=== PATIENT | female | born 1965 | race Caucasian/White ===

== ENCOUNTER → 2020-07-11 12:40 | Outpatient (REF) | payer MEDICAID, SELFPAY ==
--- NOTE | 2020-07-11 12:47 | CA_ITS ---
Transthoracic Echocardiogram Patient (Last, First, Middle): Adelaida Recinos, Gender: Female Date of : 1965 Age: 54 Procedure Date: 07/11/2020 Procedure Type: Transthoracic Echocardiogram Location: OP Height: 152.4 cm Weight: 80.74 kg BSA: 1.78 m2 Heart Rate: bpm BP: 126 / 64 mmHg Certified Diabetes Educator: Referring MD: Jurgen Kerr MD Symptoms: asd repair 2001 Study Quality: Good ECG Rhythm: Sinus Conclusions: - The left ventricular systolic function is normal. The visually estimated ejection fraction is between 60-65%. - There is low normal right ventricular systolic function. Top normal right ventricular size. - There is mild mitral valve regurgitation. - There is mild tricuspid valve regurgitation. - Stated history of ASD repair. No residual defect noted. Findings Procedure Information Contrast agent, definity, is being given per protocol without apparent complications. Left Ventricle Normal left ventricular cavity size. There is normal left ventricular wall thickness. The left ventricular systolic function is normal. The visually estimated ejection fraction is between 60-65%. There is no evidence of regional wall motion abnormalities. Diastolic function is normal for age. E/E prime ratio is <8, consistent with normal filling pressures. Right Ventricle There is low normal right ventricular systolic function. Top normal right ventricular size. Atria The left atrium is normal in size. The right atrium is normal in size. Aortic Valve There is a normal trileaflet aortic valve. There is no aortic valve stenosis. There is no aortic valve regurgitation. Mitral Valve The mitral valve appears normal. There is mild mitral valve regurgitation. There is no mitral valve stenosis. Pulmonic Valve The pulmonic valve was not well visualized. Tricuspid Valve Normal tricuspid valve structure. There is mild tricuspid valve regurgitation. The pulmonary artery systolic pressure is normal. Great Vessels The aortic annulus, sinuses of valsalva, and asc aorta are normal in size. Venous The inferior vena cava is normal in size and collapses greater than 50% with inspiration. Pericardium/Pleural There is no evidence of pericardial effusion. Prior Study Comparison No significant change compared to prior study dated: 04/06/2019. Measurements 2D Linear Measurements RVADd: 0.47 RVIDd: 3.10 IVSd: 0.88 0.6-0.9/0.6-1.0 cm LVIDd: 5.06 3.9-5.3/4.2-5.9 cm LVIDs: 3.70 2.0-3.6 cm LVPWd: 0.95 0.7-1.1 cm Ao Root: 2.95 2.1-3.5 cm LA Diam: 3.70 2.7-3.8/3.0-4.0 cm LV Mass: 205.82 67-162/88-224 g LVOT Diam: 2.27 3.0+(-)1.3 cm Mitral Valve MV Pk E: 0.67 MV PK A: 0.69 MV Decel Time: 339.62 E/A: 0.98 E'Lateral: 0.13 E'Medial: 0.07 Decel Madison: 1.98 Aortic Valve AoV Pk Chito: 1.41 AoV Mn Chito: 0.98 AoV VTI: 0.29 AoV Pk Grad: 7.92 Aov Mn Grad: 4.43 LVOT LVOT Pk Chito: 0.87 LVOT Mn Chito: 0.65 LVOT VTI: 0.19 LVOT Pk Grad: 3.05 LVOT Mn Grad: 1.84 LVOT Diam: 2.27 LVOT Area: 4.03 Diastolic Function MV Pk E: 0.67 MV Pk A: 0.69 E/A: 0.98 E'Medial: 0.07 E' Laterial: 0.13 Tricuspid Valve TR Pk Chito: 2.41 TR Pk Grad: 23.21 RA Press: 3.00 Great Vessels Aorta Ao Root-2D: 2.95 2.0-3.7 cm Ao Asc: 3.16 2.1-3.4 cm Ao Arch: 2.86 Updated in Other Vendor System with Status of Final Jeff Hernandez MD electronically signed on 07/13/2020 4:54:26 PM with status of Final
== END ==
LOC: HO.CARD 12:40
PROVIDERS: PCP Internal Medicine; Visit Provider Internal Medicine
DX: R07.9 Chest pain, unspecified (principal); Q21.1 Atrial septal defect
CPT/HCPCS: 93306; Q9957

== ENCOUNTER 2020-09-12 08:44 | Outpatient (REF) | payer MEDICAID, SELFPAY ==
--- NOTE | 2020-09-12 08:47 | MM_ITS ---
EXAMINATION: MM SCREENING DIGITAL BREAST TOMOSYNTHESIS, BILATERAL CLINICAL INFORMATION: Screening. Asymptomatic. The lifetime risk of breast cancer based on the Tyrer-Cuzick Model is 6.6%. COMPARISON: Mammography: July 25, 2019 and studies dating back to December 19, 2013 TECHNIQUE: Digital breast tomosynthesis is performed in both the craniocaudal and mediolateral oblique views along with computer-aided detection (CAD). Synthesized 2D images are generated from the tomosynthesis. FINDINGS: The breasts are heterogeneously dense, which may obscure small masses (ACR BI-RADS breast composition Category c). There are no significant masses, abnormal calcifications, or other abnormalities. MM/MM tomosynthesis screening BI IMPRESSION: There are no significant changes from prior study. ASSESSMENT: BI-RADS 1: Negative RECOMMENDATION: Routine annual mammography screening. This patient's information was entered into a reminder system with a target due date for their next mammogram.
== END 2020-09-12 08:45 | disposition home or self-care (01) ==
LOC: HO.MAMMO 08:44
PROVIDERS: Visit Provider Internal Medicine
DX: Z12.31 Encounter for screening mammogram for malignant neoplasm of breast (principal)
CPT/HCPCS: 77063; 77067

== ENCOUNTER 2020-10-12 09:11 | Outpatient (REF) | payer MEDICAID, SELFPAY | END 2020-10-12 09:12 | disposition home or self-care (01) | LOC: HO.LAB 09:11 | PROVIDERS: Visit Provider Internal Medicine | DX: Z20.822 Contact with and (suspected) exposure to COVID-19 (principal) | CPT/HCPCS: 36415; C9803; U0003 ==

== ENCOUNTER 2020-11-19 12:38 | Emergency (ER) | payer MEDICAID, SELFPAY ==
[2020-11-19 12:57] VITALS: BP 137/85; PULSE 91; RESP 16; TEMP 36.6; O2SAT 96; BMI 35.2
--- NOTE | 2020-11-19 14:34 | ED_ITS ---
HPI - Skin/Abscess/Foreign Bdy General Chief complaint: Skin/Abscess/Foreign Body Stated complaint: SWELLING UNDER L ARM Time Seen by Provider: 11/19/20 14:15 Source: patient Mode of arrival: ambulatory Limitations: no limitations History of Present Illness HPI narrative: 54-year-old female presenting to the ED with complaints of some type of insect bite to her left axillary yesterday although she woke up with wor sening redness going down the arm. Denies any other symptoms complaints or concerns at this time. complaint: insect bite/sting and other (Redness) Onset (ago): day(s) (Since last night) Location: RUE Severity: moderate Quality: burning and aching Pain Consistency: constant Relieving factors: none Exacerbating factors: none Context: none Associated symptoms: denies other symptoms Treatments prior to arrival: none Related Data Previous Rx's Medication Instructions Recorded cephalexin 500 mg PO BID 10 Days #20 cap 11/19/20 doxycycline monohydrate 100 mg PO BID 10 Days #20 cap 11/19/20 naproxen 500 mg PO BID PRN #10 tab 11/19/20 oxycodone-acetaminophen [Percocet] 1 tab PO Q6H PRN #10 tab 11/19/20 Allergies Allergy/AdvReac Type Severity Reaction Status Date / Time No Known Allergies Allergy Verified 11/19/20 14:41 Review of Systems Review of Systems: Constitutional : No Fever, No Chills , no body aches, no recent illness Head/Face: No facial swelling, No facial redness ENT/Mouth : No oral/throat swelling, No Hoarseness, No Swallowing Difficulty Eyes: No Eye Pain, No Swelling, No Redness Cardiovascular : No Chest Pain, No SOB, No palpitations Respiratory : No Cough, No Sputum, No Wheezing, No Smoke Exposure, No Dyspnea Gastrointestinal : No Nausea, No Vomiting, No Diarrhea, No abdominal Pain Genitourinary : No Dysuria, No Urinary Frequency, No Hematuria Musculoskeletal : No joint pain, No Myalgias, No Joint Swelling Skin : No Skin Lesions, positive rash Neuro : No Weakness, No Numbness, No Headache, No dizziness, No tingling Psych : No Anxiety/Panic, No Depression Heme/Lymph: No Bruising, No Lymphadenopathy Endocrine : No Polyuria, No Polydipsia Denies changes in lotions or detergents. Denies new medications or any changes in medications. Denies drainage from rash. Denies any recent sick contacts or recent travel. Yes all other systems are reviewed and are negative [facility] Past Medical History Attestation statement: The following information was validated with the patient. Medical History delivery delivered HTN (hypertension) Physical Exam Vital Signs: Vital Signs: Last Vital Signs Temp 98 F 11/19/20 12:57 Pulse 91 11/19/20 12:57 Resp 16 11/19/20 12:57 BP 137/85 11/19/20 12:57 Pulse Ox 96 11/19/20 12:57 Body Mass Index 35.2 vital signs have been reviewed as normal and appeared to be correct. Blood pressure normal. Heart rate normal. Respiration rate normal. Temperature normal. Oxygen saturation normal. Appearance: Alert. Oriented X3. No acute distress. Head: Normal external exam. Normocephalic. Atraumatic. Eyes: PERRLA. EOMI. Conjunctiva and sclera normal. Eyelids normal. ENT: EAC normal. TM's Normal. Pharynx normal. Uvula midline. Moist mucous membranes. Neck: Normal inspection. Neck supple. FROM. No adenopathy. Thyroid Normal. No meningeal signs. No neck mass noted. CVS: Normal heart rate and rhythm. Heart sound normal. No murmurs noted. Pulses normal throughout. Respiratory: No respiratory distress. Painless inspiration. Breath sounds normal. No wheezes/rales/rhonchi noted. Chest nontender. No accessory muscle usage noted or decreased air movement noted. Back: Full range of motion noted. Skin: To left axillary there is noted to be 2 possible insect bites with moderate surrounding erythema spreading distally down the arm. I traced it. Otherwise no streaking/induration/fluctuance or foreign bodies noted. The rest of the Skin is warm and dry. Normal skin color. Normal skin turgor. No additional rashes/lesions/lacerations noted. Extremities: Extremities exhibit normal range of motion. Extremities nontender. Neuro: Oriented X 3. No motor deficit. No sensory deficit. Reflexes normal. Course Course Course Narrative: 54-year-old female with insect bite to left axillary with surrounding cellulitis. No streaking/induration/fluctuance. Will DC home with antibiotics and symptomatic treatment only instructions return if any new or worsening symptoms to follow up with primary care provider. Patient understands agrees the plan. MDM - Skin/Abscess/Foreign Bdy Medical Records Attestation: I reviewed the patient's medical records. Discharge Plan Discharge Clinical Impression: Cellulitis, Insect bites Patient Disposition: Home, Self-Care Instructions: Cellulitis (ED), Insect Bite or Sting (ED) Prescriptions: New doxycycline monohydrate 100 mg capsule 100 mg PO BID 10 Days Qty: 20 RF: 0 cephalexin 500 mg capsule 500 mg PO BID 10 Days Qty: 20 RF: 0 naproxen 500 mg tablet 500 mg PO BID PRN (Reason: pain) Qty: 10 RF: 0 oxycodone-acetaminophen [Percocet] 5-325 mg tablet 1 tab PO Q6H PRN (Reason: pain) Qty: 10 RF: 0 Referrals: Juregn Kerr MD [Primary Care Provider] - 2 days Stand Alone Forms: Work/School Release Print Language: Australian
== END 2020-11-19 14:56 | disposition home or self-care (01) ==
LOC: HO.ED 14:46
PROVIDERS: Emergency Provider Emergency Medicine; PCP Internal Medicine
DX: L03.114 Cellulitis of left upper limb (principal); S40.862A Insect bite (nonvenomous) of left upper arm, initial encounter; W57.XXXA Bitten or stung by nonvenomous insect and other nonvenomous arthropods, initial encounter; I10 Essential (primary) hypertension; Y93.84 Activity, sleeping; Y92.003 Bedroom of unspecified non-institutional (private) residence as the place of occurrence of the external cause; Y99.9 Unspecified external cause status
CPT/HCPCS: 99283

== ENCOUNTER 2020-12-11 11:07 | Outpatient (REF) | payer MEDICAID, SELFPAY ==
[2020-12-11 12:52] LABS: MANUAL DIFF FLAG NO
[2020-12-11 13:13] LABS: Basophils Percent Auto 0.4 % (0-2); Eosinophils Absolute Auto 0.1 X10*3/uL (0.0-0.4); Eosinophils Percent Auto 1.1 % (0-4); Hematocrit 39.2 % (37-47); Hemoglobin 12.6 g/dl (12.0-16.0); Imm Gran Abs Auto 0.01 X10*3/uL (0.00-0.03); Imm Gran Pct Auto 0.2 % (0.0-0.4); Lymphocytes Absolute Auto 2.1 X10*3/uL (1.2-4.9); Lymphocytes Percent Auto 37.9 % (20-40); Mean Corpuscular HGB Conc 32.1 g/dl (31.0-35.0); Mean Corpuscular Hemoglobin 26.4 pg (27.0-33.0); Mean Corpuscular Volume 82.2 fL (80-98); Mean Platelet Volume 12.2 fL (9.4-12.3); Monocytes Absolute Auto 0.5 X10*3/uL (0.1-1.2); Monocytes Percent Auto 8.3 % (2-11); Neutrophils Absolute Auto 2.9 X10*3/uL (2.0-8.3); Neutrophils Percent Auto 52.1 % (45-73); Platelet Count 291 X10*3/uL (160-400); Red Blood Count 4.77 X10*6/uL (4.20-5.50); Red Cell Distribution Width 13.3 % (11.0-16.0); White Blood Count 5.5 X10*3/uL (4.8-10.8)
[2020-12-11 14:33] LABS: Alanine Aminotransferase 17 U/L (0-31); Albumin Level 4.2 g/dL (3.5-5.0); Alkaline Phosphatase 78 U/L (39-117); Anion Gap 11 (12-20); Aspartate Amino Transferase 14 U/L (5-31); Bilirubin Total 0.4 mg/dL (0.0-1.0); Blood Urea Nitrogen 17 mg/dL (9-16); Calcium 9.1 mg/dL (8.4-10.2); Carbon Dioxide 31 mmol/L (22-29); Chloride 105 mmol/L (96-108); Estimated Glomerular Filt Rate > 60; Glucose Random 99 mg/dL (60-115); Potassium 3.8 mmol/L (3.3-5.1); Sodium 143 mmol/L (135-145)
== END 2020-12-11 11:08 | disposition home or self-care (01) ==
LOC: HO.MANLDS 11:07
PROVIDERS: PCP Internal Medicine; Visit Provider Internal Medicine
DX: R42 Dizziness and giddiness (principal)
CPT/HCPCS: 36415; 80053; 85025

== ENCOUNTER 2020-12-26 11:24 | Outpatient (REF) | payer MEDICAID, SELFPAY ==
--- NOTE | ~2020-12-26 | CT_ITS ---
EXAMINATION: CT HEAD WITHOUT CONTRAST CLINICAL INFORMATION: Ataxic gait COMPARISON: None TECHNIQUE: Contiguous axial imaging was performed from the skull base to vertex without intravenous administration of contrast. This CT examination was performed using dose optimization techniques as appropriate, variously including the following: *Automated exposure control *Adjustment of mA and/or kV according to patient size (this includes techniques or standardized protocols for targeted exams where dose is matched to indication/reason for exam; i.e. extremities or head) *Use of iterative reconstruction technique DLP: 710 mGy-cm FINDINGS: There is no evidence of acute intracranial hemorrhage or territorial infarction. No abnormal mass effect or midline shift is seen. Morales to white matter differentiation is well preserved. No extra-axial fluid collections are identified. The ventricles are normal in size. There is no abnormal attenuation within the brain parenchyma. The osseous structures and soft tissues are normal. The mastoid air cells and visualized portions of the paranasal sinuses are well aerated. CT/CT head/brain wo con IMPRESSION: No acute intracranial process seen.
== END 2020-12-26 11:25 | disposition home or self-care (01) ==
LOC: HO.CT 11:24
PROVIDERS: PCP Internal Medicine; Visit Provider Internal Medicine
DX: R26.0 Ataxic gait (principal)
CPT/HCPCS: 70450

== ENCOUNTER 2021-03-13 12:49 | Outpatient (REF) | payer MEDICAID, SELFPAY ==
--- NOTE | ~2021-03-13 | US_ITS ---
EXAMINATION: US SOFT TISSUE OF THE NECK CLINICAL INFORMATION: Submandibular swelling/salivary gland swelling right. COMPARISON: None TECHNIQUE: Linear transducer hart-scale and color Doppler examination of the right submandibular area at area of patient discomfort and left submandibular area for comparison purposes. FINDINGS: Imaging through the right submandibular space reveals multiple lymph nodes with the largest lymph node measuring 0.8 x 0.5 x 0.6 cm. It has central echogenic medulla and a normal cortex. Lymph nodes also visualized in the left submandibular space when obtained for comparison. All of these lymph nodes have normal lymph node architecture. US/US soft tiss head and/or neck IMPRESSION: Benign-appearing bilateral submandibular space lymph nodes by ultrasound.
== END 2021-03-13 12:50 | disposition home or self-care (01) ==
LOC: HO.US 12:49
PROVIDERS: PCP Internal Medicine; Visit Provider Internal Medicine
DX: K11.9 Disease of salivary gland, unspecified (principal)
CPT/HCPCS: 76536

== ENCOUNTER 2021-04-24 09:13 | Outpatient (REF) | payer MEDICAID, SELFPAY ==
--- NOTE | ~2021-04-24 | XR_ITS ---
EXAMINATION: XR KNEE, LEFT CLINICAL INFORMATION: Derangement lateral meniscus COMPARISON: None TECHNIQUE: 3 views of the left knee are obtained which include upright AP view with weightbearing. FINDINGS: There is no fracture, dislocation, destructive process. There is mild narrowing patellofemoral joint without lateralization. Small lateral patellar spur and posterior patellar spurs. No definite effusion. Hoffa's fat pad appears normal. There is spurring from the femoral condyles and lateral tibial plateau. No definite knee joint compartment narrowing and no erosive change. There is some faint chondrocalcinosis menisci. XR/XR knee LT 3V IMPRESSION: 1. Mild narrowing patellofemoral joint with patellar spurring. 2. Osteophytes femoral condyles and tibial plateau. Meniscal chondrocalcinosis. No erosive change.
== END 2021-04-24 09:14 | disposition home or self-care (01) ==
LOC: HO.XRAY 09:13
PROVIDERS: PCP Internal Medicine; Visit Provider Internal Medicine
DX: M23.302 Other meniscus derangements, unspecified lateral meniscus, unspecified knee (principal)
CPT/HCPCS: 73562

== ENCOUNTER 2021-09-05 09:13 | Outpatient (REF) | payer MEDICAID, SELFPAY ==
[2021-09-12 04:52] LABS: HPV mRNA E6/E7 rflx Not Detected (Not Detected)
== END 2021-09-05 09:14 | disposition home or self-care (01) ==
LOC: HO.LAB 09:13
PROVIDERS: PCP Internal Medicine; Visit Provider Obstetrics & Gynecology
DX: Z01.411 Encounter for gynecological examination (general) (routine) with abnormal findings (principal); Z11.51 Encounter for screening for human papillomavirus (HPV); R32 Unspecified urinary incontinence
CPT/HCPCS: 87624; 88142

== ENCOUNTER 2021-10-10 13:59 | Outpatient (REF) | payer MEDICAID, SELFPAY ==
--- NOTE | ~2021-10-10 | MM_ITS ---
EXAMINATION: MM SCREENING DIGITAL BREAST TOMOSYNTHESIS, BILATERAL CLINICAL INFORMATION: Screening. Asymptomatic. Previous benign right breast biopsy. The lifetime risk of breast cancer based on the Tyrer-Cuzick Model is 6.4%. COMPARISON: Mammography: September 12, 2020 and studies dating back to September 04, 2011 TECHNIQUE: Digital breast tomosynthesis is performed in both the craniocaudal and mediolateral oblique views along with computer-aided detection (CAD). Synthesized 2D images are generated from the tomosynthesis. FINDINGS: The breasts are extremely dense, which lowers the sensitivity of mammography (ACR BI-RADS breast composition Category d). There is stable parenchymal pattern. There are some stable regions of architectural distortion bilaterally. No new suspicious grouping of microcalcifications identified. MM/MM tomosynthesis screening BI IMPRESSION: There are no significant changes from prior study. ASSESSMENT: BI-RADS 2: Benign RECOMMENDATION: Routine annual mammography screening. This patient's information was entered into a reminder system with a target due date for their next mammogram.
== END 2021-10-10 14:00 | disposition home or self-care (01) ==
LOC: HO.MAMMO 13:59
PROVIDERS: PCP Internal Medicine; Visit Provider Obstetrics & Gynecology
DX: Z12.31 Encounter for screening mammogram for malignant neoplasm of breast (principal)
CPT/HCPCS: 77063; 77067

== ENCOUNTER → 2021-10-28 14:47 | Outpatient (BNVA) | payer MEDICAID, SELFPAY | PROVIDERS: PCP Internal Medicine | DX: N39.3 Stress incontinence (female) (male) (principal) | CPT/HCPCS: 51798; 99202 ==

== ENCOUNTER → 2021-11-07 07:44 | Outpatient (REF) | payer MEDICAID, SELFPAY ==
--- NOTE | 2021-11-07 07:47 | CA_ITS ---
Transthoracic Echocardiogram Patient (Last, First, Middle): Adelaida Lehman, Gender: Female Date of : 1965 Age: 55 Procedure Date: 11/07/2021 Procedure Type: Transthoracic Echocardiogram Location: OP Height: 152.4 cm Weight: 80.29 kg BSA: 1.77 m2 Heart Rate: bpm BP: 122 / 88 mmHg Db2 Systems Programmer: LEANDER Referring MD: Jurgen Kerr MD Symptoms: ASD Q21.1 Study Quality: Fair ECG Rhythm: Sinus Conclusions: - The left ventricular systolic function is low normal. The visually estimated ejection fraction is between 50-55%. - No obvious valvular pathology seen on this study. - Status post ASD repair. No clear residual defect. Findings Left Ventricle Normal left ventricular cavity size. There is normal left ventricular wall thickness. The left ventricular systolic function is low normal. The visually estimated ejection fraction is between 50-55%. No overt wall motion abnormality, but endocardial definition is suboptimal. Right Ventricle Mildly increased right ventricular cavity size. There is low normal right ventricular systolic function. Atria The left atrium is mildly dilated. The right atrium is moderately dilated. Aortic Valve There is a normal trileaflet aortic valve. There is no aortic valve stenosis. There is no aortic valve regurgitation. Mitral Valve The mitral valve appears normal. There is trace mitral valve regurgitation. There is no mitral valve stenosis. Pulmonic Valve The pulmonic valve was not well visualized. Tricuspid Valve Normal tricuspid valve structure. There is mild tricuspid valve regurgitation. The pulmonary artery systolic pressure is normal. Great Vessels The aortic annulus, sinuses of valsalva, and asc aorta are normal in size. Venous The inferior vena cava is normal in size and collapses greater than 50% with inspiration. Prior Study Comparison Changes noted compared to prior study dated: 07/11/2020. LVEF appears slightly lower than before. However, prior study was with contrast with improved endocardial definition. Recommendations, Care & Conclusions No obvious valvular pathology seen on this study. Measurements 2D Linear Measurements IVSd: 1.00 0.6-0.9/0.6-1.0 cm LVIDd: 4.09 3.9-5.3/4.2-5.9 cm LVIDd Index: 2.31 2.4-3.2/2.2-3.1 cm/m2 LVIDs: 2.98 2.0-3.6 cm LVPWd: 1.05 0.7-1.1 cm Ao Root: 3.10 2.1-3.5 cm LA Diam: 3.60 2.7-3.8/3.0-4.0 cm LAIDs Index: 2.03 1.5-2.3 cm/m2 LV Mass: 169.23 67-162/88-224 g LV Mass Index: 95.61 43-95/49-115 g/m2 LVOT Diam: 2.00 3.0+(-)1.3 cm 2D Systolic Function EF 4C: 52.60 >55% EF 2C: 59.50 >55% EF BiP: 55.60 >55% Mitral Valve MV Pk E: 0.51 MV PK A: 0.78 MV Decel Time: 303.00 E/A: 0.70 E'Lateral: 12.60 E'Medial: 6.31 E/E' Med: 8.10 E/E' Lat: 4.10 PHT: 89.00 MVA PHT: 2.47 Decel Carroll: 1.70 Aortic Valve AoV Pk Chito: 1.41 AoV Mn Chito: 1.06 AoV VTI: 0.29 AoV Pk Grad: 8.00 Aov Mn Grad: 5.00 DUGLAS Cont.VTI: 1.99 LVOT LVOT Pk Chito: 0.95 LVOT Mn Chito: 0.68 LVOT VTI: 0.19 LVOT Pk Grad: 4.00 LVOT Mn Grad: 2.00 LVOT Diam: 2.00 LVOT Area: 3.14 Diastolic Function MV Pk E: 0.51 MV Pk A: 0.78 E/A: 0.70 E'Medial: 6.31 E/E' Med: 8.10 E' Laterial: 12.60 E/E' Lat: 4.10 Right Ventricle TAPSE (mm): 17.10 TVS' Chito: 9.57 Tricuspid Valve TR Pk Chito: 2.42 TR Pk Grad: 23.00 RA Press: 3.00 RVSP: 26.00 Great Vessels Aorta Ao Root-2D: 3.10 2.0-3.7 cm Ao Asc: 3.30 2.1-3.4 cm Ao Arch: 3.00 Updated in Other Vendor System with Status of Final Jeff Hernandez MD electronically signed on 11/09/2021 12:12:05 PM with status of Final
== END ==
LOC: HO.CARD 07:44
PROVIDERS: Visit Provider Internal Medicine
DX: Q21.1 Atrial septal defect (principal)
CPT/HCPCS: 93306

== ENCOUNTER 2021-12-18 09:00 | Outpatient (RCR) | payer MEDICAID, SELFPAY ==
--- NOTE | 2021-11-19 11:19 | MHC.PT.EP ---
[facility] [place] Office [place] Office [place] Office [address] Lita Deshpande [address] [phone] F: [phone] F: [phone] F: [phone] F: [phone] Physical Therapy Plan of Care Date of Evaluation: 11/19/21 Date of Surgery: Diagnosis: Assessment: The pt arrived reporting stress urinary incontinence. She gave written and verbal consent to an examination of her pelvic floor muscles. I found weakness, poor coordination, poor muscular endurance, poor motor recruitment of her pelvic floor. She had a grade 1 urethrocele, and grade 1 rectocele. She also reports increased urgency which she feels is her medication. She reports straining with bowel movements. I educated her about improvement in bowel health. I advised her to increase water intake. She also demonstrated poor breathing mechanics which could affect her pelvic floor. I began demonstration and practice of diaphragmatic breathing. Frequency and Duration: The patient will be seen 1x/week x 6 weeks. Short Term Goals: 1. Pt to be able to correctly activate her PFM to allow improved support to bowel and bladder. 2. Pt to be able to demonstrate a pre contraction before a cough 3. pt to be able to log roll correctly to reduce pressure on the pelvic floor. Half-Way Goals: 1. Pt to be able to show improved PFM contraction during functional movements such as a bridge or squat to help prevent or limit POP. 2. Pt to reduce # of episodes of DANNY during the day by 50% to help improve quality of life and reduce pad usage. 3. Pt to be independent with her final HEP for PFM in order to help maintain gains made in therapy. 4. Independent with PF contraction and concentric/eccentric control in all postures in 12 weeks Treatment Plan: Modalities to reduce pain, spasms and effusion. Manual therapy to restore motion and function. Therapeutic exercise to improve strength and flexibility. Neuromuscular re-education for posture and balance. Therapeutic activities to return to functional activities of daily living. Electronically signed by: Sofia Black PT DPT Please sign and return to therapist. Thank you for your referral.
== END 2022-01-14 14:07 | disposition home or self-care (01) ==
LOC: HO.PT 09:00
PROVIDERS: PCP Internal Medicine
DX: N39.3 Stress incontinence (female) (male) (principal)
CPT/HCPCS: 97110; 97112; 97162; 97530

== ENCOUNTER 2022-01-16 08:32 | Outpatient (REF) | payer MEDICAID, SELFPAY ==
--- NOTE | ~2022-01-16 | XR_ITS ---
EXAMINATION: XR THORACOLUMBAR SPINE CLINICAL INFORMATION: Pain thoracic spine COMPARISON: None TECHNIQUE: Thoracic spine is imaged in 3 views. FINDINGS: There is normal thoracic segmentation with 12 rib-bearing thoracic vertebrae of normal height and normal thoracic kyphosis. There is no visible vertebral compression or fracture, destructive process, or paraspinal soft tissue swelling. No spondylolisthesis. Mild anterior vertebral spurring is present mid thoracic region. There are degenerative disc changes cervical spine at C5-C6 with disc narrowing and endplate sclerosis and vertebral spurring. There is been prior median sternotomy. XR/XR thoracic spine 2V IMPRESSION: 1. No thoracic vertebral compression, spondylolisthesis, or destructive process. 2. Degenerative disc changes C5-C6.
[2022-01-16 09:03] LABS: MANUAL DIFF FLAG NO
[2022-01-16 09:22] LABS: Basophils Percent Auto 0.4 % (0-2); Eosinophils Absolute Auto 0.1 X10*3/uL (0.0-0.4); Eosinophils Percent Auto 0.9 % (0-4); Hematocrit 44.2 % (37.0-47.0); Hemoglobin 13.8 g/dl (12.0-16.0); Imm Gran Abs Auto 0.01 X10*3/uL (0.00-0.03); Imm Gran Pct Auto 0.1 % (0.0-0.4); Lymphocytes Absolute Auto 2.4 X10*3/uL (1.2-4.9); Lymphocytes Percent Auto 35.4 % (20-40); Mean Corpuscular HGB Conc 31.2 g/dl (31.0-35.0); Mean Corpuscular Hemoglobin 25.7 pg (27.0-33.0); Mean Corpuscular Volume 82.5 fL (80.0-98.0); Mean Platelet Volume 10.8 fL (9.4-12.3); Monocytes Absolute Auto 0.5 X10*3/uL (0.1-1.2); Neutrophils Absolute Auto 3.8 x10*3/uL (2.0-8.3); Neutrophils Percent Auto 56.2 % (45-73); Platelet Count 318 X10*3/uL (160-400); Red Blood Count 5.36 X10*6/uL (4.20-5.50); Red Cell Distribution Width 13.7 % (11.0-16.0); White Blood Count 6.7 X10*3/uL (4.8-10.8)
[2022-01-16 09:52] LABS: Alanine Aminotransferase 22 U/L (0-31); Albumin Level 4.3 g/dL (3.5-5.0); Alkaline Phosphatase 80 U/L (39-117); Anion Gap 11 (12-20); Aspartate Amino Transferase 16 U/L (5-31); Bilirubin Total 0.9 mg/dL (0.0-1.0); Blood Urea Nitrogen 17 mg/dL (9-16); Carbon Dioxide 30 mmol/L (22-29); Chloride 106 mmol/L (96-108); Cholesterol 226 mg/dL; Estimated Glomerular Filt Rate > 60; Glucose Random 106 mg/dL (60-115); HDL Cholesterol 43 mg/dL; LDL Cholesterol Calculated 156 mg/dl; Potassium 4.5 mmol/L (3.3-5.1); Sodium 142 mmol/L (135-145); Total Protein 7.5 g/dL (6.5-8.0); Triglycerides 138 mg/dL
[2022-01-16 10:22] LABS: Folate 19.3 ng/mL (> or = 4.0); Vitamin B12 430 pg/mL (200-900)
== END 2022-01-16 08:33 | disposition home or self-care (01) ==
LOC: HO.LAB 08:32
PROVIDERS: PCP Internal Medicine; Visit Provider Physician Assistant
DX: Z00.00 Encounter for general adult medical examination without abnormal findings (principal)
CPT/HCPCS: 36415; 72070; 80053; 80061; 82607; 82746; 85025

== ENCOUNTER → 2022-01-27 13:50 | Outpatient (BNVA) | payer MEDICAID, SELFPAY | PROVIDERS: PCP Internal Medicine | DX: Z13.89 Encounter for screening for other disorder (principal) ==

== ENCOUNTER 2022-02-25 10:35 | Emergency (ER) | payer MEDICAID, SELFPAY ==
--- NOTE | 2022-02-25 10:38 | ECG_ITS ---
Test Reason : CHEST PAIN Blood Pressure : / mmHG Vent. Rate : 067 BPM Atrial Rate : 067 BPM P-R Int : 166 ms QRS Dur : 090 ms QT Int : 396 ms P-R-T Axes : 023 031 -09 degrees QTc Int : 418 ms Normal sinus rhythm Septal infarct , age undetermined Abnormal ECG Referred By: Generic ED Physician Electronically Signed By:Schuyler Mixon
[2022-02-25 11:44] VITALS: BP 130/88; PULSE 95; RESP 18; TEMP 36.5; O2SAT 95; BMI 35.2
[2022-02-25 11:57] LABS: MANUAL DIFF FLAG NO
[2022-02-25 11:58] LABS: Basophils Percent Auto 0.1 % (0-2); Eosinophils Absolute Auto 0.1 X10*3/uL (0.0-0.4); Eosinophils Percent Auto 1.1 % (0-4); Hematocrit 40.1 % (37.0-47.0); Hemoglobin 12.6 g/dl (12.0-16.0); Imm Gran Abs Auto 0.01 X10*3/uL (0.00-0.03); Imm Gran Pct Auto 0.1 % (0.0-0.4); Lymphocytes Absolute Auto 2.3 X10*3/uL (1.2-4.9); Lymphocytes Percent Auto 31.8 % (20-40); Mean Corpuscular HGB Conc 31.4 g/dl (31.0-35.0); Mean Corpuscular Volume 82.9 fL (80.0-98.0); Mean Platelet Volume 10.6 fL (9.4-12.3); Monocytes Absolute Auto 0.5 X10*3/uL (0.1-1.2); Monocytes Percent Auto 6.7 % (2-11); Neutrophils Absolute Auto 4.4 x10*3/uL (2.0-8.3); Neutrophils Percent Auto 60.2 % (45-73); Platelet Count 287 X10*3/uL (160-400); Red Blood Count 4.84 X10*6/uL (4.20-5.50); White Blood Count 7.3 X10*3/uL (4.8-10.8)
[2022-02-25 11:59] VITALS: BP 146/79; PULSE 60; RESP 18; TEMP 37; O2SAT 96
[2022-02-25 12:16] LABS: Alanine Aminotransferase 16 U/L (0-31); Albumin Level 3.9 g/dL (3.5-5.0); Alkaline Phosphatase 84 U/L (39-117); Anion Gap 11 (12-20); Aspartate Amino Transferase 16 U/L (5-31); Bilirubin Total 0.4 mg/dL (0.0-1.0); Blood Urea Nitrogen 16 mg/dL (9-16); Calcium 9.8 mg/dL (8.4-10.2); Carbon Dioxide 29 mmol/L (22-29); Chloride 104 mmol/L (96-108); Creatinine Clr Calc Pharmacy 74.4; Estimated Glomerular Filt Rate > 60; Glucose Random 99 mg/dL (60-115); Potassium 3.5 mmol/L (3.3-5.1); Sodium 140 mmol/L (135-145)
[2022-02-25 12:20] LABS: Troponin-I High Sensitivity < 3.5 ng/L (<3.5-17.0)
--- NOTE | 2022-02-25 12:27 | ED_ITS ---
HPI - Chest Pain General Chief Complaint: Chest Pain Stated Complaint: Chest pain Time Seen by Provider: 02/25/22 12:07 Source: patient Mode of arrival: ambulatory Limitations: no limitations History of Present Illness HPI narrative: 56-year-old female who presents emergency department for evaluation of chest pain. The patient states that on Thursday (4 days prior to evaluation) she was doing yard work in the more and had no difficulty. She states that later that evening at around 18:00 hours while she was sitting she developed pain in the left side of her chest. She points to 1 point on her left anterior chest when asked to localize pain. She states that the pain was a pressure-like pain that lasted approximately 1-2 minutes. She states that about 1 hour later the pain returned and again lasted approximately 1-2 minutes. She states the pain was moderate in intensity. She had no associated diaphoresis, lightheadedness or dizziness, nausea, vomiting, radiation of the pain to her arms, neck or jaw. She states that she has had 1 or 2 similar episodes of chest pain per day since onset. She states this morning she again had the left-sided chest pressure, this concerned her so she came to the emergency department to be seen. Patient states that in 2000 she had an atrial septal defect which was repaired. She denied fever, chills, rhinorrhea, sore throat, cough, shortness of breath, dyspnea on exertion, nausea, vomiting, diarrhea, abdominal pain, dysuria, change in bowel movements. Related Data Home Medications Medication Instructions Recorded Confirmed citalopram 20 mg tablet 20 mg PO DAILY 09/05/21 losartan 100 1 tab PO DAILY 09/05/21 mg-hydrochlorothiazide 25 mg tablet betamethasone dipropionate 0.05 % appl TOPICAL DAILY 01/27/22 topical cream diclofenac potassium 50 mg tablet 50 mg PO BID 01/27/22 Previous Rx's Medication Instructions Recorded estradiol (Estrace) See Rx Instructions .ROUTE DAILY 10/28/21 30 Days #42.5 g Allergies Allergy/AdvReac Type Severity Reaction Status Date / Time No Known Allergies Allergy Verified 02/25/22 11:44 Review of Systems Review of Systems: Yes all other systems are reviewed and are negative [facility] Past Medical History Attestation statement: The following information was validated with the patient. [facility] Narrative: Social history: Patient denies tobacco use. She occasionally drinks alcohol. She denies drug use. Medical History Atrial septal defect Atypical lobular hyperplasia of right breast delivery delivered Depression HTN (hypertension) Primary osteoarthritis of right knee Stress bladder incontinence, female Surgical History History of surgery Hx of section Tubal ligation status Social History Social History Patient Tobacco Use Status: Never used Tobacco Advance Directives: No Advance Directives Information Provided: No Physical Exam Vital Signs: Vital Signs: Last Vital Signs Temp 98.6 F 02/25/22 11:59 Pulse 60 02/25/22 11:59 Resp 18 02/25/22 11:59 BP 146/79 H 02/25/22 11:59 Pulse Ox 96 02/25/22 11:59 BMI result Body Mass Index 35.2 Const: General: cooperative and no acute distress Orientation/consciousness: oriented to person and oriented to place Limitations: no limitations HEENT: Head: Yes normal to inspection, Yes normocephalic and Yes atraumatic Ears: external ears normal General nose exam: Normal external nose present Face and sinus: Yes normal facial exam Mouth: Normal oral and palatal mucosa present Throat: Yes posterior oropharynx normal Eyes: General: appearance normal, both eyes and all related structures Pupils: Equal, round and reactive pupils present Neck: Neck: Yes normal visual inspection, Yes no lymphadenopathy, Yes trachea midline and Yes supple Chest: Chest palpation & inspection: normal inspection of the chest and tenderness (Left anterior chest wall) Resp: Effort & Inspection: normal respiratory effort and able to speak in complete sentences Auscultation: clear to auscultation bilaterally Cardio: Rate: regular rate Rhythm: regular rhythm Heart sounds: S1 normal heart sound present, S2 normal heart sound present and no murmurs GI: Inspection: Yes normal to inspection Palpation (GI): Soft to palpation, nontender and no guarding Auscultation: normal bowel sounds : General: Yes no CVA tenderness Back/Spine/Pelvis: Back: no CVA tenderness Skin: General skin exam: no rashes or lesions noted Neuro: General: oriented to person and oriented to place Cranial nerves: Yes CN's II-XII intact bilaterally and Yes Equal, round and reactive pupils present Cognition (Neuro): normal cognition Motor exam (neuro): 5/5 motor strength present throughout Extrem: General: Yes normal to inspection Psych: Appearance: grossly normal Speech and movement: Normal speech and movement present Affect: normal affect Attitude: cooperative Thought process: Normal thought process present Thought content: Normal thought content present Course Course Course Narrative: 56-year-old female who presents emergency department for evaluation of left- sided chest pain x4 days. The pain is intermittent, the pain lasts 1-2 minutes, the pain is not associated with exertion has no other associated symptoms such as arm pain, neck, jaw or back pain diaphoresis, lightheadedness, dizziness, na usea or vomiting. The patient's initial vital signs were normal. The patient's laboratory evaluation revealed a normal CBC and CMP. The patient's high sensitivity troponin I was below detectable limits. Twelve EKG did reveal Q- waves in leads V1 and V2 which are old, she had some nonspecific flattening of her T-waves in leads 3, AVF, V4 through V6. The patient's presentation is more consistent with chest wall pain. I did discuss this with her. She was advised to take Tylenol and ibuprofen for pain. She was given printed and verbal instructions and discharged home. MDM - Chest Pain Lab Data Attestation: I reviewed the patient's lab results. Result diagrams: 02/25/22 11:52 02/25/22 11:52 Labs: Lab Results 02/25/22 02/25/22 02/25/22 Range/Units 11:52 11:52 11:52 WBC 7.3 (4.8-10.8) X10*3/uL RBC 4.84 (4.20-5.50) X10*6/uL Hgb 12.6 (12.0-16.0) g/dl Hct 40.1 (37.0-47.0) % MCV 82.9 (80.0-98.0) fL MCH 26.0 L (27.0-33.0) pg MCHC 31.4 (31.0-35.0) g/dl RDW 14.0 (11.0-16.0) % Plt Count 287 (160-400) X10*3/uL MPV 10.6 (9.4-12.3) fL Immature Gran % (Auto) 0.1 (0.0-0.4) % Neut % (Auto) 60.2 (45-73) % Lymph % (Auto) 31.8 (20-40) % Jennings % (Auto) 6.7 (2-11) % Eos % (Auto) 1.1 (0-4) % Baso % (Auto) 0.1 (0-2) % Lymph # (Auto) 2.3 (1.2-4.9) X10*3/uL Jennings # (Auto) 0.5 (0.1-1.2) X10*3/uL Eos # (Auto) 0.1 (0.0-0.4) X10*3/uL Baso # (Auto) 0.0 (0.0-0.2) X10*3/uL Abs Immat Gran (auto) 0.01 (0.00-0.03) X10*3/uL Absolute Neuts (auto) 4.4 (2.0-8.3) x10*3/uL Absolute Nucleated RBC 0.000 (0.0-0.012) X10*3/uL Nucleated RBC % (auto) 0.0 (0.0-0.2) /100WBC Sodium 140 (135-145) mmol/L Potassium 3.5 D (3.3-5.1) mmol/L Chloride 104 (96-108) mmol/L Carbon Dioxide 29 (22-29) mmol/L Anion Gap 11 L (12-20) BUN 16 (9-16) mg/dL Creatinine 0.79 (0.5-1.4) mg/dL Estim Creat Clear Calc 74.4 Estimated GFR > 60 Random Glucose 99 (60-115) mg/dL Calcium 9.8 (8.4-10.2) mg/dL Total Bilirubin 0.4 (0.0-1.0) mg/dL AST 16 (5-31) U/L ALT 16 (0-31) U/L Alkaline Phosphatase 84 (39-117) U/L Troponin I High Sens < 3.5 (<3.5-17.0) ng/L Total Protein 7.0 (6.5-8.0) g/dL Albumin 3.9 (3.5-5.0) g/dL ECG Data ECG #1: Attestation: I personally reviewed and interpreted this ECG as follows: Interpretation: 1040: Normal sinus rhythm with a rate of 67, normal IA, QRS and QTC interval, no ST segment elevation, no ST segment depression, Q-waves in lead 3, V1 and V2, flattened T-waves in lead 3, AVF, V4 through V6, compared to EKG dated 05/14/2016 the Q-waves are old, the flattened T-waves in leads AVF, V4 through V6 are new. Discharge Plan Discharge Clinical Impression: Chest pain Qualifiers: Chest pain type: other chest pain Qualified Code(s): R07.89 - Other chest pain Patient Disposition: Home, Self-Care Instructions: Chest Wall Pain (ED) Additional Instructions: Your EKG did not reveal any significant changes suggest that you had a heart attack as the cause of your pain. Your blood work was normal. Your high sensitivity troponin I (marker of heart damage) was below detectable limits which is reassuring. At this time, I believe that the pain that your experiencing her chest is not related to heart but is related to the joints and muscles one-view chest. Take ibuprofen 200 mg pills, 3 pills every 6 hours as needed for pain. Take Tylenol (acetaminophen) 500 mg pills, 2 pills every 4 to 6 hours as needed for pain. Follow-up with your doctor in 2 days. Please return to the emergency department if your symptoms get worse or if you develop any symptoms that are concerning to you. Prescriptions: No Action estradiol [Estrace] 0.01 % (0.1 mg/gram) cream See Rx Instructions .Route DAILY 30 Days Qty: 42.5 0RF Rx Instructions: pea sized amount per urethra daily; citalopram 20 mg tablet 20 mg PO DAILY 0RF losartan-hydrochlorothiazide 100-25 mg tablet 1 tab PO DAILY 0RF betamethasone dipropionate 0.05 % cream topical DAILY 0RF diclofenac potassium 50 mg tablet 50 mg PO BID 0RF
== END 2022-02-25 13:03 | disposition home or self-care (01) ==
PROVIDERS: Emergency Provider Emergency Medicine Emergency Medical Services; PCP Internal Medicine
DX: R07.89 Other chest pain (principal); Z79.899 Other long term (current) drug therapy
CPT/HCPCS: 36415; 80053; 84484; 85025; 93005; 99283

== ENCOUNTER 2022-04-23 12:44 | Outpatient (REF) | payer MEDICAID, SELFPAY ==
--- NOTE | ~2022-04-23 | CT_ITS ---
EXAMINATION: CT CHEST WITHOUT CONTRAST CLINICAL INFORMATION: Chest pain. COMPARISON: None TECHNIQUE: Multidetector volumetric CT imaging of the chest was done. Axial MIP volume rendering provided. Sagittal and coronal reformatted images were obtained. This CT examination was performed using dose optimization techniques as appropriate, variously including the following: *Automated exposure control *Adjustment of mA and/or kV according to patient size (this includes techniques or standardized protocols for targeted exams where dose is matched to indication/reason for exam; i.e. extremities or head) *Use of iterative reconstruction technique DLP: 205 mGy-cm FINDINGS: [employer]: There has been a prior median sternotomy. The lungs are symmetrically well-expanded and grossly clear. LUNGS: The lungs are clear, with no evidence of inflammation or nodules. There are small foci of linear scar/subsegmental atelectasis seen within the posterior segment of the right upper lobe, the right middle lobe and the lower lobes, left greater than right. MEDIASTINUM: There is thyromegaly, right lobe greater than left. There is a small amount of residual thymus. No mediastinal mass or lymphadenopathy is seen. There is no bilateral hilar lymphadenopathy. There is no thoracic aortic aneurysm. PLEURA: There is no pleural effusion. No pleural mass or thickening. AXILLA: No lymphadenopathy. UPPER ABDOMEN: A 2 mm nonobstructing right renal calculus is seen. The adrenal glands are unremarkable. OSSEOUS STRUCTURES: There is multi-level thoracic spondylosis. There are intact median sternotomy wires. No acute or aggressive osseous abnormality is seen. CT/CT chest wo con IMPRESSION: There are bilateral foci of minor scar/subsegmental atelectasis, without underlying central obstruction. There is no mass, nodule, infiltrate or groundglass opacity. No thoracic lymphadenopathy or pleural effusion is seen. No aggressive osseous lesion is noted. Fleischner guidelines were followed.
== END 2022-04-23 12:45 | disposition home or self-care (01) ==
LOC: HO.CT 12:44
PROVIDERS: Visit Provider Internal Medicine
DX: R07.9 Chest pain, unspecified (principal)
CPT/HCPCS: 71250

== ENCOUNTER 2022-10-13 13:46 | Outpatient (REF) | payer MEDICAID, SELFPAY ==
--- NOTE | ~2022-10-13 | MM_ITS ---
EXAMINATION: MM SCREENING DIGITAL BREAST TOMOSYNTHESIS, BILATERAL CLINICAL INFORMATION: Screening. Asymptomatic. Status post right lumpectomy COMPARISON: Mammography: October 10, 2021 and studies dating back to April 09, 2016 TECHNIQUE: Digital breast tomosynthesis is performed in both the craniocaudal and mediolateral oblique views along with computer-aided detection (CAD). Synthesized 2D images are generated from the tomosynthesis. FINDINGS: The breasts are heterogeneously dense, which may obscure small masses (ACR BI-RADS breast composition Category c). There are no new significant masses, abnormal calcifications, or other abnormalities. Postsurgical change right breast again seen. MM/MM tomosynthesis screening BI IMPRESSION: No significant changes from prior exam. ASSESSMENT: BI-RADS 2: Benign RECOMMENDATION: Routine annual mammography screening. This patient's information was entered into a reminder system with a target due date for their next mammogram.
== END 2022-10-13 13:47 | disposition home or self-care (01) ==
LOC: HO.MAMMO 13:46
PROVIDERS: Visit Provider Internal Medicine
DX: Z12.31 Encounter for screening mammogram for malignant neoplasm of breast (principal)
CPT/HCPCS: 77063; 77067

== ENCOUNTER 2022-10-24 09:37 | Outpatient (REF) | payer MEDICAID, SELFPAY ==
[2022-10-24 09:48] LABS: MANUAL DIFF FLAG NO
[2022-10-24 10:17] LABS: Basophils Percent Auto 0.3 % (0-2); Eosinophils Absolute Auto 0.1 X10*3/uL (0.0-0.4); Hemoglobin 13.7 g/dl (12.0-16.0); Imm Gran Abs Auto 0.01 X10*3/uL (0.00-0.03); Imm Gran Pct Auto 0.1 % (0.0-0.4); Lymphocytes Absolute Auto 2.8 X10*3/uL (1.2-4.9); Lymphocytes Percent Auto 38.7 % (20-40); Mean Corpuscular HGB Conc 31.9 g/dl (31.0-35.0); Mean Corpuscular Hemoglobin 25.5 pg (27.0-33.0); Mean Corpuscular Volume 80.1 fL (80.0-98.0); Mean Platelet Volume 10.5 fL (9.4-12.3); Monocytes Absolute Auto 0.5 X10*3/uL (0.1-1.2); Monocytes Percent Auto 7.2 % (2-11); Neutrophils Absolute Auto 3.7 x10*3/uL (2.0-8.3); Neutrophils Percent Auto 52.7 % (45-73); Platelet Count 320 X10*3/uL (160-400); Red Blood Count 5.37 X10*6/uL (4.20-5.50); Red Cell Distribution Width 13.6 % (11.0-16.0); White Blood Count 7.1 X10*3/uL (4.8-10.8)
[2022-10-24 11:23] LABS: Alanine Aminotransferase 18 U/L (0-31); Albumin Level 4.3 g/dL (3.5-5.0); Alkaline Phosphatase 79 U/L (39-117); Anion Gap 11 (12-20); Aspartate Amino Transferase 16 U/L (5-31); Bilirubin Total 0.7 mg/dL (0.0-1.0); Blood Urea Nitrogen 17 mg/dL (9-16); Calcium 9.7 mg/dL (8.4-10.2); Carbon Dioxide 31 mmol/L (22-29); Chloride 103 mmol/L (96-108); Estimated Glomerular Filt Rate > 60; Glucose Random 103 mg/dL (60-115); Potassium 3.7 mmol/L (3.3-5.1); Sodium 141 mmol/L (135-145); Total Protein 7.4 g/dL (6.5-8.0)
[2022-10-24 11:43] LABS: Free T4 (Free Thyroxine) 0.98 ng/dL (0.71-1.85); Thyroid Stimulating Hormone 0.32 uIU/mL (0.32-4.0)
== END 2022-10-24 09:38 | disposition home or self-care (01) ==
LOC: HO.LAB 09:37
PROVIDERS: PCP Internal Medicine; Visit Provider Physician Assistant
DX: I10 Essential (primary) hypertension (principal); E04.1 Nontoxic single thyroid nodule
CPT/HCPCS: 36415; 80053; 84439; 84443; 85025

== ENCOUNTER 2022-11-11 15:39 | Outpatient (REF) | payer MEDICAID, SELFPAY ==
--- NOTE | ~2022-11-11 | US_ITS ---
EXAMINATION: US THYROID CLINICAL INFORMATION: Nontoxic single thyroid nodule. COMPARISON: CT chest 04/23/2022. TECHNIQUE: Linear transducer grayscale and color Doppler examination with attention to the region of the thyroid. FINDINGS: SIZE: Measurements of the thyroid lobes and nodules are given in sagittal, anteroposterior and transverse dimensions respectively. Right Thyroid Lobe: 4.6 x 2.3 x 2.2 cm, volume 12.2 mL. Parenchyma: The gland echotexture is homogeneous. Thyroid vascularity is normal. Left Thyroid Lobe: 4.7 x 1.7 x 1.9 cm, volume 7.7 mL. Parenchyma: The gland echotexture is homogeneous. Thyroid vascularity is normal. Isthmus: 0.7 cm in maximum AP dimension. Estimated total number of nodules greater than or equal to 1 cm: 1. [employer] nodules are described as follows: 1. Location: Right mid pole. Size: 1.7 x 1.3 x 1.3 cm, volume 1.5 mL. Nodule characteristics: Composition: Mixed cystic and solid (1). Echogenicity: Hypoechoic (2). Shape: Not taller than wide (0). Margins: Smooth (0). Echogenic Foci: None (0). ACR TI-RADS total points: 3 ACR TI-RADS category: 3 2. Location: Right mid/lower pole. Size: 0.5 x 0.4 x 0.7 cm, volume 0.07 mL. Nodule characteristics: Composition: Solid (2). Echogenicity: Hypoechoic (2). Shape: Not taller than wide (0). Margins: Ill-defined (0). Echogenic Foci: None (0). ACR TI-RADS total points: 4 ACR TI-RADS category: 4 3. Location: Right mid/lower pole. Size: 0.8 x 0.7 x 0.8 cm, volume 0.2 mL. Nodule characteristics: Composition: Solid (2). Echogenicity: Hypoechoic (2). Shape: Not taller than wide (0). Margins: Ill-defined (0). Echogenic Foci: None (0). ACR TI-RADS total points: 4 ACR TI-RADS category: 4 4. Location: Left upper pole. Size: 0.5 x 0.3 x 0.5 cm, volume 0.04 mL. Nodule characteristics: Composition: Solid (2). Echogenicity: Hypoechoic (2). Shape: Not taller than wide (0). Margins: Ill-defined (0). Echogenic Foci: None (0). ACR TI-RADS total points: 4 ACR TI-RADS category: 4 5. Location: Left mid pole. Size: 0.9 x 0.6 x 0.9 cm, volume 0.3 mL. Nodule characteristics: Composition: Solid (2). Echogenicity: Hypoechoic (2). Shape: Not taller than wide (0). Margins: Ill-defined (0). Echogenic Foci: None (0). ACR TI-RADS total points: 4 ACR TI-RADS category: 4 NODES: No lymphadenopathy is seen in the tissue surrounding the thyroid gland. US/US thyroid IMPRESSION: Right 1.7 cm midpole TI-RADS 3 nodule. Per ACR criteria given size greater than 1.5 cm, annual follow-up is recommended at 1, 2, 3, and 5 years from date of baseline exam. Remaining nodules do not meet criteria for followup. ACR TI-RADS RECOMMENDATION REFERENCE: Ultrasound-guided fine-needle aspiration, followup ultrasound, no further follow up. * TR1 (0 point) and TR2 (2 points): No FNA or follow up. * TR3 (3 points): FNA if more than or equal to 2.5 cm in maximum dimension, followup ultrasound in 1, 3 and 5 years if 1.5 to 2.4 cm in maximum dimension. * TR4 (4-6 points): FNA if more than or equal to 1.5 cm in maximum dimension, followup ultrasound in 1, 2, 3 and 5 years if 1 to 1.4 cm in maximum dimension. * TR5 (more than or equal to 7 points): FNA if more than or equal to 1 cm in maximum dimension, followup ultrasound every year for 5 years if 0.5 to 0.9 cm in maximum dimension. * TR3, TR4 or TR5 nodules that are below the size threshold for followup receive no follow up.
== END 2022-11-11 15:40 | disposition home or self-care (01) ==
LOC: HO.US 15:39
PROVIDERS: PCP Physician Assistant; Visit Provider Physician Assistant
DX: E04.1 Nontoxic single thyroid nodule (principal)
CPT/HCPCS: 76536

== ENCOUNTER 2022-12-04 11:11 | Outpatient (REF) | payer MEDICAID, SELFPAY ==
--- NOTE | ~2022-12-04 | XR_ITS ---
EXAMINATION: XR CHEST CLINICAL INFORMATION: Recurrent cough and fever COMPARISON: None TECHNIQUE: 2 views of the chest were obtained. FINDINGS: The lungs are well-expanded and clear. The heart size and pulmonary vascularity is normal. There are median sternotomy sutures from previous CABG. No gross bony abnormality. XR/XR chest 2V IMPRESSION: Unremarkable chest exam.
== END 2022-12-04 11:12 | disposition home or self-care (01) ==
LOC: HO.XRAY 11:11
PROVIDERS: PCP Internal Medicine; Visit Provider Internal Medicine
DX: J18.9 Pneumonia, unspecified organism (principal)
CPT/HCPCS: 71046

== ENCOUNTER 2023-02-13 08:28 | Outpatient (REF) | payer MEDICAID, SELFPAY ==
--- NOTE | ~2023-02-13 | MM_ITS ---
EXAMINATION: BONE DENSITOMETRY CLINICAL INDICATION: Osteopenia. COMPARISON: Baseline BD dated 02/08/2019. TECHNIQUE: Using a [employer] DXA System (software version: 13.1) manufactured by [employer], dual-energy x-ray absorptiometry was performed of the lumbar spine and left hip. The images are of good technical quality. Summary results are attached. FINDINGS: AP SPINE L1-L4: Current: BMD 1.244 g/cm2, Z-score 1.1, T-score 0.5, normal, 4.1% decrease from baseline (<5% change is not significant). Baseline: BMD 1.297 g/cm2. LEFT FEMUR, NECK: Current: BMD 1.073 g/cm2, Z-score 1.1, T-score 0.2, normal. Baseline: BMD 1.103 g/cm2. LEFT FEMUR, TOTAL: Current: BMD 1.052 g/cm2, Z-score 0.8, T-score 0.4, normal, 4.2% decrease from baseline (<5% change is not significant). Baseline: BMD 1.098 g/cm2. IDENTIFIED RISK FACTORS: Menopause. HISTORY OF FRACTURE: None listed. MEDICATIONS: Calcium, vitamin D. MM/XR DEXA axial skeleton IMPRESSION: 1. DIAGNOSIS: Normal bone density based on the lowest T-score value of 0.2 in the femoral neck applying World Health Organization criteria. 2. 10-YEAR FRACTURE RISK PREDICTION, FRAX: According to the guidelines, FRAX calculation should only be performed on patients in the osteopenia bone density category. Therefore, FRAX was not performed on this patient. 3. Treatment Recommendations: NOF guidelines recommend consideration for treatment in postmenopausal women and men age 50 and older presenting with the following: -A hip or vertebral (clinical or morphometric) fracture. -T-score less than or equal to -2.5 at the femoral neck or spine after appropriate evaluation to exclude secondary causes. -Low bone mass at the hip or spine and a 10-year fracture probability by FRAX of greater than or equal to 3% for hip fracture or greater than or equal to 20% for major osteoporotic fracture based on the [place] adapted WHO algorithm. 4. Other Recommendations: All treatment decisions require clinical judgment and consideration of individual patient factors, including patient preferences, comorbidities, previous drug use, risk factors not captured in the FRAX model (e.g. frailty, falls, vitamin D deficiency, increased bone turnover, interval significant decline in bone density) and possible under or overestimation of fracture risk by FRAX. FUTURE SCAN RECOMMENDATION: People with diagnosed cases of osteoporosis or at high risk for fracture should have regular bone mineral density tests. For patients eligible for Medicare, routine testing is allowed once every 2 years. The testing frequency can be increased to one year for patients who have rapidly progressing disease, those who are receiving or discontinuing medical therapy to restore bone mass, or have additional risk factors.
== END 2023-02-13 08:29 | disposition home or self-care (01) ==
LOC: HO.MAMMO 08:28
PROVIDERS: PCP Internal Medicine; Visit Provider Internal Medicine
DX: Z13.820 Encounter for screening for osteoporosis (principal); Z78.0 Asymptomatic menopausal state; M85.80 Other specified disorders of bone density and structure, unspecified site
CPT/HCPCS: 77080

== ENCOUNTER 2023-03-10 07:17 | Outpatient (REF) | payer MEDICAID, SELFPAY ==
--- NOTE | ~2023-03-10 | CT_ITS ---
EXAMINATION: CT CHEST WITHOUT CONTRAST CLINICAL INFORMATION: Atypical chest pain COMPARISON: Previous chest x-ray December [address] April 2022 TECHNIQUE: Multidetector volumetric CT imaging of the chest was done. Axial MIP volume rendering provided. Sagittal and coronal reformatted images were obtained. This CT examination was performed using dose optimization techniques as appropriate, variously including the following: *Automated exposure control *Adjustment of mA and/or kV according to patient size (this includes techniques or standardized protocols for targeted exams where dose is matched to indication/reason for exam; i.e. extremities or head) *Use of iterative reconstruction technique DLP: 171 mGy-cm FINDINGS: LUNGS: There is subsegmental atelectasis at the left lung base. The lungs are otherwise clear. MEDIASTINUM: Stable slight enlargement of the right lobe of the thyroid gland and heterogeneous attenuation. Upper normal heart size. No pericardial effusion. No enlarged hilar or mediastinal lymph nodes. CORONARY ARTERY CALCIFICATION: None visualized on this study. PLEURA: There is no pleural effusion. No pleural mass or thickening. AXILLA: No lymphadenopathy. UPPER ABDOMEN: Unremarkable. OSSEOUS STRUCTURES: Median sternotomy CT/CT chest wo IV con IMPRESSION: Subsegmental atelectasis in the left lower lobe. Postoperative changes from median sternotomy. Slightly prominent heterogeneous right thyroid gland similar to previous exam. Fleischner guidelines were followed.
== END 2023-03-10 07:18 | disposition home or self-care (01) ==
LOC: HO.CT 07:17
PROVIDERS: PCP Internal Medicine; Visit Provider Internal Medicine
DX: R07.89 Other chest pain (principal)
CPT/HCPCS: 71250

== ENCOUNTER 2023-04-06 10:51 | Outpatient (REF) | payer OTHER, SELFPAY ==
--- NOTE | ~2023-04-06 | XR_ITS ---
EXAMINATION: XR HAND, BILATERAL CLINICAL INFORMATION: Bilateral hand pain COMPARISON: Right hand 01/02/2020 TECHNIQUE: 3 views of each hand FINDINGS: Right hand: No acute fracture or malalignment. Mild osteoarthritis of the interphalangeal joints, most prominent at the 5th DIP joint. No significant change. Left hand: Mild osteoarthritis of the interphalangeal joints. This is most prominent at the 2nd and 3rd DIP joints with dorsal osteophytes. No acute osseous abnormality. XR/XR hand RT min 3V IMPRESSION: RIGHT HAND: Mild osteoarthritis of the interphalangeal joints. No significant change. LEFT HAND: Mild osteoarthritis of the interphalangeal joints, most prominent at the 2nd and 3rd DIP joints.
--- NOTE | ~2023-04-06 | XR_ITS ---
EXAMINATION: XR HAND, BILATERAL CLINICAL INFORMATION: Bilateral hand pain COMPARISON: Right hand 01/02/2020 TECHNIQUE: 3 views of each hand FINDINGS: Right hand: No acute fracture or malalignment. Mild osteoarthritis of the interphalangeal joints, most prominent at the 5th DIP joint. No significant change. Left hand: Mild osteoarthritis of the interphalangeal joints. This is most prominent at the 2nd and 3rd DIP joints with dorsal osteophytes. No acute osseous abnormality. XR/XR hand LT min 3V IMPRESSION: RIGHT HAND: Mild osteoarthritis of the interphalangeal joints. No significant change. LEFT HAND: Mild osteoarthritis of the interphalangeal joints, most prominent at the 2nd and 3rd DIP joints.
== END 2023-04-06 10:52 | disposition home or self-care (01) ==
LOC: HO.XRAY 10:51
PROVIDERS: PCP Internal Medicine; Visit Provider Internal Medicine
DX: M79.641 Pain in right hand (principal); M79.642 Pain in left hand
CPT/HCPCS: 73130

== ENCOUNTER 2023-08-04 11:23 | Outpatient (REF) | payer SELFPAY ==
--- NOTE | ~2023-08-04 | XR_ITS ---
EXAMINATION: XR THORACOLUMBAR SPINE, CHEST CLINICAL INFORMATION: Pain thoracic spine COMPARISON: CT chest 03/10/2023. X-ray chest 12/04/2022 TECHNIQUE: 3 radiographs of the thoracic spine. 2 views of the chest. FINDINGS: THORACIC SPINE: Mild degenerative changes in the thoracic spine. No thoracic vertebral body compression fractures are identified. Degenerative changes on very limited imaging of the lower cervical spine CHEST: There is no gross pneumothorax. Lung volumes are low. Heart size within normal limits. Retrocardiac opacities may represent pneumonia. No pleural effusion. Cardiac silhouette is difficult evaluate due to low lung volumes. XR/XR chest 2V IMPRESSION: 1. Mild degenerative changes in the thoracic spine. 2. Retrocardiac opacities may represent pneumonia. Low lung volumes limit evaluation. Recommend follow-up imaging in 4-6 weeks to confirm resolution and exclude underlying pathology. This study was presented today August 05, 2023 at 9:34 AM for interpretation. PSA staff will provide results to referring provider at this time.
--- NOTE | ~2023-08-04 | XR_ITS ---
EXAMINATION: XR THORACOLUMBAR SPINE, CHEST CLINICAL INFORMATION: Pain thoracic spine COMPARISON: CT chest 03/10/2023. X-ray chest 12/04/2022 TECHNIQUE: 3 radiographs of the thoracic spine. 2 views of the chest. FINDINGS: THORACIC SPINE: Mild degenerative changes in the thoracic spine. No thoracic vertebral body compression fractures are identified. Degenerative changes on very limited imaging of the lower cervical spine CHEST: There is no gross pneumothorax. Lung volumes are low. Heart size within normal limits. Retrocardiac opacities may represent pneumonia. No pleural effusion. Cardiac silhouette is difficult evaluate due to low lung volumes. XR/XR thoracic spine 2V IMPRESSION: 1. Mild degenerative changes in the thoracic spine. 2. Retrocardiac opacities may represent pneumonia. Low lung volumes limit evaluation. Recommend follow-up imaging in 4-6 weeks to confirm resolution and exclude underlying pathology. This study was presented today August 05, 2023 at 9:34 AM for interpretation. PSA staff will provide results to referring provider at this time.
== END 2023-08-04 11:24 | disposition home or self-care (01) ==
LOC: HO.XRAY 11:23
PROVIDERS: PCP Internal Medicine; Visit Provider Internal Medicine
DX: R07.89 Other chest pain (principal)
CPT/HCPCS: 71046; 72070

== ENCOUNTER 2023-08-24 10:40 | Outpatient (REF) | payer SELFPAY ==
--- NOTE | ~2023-08-24 | XR_ITS ---
EXAMINATION: XR CHEST CLINICAL INFORMATION: Reason for Exam ABNORMAL FINDINGS OF LUNG FIELD COMPARISON: Chest radiograph 08/04/2023 TECHNIQUE: 2 views of the chest FINDINGS: Lines and tubes: None. Clear lungs. No pleural effusion. No pneumothorax. Unchanged cardiomediastinal silhouette. Median sternotomy wires. XR/XR chest 2V IMPRESSION: * Clear lungs.
== END 2023-08-24 10:41 | disposition home or self-care (01) ==
LOC: HO.XRAY 10:40
PROVIDERS: PCP Internal Medicine; Visit Provider Internal Medicine
DX: R91.8 Other nonspecific abnormal finding of lung field (principal)
CPT/HCPCS: 71046

== ENCOUNTER 2023-09-07 13:42 | Emergency (ER) | payer OTHER, SELFPAY ==
--- NOTE | ~2023-09-07 | CT_ITS ---
EXAMINATION: CT ABDOMEN AND PELVIS WITH CONTRAST CLINICAL INFORMATION: Abdominal pain with elevated lipase COMPARISON: Ultrasound abdomen 09/07/2023, CT chest 04/23/2022 TECHNIQUE: Multidetector volumetric images were obtained from the superior aspect of the liver through the pubic symphysis following administration 85 mL of Omnipaque 350 intravenous contrast. Sagittal and coronal reformatted images were obtained on the technologist's workstation. Oral contrast: No This CT examination was performed using dose optimization techniques as appropriate, variously including the following: *Automated exposure control *Adjustment of mA and/or kV according to patient size (this includes techniques or standardized protocols for targeted exams where dose is matched to indication/reason for exam; i.e. extremities or head) *Use of iterative reconstruction technique DLP: 635 mGy-cm FINDINGS: LUNG BASES: Bibasilar atelectasis is present. There is mild cardiac enlargement. No infiltrates, effusions or lung masses. LIVER, GALLBLADDER, AND BILIARY TREE: The liver is prominent in size measuring 17.8 cm in cephalocaudad dimension. No focal hepatic lesion or biliary ductal dilatation is present. The gallbladder is unremarkable with no evidence of radiopaque gallstones, gallbladder wall thickening, or obvious pericholecystic inflammatory changes. PANCREAS: There is some extremely subtle edematous changes in the fat around the pancreatic tail which could represent pancreatitis. No fluid collections are seen. No pancreatic ductal dilatation or calculi are seen. SPLEEN: Unremarkable. ADRENAL GLANDS: Mild adrenal gland thickening without discrete mass KIDNEYS AND URETERS: The kidneys are normal in size, shape, and attenuation. Multiple small benign parapelvic Bosniak class I renal cysts are noted which require no additional imaging or follow-up. Nonobstructing 2 mm calculus is noted in the right upper pole. No solid renal masses are seen. No hydronephrosis, hydroureter, or calculi seen. No perinephric stranding. BLADDER: Unremarkable. GASTROINTESTINAL TRACT: The small and large bowel are unremarkable. The appendix is unremarkable. ABDOMINAL WALL: No significant hernia is appreciated. LYMPH NODES: Prominent lymph nodes are present in the cecal mesentery with the largest measuring about 1 cm (3:44). VASCULAR: Minimal calcific atherosclerotic changes are present in the aorta and iliac vessels. There is no evidence of an abdominal aortic aneurysm. PELVIC VISCERA: The uterus and adnexa are unremarkable. OSSEOUS STRUCTURES: Marked degenerative changes are present at L4-L5 and L5-S1. There is marked grade 1 anterolisthesis of L5 upon S1 with bilateral L5 pars defects. CT/CT abdomen pelvis w IV con IMPRESSION: 1. Subtle edematous changes in the fat around the pancreatic tail which could represent pancreatitis. 2. Mild hepatomegaly. 3. Nonobstructing 2 mm right renal calculus. 4. Prominent lymph nodes in the cecal mesentery. 5. Marked degenerative changes L4-L5 and L5-S1 with grade 1 anterolisthesis of L5 upon S1 with bilateral L5 pars defects. 6. Other incidental findings as described above. Fleischner guidelines were followed.
--- NOTE | ~2023-09-07 | US_ITS ---
EXAMINATION: US ABDOMEN LIMITED CLINICAL INFORMATION: Right upper quadrant pain, rule out CBD obstruction.. COMPARISON: None available. TECHNIQUE: Real-time imaging of the right upper quadrant abdominal viscera. FINDINGS: GALLBLADDER: Gallbladder wall thickness is 0.2 cm. The gallbladder is physiologically distended without evidence of stones, sludge, polyps, wall thickening or pericholecystic fluid. COMMON BILE DUCT: Normal in caliber measuring 0.3 cm in diameter. US/US abdomen limited IMPRESSION: Unremarkable gallbladder ultrasound.
[2023-09-07 13:51] VITALS: BP 139/92; PULSE 91; RESP 16; TEMP 36.6; O2SAT 95; BMI 34.8
--- NOTE | 2023-09-07 13:51 | ED.GENADULT ---
HPI - General Adult General Chief complaint: Abdominal Pain Stated complaint: not eating abd pain Time Seen by Provider: 09/07/23 19:43 History of Present Illness HPI narrative: 57 y/o F patient; PMH stress bladder incontinence, HTN; presents from home with report of epigastric abdominal pain for the last 10 days. She was seen by her PCP on Thursday (08/31/2023) and recommended to have an out-patient US which is scheduled for next week. She presents today stating that her pain has continued to worsen. Denies associated nausea or vomiting. Reports associated loose stools, but states they are formed and not diarrhea. She denies prior similar symptoms. She denies alcohol intake. She denies: fever or chills, chest pain, SOB, cough/congestion. Related Data Home Medications Medication Instructions Recorded Confirmed citalopram 20 mg tablet 20 mg PO DAILY 09/05/21 09/22/22 losartan 100 1 tab PO DAILY 09/05/21 09/22/22 mg-hydrochlorothiazide 25 mg tablet betamethasone dipropionate 0.05 % appl topical DAILY 01/27/22 09/22/22 topical cream diclofenac potassium 50 mg tablet 50 mg PO BID 01/27/22 09/22/22 trazodone 50 mg tablet 50 mg PO BEDTIME PRN insomnia 09/22/22 09/22/22 Previous Rx's Medication Instructions Recorded morphine 15 mg immediate release 15 mg PO Q6H PRN pain #14 tabs 09/08/23 tablet ondansetron 4 mg disintegrating 4 mg PO Q8H PRN nausea and 09/08/23 tablet vomiting #20 tabs Allergies Allergy/AdvReac Type Severity Reaction Status Date / Time No Known Allergies Allergy Verified 09/07/23 13:51 Review of Systems Review of Systems: Yes all other systems are reviewed and are negative PMFSH Past Medical History Attestation statement: The following information was validated with the patient. Source: old records reviewed Medical History Stress bladder incontinence, female Depression Primary osteoarthritis of right knee Atypical lobular hyperplasia of right breast Atrial septal defect delivery delivered HTN (hypertension) Surgical History History of surgery Tubal ligation status Hx of section Social History Social History Patient Tobacco Use Status: Never used Tobacco Smoked in Last 30 Days: No Use of substances other than those prescribed or required for medical reasons: No Advance Directives: No Advance Directives Information Provided: No Patient : No Physical Exam ED Vital Signs: Vital Signs - 24 hr 09/07/23 13:51 09/07/23 21:00 09/07/23 21:36 Temperature 97.8 F 98.5 F 98.2 F Pulse Rate 91 80 81 Respiratory Rate 16 16 16 Blood Pressure 139/92 H 138/80 132/81 Pulse Oximetry 95 97 97 Oxygen Delivery Method Room Air Room Air Room Air BMI result Body Mass Index 34.8 Patient is afebrile, hemodynamically stable. Const General: cooperative and no acute distress HENMT Head: Yes normal to inspection and Yes atraumatic Eyes General: appearance normal, both eyes and all related structures Pupils: Equal, round and reactive pupils present EOM: EOMs intact bilaterally Neck Neck: Yes full ROM and Yes supple Chest Chest palpation & inspection: normal inspection of the chest and normal palpation of entire chest wall Resp Effort & Inspection: normal respiratory effort, able to speak in complete sentences and no respiratory distress Cardio Rate: regular rate Rhythm: regular rhythm Peripheral pulses: Peripheral pulses 2+ throughout GI Other: Abdomen is soft, non-distended with mild epigastric abdominal tenderness without rebound or guarding. General: Yes no CVA tenderness Back/Spine/Pelvis Back: no CVA tenderness Neuro Cranial nerves: Yes Equal, round and reactive pupils present Course Course Course Narrative: RME performed by Brenda Hudson PA-C. Patient is a 57 year old assigned female at presenting to the emergency department with abdominal pain and lack of appetite. Labs and swabs ordered. Patient placed back in the waiting room pending room availability and results. Reevaluation(s) Reevaluation #1: Patient is afebrile and hemodynamically stable. Reviewed triage work up of US RUQ, laboratory studies. US without evidence of acute cholecystitis. Labs with mild leukocytosis 11.1. Magnesium 1.5. Lipase 101. Troponin unremarkable. Due to mildly elevated lipase in the setting of epigastric abdominal pain, ordered CT Abdomen/Pelvis. Treated with Tylenol 1g PO for pain control. Will sign out to night provider pending CT results, re-evaluation, and disposition. Reevaluation #2: mild pancreatitis able to tolerate PO will DC home with PO meds and clear liquids x 48 hours Medications Administered Discontinued Medications Generic Name Dose Route Start Last Admin Trade Name Dee PRN Reason Stop Dose Admin Acetaminophen 975 mg 09/07/23 21:56 09/07/23 22:35 Acetaminophen 325 Mg Tablet PO 09/07/23 21:57 975 mg ONCE ONE Administration Magnesium Sulfate 2 gm in 50 mls @ 25 mls/hr 09/07/23 22:45 09/08/23 00:16 Magnesium Sulfate/H2o IV 09/08/23 00:44 Infused ONCE ONE Infusion Iohexol 85 ml 09/08/23 00:07 09/08/23 00:07 Iohexol 350 Mg/Ml 100 Ml Infus..Btl IV 09/08/23 00:08 85 ml ONCE ONE Administration Medical Decision Making Lab Data 09/07/23 14:48 09/07/23 14:47 Labs: Lab Results 09/07/23 09/07/23 09/07/23 Range/Units 14:47 14:48 21:10 WBC 11.1 H (4.8-10.8) X10*3/uL RBC 5.01 (4.20-5.50) X10*6/uL Hgb 13.0 (12.0-16.0) g/dl Hct 40.3 (37.0-47.0) % MCV 80.4 (80.0-98.0) fL MCH 25.9 L (27.0-33.0) pg MCHC 32.3 (31.0-35.0) g/dl RDW 13.2 (11.0-16.0) % Plt Count 340 (160-400) X10*3/uL MPV 10.3 (9.4-12.3) fL Immature Gran % (Auto) 0.4 (0.0-0.4) % Neut % (Auto) 69.0 (45-73) % Lymph % (Auto) 21.8 (20-40) % [place] % (Auto) 7.6 (2-11) % Eos % (Auto) 0.8 (0-4) % Baso % (Auto) 0.4 (0-2) % Lymph # (Auto) 2.4 (1.2-4.9) X10*3/uL [place] # (Auto) 0.9 (0.1-1.2) X10*3/uL Eos # (Auto) 0.1 (0.0-0.4) X10*3/uL Baso # (Auto) 0.0 (0.0-0.2) X10*3/uL Abs Immat Gran (auto) 0.05 H (0.00-0.03) X10*3/uL Absolute Neuts (auto) 7.7 (2.0-8.3) x10*3/uL Absolute Nucleated RBC 0.000 (0.0-0.012) X10*3/uL Nucleated RBC % (auto) 0.0 (0.0-0.2) /100WBC Sodium 141 (135-145) mmol/L Potassium 3.3 (3.3-5.1) mmol/L Chloride 102 (96-108) mmol/L Carbon Dioxide 30 H (22-29) mmol/L Anion Gap 12 (12-20) BUN 17 H (9-16) mg/dL Creatinine 0.91 (0.5-1.4) mg/dL Estim Creat Clear Calc 63.3 Estimated GFR > 60 Random Glucose 100 (60-115) mg/dL Calcium 9.6 (8.4-10.2) mg/dL Magnesium 1.5 L (1.6-2.6) mg/dL Total Bilirubin 0.4 (0.0-1.0) mg/dL AST 15 (5-31) U/L ALT 19 (0-31) U/L Alkaline Phosphatase 83 (39-117) U/L Troponin I High Sens < 2.7 (<3.5-17.0) ng/L Total Protein 7.7 (6.5-8.0) g/dL Albumin 4.0 (3.5-5.0) g/dL Lipase 101 H (8-78) U/L Urine Color Yellow Urine Appearance Clear Urine pH 6.0 (5.0-9.0) Ur Specific [place] 1.025 (1.005-1.025) Urine Protein Negative (Neg-Trace) mg/dL Urine Glucose (UA) Negative (Negative) mg/dL Urine Ketones Negative (Negative) mg/dL Urine Blood Negative (Negative) Urine Nitrite Negative (Negative) Ur Leukocyte Esterase Negative (Negative) Influenza Type A (PCR) NEGATIVE (Negative) Influenza Type B (PCR) NEGATIVE (Negative) RSV RNA Qual (PCR) NEGATIVE (Negative) SARS-CoV-2 RNA (RT-PCR) NEGATIVE (Negative) Discharge Plan Discharge Clinical Impression: Abdominal pain, epigastric Pancreatitis Qualifiers: Chronicity: acute Pancreatitis type: unspecified pancreatitis type Acute pancreatitis complication: no infection or necrosis Qualified Code(s): K85.90 - Acute pancreatitis without necrosis or infection, unspecified Patient Disposition: Still a Patient Instructions: Pancreatitis (ED), Abdominal Pain (ED) Additional Instructions: clear liquids x 48 hours then advance slowly, follow up with your doctor in the next week. return for worsening pain, fevers, vomiting, inability to eat or drink or any other concerns. IMPRESSION: 1. Subtle edematous changes in the fat around the pancreatic tail which could represent pancreatitis. 2. Mild hepatomegaly. 3. Nonobstructing 2 mm right renal calculus. 4. Prominent lymph nodes in the cecal mesentery. 5. Marked degenerative changes L4-L5 and L5-S1 with grade 1 anterolisthesis of L5 upon S1 with bilateral L5 pars defects. 6. Other incidental findings as described above Prescriptions: New morphine 15 mg tablet 15 mg PO Q6H PRN (Reason: pain) Qty: 14 0RF Rx Instructions: partial fill okay; Partial Fill upon patient request. ondansetron 4 mg tablet,disintegrating 4 mg PO Q8H PRN (Reason: nausea and vomiting) Qty: 20 0RF No Action trazodone 50 mg tablet 50 mg PO BEDTIME PRN (Reason: insomnia) citalopram 20 mg tablet 20 mg PO DAILY losartan-hydrochlorothiazide 100-25 mg tablet 1 tab PO DAILY betamethasone dipropionate 0.05 % cream topical DAILY diclofenac potassium 50 mg tablet 50 mg PO BID Stand Alone Forms: Work/School Release
--- NOTE | 2023-09-07 13:52 | ECG_ITS ---
Test Reason : abd pain Blood Pressure : / mmHG Vent. Rate : 092 BPM Atrial Rate : 092 BPM P-R Int : 152 ms QRS Dur : 088 ms QT Int : 344 ms P-R-T Axes : 058 016 021 degrees QTc Int : 425 ms Normal sinus rhythm Normal ECG When compared with ECG of 25-FEB-2022 10:40, Nonspecific T wave abnormality no longer evident in Lateral leads Referred By: Brenda Hudson Electronically Signed By:JUAN PABLO HUDSON
[2023-09-07 14:56] LABS: MANUAL DIFF FLAG NO
[2023-09-07 15:00] LABS: Basophils Percent Auto 0.4 % (0-2); Eosinophils Absolute Auto 0.1 X10*3/uL (0.0-0.4); Eosinophils Percent Auto 0.8 % (0-4); Hematocrit 40.3 % (37.0-47.0); Imm Gran Abs Auto 0.05 X10*3/uL (0.00-0.03); Imm Gran Pct Auto 0.4 % (0.0-0.4); Lymphocytes Absolute Auto 2.4 X10*3/uL (1.2-4.9); Lymphocytes Percent Auto 21.8 % (20-40); Mean Corpuscular HGB Conc 32.3 g/dl (31.0-35.0); Mean Corpuscular Hemoglobin 25.9 pg (27.0-33.0); Mean Corpuscular Volume 80.4 fL (80.0-98.0); Mean Platelet Volume 10.3 fL (9.4-12.3); Monocytes Absolute Auto 0.9 X10*3/uL (0.1-1.2); Monocytes Percent Auto 7.6 % (2-11); Neutrophils Absolute Auto 7.7 x10*3/uL (2.0-8.3); Platelet Count 340 X10*3/uL (160-400); Red Blood Count 5.01 X10*6/uL (4.20-5.50); Red Cell Distribution Width 13.2 % (11.0-16.0); White Blood Count 11.1 X10*3/uL (4.8-10.8)
[2023-09-07 15:14] LABS: Alanine Aminotransferase 19 U/L (0-31); Alkaline Phosphatase 83 U/L (39-117); Anion Gap 12 (12-20); Aspartate Amino Transferase 15 U/L (5-31); Bilirubin Total 0.4 mg/dL (0.0-1.0); Blood Urea Nitrogen 17 mg/dL (9-16); Calcium 9.6 mg/dL (8.4-10.2); Carbon Dioxide 30 mmol/L (22-29); Chloride 102 mmol/L (96-108); Creatinine Clr Calc Pharmacy 63.3; Estimated Glomerular Filt Rate > 60; Glucose Random 100 mg/dL (60-115); Magnesium 1.5 mg/dL (1.6-2.6); Potassium 3.3 mmol/L (3.3-5.1); Sodium 141 mmol/L (135-145); Total Protein 7.7 g/dL (6.5-8.0)
[2023-09-07 15:25] LABS: Troponin-I High Sensitivity < 2.7 ng/L (<3.5-17.0)
[2023-09-07 15:39] LABS: Influenza A PCR NEGATIVE (Negative); Influenza B PCR NEGATIVE (Negative); Resp Syncy Virus RNA Qual PCR NEGATIVE (Negative); SARS COV2 PCR INHOUSE NEGATIVE (Negative)
[2023-09-07 21:00] VITALS: BP 138/80; PULSE 80; RESP 16; TEMP 36.9; O2SAT 97
--- NOTE | 2023-09-07 21:00 | MHC.EDTECH ---
This pct just assumed care of pt ,vitals taken ,waiting to collect urine sample .
--- NOTE | 2023-09-07 21:10 | MHC.EDTECH ---
Pt urine sample collected and sent to lab .
[2023-09-07 21:24] LABS: Lipase 101 U/L (8-78)
[2023-09-07 21:29] LABS: Appearance Urine Clear; Color Urine Yellow; Glucose Urine UA Negative (Negative); Leukocyte Esterase Urine Negative (Negative); Nitrite Urine Negative (Negative); Specific Gravity - Urine 1.025 (1.005-1.025); Urine Blood Negative (Negative); Urine Ketones Negative (Negative); Urine Protein Negative (Neg-Trace)
[2023-09-07 21:36] VITALS: BP 132/81; PULSE 81; RESP 16; TEMP 36.8; O2SAT 97
[2023-09-07] MEDS: Acetaminophen 325 MG TABLET 975 MG PO (22:35)
[2023-09-07] MEDS: Magnesium Sulfate/H2O 2 GM/50 ML PIGGYBACK IV (22:58)
[2023-09-08] MEDS: iohexoL 350 MG/ML 100 ML INFUS..BTL 85 ML IV (00:07)
--- NOTE | 2023-09-08 00:16 | PC.NURSE ---
pt reassessed, reported tolerable 2/10 pain
[2023-09-08] MEDS: Morphine Sulfate Immed Release 15 MG TABLET PO (01:32)
== END 2023-09-08 01:40 | disposition still patient (30) ==
PROVIDERS: Physician Assistant Medical; Emergency Provider Emergency Medicine; PCP Internal Medicine
DX: K85.90 Acute pancreatitis without necrosis or infection, unspecified (principal); R10.13 Epigastric pain; R10.11 Right upper quadrant pain; Z20.822 Contact with and (suspected) exposure to COVID-19; Z20.828 Contact with and (suspected) exposure to other viral communicable diseases; Z79.899 Other long term (current) drug therapy
CPT/HCPCS: 0241U; 74177; 76705; 80053; 81003; 83690; 83735; 84484; 85025; 93005; 96365; 96366; 99285; J3475; Q9967

== ENCOUNTER → 2023-09-07 13:52 | Outpatient (BNV) | payer OTHER, SELFPAY | PROVIDERS: PCP Internal Medicine; Visit Provider Internal Medicine | DX: K85.90 Acute pancreatitis without necrosis or infection, unspecified (principal); R10.9 Unspecified abdominal pain | CPT/HCPCS: 93010 ==

== ENCOUNTER 2023-09-25 13:39 | Outpatient (AMB) | payer OTHER, SELFPAY ==
--- OUTSIDE RECORDS SUMMARY | 2023-09-25 13:41 | XMS_ITS | Continuity of Care Document ---
Author Name Unknown Organization [facility] Address [address] [place] [id number] Care Team Providers Care Rehabilitation Team Lead Name Role Phone Jurgen Kerr DO Primary Care Physician Encounter [facility] Date(s): 05/20/22 - 06/19/22 [facility] [address] [place] [id number] Attending Physician: Giovanny Goldsmith Admitting Physician: Giovanny Goldsmith Referring Physician: Giovanny Goldsmith Allergies, Adverse Reactions, Alerts No Known Allergies Medications citalopram 20 mg oral tablet 20 mg, 1, tablet, By Mouth, Daily, # 30 tablet, Refills 0, Maintenance, 05/20/22 9:07:00 EDT, Partial fill upon patient request if the prescription is for a schedule II opioid drug. Start Date: 05/20/22 Status: Ordered hydrochlorothiazide-losartan 25 mg-100 mg oral tablet 1 tablet, By Mouth, Daily, # 30 tablet, 0 Refills, Maintenance, 05/20/22 9:08:00 EDT, Tablet, Partial fill upon patient request if the prescription is for a schedule II opioid drug. Start Date: 05/20/22 Status: Ordered Problem List Condition Effective Dates Status Health Status Inform ant Obese class II(Confirmed) Active Care Team Personnel Name: Jurgen Kerr DO Address: [address] [place] [address] [place] [address]-
--- OUTSIDE RECORDS SUMMARY | 2023-09-25 13:41 | XMS_ITS | Continuity of Care Document ---
Author Name Unknown Organization [facility] Address [address] [place] [phone] Care Team Providers Care Accordion Repairer Name Role Phone Cirilo FERGUSON Jurgen Angeles Primary Care Physician Encounter [facility] [place] Date(s): 02/26/22 - 03/28/22 [facility] [address] [place] [id number]- [place] Allergies, Adverse Reactions, Alerts No Known Allergies Medications Diovan Tablet 80, mg, By Mouth, Daily, 0, 0, 12/28/05 13:42:24, [id number], Constant Indicator Start Date: 12/28/05 Status: Ordered Metoprolol 50, mg, By Mouth, 2 times a day, 0, 0, 12/28/05 13:42:12, [id number], Constant Indicator Start Date: 12/28/05 Status: Ordered
[2023-09-25 13:44] VITALS: BP 130/80; BMI 34.2
--- NOTE | 2023-09-25 13:44 | A.OFFVIS_ITS ---
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 Required: No Information Interpreted: non-clinical & clinical Oracle Database Manager: Oracle Database Manager Present (Kait) Allergies No Known Allergies Allergy (Verified 09/25/23 13:46) Medication List - Last Reconciled 09/25/23 by Renae Tabor CNM betamethasone dipropionate 0.05% appl topical DAILY citalopram 20 mg PO DAILY diclofenac potassium 50 mg PO BID losartan-hydrochlorothiazide 100-25 mg 1 tab PO DAILY ondansetron 4 mg PO Q8H PRN trazodone 50 mg PO BEDTIME PRN Is last menstrual period known: No Post menopausal: Yes Patient : No HPI 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 She feels she is doing really well her other health concerns are stable she is up-to-date on her mammograms in the last 1 was normal. She is not worried about any abnormal discharge or STIs or anything her last Pap smear was negative in 2020 so her next 1 will be in 2025 she has never had an abnormal 1. She sees her primary care provider Dr. Cabello in [place]. She says all of her other health concerns are stable she does Ced at home for exercise and she says the incontinence is better than it was in the past and she still doing her Kegel's we will review them today as well. [facility] Medical History Stress bladder incontinence, female Depression Primary osteoarthritis of right knee Atypical lobular hyperplasia of right breast Atrial septal defect delivery delivered HTN (hypertension) Surgical History History of surgery Tubal ligation status Hx of section Social History Patient Tobacco Use Status: Never used Tobacco Female Reproductive History Menstrual Age of Menarche: 9 control method: other (tubal ligation) Total pregnancies: 2 Full term: 2 Number of Living Children: 2 Date of last pap smear: 09/06/21 (negative) Date of Mammogram: 10/13/22 Date of last Bone Density Screenin02/16/23 Physical Exam Vital Signs: Last Vital Signs BP 130/80 09/25/23 13:44 BMI result Body Mass Index 34.2 Results Reviewed Results Reviewed: Name: Adelaida Lehman Age/Sex: 55/F Attending: Jaylon Omalley MD : 1965 Submitted by: Jaylon Omalley MD Copies to: JEAN PIERRE CABELLO MD MR #: [id number] Status: DEP REF Collected: 09/05/21 Location: .LAB Received: 09/06/21 Interpretation Satisfactory for evaluation. Negative for intraepithelial lesion or malignancy. HPV mRNA E6/E7: NOT DETECTED This assay detects E6/E7 viral messenger RNA (mRNA) from 14 high-risk HPV types (16, 18, 31, 33, 35, 39, 45, 51, 52, 56, 58, 59, 66, 68) HPV testing performed by [facility], [place], [place]. See reference laboratory portion of the EMR for entire report. Clinical Information LMP: Postmenopausal Previous PAP test: Unknown, WNL Material Received ThinPrep-Cervical Copies To JEAN PIERRE CABELLO MD [address] [place] [address] Jaylon Omalley MD [address] [place] [address] Dr. Bauer [address] [place] [phone] Electronically Signed By: SHREYAS Tapia ([facility]) 09/13/21 [id number] The Pap Test is a screening procedure with the inherent possibility of both false negative and false positive results. Results should be interpreted in the context of historic and current clinical findings. Reliability of the Pap Test is enhanced by performing the test on a regular repetitive basis. Patient: Jorje Page 1 of 1 Assessment & Plan Assessment & Plan (1) Breast cancer screening: Comment: yearly mammograms, last one 10/13/22 Code(s): Z12.39 - Encounter for other screening for malignant neoplasm of breast (2) Cervical cancer screening: Comment: last pap neg 2020, no hx of abnls. next one 2025 Code(s): Z12.4 - Encounter for screening for malignant neoplasm of cervix (3) Well woman exam with routine gynecological exam: Code(s): Z01.419 - Encounter for gynecological examination (general) (routine) without abnormal findings (4) Stress bladder incontinence, female: Comment: again reviewed kegels- try to do them for a longer muscle contraction Code(s): N39.3 - Stress incontinence (female) (male) Plan -----Discussed in this visit the following: healthy balanced diet, regular and consistent exercise, getting recommended health screens, doing the best she can for her particular health concerns, kegel exercises, pap smear screening and followup recommendations, mammography screening and SBE, normal changes in cycles in her life stage--- . Again reviewed the Kegel's with her and we practiced them. I recommend trying to hold the muscle contraction for a few seconds rather than quick twitches for the maximum benefit. Next Pap is due in 2025 she will be having her mammogram coming up. She is keeping active with her daily Ced at home. And she is going to be following up with her primary care provider who she has followed for years. RTC 1 year no testing done today as not necessary. Coding Level of Care Code Est Pt Prev Care 40-64y(90882) Diagnoses Breast cancer screening Z12.39 Cervical cancer screening Z12.4 Well woman exam with routine gynecological exam Z01.419 Stress bladder incontinence, female N39.3
== END 2023-09-25 14:24 | disposition home or self-care (01) ==
LOC: HO.HWSM 13:39
PROVIDERS: PCP Internal Medicine; Visit Provider Advanced Practice Midwife
DX: Z01.419 Encounter for gynecological examination (general) (routine) without abnormal findings (principal); N39.3 Stress incontinence (female) (male)
CPT/HCPCS: 99396

== ENCOUNTER → 2023-09-25 13:39 | Outpatient (BNVA) | payer OTHER, SELFPAY | PROVIDERS: PCP Internal Medicine; Visit Provider Advanced Practice Midwife | DX: Z01.419 Encounter for gynecological examination (general) (routine) without abnormal findings (principal); Z12.39 Encounter for other screening for malignant neoplasm of breast; Z12.4 Encounter for screening for malignant neoplasm of cervix; N39.3 Stress incontinence (female) (male) | CPT/HCPCS: 99396 ==

== ENCOUNTER 2023-10-02 11:18 | Outpatient (REF) | payer OTHER, SELFPAY | END 2023-10-02 11:19 | disposition home or self-care (01) | LOC: HO.XRAY 11:18 | PROVIDERS: PCP Internal Medicine; Visit Provider Internal Medicine | DX: R05.9 Cough, unspecified (principal) | CPT/HCPCS: 71046 ==

== ENCOUNTER 2023-10-12 08:59 | Outpatient (REF) | payer OTHER, SELFPAY ==
--- NOTE | ~2023-10-12 | US_ITS ---
EXAMINATION: US ABDOMEN LIMITED CLINICAL INFORMATION: Acute pancreatitis without necrosis or infection. COMPARISON: Ultrasound abdomen limited 09/07/2023. CT abdomen and pelvis with contrast 09/07/2023. TECHNIQUE: Real-time imaging of the right upper quadrant abdominal viscera. FINDINGS: PANCREAS: Visualized portions of the pancreas are unremarkable however portions are obscured by bowel gas limiting evaluation, including the portion where pancreatitis as previously described and therefore consider contrast-enhanced CT abdomen and pelvis for further evaluation.. LIVER: Liver measures within the upper limits of normal in size. The liver contour is normal. Parenchymal echogenicity is normal. No focal hepatic lesion. There is no intrahepatic biliary duct dilatation seen. GALLBLADDER: Normal. The gallbladder is physiologically distended without evidence of stones, sludge, polyps, wall thickening or pericholecystic fluid. COMMON BILE DUCT: Normal in caliber measuring 0.3 cm in diameter. RIGHT KIDNEY: Normal. No hydronephrosis. No renal calculi or focal parenchymal lesions. The kidney measures 10.3 cm in maximum dimension. FREE FLUID: None. US/US abdomen limited IMPRESSION: Visualized portions of the pancreas are unremarkable however portions are obscured by bowel gas limiting evaluation, including the portion where pancreatitis as previously described and therefore consider contrast-enhanced CT abdomen and pelvis for further evaluation.
[2023-10-12 10:20] LABS: Alanine Aminotransferase 26 U/L (0-31); Albumin Level 3.9 g/dL (3.5-5.0); Alkaline Phosphatase 76 U/L (39-117); Amylase 75 U/L (28-100); Anion Gap 10 (12-20); Aspartate Amino Transferase 18 U/L (5-31); Bilirubin Total 0.5 mg/dL (0.0-1.0); Blood Urea Nitrogen 22 mg/dL (9-16); Calcium 9.4 mg/dL (8.4-10.2); Carbon Dioxide 28 mmol/L (22-29); Chloride 106 mmol/L (96-108); Estimated Glomerular Filt Rate > 60; Glucose Random 99 mg/dL (60-115); Lipase 56 U/L (8-78); Potassium 3.5 mmol/L (3.3-5.1); Sodium 140 mmol/L (135-145); Total Protein 7.4 g/dL (6.5-8.0)
== END 2023-10-12 09:00 | disposition home or self-care (01) ==
LOC: HO.US 08:59
PROVIDERS: PCP Internal Medicine; Visit Provider Internal Medicine
DX: K85.00 Idiopathic acute pancreatitis without necrosis or infection (principal)
CPT/HCPCS: 36415; 76705; 80053; 82150; 83690; 85025; 85652

== ENCOUNTER 2023-10-19 13:48 | Outpatient (REF) | payer OTHER, SELFPAY ==
--- NOTE | ~2023-10-19 | MM_ITS ---
EXAMINATION: MM SCREENING DIGITAL BREAST TOMOSYNTHESIS, BILATERAL CLINICAL INFORMATION: Screening. Asymptomatic. Patient status post prior right breast surgery showing atypical lobular hyperplasia. COMPARISON: Mammography: This study is compared with prior exams dating back to 2019. TECHNIQUE: Digital breast tomosynthesis is performed in both the craniocaudal and mediolateral oblique views along with computer-aided detection (CAD). Synthesized 2D images are generated from the tomosynthesis. FINDINGS: The breasts are heterogeneously dense, which may obscure small masses (ACR BI-RADS breast composition Category c). There are no significant masses, abnormal calcifications, or other abnormalities. There are a few, benign calcifications in the superior aspect of the left breast. MM/MM tomosynthesis screening BI IMPRESSION: No mammographic evidence of malignancy. ASSESSMENT: BI-RADS BI-RADS 2 - Benign Findings RECOMMENDATION: Routine annual mammography screening. 1 year F/U This examination should not preclude the clinical evaluation of a suspicious palpable abnormality. This patient's information was entered into a reminder system with a target due date for their next mammogram.
== END 2023-10-19 13:49 | disposition home or self-care (01) ==
LOC: HO.MAMMO 13:48
PROVIDERS: PCP Internal Medicine; Visit Provider Internal Medicine
DX: Z12.31 Encounter for screening mammogram for malignant neoplasm of breast (principal)
CPT/HCPCS: 77063; 77067

== ENCOUNTER → 2023-10-19 14:00 | Outpatient (BNV) | payer OTHER, SELFPAY | PROVIDERS: PCP Internal Medicine; Visit Provider Radiology Diagnostic Radiology | DX: Z12.31 Encounter for screening mammogram for malignant neoplasm of breast (principal) | CPT/HCPCS: 77063; 77067 ==

== ENCOUNTER 2023-11-27 08:13 | Emergency (ER) | payer OTHER, SELFPAY ==
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
[2023-11-27 08:24] VITALS: BP 146/85; PULSE 71; RESP 16; TEMP 36.6; O2SAT 98; BMI 33.2
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
[2023-11-27] MEDS: Acetaminophen 325 MG TABLET 975 MG PO (09:51)
== END 2023-11-27 11:47 | disposition home or self-care (01) ==
PROVIDERS: Emergency Provider Emergency Medicine; PCP Internal Medicine
DX: S16.1XXA Strain of muscle, fascia and tendon at neck level, initial encounter (principal); S13.4XXA Sprain of ligaments of cervical spine, initial encounter; V43.52XA Car driver injured in collision with other type car in traffic accident, initial encounter; Y93.9 Activity, unspecified; Y92.410 Unspecified street and highway as the place of occurrence of the external cause; Y99.9 Unspecified external cause status; M47.812 Spondylosis without myelopathy or radiculopathy, cervical region; M54.2 Cervicalgia; R51.9 Headache, unspecified
CPT/HCPCS: 70450; 72125; 99283; 99284

== ENCOUNTER → 2024-03-09 12:44 | Outpatient (REF) | payer OTHER, SELFPAY ==
--- NOTE | 2024-03-09 12:47 | CA_ITS ---
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 Low normal LV ejection fraction 50-55% with impaired relaxation filling pattern 2. Mildly dilated left atrium 3. No obvious interatrial shunting noted 4. Normal cardiac valvular Dopplers 5. Normal RV systolic pressure 6. No gross pericardial effusion Findings Procedure Information The study quality is limited by patients body habitus. The patient declines contrast. Left Ventricle Normal left ventricular cavity size. There is normal left ventricular wall thickness. The left ventricular systolic function is low normal. The visually estimated ejection fraction is between 50-55%. There is paradoxical septal motion consistent with post-operative status. Spectral Doppler is indicative of an impaired relaxation filling pattern. Right Ventricle Normal right ventricular cavity size. There is moderately decreased right ventricular systolic function. Atria The left atrium is mildly dilated. There is no evidence of interatrial shunt. reported history of ASD repair. The right atrium is likely dilated. Aortic Valve Normal aortic valve structure and function. There is no aortic valve stenosis. There is no aortic valve regurgitation. Mitral Valve There is mild anterior and posterior mitral leaflet thickening. There is trace mitral valve regurgitation. There is no mitral valve stenosis. Pulmonic Valve The pulmonic valve was not well visualized. Tricuspid Valve Likely normal tricuspid valve structure and function. There is mild tricuspid valve regurgitation. The right ventricular systolic pressure is normal. The right ventricular systolic pressure is 22 mmHg. Normal right atrial pressure. There is no evidence of pulmonary hypertension. Great Vessels The pulmonary artery was not well visualized. There is no dilatation of the ascending aorta measuring 3.40 cm. Venous The inferior vena cava is normal in size and collapses greater than 50% with inspiration. Pericardium/Pleural There is no evidence of pericardial effusion. Prior Study Comparison No significant change compared to prior study dated: 11/07/2021. Recommendations, Care & Conclusions Consider a REINALDO if clinically appropriate. Measurements 2D Linear Measurements IVSd: 0.85 0.6-0.9/0.6-1.0 cm LVIDd: 4.81 3.9-5.3/4.2-5.9 cm LVIDd Index: 2.70 2.4-3.2/2.2-3.1 cm/m2 LVIDs: 3.18 2.0-3.6 cm LVPWd: 0.97 0.7-1.1 cm LA Diam: 3.80 2.7-3.8/3.0-4.0 cm LAIDs Index: 2.13 1.5-2.3 cm/m2 LV Mass: 187.36 67-162/88-224 g LV Mass Index: 105.26 43-95/49-115 g/m2 LVOT Diam: 2.00 3.0+(-)1.3 cm Mitral Valve MV Pk E: 0.64 MV PK A: 0.88 MV Decel Time: 174.00 E/A: 0.70 E'Lateral: 9.03 E'Medial: 6.31 E/E' Med: 10.20 E/E' Lat: 7.10 PHT: 51.00 MVA PHT: 4.31 Decel Rankin: 3.70 Aortic Valve AoV Pk Chito: 1.40 AoV Mn Chito: 0.97 AoV VTI: 0.31 AoV Pk Grad: 8.00 Aov Mn Grad: 4.00 DUGLAS Cont.VTI: 1.90 LVOT LVOT Pk Chito: 0.89 LVOT Mn Chito: 0.61 LVOT VTI: 0.19 LVOT Pk Grad: 3.00 LVOT Mn Grad: 2.00 LVOT Diam: 2.00 LVOT Area: 3.14 Diastolic Function MV Pk E: 0.64 MV Pk A: 0.88 E/A: 0.70 E'Medial: 6.31 E/E' Med: 10.20 E' Laterial: 9.03 E/E' Lat: 7.10 Right Ventricle TAPSE (mm): 14.30 TVS' Chito: 7.14 Tricuspid Valve TR Pk Chito: 2.20 TR Pk Grad: 19.00 RA Press: 3.00 RVSP: 22.00 Great Vessels Aorta Sinus of Valsalva: 3.18 2.0-3.5 cm Ao Asc: 3.40 2.1-3.4 cm Updated in Other Vendor System with Status of Final Michael Trevino MD electronically signed on 03/09/2024 4:47:49 PM with status of Final
== END ==
LOC: HO.CARD 12:44
PROVIDERS: PCP Internal Medicine; Visit Provider Internal Medicine
DX: Q21.10 Atrial septal defect, unspecified (principal)
CPT/HCPCS: 93306

== ENCOUNTER → 2024-03-09 12:47 | Outpatient (BNV) | payer OTHER, SELFPAY | PROVIDERS: PCP Internal Medicine; Visit Provider Internal Medicine Cardiovascular Disease | DX: I36.1 Nonrheumatic tricuspid (valve) insufficiency (principal); R93.1 Abnormal findings on diagnostic imaging of heart and coronary circulation; Z87.74 Personal history of (corrected) congenital malformations of heart and circulatory system | CPT/HCPCS: 93306 ==

== ENCOUNTER 2024-03-10 07:09 | Outpatient (REF) | payer OTHER, SELFPAY ==
[2024-03-10 07:31] LABS: MANUAL DIFF FLAG NO
[2024-03-10 08:19] LABS: Basophils Percent Auto 0.4 % (0-2); Eosinophils Absolute Auto 0.1 X10*3/uL (0.0-0.4); Eosinophils Percent Auto 1.7 % (0-4); Hematocrit 41.2 % (37.0-47.0); Hemoglobin 13.2 g/dl (12.0-16.0); Imm Gran Abs Auto 0.01 X10*3/uL (0.00-0.03); Imm Gran Pct Auto 0.1 % (0.0-0.4); Lymphocytes Percent Auto 43.2 % (20-40); Mean Corpuscular Hemoglobin 26.2 pg (27.0-33.0); Mean Corpuscular Volume 81.9 fL (80.0-98.0); Mean Platelet Volume 10.6 fL (9.4-12.3); Monocytes Absolute Auto 0.5 X10*3/uL (0.1-1.2); Monocytes Percent Auto 7.3 % (2-11); Neutrophils Absolute Auto 3.3 x10*3/uL (2.0-8.3); Neutrophils Percent Auto 47.3 % (45-73); Platelet Count 290 X10*3/uL (160-400); Red Blood Count 5.03 X10*6/uL (4.20-5.50); Red Cell Distribution Width 13.8 % (11.0-16.0)
[2024-03-10 09:09] LABS: Alanine Aminotransferase 15 U/L (0-31); Albumin Level 4.1 g/dL (3.5-5.0); Alkaline Phosphatase 74 U/L (39-117); Anion Gap 13 (12-20); Aspartate Amino Transferase 16 U/L (5-31); Bilirubin Total 0.6 mg/dL (0.0-1.0); Blood Urea Nitrogen 18 mg/dL (9-16); Calcium 9.3 mg/dL (8.4-10.2); Carbon Dioxide 25 mmol/L (22-29); Chloride 108 mmol/L (96-108); Cholesterol 200 mg/dL (<200); Estimated Glomerular Filt Rate > 60; Glucose Random 100 mg/dL (60-115); HDL Cholesterol 43 mg/dL (>40); LDL Cholesterol Calculated 140 mg/dL (<100); Potassium 3.5 mmol/L (3.3-5.1); Sodium 142 mmol/L (135-145); Total Protein 7.3 g/dL (6.5-8.0); Triglycerides 85 mg/dL (<150)
[2024-03-10 09:29] LABS: Thyroid Stimulating Hormone 0.23 uIU/mL (0.32-4.0)
[2024-03-10 09:59] LABS: Vitamin B12 356 pg/mL (200-900)
== END 2024-03-10 07:10 | disposition home or self-care (01) ==
LOC: HO.LAB 07:09
PROVIDERS: PCP Internal Medicine; Visit Provider Internal Medicine
DX: Z00.01 Encounter for general adult medical examination with abnormal findings (principal)
CPT/HCPCS: 36415; 80053; 80061; 82306; 82607; 84443; 85025

== ENCOUNTER 2024-06-14 09:24 | Outpatient (REF) | payer OTHER, SELFPAY ==
--- NOTE | ~2024-06-14 | MR_ITS ---
EXAMINATION: MR KNEE WITHOUT CONTRAST, LEFT CLINICAL INFORMATION: Worsening lateral compartment pain. Patient reports prior arthroscopic surgery. COMPARISON: X-ray of left knee April 2021. TECHNIQUE: MRI of the knee without contrast was performed using routine sequences on a high-field scanner. FINDINGS: MENISCI: Medial Meniscus: There is subtle increased signal and/or irregularity along the tibial articular surface of the posterior horn and posterior body. This could reflect postsurgical result or meniscal tear. Lateral Meniscus: There is slightly irregular transverse/oblique increased signal throughout the anterior horn. This could reflect postsurgical result or meniscal tear. Suspect meniscal tear. This extends from the femoral to the tibial articular surface. LIGAMENTS: Cruciate: Intact Collateral: Intact EXTENSOR MECHANISM: Intact ARTICULAR CARTILAGE/BONE: Patellofemoral Compartment: There is a partially detached osseous fragment along the lateral aspect of the facet likely reflecting an old partially ununited fracture fragment or fractured osteophyte. There is diffuse high-grade cartilage loss noted throughout most of the lateral facet and median ridge of the patella. Mild cartilage heterogeneity at the medial facet. There are marginal osteophytes. There is nonuniform, primarily high-grade cartilage loss throughout the lateral trochlea and central sulcus. Less prominent cartilage loss and/or heterogeneity in the medial trochlea. Findings indicative of severe patellofemoral arthrosis. Medial Compartment: There are prominent marginal osteophytes. There are scattered areas of cartilage heterogeneity and nonuniform up to high-grade cartilage loss in the weightbearing portion of the compartment on the femoral side primarily, minimal cartilage heterogeneity on the tibial side. Findings indicative of [id number] osteoarthritis. Lateral Compartment: There are prominent marginal osteophytes. Scattered areas of cartilage heterogeneity throughout the weightbearing and non-weightbearing portion of the compartment. Small central osteophytes are also present within the anterior femoral articular surface and posterior non-weightbearing surface. Findings indicative of [id number] osteoarthritis. JOINT FLUID AND BURSAE: There is a mild joint effusion and synovitis. MR/MR knee LT wo con IMPRESSION: 1. Abnormal medial meniscus of uncertain clinical significance. This could reflect postsurgical result or meniscal tear. 2. Abnormal lateral meniscus. This could reflect postsurgical result or meniscal tear. Suspect meniscal tear. 3. Tricompartmental osteoarthritis with degenerative changes most prominent and severe involving the patellofemoral compartment. 4. Mild joint effusion and synovitis. Electronically signed by: Aleksandar Fan MD 06/15/2024 02:29 PM EDT RP
== END 2024-06-14 09:25 | disposition home or self-care (01) ==
LOC: HO.MRI 09:24
PROVIDERS: PCP Internal Medicine; Visit Provider Physician Assistant
DX: M25.562 Pain in left knee (principal)
CPT/HCPCS: 73721

== ENCOUNTER 2024-06-29 10:49 | Outpatient (AMB) | payer OTHER, SELFPAY ==
[2024-06-29 10:50] VITALS: BMI 33.2
--- NOTE | 2024-06-29 10:50 | MHC.OFFVIS ---
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 The patient describes her pain as sharp in nature. Most of the pain is along the medial and lateral aspects of her left knee. She did undergo bilateral knee arthroscopic surgery several years ago performed by another provider. She got fairly good relief from those procedures. The patient states that she re-injured her left knee approximately 1 year ago. She twisted her knee and had acute onset of pain. She has failed the last 6 weeks of conservative treatment consisting of physical therapy exercises, Tylenol and anti-inflammatory medicines. She has had injections in the past which gave her minimal relief. She states that her left knee will give out several times per day. Medication List - Last Reconciled 06/29/24 by Dionisio Hernández MD acetaminophen (Tylenol Extra Strength) 500 mg PO Q6H PRN betamethasone dipropionate 0.05% appl topical DAILY citalopram 20 mg PO DAILY cyclobenzaprine 5 mg PO TID PRN diclofenac potassium 50 mg PO BID ibuprofen 600 mg PO Q6H PRN lidocaine 5% 1 patch topical DAILY losartan-hydrochlorothiazide 100-25 mg 1 tab PO DAILY ondansetron 4 mg PO Q8H PRN trazodone 50 mg PO BEDTIME PRN PFSH Medical History Stress bladder incontinence, female Depression Primary osteoarthritis of right knee Atypical lobular hyperplasia of right breast Atrial septal defect delivery delivered HTN (hypertension) Surgical History History of surgery Tubal ligation status Hx of section Social History Patient Tobacco Use Status: Never used Tobacco Female Reproductive History Menstrual Age of Menarche: 9 Physical Exam Vital Signs: BMI result Body Mass Index 33.2 Const Other: Well-nourished well-developed very friendly female awake alert and oriented x3 in no acute distress Extrem Other: Bilateral lower extremity examination shows good capillary refill, no skin lesions noted, normal sensation light touch Left knee examination shows a minimal effusion, minimal crepitus with range of motion, tenderness along her medial and lateral joint lines, positive Isabel's test, no instability Results Reviewed Results Reviewed: Standing full weight-bearing x-rays of the patient's left knee show mild diffuse joint space narrowing, no acute bony abnormalities MRI of the patient's left knee shows mild diffuse degenerative changes as well as tearing of her medial and lateral menisci, no acute bony abnormalities Assessment & Plan Assessment & Plan (1) Tear of medial meniscus of left knee: Code(s): S83.242A - Other tear of medial meniscus, current injury, left knee, initial encounter Category: Medical Plan Ms. Jorje Sosa presents with progressively worsening left knee pain and mechanical symptoms due to tearing of her medial and lateral menisci. I had a lengthy discussion with the patient regarding the treatment options. At this point she has failed continued non operative treatments. The risks and benefits of left knee arthroscopic surgery were discussed at length with the patient. The patient wishes to proceed with surgery. Surgery will most likely involve left knee diagnostic arthroscopy with arthroscopic partial medial and lateral meniscectomies. The patient does understand that she may not get 100% relief of her symptoms depending on the severity of her degenerative changes. The patient will be scheduled for next available date. She will follow-up as instructed. Feel free to call me at any time should questions regarding her orthopedic management arise. I spent 21 minutes in reviewing the patient's records and imaging studies, seeing the patient and documenting in the medical record. Coding Level of Care Code New Pt Level 3 (07605) Complex EM visit Add On G2211 Diagnoses Tear of medial meniscus of left knee S83.242A
== END 2024-06-29 11:13 | disposition home or self-care (01) ==
PROVIDERS: PCP Internal Medicine; Visit Provider Orthopaedic Surgery
DX: S83.242A Other tear of medial meniscus, current injury, left knee, initial encounter (principal)
CPT/HCPCS: 99203; G2211

== ENCOUNTER → 2024-06-29 10:49 | Outpatient (BNVA) | payer OTHER, SELFPAY | PROVIDERS: PCP Internal Medicine; Visit Provider Orthopaedic Surgery | DX: S83.242A Other tear of medial meniscus, current injury, left knee, initial encounter (principal); X58.XXXA Exposure to other specified factors, initial encounter; Y93.9 Activity, unspecified; Y92.9 Unspecified place or not applicable; Y99.9 Unspecified external cause status | CPT/HCPCS: 99202 ==

== ENCOUNTER 2024-07-06 11:26 | Outpatient (AMB) | payer OTHER, SELFPAY ==
--- NOTE | 2024-07-06 11:30 | A.OFFVIS_ITS ---
Vital Signs 07/06/24 11:31 Height 5 ft Weight 170 lb BMI 33.2 Intake Visit Reasons: Left knee pain and giving way Intake Note: Adelaida is a 58 year old female who presents with complaints of progressively worsening left knee pain and giving way. The patient describes her pain as sharp in nature. Most of the pain is along the medial and lateral aspects of her left knee. She did undergo bilateral knee arthroscopic surgery several years ago performed by another provider. She got fairly good relief from those procedures. The patient states that she re-injured her left knee approximately 1 year ago. She twisted her knee and had acute onset of pain. She has failed the last 6 weeks of conservative treatment consisting of physical therapy exercises, Tylenol and anti-inflammatory medicines. She has had injections in the past which gave her minimal relief. She states that her left knee will give out several times per day. Allergies No Known Allergies Allergy (Verified 07/06/24 11:31) Medication List - Last Reconciled 07/06/24 by Dionisio Hernández MD acetaminophen (Tylenol Extra Strength) 500 mg PO Q6H PRN betamethasone dipropionate 0.05% appl topical DAILY citalopram 20 mg PO DAILY cyclobenzaprine 5 mg PO TID PRN diclofenac potassium 50 mg PO BID ibuprofen 600 mg PO Q6H PRN lidocaine 5% 1 patch topical DAILY losartan-hydrochlorothiazide 100-25 mg 1 tab PO DAILY ondansetron 4 mg PO Q8H PRN trazodone 50 mg PO BEDTIME PRN PFSH Medical History Stress bladder incontinence, female Depression Primary osteoarthritis of right knee Atypical lobular hyperplasia of right breast Atrial septal defect delivery delivered HTN (hypertension) Surgical History History of surgery Tubal ligation status Hx of section Social History Patient Tobacco Use Status: Never used Tobacco Female Reproductive History Menstrual Age of Menarche: 9 Physical Exam Vital Signs: BMI result Body Mass Index 33.2 Const Other: Well-nourished well-developed very friendly female awake alert and oriented x3 in no acute distress Extrem Other: Bilateral lower extremity examination shows good capillary refill, no skin lesions noted, normal sensation light touch Left knee examination shows a minimal effusion, minimal crepitus with range of motion, tenderness along her medial and lateral joint lines, positive Isabel's test, no instability Results Reviewed Results Reviewed: MRI of the patient's left knee shows mild diffuse degenerative changes as well as tearing of her medial and lateral menisci Assessment & Plan Assessment & Plan (1) Tear of medial meniscus of left knee: Code(s): S83.242A - Other tear of medial meniscus, current injury, left knee, initial encounter Category: Medical Plan Ms. Jorje Sosa presents with progressively worsening left knee pain and mechanical symptoms due to tearing of her medial and lateral menisci. I had a lengthy discussion with the patient regarding the treatment options. At this point she has failed continued non operative treatments. The risks and benefits of left knee arthroscopic surgery were discussed at length with the patient. The patient wishes to proceed with surgery. Surgery will most likely involve l eft knee diagnostic arthroscopy with arthroscopic partial medial and lateral meniscectomies. The patient will be scheduled for next available date. I did have her fitted with a knee brace as well. I do feel that the knee brace is a medical necessity to help prevent future falls. The patient will follow-up as instructed. I spent 21 minutes in reviewing the patient's records and imaging studies, seeing the patient and documenting in the medical record. Coding Level of Care Code Est Pt Level 3 (67278) Complex EM visit Add On G2211 Diagnoses Tear of medial meniscus of left knee S83.242A
[2024-07-06 11:31] VITALS: BMI 33.2
== END 2024-07-06 12:00 | disposition home or self-care (01) ==
PROVIDERS: PCP Internal Medicine; Visit Provider Orthopaedic Surgery
DX: S83.242A Other tear of medial meniscus, current injury, left knee, initial encounter (principal)
CPT/HCPCS: 99213; G2211

== ENCOUNTER → 2024-07-06 11:26 | Outpatient (BNVA) | payer OTHER, SELFPAY | PROVIDERS: PCP Internal Medicine; Visit Provider Orthopaedic Surgery | DX: S83.242D Other tear of medial meniscus, current injury, left knee, subsequent encounter (principal) | CPT/HCPCS: 99212 ==

== ENCOUNTER 2024-07-29 05:50 | Day surgery (SDC) | payer OTHER, SELFPAY ==
[2024-07-27 11:04] VITALS: BMI 33.2
--- NOTE | 2024-07-28 12:10 | P.CONAN_ITS ---
Documented by User: Shanita Wang NP 07/28/24 12:13 HPI - Anesthesia Eval Consult details Narrative: 58yo F for Left Knee Arthroscopy with lateral and medial and Lateral meniscectomy ASD s/p repair 2023 echo ok PMFSH Active Problems Active Problems: All Active Problems Tear of medial meniscus of left knee (Acute) Breast cancer screening (Acute) Cervical cancer screening (Acute) Well woman exam with routine gynecological exam (Acute) Stress bladder incontinence, female (Acute) Urine incontinence (Acute) Well woman exam (Acute) Past Medical History Medical History Stress bladder incontinence, female Depression Primary osteoarthritis of right knee Atypical lobular hyperplasia of right breast Atrial septal defect delivery delivered HTN (hypertension) Surgical History Surgical History History of surgery Tubal ligation status Hx of section Social History Social History Are you a primary wound care rn to a significant other at home: No Do you presently have visiting nurse or other home services: No Patient Tobacco Use Status: Never used Tobacco Use of substances other than those prescribed or required for medical reasons: No Have you been hit, kicked, punched, or otherwise hurt by someone within the past year? If so, by whom?: No Are you DNR?: No Advance Directives: No Advance Directives Information Provided: No Advance Directives on File: No Recently lost weight without trying: No How much weight loss: Not applicable Eating poorly because of decreased appetite: No Nutrition screen score: 0 Nutrition Risks: No Nutritional Risk Patient : No : No Poor oral hygiene: No Meds Allergies Allergy/AdvReac Type Severity Reaction Status Date / Time No Known Allergies Allergy Verified 07/29/24 06:10 Active Medications: Current Medications Cefazolin Sodium/Dextrose (Ancef) 2 gm in 50 mls @ 100 mls/hr IV PREOP ONE Stop: 07/29/24 05:49 Home Medications ?Medication ?Instructions ?Recorded ?Confirmed ?Last Taken ?Type citalopram 20 mg tablet 20 mg PO DAILY 09/05/21 07/29/24 Unknown History losartan 100 1 tab PO DAILY 09/05/21 07/29/24 07/28/24 History mg-hydrochlorothiazide 25 mg tablet betamethasone dipropionate 0.05 % 1 appl topical DAILY 01/27/22 07/29/24 Unknown History topical cream diclofenac potassium 50 mg tablet 50 mg PO BID 01/27/22 07/29/24 Unknown History trazodone 50 mg tablet 50 mg PO BEDTIME PRN insomnia 09/22/22 07/29/24 Unknown History lidocaine 5 % topical patch 1 patch topical NEEDED PRN Pain 07/29/24 07/29/24 Unknown History Exam Height,Weight and Vital Signs: Height 5 ft Weight 77.111 kg Pertinent Lab Results Pertinent Lab Results: Laboratory Tests 03/10/24 07:29 WBC 7.0 Hgb 13.2 Hct 41.2 Plt Count 290 Sodium 142 Potassium 3.5 Chloride 108 Carbon Dioxide 25 BUN 18 H Creatinine 0.75 Narrative Narrative: ECHO 03/2024 Conclusions: - 1. Low normal LV ejection fraction 50-55% with impaired relaxation filling pattern 2. Mildly dilated left atrium 3. No obvious interatrial shunting noted 4. Normal cardiac valvular Dopplers 5. Normal RV systolic pressure 6. No gross pericardial effusion EKG 2022 Vent. Rate : 092 BPM Atrial Rate : 092 BPM P-R Int : 152 ms QRS Dur : 088 ms QT Int : 344 ms P-R-T Axes : 058 016 021 degrees QTc Int : 425 ms Normal sinus rhythm Normal ECG When compared with ECG of 25-FEB-2022 10:40, Nonspecific T wave abnormality no longer evident in Lateral leads Assessment and Plan Assessment Anesthesia Assessment: Chart Reviewed Documented by User: Colleen Matias MD 07/29/24 08:24 [facility] Past Medical History Medical History Stress bladder incontinence, female Depression Primary osteoarthritis of right knee Atypical lobular hyperplasia of right breast Atrial septal defect delivery delivered HTN (hypertension) Family History Family history of problems with anesthesia: No Surgical History Surgical History History of surgery Tubal ligation status Hx of section History of Problems with Anesthesia: No Social History Social History Are you a primary wound care rn to a significant other at home: No Do you presently have visiting nurse or other home services: No Patient Tobacco Use Status: Never used Tobacco Use of substances other than those prescribed or required for medical reasons: No Have you been hit, kicked, punched, or otherwise hurt by someone within the past year? If so, by whom?: No Are you DNR?: No Advance Directives: No Advance Directives Information Provided: No Advance Directives on File: No Recently lost weight without trying: No How much weight loss: Not applicable Eating poorly because of decreased appetite: No Nutrition screen score: 0 Nutrition Risks: No Nutritional Risk Patient : No : No Poor oral hygiene: No Meds Allergies Allergy/AdvReac Type Severity Reaction Status Date / Time No Known Allergies Allergy Verified 07/29/24 06:10 Home Medications ?Medication ?Instructions ?Recorded ?Confirmed ?Last Taken ?Type citalopram 20 mg tablet 20 mg PO DAILY 09/05/21 07/29/24 Unknown History losartan 100 1 tab PO DAILY 09/05/21 07/29/24 07/28/24 History mg-hydrochlorothiazide 25 mg tablet betamethasone dipropionate 0.05 % 1 appl topical DAILY 01/27/22 07/29/24 Unknown History topical cream diclofenac potassium 50 mg tablet 50 mg PO BID 01/27/22 07/29/24 Unknown History trazodone 50 mg tablet 50 mg PO BEDTIME PRN insomnia 09/22/22 07/29/24 Unknown History lidocaine 5 % topical patch 1 patch topical NEEDED PRN Pain 07/29/24 07/29/24 Unknown History Exam Airway Mallampati Class: II TM Dist: >3cm Neck ROM: Full Heart: rrr Lungs: cta Assessment and Plan Assessment Anesthesia Assessment: Anesthesia Plan Discussed Final Anesthetic Review Family History of Problems with Anesthesia: No History of Problems with Anesthesia: No NPO: Yes ASA Class: III Final Preanesthetic Review: No Changes in Pt Med Stat, Meds/Allgs Chart Reviewed, Consent Obtained/Reviewed and Anes Risks/Benef Reviewed Patient Risk: Intermediate Procedure Risk: Low Anesthetic Plan Anesthetic Plan: GA Disposition: Standard PACU
[2024-07-29] VITALS (12 sets, daily range): BP systolic 122–160; BP diastolic 53–83; PULSE 52–77; RESP 16; TEMP 36.3–36.6; O2SAT 92–100; BMI 33.2
[2024-07-29] MEDS: Lactated Ringers 1,000 ML 100 ML IVCONT (06:38)
[2024-07-29] MEDS: fentaNYL citrate/PF 100 MCG/2 ML VIAL 25 MCG IVPUSH ×3 (08:37→09:09)
[2024-07-29] MEDS: cefTRIAXone sodium 1 GM VIAL IVPUSH (08:50)
--- NOTE | 2024-07-29 08:52 | P.BOP_ITS ---
Brief Operative Note Date of Service: 07/29/24 Pre-op diagnosis: Left knee medial meniscus tear, left knee lateral meniscus tear, left knee degenerative joint disease Post-op diagnosis: same Procedure: Left knee diagnostic arthroscopy with left knee arthroscopic partial medial and lateral meniscectomies, left knee arthroscopic chondroplasty of the undersurface of the patella as well as the medial femoral condyle Implants: None Surgeon: Dionisio Hernández MD Anesthesia: GLMA Was an Bone Drier used for this Procedure?: No Estimated blood loss (mL): 10 Pathology: none sent Condition: stable Disposition: PACU
--- NOTE | 2024-07-29 08:53 | W.PM.OPN ---
Operative Note Operative Note Date of Service: 07/29/24 Narrative: After the patient was identified as Adelaida Sosa and her left knee was initialed by myself they were brought to the operating room where general anesthesia was induced by the anesthesiologist in routine fashion. The patient was given 2 g of IV Ancef preoperatively for infection prophylaxis. The patient's left lower extremity was prepped and draped in sterile fashion. A formal time-out was completed. Marcaine was injected into the planned incision sites as well as the patient's left knee joint. A #11 scalpel blade was used to make an anterolateral portal 1 cm proximal to the joint line and 1 cm lateral to the patellar tendon. Blunt trocar technique was used to enter the suprapatellar pouch with the knee in extension. Diagnostic arthroscopy showed multiple bands of thickened plica which would be excised at the end of the procedure. There were no loose bodies or abnormalities found in either the medial or lateral gutters. The articular surface of the patella showed diffuse grades 2 and 3 degenerative changes. The trochlear groove articular surface showed diffuse grade 1 degenerative changes. The patient's knee was flexed to 45 degrees and a valgus force was placed upon it. The medial compartment was entered. An anteromedial portal was made 1 cm proximal to the joint line and 1 cm medial to the patellar tendon. Probing of the medial meniscus showed a radial tear of the posterior horn. A partial medial meniscectomy was performed using the arthroscopic shaver. Following the partial meniscectomy the remainder of the meniscus tissue was stable. There were diffuse grade 2 degenerative changes of the medial femoral condyle as well as grade 1 degenerative changes of the medial tibial plateau. The articular surface of the medial femoral condyle was then made smooth using the arthroscopic shaver. The articular surface of the medial tibial plateau was already smooth so no chondroplasty was indicated. The patient's knee was placed into a neutral position. There was no injury to the anterior cruciate ligament. The patient's knee was then placed in the figure of 4 position and the lateral compartment was entered. There was a radial tear of the anterior horn of the lateral meniscus. A partial lateral meniscectomy was performed using the arthroscopic shaver. Following the partial meniscectomy the remainder of the meniscus tissue was stable. There were minimal degenerative changes of the lateral femoral condyle and lateral tibial plateau. The patient's knee was once again brought into extension and the suprapatellar pouch was entered. The arthroscopic shaver and the ArthroCare Wand were used to excise the thickened bands of plica. The undersurface of the patella was then made smooth using the arthroscopic shaver. The articular surface of the trochlear groove was already smooth so no chondroplasty was indicated. The knee joint was irrigated and then drained. All arthroscopic instruments were removed. The 2 portals were closed with 3-0 nylon interrupted suture. The knee joint was injected with Marcaine. Dry sterile dressing and Gus bandages were placed over the patient's knee. The patient was awoken and extubated in the operating room. The patient was transferred to the recovery room in stable condition.
== END 2024-07-29 09:56 | disposition home or self-care (01) ==
PROVIDERS: PCP Internal Medicine; Visit Provider Orthopaedic Surgery
PROC: (CPT 29870; principal; 2024-07-29 07:30)
DX: S83.242A Other tear of medial meniscus, current injury, left knee, initial encounter (principal); S83.282A Other tear of lateral meniscus, current injury, left knee, initial encounter; M17.12 Unilateral primary osteoarthritis, left knee; M67.52 Plica syndrome, left knee; M23.52 Chronic instability of knee, left knee; X50.1XXA Overexertion from prolonged static or awkward postures, initial encounter; Y93.9 Activity, unspecified; Y92.9 Unspecified place or not applicable; Y99.9 Unspecified external cause status; I10 Essential (primary) hypertension; F32.A Depression, unspecified; N39.3 Stress incontinence (female) (male); Z79.1 Long term (current) use of non-steroidal anti-inflammatories (NSAID); Z79.899 Other long term (current) drug therapy; Z98.890 Other specified postprocedural states
CPT/HCPCS: 29880; 29876; J0131; J0171; J0690; J0696; J1100; J1885; J2003; J2405; J2704; J2795; J3010

== ENCOUNTER → 2024-07-29 05:50 | Outpatient (BNV) | payer OTHER, SELFPAY | PROVIDERS: PCP Internal Medicine; Visit Provider Orthopaedic Surgery | DX: S83.242A Other tear of medial meniscus, current injury, left knee, initial encounter (principal); S83.282A Other tear of lateral meniscus, current injury, left knee, initial encounter | CPT/HCPCS: 29880 ==

== ENCOUNTER 2024-08-11 11:20 | Outpatient (AMB) | payer OTHER, SELFPAY ==
[2024-08-11 11:27] VITALS: BMI 33.2
--- NOTE | 2024-08-11 11:27 | MHC.OFFVIS ---
Vital Signs 08/11/24 11:27 Height 5 ft 1 in Weight 175 lb 9 oz BMI 33.2 Intake Visit Reasons: PO LT knee 07/29/24 DR Intake Note: Adelaida is a 58 year old female who presents with complaints of mild intermittent discomfort in her left knee after undergoing left knee arthroscopic surgery on 07/29/2024. She continues with her home exercise program. She is no longer taking narcotics for her discomfort. She does take ibuprofen as needed. She denies any fevers or chills. Allergies No Known Allergies Allergy (Verified 08/11/24 11:28) Medication List - Last Reconciled 08/11/24 by Dionisio Hernández MD acetaminophen (Tylenol Extra Strength) 500 mg PO Q6H PRN betamethasone dipropionate 0.05% 1 appl topical DAILY citalopram 20 mg PO DAILY cyclobenzaprine 5 mg PO TID PRN diclofenac potassium 50 mg PO BID ibuprofen 600 mg PO Q6H PRN lidocaine 5% 1 patch topical NEEDED PRN losartan-hydrochlorothiazide 100-25 mg 1 tab PO DAILY ondansetron 4 mg PO Q8H PRN trazodone 50 mg PO BEDTIME PRN PFSH Medical History Stress bladder incontinence, female Depression Primary osteoarthritis of right knee Atypical lobular hyperplasia of right breast Atrial septal defect delivery delivered HTN (hypertension) Surgical History History of surgery Tubal ligation status Hx of section Social History Are you a primary outdoor emergency care technician to a significant other at home: No Do you presently have visiting nurse or other home services: No Patient Tobacco Use Status: Never used Tobacco Female Reproductive History Menstrual Age of Menarche: 9 Physical Exam Vital Signs: BMI result Body Mass Index 33.2 Extrem Other: Left knee examination shows that the surgical incisions are well healed, no erythema, mild discomfort with range of motion, minimal crepitus with range of motion, no instability Assessment & Plan Assessment & Plan (1) Left knee pain: Code(s): M25.562 - Pain in left knee Category: Medical Plan Adelaida is doing well after undergoing left knee arthroscopic surgery on 07/29/2024. Her sutures were removed and Steri-Strips placed over her incisions. She will gradually progress to activities as tolerated. She does not wish to go to formal physical therapy. I will clear her to return to work once her discomfort and strength have improved. She will contact me prior to her follow-up appointment in 2 months should any questions or concerns arise. Feel free to call me at any time should questions regarding her orthopedic management arise. Coding Level of Care Code Global (63198) Diagnoses Left knee pain M25.562
== END 2024-08-11 11:51 | disposition home or self-care (01) ==
LOC: HO.HOS 11:20
PROVIDERS: PCP Internal Medicine; Visit Provider Orthopaedic Surgery
DX: M25.562 Pain in left knee (principal)
CPT/HCPCS: 99024

== ENCOUNTER → 2024-08-11 11:20 | Outpatient (BNVA) | payer OTHER, SELFPAY | PROVIDERS: PCP Internal Medicine; Visit Provider Orthopaedic Surgery | DX: M25.562 Pain in left knee (principal); Z47.89 Encounter for other orthopedic aftercare; Z98.890 Other specified postprocedural states | CPT/HCPCS: 99212 ==

== ENCOUNTER 2024-09-19 07:58 | Outpatient (AMB) | payer OTHER, SELFPAY ==
[2024-09-19 07:59] VITALS: BMI 33.1
--- NOTE | 2024-09-19 07:59 | A.OFFVIS_ITS ---
Vital Signs 09/19/24 07:59 09/19/24 08:00 Height 5 ft 1 in 5 ft 1 in Weight 175 lb 175 lb BMI 33.1 33.1 Intake Visit Reasons: PO LT knee 07/29/24 Intake Note: Adelaida is a 58 year old female who presents with complaints of mild intermittent discomfort in her left knee after undergoing left knee arthroscopic surgery on 07/29/2024. Patient reports that she has been doing well, until last two days her pain and stiffness has increased. She takes Ibuprofen with no relief. She does have a knee brace at home which she wears at times. She denies any fevers or chills. Allergies No Known Allergies Allergy (Verified 09/19/24 08:00) Medication List - Last Reconciled 09/19/24 by Dionisio Hernández MD acetaminophen (Tylenol Extra Strength) 500 mg PO Q6H PRN betamethasone dipropionate 0.05% 1 appl topical DAILY citalopram 20 mg PO DAILY cyclobenzaprine 5 mg PO TID PRN diclofenac potassium 50 mg PO BID ibuprofen 600 mg PO Q6H PRN lidocaine 5% 1 patch topical NEEDED PRN losartan-hydrochlorothiazide 100-25 mg 1 tab PO DAILY ondansetron 4 mg PO Q8H PRN trazodone 50 mg PO BEDTIME PRN PFSH Medical History Stress bladder incontinence, female Depression Primary osteoarthritis of right knee Atypical lobular hyperplasia of right breast Atrial septal defect delivery delivered HTN (hypertension) Surgical History History of surgery Tubal ligation status Hx of section Social History Are you a primary lawn care specialist to a significant other at home: No Do you presently have visiting nurse or other home services: No Patient Tobacco Use Status: Never used Tobacco Female Reproductive History Menstrual Age of Menarche: 9 Physical Exam Vital Signs: BMI result Body Mass Index 33.1 Extrem Other: Left knee examination shows that the surgical incisions are well healed, no erythema, full active extension and flexion to 120 degrees, minimal crepitus with range of motion, minimal effusion Assessment & Plan Assessment & Plan (1) Left knee pain: Code(s): M25.562 - Pain in left knee Category: Medical Plan Adelaida continues to do fairly well after undergoing left knee arthroscopic surgery on 07/29/2024. She does have residual discomfort most likely due to continued inflammation. Thus, I did give her a prescription for a Medrol Dosepak. She will continue with her activity modifications. She will use her knee brace as needed. She will contact me prior to her follow-up appointment in 6 weeks should any questions or concerns arise. Feel free to call me at any time should questions regarding her orthopedic management arise. Medications: New methylprednisolone (Medrol ([place])) PO PER PKG DIR 21 ea 0RF Coding Level of Care Code Global (18349) Diagnoses Left knee pain M25.562
[2024-09-19 08:00] VITALS: BMI 33.1
== END 2024-09-19 08:12 | disposition home or self-care (01) ==
PROVIDERS: PCP Internal Medicine; Visit Provider Orthopaedic Surgery
DX: M25.562 Pain in left knee (principal)
CPT/HCPCS: 99024

== ENCOUNTER → 2024-09-19 07:58 | Outpatient (BNVA) | payer OTHER, SELFPAY | PROVIDERS: PCP Internal Medicine; Visit Provider Orthopaedic Surgery | DX: M25.562 Pain in left knee (principal) | CPT/HCPCS: 99212 ==

== ENCOUNTER 2024-10-10 10:47 | Outpatient (REF) | payer OTHER, SELFPAY ==
--- NOTE | ~2024-10-10 | XR_ITS ---
CLINICAL HISTORY: PAIN 3 view, bilateral sternoclavicular joints. Comparison: None Findings: Limited evaluation of the sternoclavicular joints No fractures or dislocations. The lungs are unremarkable. IMPRESSION: Limited examination demonstrating no acute process. CT may be helpful for further assessment. This document has been electronically signed by: Kassandra Aden MD on 10/10/2024 21:01:15
--- NOTE | ~2024-10-10 | XR_ITS ---
CLINICAL HISTORY: PAIN 6 views cervical spine Comparison: None Findings: Normal alignment. No acute fractures or dislocation. Multilevel disc space narrowing and endplate osteophyte formation, as well as facet hypertrophy. No prevertebral soft tissue swelling. IMPRESSION: No acute findings. This document has been electronically signed by: Kassandra Aden MD on 10/10/2024 14:56:53
== END 2024-10-10 10:48 | disposition home or self-care (01) ==
LOC: HO.XRAY 10:47
PROVIDERS: PCP Internal Medicine; Visit Provider Internal Medicine
DX: M62.838 Other muscle spasm (principal); S23.420A Sprain of sternoclavicular (joint) (ligament), initial encounter
CPT/HCPCS: 71130; 72040

== ENCOUNTER → 2024-10-10 11:10 | Outpatient (BNV) | payer OTHER, SELFPAY | PROVIDERS: PCP Internal Medicine; Visit Provider Radiology Diagnostic Radiology | DX: M54.2 Cervicalgia (principal) | CPT/HCPCS: 71130; 72040 ==

== ENCOUNTER 2024-10-12 09:41 | Outpatient (AMB) | payer OTHER, SELFPAY ==
--- NOTE | 2024-10-12 09:43 | MHC.OFFVIS ---
Vital Signs 10/12/24 09:47 Height 5 ft 1 in Weight 175 lb BMI 33.1 Intake Visit Reasons: PO LT knee 07/29/24 Intake Note: Adelaida is a 58 year old female who presents for follow up after undergoing left knee arthroscopic surgery on 07/29/2024. She reports mild intermittent discomfort in her left knee. She denies any fevers or chills. She continues with her home exercise program. Allergies No Known Allergies Allergy (Verified 10/12/24 09:47) Medication List - Last Reconciled 10/12/24 by Dionisio Hernández MD acetaminophen (Tylenol Extra Strength) 500 mg PO Q6H PRN betamethasone dipropionate 0.05% 1 appl topical DAILY citalopram 20 mg PO DAILY cyclobenzaprine 5 mg PO TID PRN diclofenac potassium 50 mg PO BID ibuprofen 600 mg PO Q6H PRN lidocaine 5% 1 patch topical NEEDED PRN losartan-hydrochlorothiazide 100-25 mg 1 tab PO DAILY ondansetron 4 mg PO Q8H PRN trazodone 50 mg PO BEDTIME PRN PFSH Medical History Stress bladder incontinence, female Depression Primary osteoarthritis of right knee Atypical lobular hyperplasia of right breast Atrial septal defect delivery delivered HTN (hypertension) Surgical History History of surgery Tubal ligation status Hx of section Social History Are you a primary aged or disabled care worker to a significant other at home: No Do you presently have visiting nurse or other home services: No Patient Tobacco Use Status: Never used Tobacco Female Reproductive History Menstrual Age of Menarche: 9 Physical Exam Vital Signs: BMI result Body Mass Index 33.1 Extrem Other: Left knee examination shows that the surgical incisions are well healed, no erythema, minimal crepitus with range of motion, minimal discomfort with range of motion, no instability Assessment & Plan Assessment & Plan (1) Left knee pain: Code(s): M25.562 - Pain in left knee Category: Medical Plan Ms. Jorje Sosa continues to do well after undergoing left knee arthroscopic surgery on 07/29/2024. She will continue with her home exercise program. She does have residual discomfort due to degenerative joint disease. At this point the patient's symptoms are tolerable to her. We will hold off on a viscosupplementation injection. She will follow up with me on an as-needed basis should her symptoms worsen in any way. Feel free to call me at any time should questions regarding her orthopedic management arise. Coding Level of Care Code Global (39717) Diagnoses Left knee pain M25.562
[2024-10-12 09:47] VITALS: BMI 33.1
== END 2024-10-12 10:15 | disposition home or self-care (01) ==
PROVIDERS: PCP Internal Medicine; Visit Provider Orthopaedic Surgery
DX: M25.562 Pain in left knee (principal)
CPT/HCPCS: 99024

== ENCOUNTER → 2024-10-12 09:41 | Outpatient (BNVA) | payer OTHER, SELFPAY | PROVIDERS: PCP Internal Medicine; Visit Provider Orthopaedic Surgery | DX: M25.562 Pain in left knee (principal) | CPT/HCPCS: 99212 ==

== ENCOUNTER 2024-10-24 12:37 | Outpatient (REF) | payer OTHER, SELFPAY | END 2024-10-24 12:38 | disposition home or self-care (01) | LOC: HO.MAMMO 12:37 | PROVIDERS: PCP Internal Medicine; Visit Provider Internal Medicine | DX: Z12.31 Encounter for screening mammogram for malignant neoplasm of breast (principal) | CPT/HCPCS: 77063; 77067 ==

== ENCOUNTER → 2024-10-24 13:30 | Outpatient (BNV) | payer OTHER, SELFPAY | PROVIDERS: PCP Internal Medicine; Visit Provider Internal Medicine | DX: Z12.31 Encounter for screening mammogram for malignant neoplasm of breast (principal) | CPT/HCPCS: 77063; 77067 ==

== ENCOUNTER 2024-11-09 09:40 | Outpatient (AMB) | payer OTHER, SELFPAY ==
--- NOTE | 2024-11-09 09:47 | MHC.OFFVIS ---
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 Present (Ophelia) Accompanied by: Self / Same As Patient Allergies No Known Allergies Allergy (Verified 11/09/24 09:53) Medication List - Last Reconciled 11/09/24 by Renae Tabor CNM acetaminophen (Tylenol Extra Strength) 500 mg PO Q6H PRN betamethasone dipropionate 0.05% 1 appl topical DAILY citalopram 20 mg PO DAILY cyclobenzaprine 5 mg PO TID PRN diclofenac potassium 50 mg PO BID ibuprofen 600 mg PO Q6H PRN lidocaine 5% 1 patch topical NEEDED PRN losartan-hydrochlorothiazide 100-25 mg 1 tab PO DAILY ondansetron 4 mg PO Q8H PRN trazodone 50 mg PO BEDTIME PRN Is last menstrual period known: No Post menopausal: Yes Patient : No HPI HPI 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 Her last Pap smear was negative in 2020 and she has never had an abnormal 1. She has not been sexually active in the last 3 years she has come regularly for her visits. Her mammogram was done last month she sees Dr. Cabello in [facility] for primary healthcare. She is not having any issues although she was feeling a little different when she was driving yesterday and then when she checked her blood pressure home it was low and she said she was told it was low this morning. She will check with her primary care doctor she has not had any other changes in her health. 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 She lives at home with her son. [facility] Medical History (Updated 11/09/24 @ 10:23 by Renae Tabor CNM) Stress bladder incontinence, female Depression Primary osteoarthritis of right knee Atypical lobular hyperplasia of right breast Atrial septal defect delivery delivered HTN (hypertension) Surgical History History of surgery Tubal ligation status Hx of section Social History Are you a primary lpn care manager to a significant other at home: No Do you presently have visiting nurse or other home services: No Patient Tobacco Use Status: Never used Tobacco Female Reproductive History Menstrual Age of Menarche: 9 Total pregnancies: 2 Full term: 2 Date of last pap smear: 09/05/21 (negative pap, negative hpv) History of abnormal pap smear: No Date of Mammogram: 10/24/24 (bi rad 2) Physical Exam Vital Signs: BMI result Body Mass Index 32.7 Const General: healthy appearing, comfortable, no acute distress, well developed and alert Nutritional Appearance: average body habitus Orientation/consciousness: patient oriented x3 Limitations: no limitations HEENT Head: Yes normocephalic Neck Neck: Yes normal visual inspection Chest Chest palpation & inspection: normal inspection of the chest Breast/axilla inspection: normal inspection of the breasts and normal inspection of the axillae Breast/axilla palpation: normal palpation of the breasts and normal palpation of the axillae Resp Effort & Inspection: normal respiratory effort GI Inspection: Yes normal to inspection, No Abdominal wall edema and No distended Palpation (GI): Soft to palpation and nontender Other: Normal external exam vagina is pink and moist (atrophic changes evident but still moist) cervix nulliparous pink moist. Long close thick mobile nontender uterus midposition mobile nontender she did have good tone with her Kegel. General: Yes bladder normal to palpation External Female Exam: normal external appearance and normal appearance of the urethra Speculum Exam - Vagina: normal appearance of the vagina, normal palpation and normal vaginal discharge Speculum Exam - Cervix: normal appearance of the cervix, normal palpation and nontender Bimanual exam- vagina & uterus: normal bimanual exam, normal palpation, uterine size normal, bladder normal to palpation, consistency normal, normal palpation, uterine mobility normal, uterine shape normal, No Cervical tenderness present, non-tender and no cervical motion tenderness Bimanual Exam- Adnexa, other: normal adnexae, no masses, normal and No adnexal tenderness Neuro General: patient oriented x3 Results Reviewed Results Reviewed: Name: Adelaida Lehman Age/Sex: 55/F Attending: Jaylon Omalley MD : 1965 Submitted by: Jaylon Omalley MD Copies to: JEAN PIERRE CABELLO MD MR #: [id number] Status: DEP REF Collected: 09/05/21 Location: .LAB Received: 09/06/21 Interpretation Satisfactory for evaluation. Negative for intraepithelial lesion or malignancy. HPV mRNA E6/E7: NOT DETECTED This assay detects E6/E7 viral messenger RNA (mRNA) from 14 high-risk HPV types (16, 18, 31, 33, 35, 39, 45, 51, 52, 56, 58, 59, 66, 68) HPV testing performed by [facility], [place], [place]. See reference laboratory portion of the EMR for entire report. Clinical Information LMP: Postmenopausal Previous PAP test: Unknown, WNL Material Received ThinPrep- Cervical Copies To JEAN PIERRE CABELLO MD [address] [place] [address] Jaylon Omalley MD [address] [place] [address] Dr. Bauer [address] [place] [id number] Electronically Signed By: SHREYAS Tapia (ASCP) 09/13/21 5020 The Pap Test is a screening procedure with the inherent possibility of both false negative and false positive results. Results should be interpreted in the context of historic and current clinical findings. Reliability of the Pap Test is enhanced by performing the test on a regular repetitive basis. Patient: Recinos Page 1 of 1 Assessment & Plan Assessment & Plan (1) Well woman exam: Code(s): Z01.419 - Encounter for gynecological examination (general) (routine) without abnormal findings Category: Medical (2) Well woman exam with routine gynecological exam: Code(s): Z01.419 - Encounter for gynecological examination (general) (routine) without abnormal findings Category: Medical (3) Cervical cancer screening: Comment: last pap neg 2020, no hx of abnls. next one 2025 Code(s): Z12.4 - Encounter for screening for malignant neoplasm of cervix Category: Medical (4) Breast cancer screening: Comment: yearly mammograms, last one 10/2024 Code(s): Z12.39 - Encounter for other screening for malignant neoplasm of breast Category: Medical (5) Stress bladder incontinence, female: Comment: again reviewed kegels- try to do them for a longer muscle contraction; sees to be doing well with this 2024 Code(s): N39.3 - Stress incontinence (female) (male) Category: Medical Plan -----Discussed in this visit the following: healthy balanced diet, regular and consistent exercise, getting recommended health screens, doing the best she can for her particular health concerns, kegel exercises, pap smear screening and followup recommendations, mammography screening and SBE, normal changes in cycles in her life stage--- . Reviewed that she is up-to-date on her Pap smear and she does not need a Pap smear till next year and reviewed the rationale for this. She is up-to-date on her mammograms reviewed dietary intake she is doing well she thinks she gets enough calcium in her diet she does exercise as much as she is able to with the need though less Ced then she used to. She is going to follow-up with her primary care doctor if she has any concerns about her blood pressure. Reviewed safer sex if she became sexually active. See her next year. 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
[2024-11-09 09:49] VITALS: BP 102/64; BMI 32.7
--- OUTSIDE RECORDS SUMMARY | 2024-11-09 10:13 | XMS_ITS | Continuity of Care Document ---
Author Organization [place] - [facility], [facility] Address [address] [place] [address] [place] [address] Assessment No assessment recorded. Plan of Treatment Reminders Order Date Submit Date Provider Last Modified By Organization Details Last Modified Time Details Appointments ANNUAL EXAM 2024 10:00A M DR CABELLO Not available Not available Not available Lab None recorded. Referral None recorded. Procedures None recorded. Surgeries None recorded. Imaging None recorded. Medication Orders prednison e 20 mg tablet 2024 025 [facility][id number], [address] [place], [place], [phone], 10/31/2024 14:59:55 baclofen 20 mg tablet 2024 025 [facility] #[id number], [address] [place], [place], [phone], 10/31/2024 14:59:46 Patient TargetsNo targets recorded. Patient InstructionsNo instructions recorded. Reason for Referral None Reported. Results Created Date Observation Date Name Description Value Unit Range Abnormal Flag Note LastModifiedBy Organization Detail LastModifiedTime 10/10/1910/10/2024 XR, cervi radha spine , 2 or 3 view No observ ation record ed. [address] (Medical Records) [address] [place] [address], [address], 10/12/2024 10:27:51 10/10/19 25 10/10/2024 XR, rao oclav icula r joint (s) No observ ation record ed. [address] [facility] [address] [place] [address] [place], [address], 10/12/2024 10:27:51 11/01/19 25 10/24/2024 MAMMO , deacon tyson, digit al, bilat eral No observ ation record ed. [email or web address] [facility]'s [address] [place], [address], 11/01/2024 13:42:45 Result Notes None recorded. Problems Name Problem SNOMED Code Status Onset Date Resolution Date Notes Provider Name and Address Organization Details Recorded Time Essential hypertens ion 75727329 [facility] 08:33:23 Atrial septal defect 47005563 Active 2017 repair 2001 Traci packer [facility] 8 08:33:49 Depressiv e disorder 21047710 Active 2017 Lorraine ROGER Escobar [address] [place] [address], [address], [facility] 8 10:10:58 Herpes labialis 4207380 Active 2017 Lorraine ROGER Escobar [address] [place] [address], [address], [facility] 8 10:11:16 B12 deficienc y monitorin g Active 2018 Jurgen Cabello DO [address] [place] [address], [address], [facility] 9 10:28:25 Impingeme nt syndrome of right shoulder region 80993952843 9102 Active 2019 Jurgen Cabello DO [address] [place] [address], [address], [facility] 0 14:06:16 Atypical chest pain 633534792 Active 2021 ANNA GRAHAM [address] [place] [address], [address], [facility] 2 15:46:38 Thoracic back pain 450825654 Active 2021 ANNA GRAHAM [address] [place], [address], [facility] 2 15:48:31 Traumatic hematoma 595239347 Active 2021 ANNA GRAHAM [address] [place], [address], [facility] 2 15:51:25 Degenerat ion of lumbar intervert ebral disc 12436150 Active 2021 ANNA GRAHAM [address] [place] [address], [address], [facility] 2 15:13:29 Degenerat ion of thoracic intervert ebral disc 62982491 Active 2021 ANNA GRAHAM [address] [place] [address], [address], [facility] 2 15:15:55 Degenerat ion of cervical intervert ebral disc 74654664 Active 2021 ANNA GRAHAM [address] [place] [address], [address], [facility] 2 15:16:25 Insect bite reaction 677157015 Active 2021 ANNA GRAHAM [address] [place] [address], [address], [facility] 2 10:16:26 Chest pain 11094885 Active 2021 Jurgen Cabello, DO [address] [place] [address], [address], [facility] 2 14:31:41 Rosacea 955737909 Active 2021 Jurgen Cabello, DO [address] [place] [address], [address], [facility] 2 14:36:14 Atelectas is 52977695 Active 2021 ANNA GRAHAM [address] [place] [address], [address], [facility] 2 12:38:53 Infection of tooth 823691625 Active 2021 ANNA GRAHAM [address] [place] [address], [address], [facility] 2 14:44:39 Tendiniti s of left wrist region 55047107889 642438 Active 2021 ANNA GRAHAM [address] [place] [address], [address], [facility] 2 14:46:38 Cough 94946970 Active 2021 Jurgen Cabello, [address] [place] [address], [address], [facility] 2 10:08:01 Migraine 39881798 Active 2022 ANNA GRAHAM [address] [place] [address], [address], [facility] 3 14:15:45 Thyroid nodule 786293971 Active 2022 ANNA GRAHAM [address] [place] [address], [address], [facility] 3 14:16:32 Hypertens jessica urgency 962032371 Active 2022 ANNA GRAHAM [address] [place] [address], [address], [facility] 3 14:17:53 Acute bronchiti s 36729811 Active 2022 ANNA GRAHAM [address] [place] [address], [address], [facility] 3 11:15:06 Pneumonia 497686529 Active 2022 Jurgen Cabello, DO [address] [place] [address], [address], [facility] 3 14:52:40 Postmenop ausal osteopeni a 836403085 Active 2022 Jurgen Cabello, DO [address] [place] [address], [address], [facility] 3 12:15:54 Streptoco ccal sore throat 05300464 Active 2022 ANNA GRAHAM [address] [place] [address], [address], [facility] 3 09:44:44 Multiple joint pain 75027648 Active 2022 Jurgen Cabello, DO [address] [place] [address], [address], [facility] 3 17:01:56 Hand pain 39792480 Active 2022 Jurgen Cabello, DO [address] [place] [address], [address], [facility] 3 10:06:34 Hand pain 05629211 Active 2022 Jurgen Cabello, DO [address] [place] [address], [address], [facility] 3 10:06:44 Osteoarth ritis of joint of bilateral hands 79302864332 9109 Active 2022 Jurgen Cabello, DO [address] [place] [address], [address], [facility] 3 23:21:07 Bilateral lung opacities on plain chest X-ray 638335062 Active 2022 Jurgen Cabello, DO [address] [place] [address], [address], [facility] 3 22:27:13 Epigastri c pain 79882977 Active 2022 Jurgen Cabello DO [address] [place] [address], [address], [facility] 3 10:05:33 Idiopathi c acute pancreati tis 093093538 Active 2022 Jurgen Cabello, DO [address] [place] [address], [address], [facility] 3 15:04:37 Recurrent pancreati tis 267516984 Active 2023 Jurgen Cabello [address], [address], [facility] 4 11:45:37 Pain of bilateral knee joints 73192355800 4104 Active 2023 ANNA GRAHAM [address] [place] [address], [address], [facility] 4 12:04:43 Pain of left knee joint 13359151364 4107 Active 2023 ANNA GRAHAM [address] [place] [address], [address], [facility] 4 12:05:12 Pain of right knee joint 30149547332 4100 Active 2023 ANNA GRAHAM [address] [place] [address], [address], [facility] 4 12:05:24 Acute tear of lateral meniscus of left knee 18852965041 422101 Active 2023 Jurgen Cabello DO [address] [place] [address], [address], [facility] 4 10:05:13 Spasm of cervical paraspino us muscle 278196991 Active 2024 Jurgen Cabello DO [address] [place] [address], [address], [facility] 5 15:37:00 Sternocla vicular sprain 138016927 Active 2024 Jurgen Cabello [address], [address], [facility] 5 15:39:39 Problem Notes None recorded. Procedures Surgical History Date Name Laterality Status Provider Name and Address Organization Details Recorded Time 5 Most Recent Mammogram completed Perla Joy [facility] 11/01/2024 13:42:26 Imaging Results None recorded. Procedure Notes None recorded. Medical Equipment None Reported. Allergies Allergen ID Allergen Name Allergen Category Reaction Reaction Severity Criticality Documentation Date Start Date Code Code System Note Provider Name and Address Organization Details Recorded Time 2274 Product containin g angiotens in-conver ting enzyme inhibitor (product) medicatio n Not available Not available Not available 06/16/2018 05674 009 SNOMED Traci Thalia packer [facility] 8 08:33:05 Medications Name Sig Start Date Stop Date Status Note LastModified by Organization Details LastModified Time celecoxib 200 mg capsule TK 1 C PO QD 01/13 completed Not Available Not Available Not Available cyclobenzap rine 10 mg tablet TAKE 1/2 TO 1 TABLET BY MOUTH THREE TIMES DAILY FOR 5 DAYS. MAY CAUSE DROWSINES S. USE CAUTION OPERATING HEAVY MACHINERY . DO NOT USE ALCOHOL 07/26 completed Not Available Not Available Not Available amoxicillin 500 mg capsule TAKE 1 CAPSULE BY MOUTH EVERY 8 HOURS FOR 10 DAYS 01/27 completed Not Available Not Available Not Available clonidine HCl 0.1 mg tablet TAKE 1 TABLET BY MOUTH EVERY DAY 01/27 completed Not Available Not Available Not Available prednisone 10 mg tablet 40 mg x 2 tabs30 mg x 2 days20 mg x 2 days10 mg x 2 days 01/27 completed Not Available Not Available Not Available doxycycline hyclate 100 mg capsule TAKE 1 CAPSULE BY MOUTH TWICE DAILY FOR 7 DAYS 03/26 completed Not Available Not Available Not Available Nizoral A-D 1 % shampoo APPLY SHAMPOO BY TOPICAL ROUTE EVERY 3 DAYS LATHER, RINSE, AND REPEAT 01/13 completed Not Available Not Available Not Available trazodone 50 mg tablet TAKE 1 TABLET BY MOUTH AT BEDTIME NEEDED FOR INSOMNIA active Not Available Not Available No t Available azithromyci n 250 mg tablet TAKE 2 TABLETS (500 MG) BY ORAL ROUTE ONCE DAILY FOR 1 DAY THEN 1 TABLET (250 MG) BY ORAL ROUTE ONCE DAILY FOR 4 DAYS 10/07 completed Not Available Not Available Not Available tizanidine 4 mg tablet TAKE 1 TABLET BY MOUTH EVERY 6 HOURS FOR 7 DAYS 10/31 completed Not Available Not Available Not Available valacyclovi r 1 gram tablet TAKE 1 TABLET BY MOUTH THREE TIMES DAILY FOR 5 DAYS 03/26 completed Not Available Not Available Not Available hydrocodone 5 mg-acetamin ophen 325 mg tablet Take 1 tablet every 6 hours by oral route for 7 days. 12/31 completed Not Available Not Available Not Available meloxicam 15 mg tablet Take 1 tablet every day by oral route for 30 days. 01/01 completed Not Available Not Available Not Available prednisone 20 mg tablet Take 2 tablets every day by oral route for 10 days. 2024 active Not Available Not Available Not Avai lable amlodipine 5 mg tablet TAKE 1 TABLET BY MOUTH EVERY DAY active Not Available Not Available No t Available Tamiflu 75 mg capsule Take 1 capsule twice a day by oral route for 5 days. 12/13 completed Not Available Not Available Not Available tramadol 50 mg tablet TAKE 1 TABLET BY MOUTH EVERY 6 HOURS FOR 7 DAYS 07/26 completed Not Available Not Available Not Available Azelex 20 % topical cream APPLY TOPICALLY TO THE AFFECTED AREA TWICE DAILY 01/27 completed Not Available Not Available Not Available baclofen 20 mg tablet Take 1 tablet 3 times a day by oral route as needed for 10 days. 2024 active Not Available Not Available Not Avai lable losartan 100 mg-hydrochl orothiazide 25 mg tablet TAKE 1 TABLET BY MOUTH EVERY DAY active Not Available Not Available No t Available oxycodone-a cetaminophe n 5 mg-325 mg tablet TAKE 1 TABLET BY MOUTH EVERY 6 HOURS NEEDED FOR PAIN 11/27 completed Not Available Not Available Not Available amoxicillin 875 mg tablet TAKE 1 TABLET BY MOUTH EVERY 12 HOURS FOR 7 DAYS 03/27 completed Not Available Not Available Not Available citalopram 20 mg tablet TAKE 1 TABLET BY MOUTH DAILY active Not Available Not Available No t Available prednisolon e acetate 1 % eye drops,suspe nsion 02/01 completed Not Available Not Available Not Available lorazepam 0.5 mg tablet TK 1 T PO TID FOR 3 DAYS PRN 01/13 completed Not Available Not Available Not Available doxycycline monohydrate 100 mg capsule TAKE 1 CAPSULE BY MOUTH TWICE DAILY FOR 10 DAYS 12/11 completed Not Available Not Available Not Available cephalexin 500 mg capsule TAKE 1 CAPSULE BY MOUTH TWICE DAILY FOR 10 DAYS 12/11 completed Not Available Not Available Not Available metronidazo le 0.75 % topical cream APPLY THIN LAYER TOPICALLY TO THE AFFECTED AREA TWICE DAILY IN THE MORNING AND IN THE EVENING 01/27 completed Not Available Not Available Not Available diclofenac potassium 50 mg tablet TAKE 1 TABLET BY MOUTH TWICE DAILY WITH MEALS 10/31 completed Not Available Not Available Not Available betamethaso ne dipropionat e 0.05 % topical cream APPLY THIN LAYER TOPICALLY TO THE AFFECTED AREA EVERY DAY active Not Available Not Available No t Available diclofenac sodium 75 mg tablet,jina yed release TAKE 1 TABLET BY MOUTH TWICE DAILY FOR 20 DAYS 2023 active Not Available Not Available Not Avai lable codeine 10 mg-guaifene sin 100 mg/5 mL oral liquid Take 10 mL every 4 hours by oral route as needed. 01/27 completed Not Available Not Available Not Available hydrochloro thiazide 25 mg tablet TAKE 1 TABLET BY MOUTH EVERY DAY 09/26 completed Not Available Not Available Not Available diclofenac sodium 50 mg tablet,jina yed release TAKE 1 TABLET BY MOUTH TWICE DAILY 01/13 completed Not Available Not Available Not Available ergocalcife rol (vitamin D2) 1,250 mcg (50,000 unit) capsule TAKE 1 CAPSULE BY MOUTH EVERY WEEK active Not Available Not Available No t Available levofloxaci n 500 mg tablet TAKE 1 TABLET BY MOUTH EVERY 24 HOURS FOR 10 DAYS 02/01 completed Not Available Not Available Not Available methylpredn isolone 4 mg tablets in a dose pack FOLLOW PACKAGE DIRECTION S 10/22 completed Not Available Not Available Not Available morphine 15 mg immediate release tablet 07/26 completed Not Available Not Available Not Available ondansetron 4 mg disintegrat ing tablet DISSOLVE 1 TABLET ON THE TONGUE EVERY 8 HOURS NEEDED FOR NAUSEA OR VOMITING 02/01 completed Not Available Not Available Not Available losartan 100 mg tablet TAKE 1 TABLET BY MOUTH EVERY DAY 09/26 completed Not Available Not Available Not Available fluticasone propionate 50 mcg/actuati on nasal spray,suspe nsion SHAKE LIQUID AND USE 2 SPRAYS IN EACH NOSTRIL EVERY MORNING active Not Available Not Available No t Available naproxen 500 mg tablet TAKE 1 TABLET BY MOUTH TWICE DAILY FOR 10 DAYS 02/01 completed Not Available Not Available Not Available metoprolol tartrate 25 mg tablet TAKE 1/2 TABLET BY MOUTH TWICE DAILY active Not Available Not Available No t Available diclofenac 1 % topical gel APPLY 2 GRAMS TOPICALLY TO THE TO THE AFFECTED AREA FOUR TIMES DAILY. active Not Available Not Available No t Available Vitals Date Recorded Body height Provider Name an d Address Organization Details Last Updated DateTime 10/31/2024 154.94 cm Perla Joy [facility] 10/31/2024 14:43:54 Social History Question Answer Notes LastModified by Organizat ion Details LastModified Time Tobacco Smoking Status Never Smoker Not Available [facility] 08/07/2020 03:36:23 What Was The Date Of Your Most Recent Tobacco Screening? 07/01/2024 Information not available 07/01/2024 Do You Or Have You Ever Used Any Other Forms Of Tobacco Or Nicotine? No [email or web address] Information not available 01/27/2023 Sex: Unknown Functional Status None recorded. Mental Status None recorded. Family History Nothing Reported. Medical History No medical history recorded. Gynecological History Statement/Question Response Most Recent Mammogram 10/24/2024 Obstetrics History GPAL:G 0 P 0 0 0 0 Immunizations Vaccine Type Date Status Note Provider Nam e and Address Organization Details Recorded Time COVID-19 vaccine, vector-nr, rS-Ad26, PF, 0.5 mL 01/09/2021 completed Marika packer [facility] 01/13/2022 08:29:14 COVID-19, mRNA, LNP-S, PF, 30 mcg/0.3 mL dose 10/14/2021 completed Marika packer [facility] 01/13/2022 08:29:30 Past Encounters Encounter ID Performer Location Encounter Start Date Encounter Closed Date Diagnosis/Indication Diagnosis SNOMED-CT Code Diagnosis ICD10 Code Diagnosis Note [id number] Jurgen Cabello DO [facility] [address] [facility],[place] [address] 10/07/2024 14:57:48 10/07/2024 15:48:25 Spasm of cervical paraspinous muscle 234623711 M62.838 Sternoclav icular sprain 388107436 S23.420A [id number] ANNA GRAHAM [facility] [address] [facility] [place] [place] [address] 10/31/2024 14:34:01 10/31/2024 16:08:52 Thoracic back pain 754737335 M54.6 start on meds Health Concerns Section Related Observation LastModified by Organization Detai ls LastModified Time None Recorded Concern Status LastModified by Organization Details LastModified Time None Recorded Payers Encounter Date Sequence Insurance Name Policy Number Policy Tyler Covered Member ID Tyler Member ID Guarantor Name 10/31/2024 1 [facility] [employer] - DIRECT CONNECTORCARE TYPE I (HMO) [id number] Adelaida Recinos [id number] Adelaida Recinos Notes Date Note Type Note Provider Name a nd Address Organization Details Recorded Time text/html c/o back pain upper thoracic back painreproducible with palpation of the upper back muscles 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
--- OUTSIDE RECORDS SUMMARY | 2024-11-09 10:14 | XMS_ITS | Data Portability ---
Author Organization [facility] Home Service Address [address] [place] [address] Assessment Encounter Date Assessment Date Assessment LastModified by Organization Details LastModified Time 07/01/2024 07/01/2024 [id number] [place] [id number] (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) MDM MODERATE MUST MEET 2 OUT OF 3 ELEMENTS: PROBLEMS, DATA OR RISK ELEMENT 1: PROBLEMS ADDRESSED 1 OR MORE CHRONIC ILLNESS WITH EXACERBATION OR 2 OR MORE STABLE CHRONIC ILLNESSES OR 1 UNDIAGNOSED NEW PROBLEM OR 1 ACUTE ILLNESS W/SYMPTOMS OR 1 ACUTE COMPLICATED INJURY ELEMENT 2: DATA MUST MEET 1 OF 3 CATEGORIES CATEGORY 1: REVIEW OF PRIOR EXTERNAL NOTES, REVIEW OF RESULTS, ORDERING OF EACH TEST, ASSESSMENT REQUIRING INDEPENDENT HISTORIAN OR CATEGORY 2: INDEPENDENT INTERPRETATION OF TESTS BY ANOTHER PHYSICIAN OR SPECIALIST OR CATEGORY 3: DISCUSSION OF MGT OR TEST INTERPRETATION W/EXTERNAL PHYSICIAN OR SPECIALIST ELEMENT 3: RISK RISK OF COMPLICATIONS AND/OR MORBIDITY OR MORTALITY OF PATIENT MANAGEMENT PROVIDER MUST THOROUGHLY DOCUMENT EACH ELEMENT THAT IS COVERED Not available 07/01/2024 10:04:08 10/07/2024 10/07/2024 [id number] [place] [id number] (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) MDM MODERATE MUST MEET 2 OUT OF 3 ELEMENTS: PROBLEMS, DATA OR RISK ELEMENT 1: PROBLEMS ADDRESSED 1 OR MORE CHRONIC ILLNESS WITH EXACERBATION OR 2 OR MORE STABLE CHRONIC ILLNESSES OR 1 UNDIAGNOSED NEW PROBLEM OR 1 ACUTE ILLNESS W/SYMPTOMS OR 1 ACUTE COMPLICATED INJURY ELEMENT 2: DATA MUST MEET 1 OF 3 CATEGORIES CATEGORY 1: REVIEW OF PRIOR EXTERNAL NOTES, REVIEW OF RESULTS, ORDERING OF EACH TEST, ASSESSMENT REQUIRING INDEPENDENT HISTORIAN OR CATEGORY 2: INDEPENDENT INTERPRETATION OF TESTS BY ANOTHER PHYSICIAN OR SPECIALIST OR CATEGORY 3: DISCUSSION OF MGT OR TEST INTERPRETATION W/EXTERNAL PHYSICIAN OR SPECIALIST ELEMENT 3: RISK RISK OF COMPLICATIONS AND/OR MORBIDITY OR MORTALITY OF PATIENT MANAGEMENT PROVIDER MUST THOROUGHLY DOCUMENT EACH ELEMENT THAT IS COVERED Not available 10/07/2024 15:36:46 Plan of Treatment Reminders Order Date Submit Date Provider Last Modified By Organization Details Last Modified Time Details Appointments ANNUAL EXAM 2024 10:00A M DR CABELLO Not available Not available Not available Lab CMP, serum or plasma 2023 [facility], [address] [place] [address], [address], 03/10/2024 11:22:34 CBC w/ auto diff 2023 [facility], [address] [place] [address], [address], 02/02/2024 10:26:41 lipid panel, blood 2023 [facility], [address] [place] [address], [address], 02/02/2024 10:26:40 vitamin D, 25-hydrox y, total, serum 2023 [facility], [address] [place] [address], [address], 02/02/2024 10:26:40 TSH, serum or plasma 2023 024 [facility], [address] [place] [address], [address], 02/02/2024 10:26:40 vitamin B12, serum 2023 024 [facility], [address] [place] [address], [address], 02/02/2024 10:26:40 Referral None recorded. Procedures None recorded. Surgeries None recorded. Imaging US, echocardi ogram, transthor acic, complete, w/ color flow - patient having atypical chest pain 2023 [facility], [address] [place] [address], [address], 02/16/2024 09:03:58 MRI, knee, w/o contrast 2023 024 [facility], [address] [place], [address], 05/17/2024 08:18:19 MRI, knee, w/o contrast 2023 024 [facility], [address] [place], [address], 05/13/2024 12:03:00 XR, cervical spine, 2 or 3 view 2024 025 [facility], [address] [place] [address], [address], 10/10/2024 14:59:01 XR, sternocla vicular joint(s) 2024 025 [facility], [address] [place] [address], [address], 10/11/2024 06:45:57 Medication Orders tramadol 50 mg tablet 2023 024 [facility] #[id number], [address], [place], [id number], 07/26/2024 10:01:16 tizanidin e 4 mg tablet 2024 025 [facility] #[id number], [address], [place], [id number], 10/31/2024 14:57:26 prednison e 20 mg tablet 2024 025 [facility] #[id number], [address], [place], [id number], 10/31/2024 14:59:55 baclofen 20 mg tablet 2024 025 [facility] #[id number], [address], [place], [id number], 10/31/2024 14:59:46 Patient TargetsNo targets recorded. Patient Instructions Encounter Date Encounter Id Patient Instructions Last Modified By Organization Details Last Modified Time 07/01/2024 [id number] high blood press ure: care instructions Not available 07/01/2024 10:08:09 learning about h igh blood pressure Not available 07/01/2024 10:08:09 10/07/2024 [id number] sternoclavicular joint separation: rehab exercises Not available 10/07/2024 15:42:12 Reason for Referral None Reported. Results Created Date Observation Date Name Description Value Unit Range Abnormal Flag Note LastModifiedBy Organization Detail LastModifiedTime 03/09/20 24 03/09/2024 US, echoc ardio gram, trans thora cic, compl ete, w/ color flow No observ ation record ed. [address] (Medical Records) [address] [place], [address], 03/11/2024 10:56:54 06/15/20 24 06/14/2024 MRI, knee, w/o contr ast No observ ation record ed. [email or web address] [facility] (Medical Records) [address] [place], [address], 06/15/2024 14:57:47 10/10/19 25 10/10/2024 XR, cervi radha spine , 2 or 3 view No observ ation record ed. [address] (Medical Records) [address] [place], [address], 10/12/2024 10:27:51 10/10/19 25 10/10/2024 XR, rao oclav icula r joint (s) No observ ation record ed. [address] [facility] [address] [place], [address], 10/12/2024 10:27:51 11/01/19 25 10/24/2024 MAMMO , scree marbella, digit al, bilat eral No observ ation record ed. [email or web address] [facility]'s [address] [place], [address], 11/01/2024 13:42:45 Result Notes None recorded. Problems Name Problem SNOMED Code Status Onset Date Resolution Date Notes Provider Name and Address Organization Details Recorded Time Essential hypertens ion 19587314 [facility] 8 08:33:23 Atrial septal defect 89592090 Active 2017 repair 2001 Traci packer [facility] 8 08:33:49 Depressiv e disorder 27059342 Active 2017 [facility] Shawn [address], [address], [facility] 8 10:10:58 Herpes labialis 3150233 Active [address], [address], [facility] 8 10:11:16 B12 deficienc y monitorin g Active 2018 Jurgen Cabello DO [address] [place] [address], [address], [facility] 9 10:28:25 Impingeme nt syndrome of right shoulder region 31509343837 9102 Active 2019 Jurgen Cabello DO [address] [place] [address], [address], [facility] 0 14:06:16 Atypical chest pain 935670879 Active 2021 ANNA GRAHAM [address] [place] [address], [address], [facility] 2 15:46:38 Thoracic back pain 018090647 Active 2021 ANNA GRAHAM [address] [place] [address], [address], [facility] 2 15:48:31 Traumatic hematoma 686068680 Active 2021 ANNA GRAHAM [address] [place] [address], [address], [facility] 2 15:51:25 Degenerat ion of lumbar intervert ebral disc 53283355 Active 2021 ANNA GRAHAM [address] [place] [address], [address], [facility] 2 15:13:29 Degenerat ion of thoracic intervert ebral disc 57885764 Active 2021 ANNA GRAHAM [address] [place] [address], [address], [facility] 2 15:15:55 Degenerat ion of cervical intervert ebral disc 53737236 Active 2021 ANNA GRAHAM [address] [place] [address], [address], [facility] 2 15:16:25 Insect bite reaction 202153300 Active 2021 ANNA GRAHAM [address] [place] [address], [address], [facility] 2 10:16:26 Chest pain 98799849 Active 2021 Jurgen Cabello DO [address] [place] [address], [address], [facility] 2 14:31:41 Rosacea 172000198 Active 2021 Jurgen Cabello DO [address] [place] [address], [address], [facility] 2 14:36:14 Atelectas is 19117176 Active 2021 ANNA GRAHAM [address] [place] [address], [address], [facility] 2 12:38:53 Infection of tooth 584584471 Active 2021 ANNA GRAHAM [address] [place] [address], [address], [facility] 2 14:44:39 Tendiniti s of left wrist region 71132960798 228127 Active 2021 ANNA GRAHAM [address] [place] [address], [address], [facility] 2 14:46:38 Cough 95772444 Active 2021 Jurgen Cabello DO [address] [place] [address], [address], [facility] 2 10:08:01 Migraine 33085033 Active 2022 ANNA GRAHAM [address] [place] [address], [address], [facility] 3 14:15:45 Thyroid nodule 121846972 Active 2022 ANNA GRAHAM [address] [place] [address], [address], [facility] 3 14:16:32 Hypertens jessica urgency 790667145 Active 2022 ANNA GRAHAM [address] [place] [address], [address], [facility] 3 14:17:53 Acute bronchiti s 83073620 Active 2022 ANNA GRAHAM [address] [place] [address], [address], [facility] 3 11:15:06 Pneumonia 375994177 Active 2022 Jurgen Cabello DO [address] [place] [address], [address], [facility] 3 14:52:40 Postmenop ausal osteopeni a 563609502 Active 2022 Jurgen Cabello DO [address] [place] [address], [address], [facility] 3 12:15:54 Streptoco ccal sore throat 75590396 Active 2022 ANNA GRAHAM [address] [place] [address], [address], [facility] 3 09:44:44 Multiple joint pain 63763513 Active 2022 Jurgen Cabello, DO [address] [place] [address], [address], [facility] 3 17:01:56 Hand pain 33614332 Active 2022 Jurgen Cabello DO [address] [place] [address], [address], [facility] 3 10:06:34 Hand pain 31767192 Active 2022 Jurgen Cabello DO [address] [place] [address], [address], [facility] 3 10:06:44 Osteoarth ritis of joint of bilateral hands 98713626140 9109 Active 2022 Jurgen Cabello DO [address] [place] [address], [address], [facility] 3 23:21:07 Bilateral lung opacities on plain chest X-ray 210615429 Active 2022 Jurgen Cabello DO [address] [place] [address], [address], [facility] 3 22:27:13 Epigastri c pain 46715338 Active 2022 Jurgen Cabello DO [address] [place] [address], [address], [facility] 3 10:05:33 Idiopathi c acute pancreati tis 701360505 Active 2022 Jurgen Cabello DO [address] [place] [address], [address], [facility] 3 15:04:37 Recurrent pancreati tis 471595104 Active 2023 Jurgen Cabello DO [address] [place] [address], [address], [facility] 4 11:45:37 Pain of bilateral knee joints 55248884329 4104 Active 2023 ANNA GRAHAM [address] [place] [address], [address], [facility] 4 12:04:43 Pain of left knee joint 18045227772 4107 Active 2023 ANNA GRAHAM [address] [place] [address], [address], [facility] 4 12:05:12 Pain of right knee joint 44653374646 4100 Active 2023 ANNA GRAHAM [address] [place] [address], [address], [facility] 4 12:05:24 Acute tear of lateral meniscus of left knee 64720099417 927247 Active 2023 Jurgen Cabello DO [address] [place] [address], [address], [facility] 4 10:05:13 Spasm of cervical paraspino us muscle 496354170 Active 2024 Jurgen Cabello DO [address] [place] [address], [address], [facility] 5 15:37:00 Sternocla vicular sprain 083131127 Active 2024 Jurgen Cabello DO [address] [place] [address], [address], [facility] 5 15:39:39 Problem Notes None recorded. Procedures Surgical History Date Name Laterality Status Provider Name and Address Organization Details Recorded Time 5 Most Recent Mammogram completed Perla Joy [facility] 11/01/2024 13:42:26 Imaging Results Imaging Date Name Status LastModified by Organization Details LastModified Time 03/09/2024 US, echocardiogram, transthoracic, complete, w/ color flow completed [address] (Medical Records) [address] [place], [address], 03/11/2024 10:56:54 06/14/2024 MRI, knee, w/o contrast completed [email or web address] [facility] (Medical Records) [address] [place] [address], [address], 06/15/2024 14:57:47 10/10/2024 XR, cervical spine, 2 or 3 view completed [address] (Medical Records) [address] [place] [address], [address], 10/12/2024 10:27:51 10/10/2024 XR, sternoclavicular joint(s) completed [address] Cardiology [address] [place] [address], [address], 10/12/2024 10:27:51 10/24/2024 MAMMO, screening, digital, bilateral completed [email or web address] [facility] [place], [address], 11/01/2024 13:42:45 Procedure Notes None recorded. Medical Equipment None Reported. Allergies Allergen ID Allergen Name Allergen Category Reaction Reaction Severity Criticality Documentation Date Start Date Code Code System Note Provider Name and Address Organization Details Recorded Time 2274 Product containin g angiotens in-conver ting enzyme inhibitor (product) medicatio n Not available Not available Not available 06/16/2018 64778 009 SNOMED Traci packer [place] - [facility] 8 08:33:05 Medications Name Sig [...] t Available Vitals Date Recorded Body height Body mass index (BMI) Body weight Heart rate Respiratory rate Oxygen saturation Oxygen saturation in Arterial blood by Pulse oximetry Body temperature Systolic blood pressure Diastolic blood pressure Provider Name and Address Organization Details Last Updated DateTime 4 154.94 cm 32.8 kg/m2 25427.3 5 g 86 /min 16 /min 94 % 94 % 98 [degF] 136 mm[Hg] 86 mm[Hg] Cesario Figueroa [facility] 4 09:58:21 Date Recorded Body height Body mass index (BMI) Body weight Heart rate Oxygen saturation Oxygen saturation in Arterial blood by Pulse oximetry Systolic blood pressure Diastolic blood pressure Provider Name and Address Organization Details Last Updated DateTime 4 154.94 cm 31.7 kg/m2 60037.5 2 g 87 /min 97 % 97 % 128 mm[Hg] 74 mm[Hg] Damaris Aparicio [facility] 4 11:40:02 Date Recorded Body height Body mass index (BMI) Body weight Heart rate Oxygen saturation Oxygen saturation in Arterial blood by Pulse oximetry Systolic blood pressure Diastolic blood pressure Provider Name and Address Organization Details Last Updated DateTime 4 154.94 cm 31.6 kg/m2 49542.9 3 g 76 /min 96 % 96 % 110 mm[Hg] 70 mm[Hg] Damaris [facility] 4 09:26:08 Date Recorded Body height Body mass index (BMI) Body weight Heart rate Oxygen saturation Oxygen saturation in Arterial blood by Pulse oximetry Systolic blood pressure Diastolic blood pressure Provider Name and Address Organization Details Last Updated DateTime 5 154.94 cm 33.1 kg/m2 42373.6 6 g 73 /min 96 % 96 % 110 mm[Hg] 70 mm[Hg] Damaris Aparicio [facility] 5 15:02:49 Date Recorded Body height Provider Name an d Address Organization Details Last Updated DateTime 10/31/2024 154.94 cm Perla Rufino [facility] 10/31/2024 14:43:54 Social History Question Answer Notes LastModified by Organizat ion Details LastModified Time Tobacco Smoking Status Never Smoker Not Available [facility] 08/07/2020 03:36:23 What Was The Date Of Your Most Recent Tobacco Screening? 07/01/2024 [email or web address] Information not available 07/01/2024 Do You Or Have You Ever Used Any Other Forms Of Tobacco Or Nicotine? No [email or web address] Information not available 01/27/2023 Sex: Unknown Functional [...] PF, 0.5 mL 01/09/2021 completed Marika packer [facility] 01/13/2022 08:29:14 COVID-19, mRNA, LNP-S, PF, 30 mcg/0.3 mL dose 10/14/2021 completed Marika packer [facility] 01/13/2022 08:29:30 Past Encounters Encounter ID Performer Location Encounter Start Date Encounter Closed Date Diagnosis/Indication Diagnosis SNOMED-CT Code Diagnosis ICD10 Code Diagnosis Note [id number] Carly Hamilton NP, [address], [place] [address] 06/16/2018 13:56:07 06/16/2018 14:39:35 Essential hypertension 15323612 I10 Atrial septal defect 701 84621 Q21.1 Pain in right knee 46648 33878 02264 M25.561 Intermitte nt palpitations 337588028 R00.2 [id number] Jurgen Cabello DO [facility] Internal [address], [place] [address] 08/04/2018 14:10:59 08/04/2018 14:57:40 Tear of medial meniscus of knee 326752778 S83.241A Atrial septal defect 701 96630 Q21.1 the recent echo revealed a stable hemodynami oc picture with a mild decrease in sys funct EF but overall otherwise stable [id number] January ROGER Escobar [facility] Medicine [address] [place] [address], [place] [address] 08/09/2018 10:00:14 08/09/2018 10:57:48 Essential hypertension 82195524 I10 stable Herpes labialis 5783379 B00.[address] -f/u if this does not resolve Cough 58092972 R05 lingering cough after almost complete resolution of recent cold f/u if sx change or worsen [id number] Carly Hamilton NP, S [facility] Internal [facility] [address], [place] [address] 08/13/2018 13:59:13 08/13/2018 15:39:05 Pain in right knee 3509337135 57991 M25.561 [id number] Jurgen Cabello [facility] [address], [facility] [address] 08/31/2018 14:10:51 08/31/2018 15:51:22 Tear of lateral meniscus of knee 594425789 S83.281A will refer to ortho as she is going to need an arthroscop y carley [id number] Jurgen Cabello [facility] [address], [facility] [address] 12/31/2018 14:27:05 12/31/2018 15:38:36 Hypoglycemia 285920204 E16.2 [id number] Jurgen Cabello [address],[place] [address] 02/02/2019 14:45:42 02/02/2019 15:13:15 Tear of medial meniscus of knee 707245737 S83.241A here for recjk reviewed her prior surg and eval told her we will give her a kenalog inj when she is ready Osteopenia 088536233 M85 .80 bmd is good [id number] Jurgen Cabello [facility] [address], [place] [address] 03/22/2019 09:54:18 03/22/2019 10:32:26 Adult health examination 553195496 Z00.00 would like to check for anemia given weakness and fatigue will also need to get he echo Active or passive immunization 036817095 Z23 utd Atrial septal defect 701 04011 Q21.1 the last echo revealed a stable hemodynami oc picture with a mild decrease in sys funct EF but overall otherwise stable [id number] Jurgen Cabello [facility] [address], [place] [address] 06/13/2019 15:28:59 06/13/2019 16:42:50 Vitamin B12 deficiency (non anemic) 15460864 E53.8 feeling better doing good Vitamin D deficiency 347 21568 E55.9 will chk level Adult heal th examination 205846495 Z00.00 would like to check for anemia given weakness and fatigue will also need to get he echo [id number] Jurgen Cabello DO [facility] Medicine [address], [place] [address] 08/19/2019 09:56:57 08/19/2019 10:41:00 Essential hypertension 13155346 I10 bp is stable no issues there Cough 46063688 R05 getting worse and has had for >2 weeks need to treat as she gets this and quickly develkops pneumonia Biceps tendinitis 204133 007 M75.21 Vitamin D deficiency 347 33353 E55.9 will chk level [id number] Jurgen Cabello DO [facility] Medicine [address], [place] [address] 11/09/2019 10:22:44 11/09/2019 12:06:06 Biceps tendinitis 085210376 M75.21 Melox did not improve sx sounds like she prob tore sonething we will have ot have her see spec Fatigue 47007476 R53.83 will check the blood work Localized visual field defect 630353690 H53.459 occurred after standing i believe this was prob related to bp drop she has had no sequelae and is asymptomat ic since knows to gotoER if and y further change Anxiety 57528957 F41.9 flying on airplane lorazepam [id number] Jurgen Cabello DO [facility] Medicine [address], [place] [address] 12/14/2019 10:06:13 12/14/2019 11:03:08 Epigastric pain 63080528 R10.13 must chreck the gall bladder Multiple joint pain 3567 8005 M25.50 new onset joint disease? Pain of ri ght shoulder joint 2936514320 3177513 M25.511 could be djd vs inflammato ry [id number] ANNA GRAHAM [facility] Medicine [address], [place] [address] 01/02/2020 15:35:23 01/02/2020 16:44:42 Traumatic hematoma 566016783 T14.8XXA sublingual hematoma after shutting right thumb in the car door yesterday will XR to make sure nothing is broken and give diclofenac as pain reliever will f/u with pt after with XR results [id number] Jurgen Cabello [facility] [address],[place] [address] [place] [address] 01/03/2020 13:41:47 01/03/2020 14:06:05 Essential hypertension 46000266 I10 bp is stable no issues there Atrial septal defect 701 35782 Q21.1 the last echo revealed a stable hemodynami oc picture with a mild decrease in sys funct EF but overall otherwise stable Degenerati ve joint disease of hand 96454771 M19.049 will cont to treat conserv with otc meds prn Subacromia l bursitis of right shoulder 9101467668 403173 M75.51 after discussion she understand s to call for cortisone shot if the meds are not helping [id number] Jurgen Cabello [facility] [address],[place] [address] 06/18/2020 13:39:48 06/18/2020 14:29:23 Adult health examination 046953109 Z00.01 overall is stable but her osteoarthr itis is bothering her more Active or passive immunization 934625917 Z23 utd Osteoarthritis 036389947 M19.90 SHE has noted disease hands back and feet will try celecoxib Atrial septal defect 701 89245 Q21.1 the last echo revealed a stable hemodynami c picture with a mild decrease in sys funct EF but overall otherwise stable Alopecia 59189207 L65.9 will refer to derm [id number] Jurgen Cabello [facility] [address],[place] [address] 07/30/2020 10:57:23 07/30/2020 11:32:05 Pain in right hand 7711251029 18497 M79.641 Alopecia areata 59015188 L63.9 [id number] Jurgen Cabello [facility] [address],[place] [address] [place], [place] [address] 09/26/2020 10:20:15 09/26/2020 11:17:50 Depressive disorder 29485807 F32.9 Essential hypertension 86456869 I10 bp is stable no issues there Partial th ickness rotator cuff tear 245159523 M75.101 [id number] ANNA GRAHAM [facility] Internal Medicine [address] [facility] [address],[place] [address] 11/27/2020 11:07:05 11/27/2020 12:12:40 Insect bite reaction 589166792 T63.481A resolved with abx Cellulitis 452077211 L03 .90 resolved with abx no other interventi on required at this time Essential hypertension 65218192 I10 stable today at appt no change or interventi on necessary Depressive disorder 3548 9007 F32.9 stable today at appt no change or interventi on necessary [id number] Jurgen Cabello [facility] Internal Medicine [address] [facility] [address],[place] [address] 12/11/2020 10:21:25 12/11/2020 11:17:19 Visual disturbance 06896284 H53.9 having flashes in visual field during episodes Dizziness 787371635 R42 she has the dizziness during the episodes with spacey feeling Ataxia 36345379 R26.0 sudden and episodic [id number] Jurgen Cabello [facility] Internal Medicine [address] [facility] [address],[place] [address] 02/05/2021 16:14:15 02/05/2021 16:56:51 Ataxic gait 19917770 R26.0 ct negative will follow as neces seems to be better offf the metoprolol Alopecia 56039855 L65.9 markedly better now off metoprolol Essential hypertension 03189364 I10 bp ios borderline sometimes nowe off metoprolol will follow and cont the Hyzaar Submandibu lar salivary gland swelling 313016369 K11.9 on right [id number] Jurgen Cabello [facility] Internal Medicine [address] [facility] [address],[place] [address] 04/19/2021 09:30:06 04/19/2021 10:43:25 Submandibular salivary gland swelling 999233883 K11.9 on right will treat with amox next time she swells Derangemen t of lateral meniscus 14186701 M23.309 [id number] Jurgen Yuan Cirilo [facility] Internal Medicine [address] [facility] [address],[place] [address] 09/23/2021 08:46:54 09/23/2021 16:30:33 Atrial septal defect 68964262 Q21.1 the last echo revealed a stable hemodynami c picture with a mild decrease in sys funct EF but overall otherwise stable so we will have [place] [id number] Jurgen Yuan DO Cirilo [facility] Internal Medicine [address] [facility] [address],[place] [address] 11/05/2021 08:35:27 11/06/2021 08:52:18 Multiple joint pain 44031532 M25.50 new onset joint disease? Atrial septal defect [address] appt for follow up on her asd awaiting her echo Essential hypertension 98532372 I10 bp ios borderline sometimes nowe off metoprolol will follow and cont the Hyzaar Eczema of scalp 13402347 13 2100 L30.9 [id number] ANNA GRAHAM [facility] Internal Medicine [address] [facility] [address] [place] [address] 01/13/2022 15:17:04 01/15/2022 08:49:25 Active or passive immunization 330824340 Z23 advised Adult heal th examination 984791803 Z00.00 BP is excellent Atypical chest pain 1025 20038 R07.89 will need fu with cardiology > needs new cardio due to new insurance > will fu with Karishma andrea [place] Thoracic back pain 13811 8004 M54.6 will fu with XR thoracic back for pain along T5 T 6 [id number] ANNA GRAHAM [facility] Internal Medicine [address] [facility] [address],[place] [address] 01/22/2022 10:03:12 01/22/2022 11:17:04 Insect bite reaction 035231166 T63.481A will start on doxycyclin e and betamethas one Herpes labialis 4071389 B00.1 will start on valtrex [id number] Jurgen Cabello DO [facility] Internal Medicine [address] [facility] [address],[place] [address] 03/26/2022 14:05:51 03/26/2022 14:47:40 Chest pain 84421339 R07.9 occurs on the left anterior region Atrial septal defect [address] [facility]d awaiting her echo Essential hypertension 46664647 I10 bp ios borderline sometimes nowe off metoprolol will follow and cont the Tonny Zambrano 640359886 L71.9 44011 ANNA GRAHAM [facility] Internal Medicine [address] [facility] [address],[place] [address] 06/16/2022 14:33:24 06/16/2022 14:47:40 Infection of tooth 249086943 K04.7 will trial amox and medrol Tendinitis of left wrist region 1396158221 8160492 M67.834 will update me after the medrol dose purvi [id number] ANNA GRAHAM [facility] [address] [facility] [address],[place] [address] 10/22/2022 13:55:06 10/22/2022 15:27:58 Migraine 14538105 G43.009 will set up with work up to r/o anything triggering the migraine Essential hypertension 21516158 I10 [facility] no change or interventi on necessary Thyroid nodule 251125565 E04.1 will check his TSH Hypertensive urgency 443 853155 I16.0 will start on clonidine PRN for the high spikes [id number] ANNA GRAHAM [facility] Internal Medicine [address] [facility] [address],[place] [address] 11/10/2022 09:06:07 11/10/2022 11:55:24 Acute bronchitis 03153839 J20.8 will start on prednsione and z pakif needed will set up with XR if her symptoms [id number] Jurgen Cabello DO [facility] Internal Medicine [address] [facility] [address] 01/27/2023 10:43:02 01/27/2023 12:17:21 Active or passive immunization 840350921 Z23 utd Adult heal th examination 465623294 Z00.00 overall is stable but her osteoarthr itis is bothering her more Atypical chest pain 1025 78332 R07.89 this appears to be costochond ral but given prior open heart surgery we will treat it accordingl y but in meantime we will get ct scan Thyroid nodule 660610985 E04.1 we will repeat US in 1 year fe Atrial septal defect 701 89889 Q21.10 Postmenopa usal osteopenia 886703669 M85.80 [id number] Jurgen Cabello [facility] Internal Medicine [address] [place] [address],[place] [address] 03/27/2023 15:54:54 03/27/2023 17:11:19 Atypical chest pain 321461760 R07.89 this appears to be costochond ral but given prior open heart surgery we will treat it accordingl y but in meantime we will get ct scan Atrial septal defect [address] is excellent Postmenopa usal osteopenia 477794010 M85.80 stable rev bmd Multiple joint pain 3567 8005 M25.50 new onset joint disease? [id number] Jurgen Cabello [facility] Internal Medicine [address] [place] [address],[place] [address] 09/15/2023 14:36:50 09/16/2023 08:14:04 Essential hypertension 00261206 I10 bp ios borderline sometimes nowe off metoprolol will follow and cont the Hyzaar Bilateral lung opacities on plain chest X-ray 267043612 R91.[address] scan is clear Idiopathic acute pancreatitis 125193144 K85.00 we will need to do a follow up and US and lab [id number] Jurgen Cabello [facility] Internal Medicine [address] [facility],[place] [address] 10/02/2023 09:32:34 10/02/2023 15:55:11 Idiopathic acute pancreatitis 039227138 K85.00 we will need to do a follow up and US and lab Cough 11738946 R05.9 [id number] Jurgen Cabello [facility] Internal Medicine [address] [facility],[place] [address] 02/02/2024 09:52:18 02/02/2024 10:47:25 Active or passive immunization 907194796 Z23 utd Adult heal th examination 390940468 Z00.01 overall is stable but her osteoarthr itis is bothering her more Essential hypertension 01772596 I10 bp ios borderline sometimes nowe off metoprolol will follow and cont the Hyzaar Atrial septal defect [address] is excellent [id number] ANNA GRAHAM [facility] Internal Medicine [address] [place] [address],[place] [address] 05/09/2024 11:34:40 05/09/2024 13:49:20 Pain of bilateral knee joints 3457424997 29600 M25.561 Pain of le ft knee joint 1378376284 85199 M25.562 will set up with MRI knee (bilateral ) Pain of ri ght knee joint 4939739584 24364 M25.561 will f/u with MRI for the knees [id number] Jurgen Cabello [facility] Internal Medicine [address] [facility],[place] [address] 07/01/2024 08:52:37 07/01/2024 10:25:29 Depression screening 963199557 Z13.31 neg Essential hypertension 90205242 I10 bp is great 110/70 will follow and cont the Hyzaar Acute tear of lateral meniscus of left knee 3270104997 9379376 S83.282A [id number] Jurgen Cabello [facility] Internal Medicine [address] [facility],[place] [address] 10/07/2024 14:57:48 10/07/2024 15:48:25 Spasm of cervical paraspinous muscle 058058937 M62.838 Sternoclav icular sprain 712101040 S23.420A [id number] ANNA GRAHAM [facility] Internal Medicine [address] [facility],[place] [address] 10/31/2024 14:34:01 10/31/2024 16:08:52 Thoracic back pain 388837054 M54.6 start on meds Health Concerns Section Related Observation LastModified by Organization Detai ls LastModified Time None Recorded Concern Status LastModified by Organization Details LastModified Time None Recorded Advance Directives Directive None Recorded Payers Encounter Date Sequence Insurance Name Policy Number Policy Tyler Covered Member ID Tyler Member ID Guarantor Name 02/02/2024 1 [facility] - DIRECT CONNECTORCARE TYPE I (HMO) [id number] Adelaida Recinos [id number] Adelaida Recinos 05/09/2024 1 [facility] - DIRECT [employer]CARE TYPE I (HMO) [id number] Adelaida Recinos [id number] 1 Adelaida Recinos 07/01/2024 1 [facility] - DIRECT CONNE[employer]CARE TYPE I (HMO) [id number] Adelaida Recinos [id number] Adelaida Recinos 10/07/2024 1 [facility] - DIRECT CONNE[employer]CARE TYPE I (HMO) [id number] Adelaida Recinos [id number] 1 Adelaida Recinos 10/31/2024 1 [facility] - DIRECT [employer] TYPE I (HMO) [id number] Adelaida Recinos [id number] 1 Adelaida Recinos Notes Date Note Type Note Provider Name a nd Address Organization Details Recorded Time 4 text/html Annual WellnessReported bypatient.Diet and Nutrition:healthy diet Fracture Risk:no history of fractures; no recent explained fracture; no sudden unexplained fractures; no previous musculoskeletal injuries Physical Activity:exercises on a regular basis; recent increase in physical activity; good physical condition Additional Lifestyle Factors:no tobacco use; no alcohol intake; stopped drinking alcohol Depression Risk:never feels sad, empty, or tearful; no loss of interest in activities; no significant changes in weight; no sleep disturbances or insomnia; no agitation; no loss of energy; no feelings of worthlessness or guilt; no thoughts of suicide; no history of depression; no history of mood disorders Hearing:no loss of hearing Vision:no vision problems Jurgen Cabello DO [address] [place], [address], [facility] 02/02/2024 10:25:51 4 text/html c/o bilateral knee pain the patient is having bilateral knee painthe patient is having lateral knee pain in the lateral compartment (martha)the patient reports thatthe patient has more pain with kneeling, laying with her knees together at night and with walkingsharp ache constantly the patient has a procedure of her knees to clean out the meniscus and arthritisabout 8 years ago, probably increase in arthritis and well as cartilage [facility], the patient went there, had XRs done, no note on file, will request records to have in out office pain with extension and flexion will need MRI for more information if surgery will be required ANNA GRAHAM [address] [place], [address], [facility] 05/09/2024 12:14:35 4 text/html here for rechk and is doing ok except for her left kneeshe has medial and lateral meniscal tear and tricompart arthritis Jurgen Cabello DO [address] [place], [address], [facility] Internal Medicine 07/01/2024 10:08:36 5 text/html here for eval of some discomfort in her left neck states now has noted a fullness to this area and a pain behind her left cervical neckarea of her lefthas discomfort and prominence to her left cleido sternal joint Jurgen Cabello DO [address] [place], [address], [facility] Internal Medicine 10/07/2024 15:43:00 5 text/html c/o back pain upper thoracic back painreproducible with palpation of the upper back muscles 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
== END 2024-11-09 10:32 | disposition home or self-care (01) ==
PROVIDERS: PCP Internal Medicine; Visit Provider Advanced Practice Midwife
DX: Z01.419 Encounter for gynecological examination (general) (routine) without abnormal findings (principal); N39.3 Stress incontinence (female) (male)
CPT/HCPCS: 99396; 99459

== ENCOUNTER → 2024-11-09 09:40 | Outpatient (BNVA) | payer OTHER, SELFPAY | PROVIDERS: PCP Internal Medicine; Visit Provider Advanced Practice Midwife | DX: Z01.419 Encounter for gynecological examination (general) (routine) without abnormal findings (principal); N39.3 Stress incontinence (female) (male); Z12.39 Encounter for other screening for malignant neoplasm of breast; Z12.4 Encounter for screening for malignant neoplasm of cervix | CPT/HCPCS: 99396; 99459 ==

== ENCOUNTER 2024-12-23 16:06 | Outpatient (REF) | payer OTHER, SELFPAY ==
--- NOTE | ~2024-12-23 | XR_ITS ---
EXAMINATION: XR SHOULDER 2 OR MORE VIEWS LEFT HISTORY: Pain in left shoulder COMPARISON: There are no prior studies available for comparison. FINDINGS: Five views of the left shoulder are submitted. Osseous mineralization is normal. There is no fracture or dislocation. The glenohumeral joint is maintained. There is mild degenerative change of the AC joint. A tiny calcification adjacent to the humeral head may be related to the rotator cuff. XR/XR shoulder LT min 2V IMPRESSION: Mild degenerative change of the AC joint. Possible rotator cuff calcification. Electronically signed by: Rambo Villar MD 12/26/2024 12:50 PM EDT
== END 2024-12-23 16:07 | disposition home or self-care (01) ==
LOC: HO.XRAY 16:06
PROVIDERS: PCP Internal Medicine; Visit Provider Physician Assistant
DX: M25.512 Pain in left shoulder (principal)
CPT/HCPCS: 73030

== ENCOUNTER → 2024-12-23 16:22 | Outpatient (BNV) | payer OTHER, SELFPAY | PROVIDERS: PCP Internal Medicine; Visit Provider Radiology Diagnostic Radiology | DX: M25.512 Pain in left shoulder (principal) | CPT/HCPCS: 73030 ==

== ENCOUNTER 2025-02-02 11:12 | Outpatient (AMB) | payer OTHER, SELFPAY ==
--- NOTE | 2025-02-02 11:14 | A.OFFVIS_ITS ---
Intake Visit Reasons: Left shoulder pain and weakness, Left knee pain Intake Note: Adelaida is a 59 year old female who presents with complaints of progressively worsening left shoulder pain and weakness as well as left knee pain. The patient did undergo left knee arthroscopic surgery on 07/29/2024. She got tempo rary relief from that procedure. She has failed the last 3 months of conservative treatment which has included a home exercise program, physical therapy exercises, Tylenol and ibuprofen. She denies any locking or giving way. The patient states that she injured her left shoulder approximately 1 year ago while lifting a heavy object. Since that time she has had difficulty lifting her left hand above shoulder height. Accompanied by: Significant Other Allergies No Known Allergies Allergy (Verified 02/02/25 11:14) Medication List - Last Reconciled 02/02/25 by Dionisio Hernández MD acetaminophen (Tylenol Extra Strength) 500 mg PO Q6H PRN amlodipine 5 mg PO DAILY betamethasone dipropionate 0.05% 1 appl topical DAILY citalopram 20 mg PO DAILY cyclobenzaprine 5 mg PO TID PRN diclofenac potassium 50 mg PO BID ibuprofen 600 mg PO Q6H PRN losartan-hydrochlorothiazide 100-25 mg 1 tab PO DAILY ondansetron 4 mg PO Q8H PRN PFSH Medical History Stress bladder incontinence, female Depression Primary osteoarthritis of right knee Atypical lobular hyperplasia of right breast Atrial septal defect delivery delivered HTN (hypertension) Surgical History History of surgery Tubal ligation status Hx of section Social History Are you a primary health care manager to a significant other at home: No Do you presently have visiting nurse or other home services: No Patient Tobacco Use Status: Never used Tobacco Female Reproductive History Menstrual Age of Menarche: 9 Physical Exam Const Other: Well-nourished well-developed very friendly female awake alert and oriented x3 in no acute distress Extrem Other: Left shoulder examination shows decreased range of motion when compared to her right shoulder, 4+ out of 5 strength with supraspinatus testing, positive impingement signs, tenderness over her acromioclavicular joint, no instability Left knee examination shows that the surgical incisions are well healed, no erythema, palpable crepitus with range of motion, no instability Results Reviewed Results Reviewed: X-rays of the patient's left shoulder show severe acromioclavicular joint narrowing, a type 2 acromion, no acute bony abnormalities X-rays of the patient's left knee taken previously show joint space narrowing, subchondral sclerosis, no acute bony abnormalities Assessment & Plan Assessment & Plan (1) Rotator cuff insufficiency of left shoulder: Code(s): M25.312 - Other instability, left shoulder Category: Medical (2) Left knee pain: Code(s): M25.562 - Pain in left knee Category: Medical (3) Osteoarthritis of left knee: Code(s): M17.12 - Unilateral primary osteoarthritis, left knee Category: Medical Plan Ms. Jorje Sosa presents with progressively worsening left shoulder pain and weakness due to impingement syndrome and possible rotator cuff tearing. Thus, I will order an MRI of her left shoulder for further evaluation. I will see her back once the MRI is completed. The patient also has left knee pain due to osteoarthritis. She has had cortisone injections in the past which gave her minimal relief. Thus, I will see whether or not the patient's insurance company will cover a viscosupplementation injection such as Durolane. The patient will follow-up as instructed. Feel free to call me at any time should questions regarding her orthopedic management arise. I spent 22 minutes in reviewing the patient's records and imaging studies, seeing the patient and documenting in the medical record. Orders: Orders MR shoulder LT wo con Today M25.312 - Other instability, left shoulder Coding Level of Care Code Est Pt Level 3 (88652) Complex EM visit Add On G2211 Diagnoses Rotator cuff insufficiency of left shoulder M25.312 Left knee pain M25.562 Osteoarthritis of left knee M17.12
== END 2025-02-02 11:33 | disposition home or self-care (01) ==
LOC: HO.HOS 11:13
PROVIDERS: PCP Internal Medicine; Visit Provider Orthopaedic Surgery
DX: M25.312 Other instability, left shoulder (principal); M25.562 Pain in left knee; M17.12 Unilateral primary osteoarthritis, left knee
CPT/HCPCS: 99213; G2211

== ENCOUNTER → 2025-02-02 11:12 | Outpatient (BNVA) | payer OTHER, SELFPAY | PROVIDERS: PCP Internal Medicine; Visit Provider Orthopaedic Surgery | DX: M25.312 Other instability, left shoulder (principal); M25.562 Pain in left knee; M17.12 Unilateral primary osteoarthritis, left knee | CPT/HCPCS: 99212 ==

== ENCOUNTER 2025-02-10 07:35 | Outpatient (REF) | payer OTHER, SELFPAY ==
--- NOTE | ~2025-02-10 | XR_ITS ---
EXAMINATION: XR FOOT, LEFT CLINICAL INFORMATION: TOE PAIN COMPARISON: None available. TECHNIQUE: AP, lateral, and oblique views of the left foot. FINDINGS: No fracture, dislocation, or focal bony abnormality. Normal alignment. There is moderate degenerative osteoarthritis in the first MTP joint. No erosions to suggest inflammatory arthropathy. Joint spaces otherwise preserved. Normal plantar arch. Moderate sized plantar and dorsal calcaneal spurs. Normal soft tissues. XR/XR foot LT min 3V IMPRESSION: 1. No acute bony abnormalities. 2. Moderate degenerative arthritis in the first MTP joint. 3. Moderate-sized plantar and dorsal calcaneal spurs. Electronically signed by: Konstantin Armando MD 02/10/2025 08:10 AM EDT
--- NOTE | ~2025-02-10 | XR_ITS ---
EXAMINATION: XR HAND, RIGHT CLINICAL INFORMATION: PAIN IN RIGHT HAND COMPARISON: 04/06/2023. TECHNIQUE: PA, lateral, and oblique views of the right hand. FINDINGS: No fracture, dislocation, or suspicious bone lesion. Normal alignment. No periarticular osteopenia. No definitive erosions to suggest inflammatory arthropathy. Mild osteoarthrosis at the first CMC joint and STT joints. Mild to moderate radiocarpal joint space narrowing. Mild negative ulnar variance. Mild to moderate degenerative arthritis throughout the DIP joints of the digits, most notable in the second and third digits. Mild degenerative arthritis of the first through third MCPs. Normal-appearing soft tissues. XR/XR hand RT min 3V IMPRESSION: 1. No acute bony abnormalities. 2. Scattered degenerative arthropathy in the first CMC, STT joints, radiocarpal joint, DIP joints of the digits, and involving the first through third MCP joints. Electronically signed by: Konstantin Armando MD 02/10/2025 08:14 AM EDT
--- OUTSIDE RECORDS SUMMARY | 2025-02-10 07:38 | XMS_ITS | Continuity of Care Document ---
Author Organization [place] - [facility], [facility] Address [address] [place] [address] Assessment No assessment recorded. Plan of Treatment Reminders Order Date Submit Date Provider Last Modified By Organization Details Last Modified Time Details Appointments ANNUAL EXAM 2025 10:30A M DR CABELLO Not available Not available Not available Lab CMP, serum or plasma 2024 025 [facility], [address] [place] [address], [id number], 02/07/2025 10:26:32 CBC 2024 025 [facility], [address] [place] [address], [id number], 02/07/2025 10:26:32 lipid panel, blood 2024 025 [facility], [address] [place] [address], [id number], 02/07/2025 10:26:31 Referral None recorded . Procedures None recorded . Surgeries None recorded . Imaging US, echocard iogram, transtho racic, complete , w/ color flow [address] [facility], [address] [place] [address], [id number], 02/07/2025 10:45:14 XR, hand, 3 or more view [address] [facility], [address] [place] [address], [id number], 02/07/2025 10:45:15 XR, foot, 3 or more view 2024 025 [email or web address] [facility], [address], [place], [address], 02/07/2025 10:45:14 Medication Orders None recorded . Patient TargetsNo targets recorded. Patient Instructions Encounter Date Encounter Id Patient Instructions Last Modified By Organization Details Last Modified Time 02/07/2025 [id number] atrial septal defect: care instructions Not available 02/07/2025 10:25:45 Reason for Referral None Reported. Problems Name Problem SNOMED Code Status Onset Date Resolution Date Notes Provider Name and Address Organization Details Recorded Time Essential hypertens ion 03274500 Active 2017 Traci packer [facility] 8 08:33:23 Atrial septal defect 13709037 Active 2017 repair 2001 Traci packer [facility] 8 08:33:49 Depressiv e disorder 85066273 Active 2017 [facility] Shawn [address], [address], [facility] 8 10:10:58 Herpes labialis 6076888 Active 2017 [facility] ROGER Escobar [address] [place] [address], [address], [facility] 8 10:11:16 B12 deficienc y monitorin g Active 2018 Jurgen Cabello DO [address] [place] [address], [address], [facility] 9 10:28:25 Impingeme nt syndrome of right shoulder region 87472828325 9102 Active 2019 Jurgen Cabello DO [address] [place] [address], [address], [facility] 0 14:06:16 Atypical chest pain 801584476 Active 2021 ANNA GRAHAM [address] [place] [address], [address], [facility] 2 15:46:38 Thoracic back pain 126156184 Active 2021 ANNA GRAHAM [address] [place] [address], [address], [facility] 2 15:48:31 Traumatic hematoma 606060185 Active 2021 ANNA GRAHAM [address] [place] [address], [address], [facility] 2 15:51:25 Degenerat ion of lumbar intervert ebral disc 99958598 Active 2021 ANNA GRAHAM [address] [place] [address], [address], [facility] 2 15:13:29 Degenerat ion of thoracic intervert ebral disc 61853244 Active 2021 ANNA GRAHAM [address] [place] [address], [address], [facility] 2 15:15:55 Degenerat ion of cervical intervert ebral disc 72032812 Active 2021 ANNA GRAHAM [address] [place] [address], [address], [facility] 2 15:16:25 Insect bite reaction 564140793 Active 2021 ANNA GRAHAM [address] [place] [address], [address], [facility] 2 10:16:26 Chest pain 85454261 Active 2021 Jurgen Cabello DO [address] [place] [address], [address], [facility] 2 14:31:41 Rosacea 076763150 Active 2021 Jurgen Cabello DO [address] [place] [address], [address], [facility] 2 14:36:14 Atelectas is 06987306 Active 2021 ANNA GRAHAM [address] [place] [address], [address], [facility] 2 12:38:53 Infection of tooth 426389694 Active 2021 ANNA GRAHAM [address] [place] [address], [address], [facility] 2 14:44:39 Tendiniti s of left wrist region 66965101124 419079 Active 2021 ANNA GRAHAM [address] [place] [address], [address], [facility] 2 14:46:38 Cough 01005766 Active 2021 Jurgen Cabello DO [address] [place] [address], [address], [facility] 2 10:08:01 Migraine 91266900 Active 2022 ANNA GRAHAM [address] [place] [address], [address], [facility] 3 14:15:45 Thyroid nodule 932151135 Active 2022 ANNA GRAHAM [address] [place] [address], [address], [facility] 3 14:16:32 Hypertens jessica urgency 269134246 Active 2022 ANNA GRAHAM [address] [place] [address], [address], [facility] 3 14:17:53 Acute bronchiti s 92473573 Active 2022 ANNA GRAHAM [address] [place] [address], [address], [facility] 3 11:15:06 Pneumonia 834073177 Active 2022 Jurgen Cabello DO [address] [place] [address], [address], [facility] 3 14:52:40 Postmenop ausal osteopeni a 237333679 Active 2022 Jurgen Cabello, DO [address] [place] [address], [address], [facility] 3 12:15:54 Streptoco ccal sore throat 31428713 Active 2022 ANNA GRAHAM [address] [place] [address], [address], [facility] 3 09:44:44 Pain of multiple joints 84827844 Active 2022 Jurgen Cabello DO [address] [place] [address], [address], [facility] 3 17:01:56 Hand pain 74477231 Active 2022 Jurgen Cabello DO [address] [place] [address], [address], [facility] 3 10:06:34 Hand pain 12843511 Active 2022 Jurgen Cabello DO [address] [place] [address], [address], [facility] 3 10:06:44 Osteoarth ritis of joint of bilateral hands 25349283228 9109 Active 2022 Jurgen Cabello DO [address] [place] [address], [address], [facility] 3 23:21:07 Bilateral lung opacities on plain chest X-ray 029288800 Active 2022 Jurgen Cabello DO [address] [place] [address], [address], [facility] 3 22:27:13 Epigastri c pain 59893610 Active 2022 Jurgen Cabello DO [address] [place] [address], [address], [facility] 3 10:05:33 Idiopathi c acute pancreati tis 347617478 Active 2022 Jurgen Cabello DO [address] [place] [address], [address], [facility] 3 15:04:37 Recurrent pancreati tis 380108284 Active 2023 Jurgen Cabello DO [address] [place] [address], [address], [facility] 4 11:45:37 Pain of bilateral knee joints 70387635834 4104 Active 2023 ANNA GRAHAM [address] [place] [address], [address], [facility] 4 12:04:43 Pain of left knee joint 91991538392 4107 Active 2023 ANNA GRAHAM [address] [place] [address], [address], [facility] 4 12:05:12 Pain of right knee joint 02295202772 4100 Active 2023 ANNA GRAHAM [address] [place] [address], [address], [facility] 4 12:05:24 Acute tear of lateral meniscus of left knee 91938690763 022837 Active 2023 Jurgen Cabello DO [address] [place] [address], [address], [facility] 4 10:05:13 Spasm of cervical paraspino us muscle 219160528 Active 2024 Jurgen Cabello DO [address] [place] [address], [address], [facility] 5 15:37:00 Sternocla vicular sprain 265134185 Active 2024 Jurgen Cabello DO [address] [place] [address], [address], [facility] 5 15:39:39 Pain of left shoulder joint 61084437697 498437 Active 2024 ANNA GRAHAM [address] [place] [address], [address], [facility] 5 15:49:59 Calcific tendiniti s of left shoulder 16345465385 9108 Active 2024 ANNA GRAHAM [address] [place] [address], [address], [facility] 5 16:35:54 Pain of toe of left foot 52855400841 9108 Active 2024 Jurgen Cabello DO [address] [place] [address], [address], [facility] 5 10:19:51 Pain in right hand 01564512896 9109 Active 2024 Jurgen Cabello DO [address] [place] [address], [address], [facility] 5 10:24:43 Problem Notes None recorded. Procedures Surgical History Date Name Laterality Status Provider Name and Address Organization Details Recorded Time 5 Most Recent Mammogram completed Perla Joy [facility] 11/01/2024 13:42:26 Imaging Results None recorded. Procedure Notes None recorded. Medical Equipment None Reported. Allergies Allergen ID Allergen Name Allergen Category Reaction Reaction Severity Criticality Documentation Date Start Date Code Code System Note Provider Name and Address Organization Details Recorded Time 5 Product containin g angiotens in-conver ting enzyme inhibitor (product) medicatio n Not available Not available Not available 06/16/2018 28819 009 [facility]ED [facility] 8 08:33:05 Medications Name Sig Start Date Stop Date Status Note LastModified by Organization Details LastModified Time celecoxib 200 mg capsule TK 1 C PO QD 01/13 completed Not Available Not Available Not Available cyclobenzap rine 10 mg tablet Take 1 tablet 3 times a day by oral route as needed for 10 days. 2024 active Not Available Not Available Not Avai lable amoxicillin 500 mg capsule TAKE 1 CAPSULE [...] Available Not Available baclofen 20 mg tablet TAKE 1 TABLET BY MOUTH THREE TIMES DAILY FOR 10 DAYS NEEDED active Not Available Not Available No t Available losartan 100 mg-hydrochl orothiazide 25 mg tablet [...] Details Last Updated DateTime 5 154.94 cm 32.1 kg/m2 79534.7 g 66 /min 98 % 98 % 100 mm[Hg] 64 mm[Hg] [facility] 5 10:01:15 Social History Question Answer Notes LastModified by Organizat ion Details LastModified Time Tobacco Smoking Status Never Smoker Not Available [facility] 08/07/2020 03:36:23 What Was The Date Of Your Most Recent Tobacco Screening? 02/07/2025 [email or web address] Information not available 02/07/2025 Do You Or Have You Ever Used Any Other Forms Of Tobacco Or Nicotine? No [email or web address] Information not available 01/27/2023 Sex: Unknown Functional [...] PF, 0.5 mL 01/09/2021 completed Marika packer [facility] 01/13/2022 08:29:14 COVID-19, mRNA, LNP-S, PF, 30 mcg/0.3 mL dose 10/14/2021 completed Marika packer [facility] 01/13/2022 08:29:30 Past Encounters Encounter ID Performer Location Encounter Start Date Encounter Closed Date Diagnosis/Indication Diagnosis SNOMED-CT Code Diagnosis ICD10 Code Diagnosis Note [id number] Jurgen Cabello [facility] [address] [address] 02/07/2025 09:49:14 02/07/2025 10:45:14 Active or passive immunization 870031459 Z23 utd Acute tear of lateral meniscus of left knee 9830881724 4680875 S83.282A Essential hypertension 84493932 I10 add amlodipine General ex amination of patient 612451122 Z00.01 overall is stable but her osteoarthr itis is bothering her more Pain of to e of left foot 3331723236 16778 M79.675 Pain in right hand 11171 14503 25864 M79.641 Atrial septal defect [address] is excellent Health Concerns Section Related Observation LastModified by Organization Detai ls LastModified Time None Recorded Concern Status LastModified by Organization Details LastModified Time None Recorded Payers Encounter Date Sequence Insurance Name Policy Number Policy Tyler Covered Member ID Tyler Member ID Guarantor Name 02/07/2025 1 [facility] PUBLIC [facility]ANS [facility] TYPE I (HMO) [id number] Adelaidaandrei Recinos [id number] Adelaida Recinos Notes Date Note Type Note Provider Name and Address Organization Details Recorded Time 5 text/htm l Annual WellnessReported bypatient.Diet and Nutrition:healthy diet Fracture [...] disorders Hearing:no loss of hearing Vision:no vision problemsCare Management - HypertensionReported bypatient.Self Care:not under emotional stress Severity:symptoms are improving; does not interfere with daily activities Associated Symptoms:no dizziness; no lightheadedness; no chest pain; no shortness of breath; no palpitations; no edema; no calf muscle cramps; no blurred vision; no confusion; no headaches; no fatigue Jurgen Cabello, DO [address] [place], [address], [facility] 02/07/2025 10:31:27 OBGyn Episode No OBEpisode recorded.
--- OUTSIDE RECORDS SUMMARY | 2025-02-10 07:38 | XMS_ITS | Data Portability ---
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 Surgeries None recorded. Imaging US, echocardi ogram, transthor acic, complete, w/ color flow [address] [facility], [address] [place] [address], [address], 02/07/2025 10:45:14 XR, hand, 3 or more view [address] [facility], [address] [place] [address], [address], 02/07/2025 10:45:15 XR, foot, 3 or more view [address] [facility], [address] [place] [address], [address], 02/07/2025 10:45:14 XR, cervical spine, 2 or 3 view 2024 025 [facility], [address] [place] [address], [address], 10/10/2024 14:59:01 XR, sternocla vicular joint(s) 2024 025 [facility], [address] [place] [address], [address], 10/11/2024 06:45:57 Medication Orders prednison e 20 mg tablet 2024 025 [facility] #[id number], [address], [place], [id number], 10/31/2024 14:59:55 baclofen 20 mg tablet 2024 025 [facility] #[id number], [address], [place], [id number], 10/31/2024 14:59:46 tizanidin e 4 mg tablet 2024 025 [facility] #[id number], [address], [place], [id number], 10/31/2024 14:57:26 tramadol 50 mg tablet 2023 024 [facility] #[id number], [address], [place], [id number], 07/26/2024 10:01:16 Patient TargetsNo targets recorded. Patient Instructions Encounter Date Encounter Id Patient Instructions Last Modified By Organization Details Last Modified Time 07/01/2024 [id number] high blood press ure: care instructions Not available 07/01/2024 10:08:09 learning about h igh blood pressure Not available 07/01/2024 10:08:09 10/07/2024 [id number] sternoclavicular joint separation: rehab exercises Not available 10/07/2024 15:42:12 02/07/2025 [id number] atrial septal defect: care instructions Not available 02/07/2025 10:25:45 Reason for Referral Orthopedic Spine Surgeon Ref erral for Degeneration of cervical intervertebral disc degenerative changes in the cervical spine, persistant pain Referring Physician: Ana Pollock, Internal Medicine, Encounter Date: 11/23/2024 Results Created Date Observation Date Name Description Value Unit Range Abnormal Flag Note LastModifiedBy Organization Detail LastModifiedTime 06/15/20 24 06/14/2024 MRI, knee, w/o contr ast No observ ation record ed. [email or web address] [facility] (Medical Records) [address] [place], [address], 06/15/2024 14:57:47 10/10/19 25 10/10/2024 XR, cervi radha spine , 2 or 3 view No observ ation record ed. [address] (Medical Records) [address] [place], [address], 10/12/2024 10:27:51 10/10/19 25 10/10/2024 XR, rao oclav icula r joint (s) No observ ation record ed. [address] [facility] [address] [place], [address], 10/12/2024 10:27:51 11/01/19 25 10/24/2024 MAMMO , scree marbella, digit al, bilat eral No observ ation record ed. [email or web address] [facility] [address] [place] [address] [place], [address], 11/01/2024 13:42:45 12/27/19 25 12/23/2024 XR, shoul neeraj, 2 or more view No observ ation record ed. [email or web address] [place] [address] (Medical Records) [address] [place], [address], 12/27/2024 09:38:17 Result Notes None recorded. Problems Name Problem SNOMED Code Status Onset Date Resolution Date Notes Provider Name and Address Organization Details Recorded Time Essential hypertens ion 00134031 Active 2017 Traci packer [facility] 8 08:33:23 Atrial septal defect 62773615 Active 2017 repair 2001 Traci packer [facility] 8 08:33:49 Depressiv e disorder 86734220 Active [address], [address], [facility] 8 10:10:58 Herpes labialis 5282151 Active [address], [address], [facility] 8 10:11:16 B12 deficienc y monitorin g Active 2018 Jurgen Cabello DO [address] [place] [address], [address], [facility] 9 10:28:25 Impingeme nt syndrome of right shoulder region 81564901190 9102 Active 2019 Jurgen Cabello DO [address] [place] [address], [address], [facility] 0 14:06:16 Atypical chest pain 672716561 Active 2021 ANNA GRAHAM [address] [place] [address], [address], [facility] 2 15:46:38 Thoracic back pain 769343350 Active 2021 ANNA GRAHAM [address] [place] [address], [address], [facility] 2 15:48:31 Traumatic hematoma 076017717 Active 2021 ANNA GRAHAM [address] [place] [address], [address], [facility] 2 15:51:25 Degenerat ion of lumbar intervert ebral disc 28648818 Active 2021 ANNA GRAHAM [address] [place] [address], [address], [facility] 2 15:13:29 Degenerat ion of thoracic intervert ebral disc 07727656 Active 2021 ANNA GRAHAM [address] [place] [address], [address], [facility] 2 15:15:55 Degenerat ion of cervical intervert ebral disc 19189129 Active 2021 ANNA GRAHAM [address] [place] [address], [address], [facility] 2 15:16:25 Insect bite reaction 924744564 Active 2021 ANNA GRAHAM [address] [place] [address], [address], [facility] 2 10:16:26 Chest pain 36074888 Active 2021 Jurgen Cabello [address], [address], [facility] 2 14:31:41 Rosacea 880083487 Active 2021 Jurgen Cabello DO [address] [place] [address], [address], [facility] 2 14:36:14 Atelectas is 59829852 Active 2021 ANNA GRAHAM [address] [place] [address], [address], [facility] 2 12:38:53 Infection of tooth 405473606 Active 2021 ANNA GRAHAM [address] [place] [address], [address], [facility] 2 14:44:39 Tendiniti s of left wrist region 76846749322 899992 Active 2021 ANNA GRAHAM [address] [place] [address], [address], [facility] 2 14:46:38 Cough 23798220 Active 2021 Jurgen Cabello DO [address] [place] [address], [address], [facility] 2 10:08:01 Migraine 97181222 Active 2022 ANNA GRAHAM [address] [place] [address], [address], [facility] 3 14:15:45 Thyroid nodule 155193416 Active 2022 ANNA GRAHAM [address] [place] [address], [address], [facility] 3 14:16:32 Hypertens jessica urgency 674994659 Active 2022 ANNA GRAHAM [address] [place] [address], [address], [facility] 3 14:17:53 Acute bronchiti s 24314689 Active 2022 ANNA GRAHAM [address] [place] [address], [address], [facility] 3 11:15:06 Pneumonia 402567053 Active 2022 Jurgen Cabello DO [address] [place] [address], [address], [facility] 3 14:52:40 Postmenop ausal osteopeni a 552675019 Active 2022 Jurgen Cabello DO [address] [place] [address], [address], [facility] 3 12:15:54 Streptoco ccal sore throat 19057092 Active 2022 ANNA GRAHAM [address] [place] [address], [address], [facility] 3 09:44:44 Pain of multiple joints 52559890 Active 2022 Jurgen Cabello, DO [address] [place] [address], [address], [facility] 3 17:01:56 Hand pain 27038098 Active 2022 Jurgen Cabello, DO [address] [place] [address], [address], [facility] 3 10:06:34 Hand pain 19423137 Active 2022 Jurgen Cabello, DO [address] [place] [address], [address], [facility] 3 10:06:44 Osteoarth ritis of joint of bilateral hands 76933129035 9109 Active 2022 Jurgen Cabello DO [address] [place] [address], [address], [facility] 3 23:21:07 Bilateral lung opacities on plain chest X-ray 360613739 Active 2022 Jurgen Cabello DO [address] [place] [address], [address], [facility] 3 22:27:13 Epigastri c pain 05283567 Active 2022 Jurgen Cabello DO [address] [place] [address], [address], [facility] 3 10:05:33 Idiopathi c acute pancreati tis 473826074 Active 2022 Jurgen Cabello [address], [address], [facility] 3 15:04:37 Recurrent pancreati tis 599854121 Active 2023 Jurgen Cabello DO [address] [place] [address], [address], [facility] 4 11:45:37 Pain of bilateral knee joints 67056902115 4104 Active 2023 ANNA GRAHAM [address] [place], [address], [facility] 4 12:04:43 Pain of left knee joint 40623493987 4107 Active 2023 ANNA GRAHAM [address] [place], [address], [facility] 4 12:05:12 Pain of right knee joint 79242779324 4100 Active 2023 ANNA GRAHAM [address] [place], [address], [facility] 4 12:05:24 Acute tear of lateral meniscus of left knee 00329626799 895437 Active 2023 Jurgen Cabello DO [address] [place] [address], [address], [facility] 4 10:05:13 Spasm of cervical paraspino us muscle 225189037 Active 2024 Jurgen Cabello DO [address] [place] [address], [address], [facility] 5 15:37:00 Sternocla vicular sprain 948498238 Active 2024 Jurgen Cabello DO [address] [place] [address], [address], [facility] 5 15:39:39 Pain of left shoulder joint 52344785676 470676 Active 2024 ANNA GRAHAM [address] [place] [address], [address], [facility] 5 15:49:59 Calcific tendiniti s of left shoulder 21818064293 9108 Active 2024 ANNA GRAHAM [address] [place] [address], [address], [facility] 5 16:35:54 Pain of toe of left foot 51200076920 9108 Active 2024 Jurgen Cabello, DO [address] [place], [address], [facility] 5 10:19:51 Pain in right hand 66222512764 9109 Active 2024 Jurgen Cabello, DO [address] [place], [address], [facility] 5 10:24:43 Problem Notes None recorded. Procedures Surgical History Date Name Laterality Status Provider Name and Address Organization Details Recorded Time Most Recent Mammogram completed Perla Joy [facility] 11/01/2024 13:42:26 Imaging Results Imaging Date Name Status LastModified by Organization Details LastModified Time 06/14/2024 MRI, knee, w/o contrast completed [facility] (Medical Records) [address] [place], [address], 06/15/2024 14:57:47 10/10/2024 XR, cervical spine, 2 or 3 view completed [address] (Medical Records) [address] [place], [address], 10/12/2024 10:27:51 10/10/2024 XR, sternoclavicular joint(s) completed [address] [facility] [address] [place], [address], 10/12/2024 10:27:51 10/24/2024 MAMMO, screening, digital, bilateral completed [facility] 2 [facility] [place], [address], 11/01/2024 13:42:45 12/23/2024 XR, shoulder, 2 or more view completed [email or web address] (Medical Records) [address] [place], [address], 12/27/2024 09:38:17 Procedure Notes None recorded. Medical Equipment None Reported. Allergies Allergen ID Allergen Name Allergen Category Reaction Reaction Severity Criticality Documentation Date Start Date Code Code System Note Provider Name and Address Organization Details Recorded Time 2274 Product containin g angiotens in-conver ting enzyme inhibitor (product) medicatio n Not available Not available Not available 06/16/2018 91987 009 SNOMED Traci Telleselen packer [facility] 8 08:33:05 Medications Name Sig [...] Updated DateTime 4 154.94 cm 31.6 kg/m2 75527.9 3 g 76 /min 96 % 96 % 110 mm[Hg] 70 mm[Hg] Damaris Aparicio [facility] 4 09:26:08 Date Recorded Body height Body mass index (BMI) Body weight Heart rate Oxygen saturation Oxygen saturation in Arterial blood by Pulse oximetry Systolic blood pressure Diastolic blood pressure Provider Name and Address Organization Details Last Updated DateTime 5 154.94 cm 33.1 kg/m2 52405.6 6 g 73 /min 96 % 96 % 110 mm[Hg] 70 mm[Hg] Damaris Aparicio [facility] 5 15:02:49 Date Recorded Body height Provider Name an d Address Organization Details Last Updated DateTime 10/31/2024 154.94 cm Perla Joy [place] [facility] 10/31/2024 14:43:54 Date Recorded Body height Body mass index (BMI) Body weight Heart rate Oxygen saturation Oxygen saturation in Arterial blood by Pulse oximetry Systolic blood pressure Diastolic blood pressure Provider Name and Address Organization Details Last Updated DateTime 5 154.94 cm 32.5 kg/m2 60957.8 9 g 68 /min 98 % 98 % 116 mm[Hg] 72 mm[Hg] Perla Joy [facility] 5 14:17:29 Date Recorded Body height Body mass index (BMI) Body weight Heart rate Oxygen saturation Oxygen saturation in Arterial blood by Pulse oximetry Systolic blood pressure Diastolic blood pressure Provider Name and Address Organization Details Last Updated DateTime 5 154.94 cm 32.1 kg/m2 02370.7 g 66 /min 98 % 98 % 100 mm[Hg] 64 mm[Hg] Damaris Aparicio [facility] 5 10:01:15 Social History Question Answer Notes LastModified by Organizat ion Details LastModified Time Tobacco Smoking Status Never Smoker Not Available [facility] 08/07/2020 03:36:23 What Was The Date Of Your Most Recent Tobacco Screening? 02/07/2025 Information not available 02/07/2025 Do You Or Have You Ever Used Any Other Forms Of Tobacco Or Nicotine? No Information not available 01/27/2023 Sex: Unknown Functional [...] PF, 0.5 mL 01/09/2021 completed Marika packer [facility] 01/13/2022 08:29:14 COVID-19, mRNA, LNP-S, PF, 30 mcg/0.3 mL dose 10/14/2021 completed Marika packer [facility] 01/13/2022 08:29:30 Past Encounters Encounter ID Performer Location Encounter Start Date Encounter Closed Date Diagnosis/Indication Diagnosis SNOMED-CT Code Diagnosis ICD10 Code Diagnosis Note [id number] Jurgen Cabello [facility] [address] [address] 06/16/2018 13:56:07 06/16/2018 14:39:35 Essential hypertension 17343468 I10 Atrial septal defect 701 44860 Q21.1 Pain in right knee 85669 44279 89903 M25.561 Intermitte nt palpitations 681715440 R00.2 [id number] Jurgen Cabello [facility] [address] [facility],[place] [address] 08/04/2018 14:10:59 08/04/2018 14:57:40 Tear of medial meniscus of knee 077157254 S83.241A Atrial septal defect 701 14677 Q21.1 the recent echo revealed a stable hemodynami oc picture with a mild decrease in sys funct EF but overall otherwise stable [id number] Jurgen Cabello [facility] [address] [facility],[place] [address] 08/09/2018 10:00:14 08/09/2018 10:57:48 Essential hypertension 58072616 I10 stable Herpes labialis 9094858 B00.[address] -f/u if this does not resolve Cough 60723277 R05 lingering cough after almost complete resolution of recent cold f/u if sx change or worsen [id number] Jurgen Cabello [facility] [address] [facility], [address] [facility] [place] [address] 08/13/2018 13:59:13 08/13/2018 15:39:05 Pain in right knee 2816606617 46296 M25.561 [id number] Jurgen Cabello [facility] [address] [facility], [address] [facility] [place] [address] 08/31/2018 14:10:51 08/31/2018 15:51:22 Tear of lateral meniscus of knee 944842506 S83.281A will refer to ortho as she is going to need an arthroscop y carley [id number] Jurgen Cabello [facility] [address], [place] [address] 12/31/2018 14:27:05 12/31/2018 15:38:36 Hypoglycemia 052614371 E16.2 [id number] Jurgen Cabello [facility] [address], [place] [address] 02/02/2019 14:45:42 02/02/2019 15:13:15 Tear of medial meniscus of knee 046974862 S83.241A here for recjk reviewed her prior surg and eval told her we will give her a kenalog inj when she is ready Osteopenia 403291207 M85 .80 bmd is good [id number] Jurgen Cabello [facility] Medicine [address] [facility],[place] [address] 03/22/2019 09:54:18 03/22/2019 10:32:26 Adult health examination 283109266 Z00.00 would like to check for anemia given weakness and fatigue will also need to get he echo Active or passive immunization 935729046 Z23 utd Atrial septal defect 701 42574 Q21.1 the last echo revealed a stable hemodynami oc picture with a mild decrease in sys funct EF but overall otherwise stable [id number] Jurgen Cabello DO [facility] [address] [facility],[place] [place] [address] 06/13/2019 15:28:59 06/13/2019 16:42:50 Vitamin B12 deficiency (non anemic) 74970905 E53.8 feeling better doing good Vitamin D deficiency 347 57594 E55.9 will chk level Adult heal th examination 104908124 Z00.00 would like to check for anemia given weakness and fatigue will also need to get he echo [id number] Jurgen Cabello DO [facility] [address] [facility],[place] [address] [place] [address] 08/19/2019 09:56:57 08/19/2019 10:41:00 Essential hypertension 47288200 I10 bp is stable no issues there Cough 71138203 R05 getting worse and has had for >2 weeks need to treat as she gets this and quickly develkops pneumonia Biceps tendinitis 525074 007 M75.21 Vitamin D deficiency 347 94840 E55.9 will chk level [id number] Jurgen Cabello DO [facility] [address] [facility],[place] [place] [address] 11/09/2019 10:22:44 11/09/2019 12:06:06 Biceps tendinitis 241929605 M75.21 Melox did not improve sx sounds like she prob tore sonething we will have ot have her see spec Fatigue 19255179 R53.83 will check the blood work Localized visual field defect 451597377 H53.459 occurred after standing i believe this was prob related to bp drop she has had no sequelae and is asymptomat ic since knows to gotoER if and y further change Anxiety 37582616 F41.9 flying on airplane lorazepam [id number] Jurgen Cabello [facility] Medicine [address] [facility],[place] [address] 12/14/2019 10:06:13 12/14/2019 11:03:08 Epigastric pain 33742633 R10.13 must chreck the gall bladder Pain of mu ltiple joints 36927413 M25.50 new onset joint disease? Pain of ri ght shoulder joint 0377941586 1304636 M25.511 could be djd vs inflammato ry [id number] Jurgen Cabello [facility] Medicine [address] [facility],[place] [address] 01/02/2020 15:35:23 01/02/2020 16:44:42 Traumatic hematoma 131248968 T14.8XXA sublingual hematoma after shutting right thumb in the car door yesterday will XR to make sure nothing is broken and give diclofenac as pain reliever will f/u with pt after with XR results [id number] Jurgen Cabello [facility] Medicine [address] [facility] [address] 01/03/2020 13:41:47 01/03/2020 14:06:05 Essential hypertension 41785347 I10 bp is stable no issues there Atrial septal defect 701 44795 Q21.1 the last echo revealed a stable hemodynami oc picture with a mild decrease in sys funct EF but overall otherwise stable Osteoarthr itis of joint of hand 16824171 M19.049 will cont to treat conserv with otc meds prn Subacromia l bursitis of right shoulder 3905527325 888601 M75.51 after discussion she understand s to call for cortisone shot if the meds are not helping [id number] Jurgen Cabello [facility] Medicine [address] [facility],[place] [address] 06/18/2020 13:39:48 06/18/2020 14:29:23 Adult health examination 583143012 Z00.01 overall is stable but her osteoarthr itis is bothering her more Active or passive immunization 652936450 Z23 utd Osteoarthritis 901204741 M19.90 SHE has noted disease hands back and feet will try celecoxib Atrial septal defect 701 95860 Q21.1 the last echo revealed a stable hemodynami c picture with a mild decrease in sys funct EF but overall otherwise stable Alopecia 51431186 L65.9 will refer to derm [id number] Jurgen Cabello [facility] [address], [place] [address] 07/30/2020 10:57:23 07/30/2020 11:32:05 Pain in right hand 3092260682 93915 M79.641 Alopecia areata 41901073 L63.9 [id number] Jurgen Lissy Cabello [facility] [address], [address] [facility] [place] [address] 09/26/2020 10:20:15 09/26/2020 11:17:50 Depressive disorder 61401627 F32.9 Essential hypertension 80073543 I10 bp is stable no issues there Partial th ickness rotator cuff tear 527973479 M75.101 [id number] [facility] [address], [place] [address] 11/27/2020 11:07:05 11/27/2020 12:12:40 Insect bite reaction 338367641 T63.481A resolved with abx Cellulitis 799907524 L03 .90 resolved with abx no other interventi on required at this time Essential hypertension 63958568 I10 stable today at appt no change or interventi on necessary Depressive disorder 3548 9007 F32.9 stable today at appt no change or interventi on necessary [id number] Jurgen Cabello [facility] [address], [place] [facility] [place] [address] 12/11/2020 10:21:25 12/11/2020 11:17:19 Visual disturbance 97197506 H53.9 having flashes in visual field during episodes Dizziness 465321909 R42 she has the dizziness during the episodes with spacey feeling Ataxia 88097747 R26.0 sudden and episodic [id number] Jurgen Cabello [facility] [address] [facility],[place] [address] 02/05/2021 16:14:15 02/05/2021 16:56:51 Ataxic gait 10679061 R26.0 ct negative will follow as neces seems to be better offf the metoprolol Alopecia 54001613 L65.9 markedly better now off metoprolol Essential hypertension [id number] I10 bp ios borderline sometimes nowe off metoprolol will follow and cont the Hyzaar Submandibu lar salivary gland swelling 889498191 K11.9 on right [id number] Jurgen Cabello [facility] Internal Medicine [address] [facility] on [address],[place] [address] 04/19/2021 09:30:06 04/19/2021 10:43:25 Submandibular salivary gland swelling 439334410 K11.9 on right will treat with amox next time she swells Derangemen t of lateral meniscus 79669791 M23.309 [id number] Jurgen Cabello [facility] Internal [facility] [address] [facility] [address], [place] [address] 09/23/2021 08:46:54 09/23/2021 16:30:33 Atrial septal defect 96869332 Q21.1 the last echo revealed a stable hemodynami c picture with a mild decrease in sys funct EF but overall otherwise stable so we will have to [place] [id number] [facility] [address] on [address], [place] [address] 11/05/2021 08:35:27 11/06/2021 08:52:18 Pain of multiple joints 36742118 M25.50 new onset joint disease? Atrial septal defect [address] appt for follow up on her asd awaiting her echo Essential hypertension 65113617 I10 bp ios borderline sometimes nowe off metoprolol will follow and cont the Hyzaar Eczema of scalp 51189908 13 2100 L30.9 [id number] Jurgen Cabello [facility] Internal Medicine [address] [facility] [address],[place] [address] 01/13/2022 15:17:04 01/15/2022 08:49:25 Active or passive immunization 867058072 Z23 advised Adult [facility] th examination 629211932 Z00.00 BP is excellent Atypical chest pain 1025 52301 R07.89 will need fu with cardiology > needs new cardio due to new insurance > will fu with Karishma andrea [place] Thoracic back pain 87923 8004 M54.6 will fu with XR thoracic back for pain along T5 T 6 [id number] Jurgen Cabello [facility] Internal Medicine [address] [facility] [address],[place] [address] 01/22/2022 10:03:12 01/22/2022 11:17:04 Insect bite reaction 408123990 T63.481A will start on doxycyclin e and betamethas one Herpes labialis 6248560 B00.1 will start on valtrex [id number] Jurgen Cabello [facility] Internal Medicine [address] [facility] on [address],[place] [address] 03/26/2022 14:05:51 03/26/2022 14:47:40 Chest pain 62144598 R07.9 occurs on the left anterior region Atrial septal defect [address] [facility] her asd awaiting her echo Essential hypertension 43832271 I10 bp ios borderline sometimes nowe off metoprolol will follow and cont the Tonny Zambrano 452418685 L71.9 [id number] Jurgen Cabello [facility] Internal Medicine [address] [facility] [address],[place] [address] 06/16/2022 14:33:24 06/16/2022 14:47:40 Infection of tooth 675070398 K04.7 will trial amox and medrol Tendinitis of left wrist region 7022446099 4769211 M67.834 will update me after the medrol dose purvi [id number] Jurgen Cabello [facility] Internal Medicine [address] [facility] [address],[place] [address] 10/22/2022 13:55:06 10/22/2022 15:27:58 Migraine 94521628 G43.009 will set up with work up to r/o anything triggering the migraine Essential hypertension 20591577 I10 stable today at appt no change or interventi on necessary Thyroid nodule 369609211 E04.1 will check his TSH Hypertensive urgency 443 424615 I16.0 will start on clonidine PRN for the high spikes [id number] Jurgen Cabello [facility] Internal Medicine [address] [facility] [address], [place] [address] 11/10/2022 09:06:07 11/10/2022 11:55:24 Acute bronchitis 06119216 J20.8 will start on prednsione and z pakif needed will set up with XR if her symptoms [id number] Jurgen Cabello [facility] Internal Medicine [address] [facility] [address], [place] [address] 01/27/2023 10:43:02 01/27/2023 12:17:21 Active or passive immunization 970799025 Z23 utd Adult heal th examination 633540365 Z00.00 overall is stable but her osteoarthr itis is bothering her more Atypical chest pain 1025 99048 R07.89 this appears to be costochond ral but given prior open heart surgery we will treat it accordingl y but in meantime we will get ct scan Thyroid nodule 773694432 E04.1 we will repeat US in 1 year feb Atrial septal defect 701 40855 Q21.10 Postmenopa usal osteopenia 665194586 M85.80 [id number] Jurgen Lissy Cabello [facility] Internal Medicine [address] [facility], [place] [address] 03/27/2023 15:54:54 03/27/2023 17:11:19 Atypical chest pain 342133658 R07.89 this appears to be costochond ral but given prior open heart surgery we will treat it accordingl y but in meantime we will get ct scan Atrial septal defect [address] is excellent Postmenopa usal osteopenia 360400854 M85.80 stable rev bmd Pain of mu ltiple joints 19209510 M25.50 new onset joint disease? [id number] Jurgen Cabello [facility] Internal Medicine [address] [facility] [address],[place] [address] 09/15/2023 14:36:50 09/16/2023 08:14:04 Essential hypertension 52896333 I10 bp ios borderline sometimes nowe off metoprolol will follow and cont the Hyzaar Bilateral lung opacities on plain chest X-ray 108393391 R91.[address] scan is clear Idiopathic acute pancreatitis 824417155 K85.00 we will need to do a follow up and US and lab [id number] Jurgen Cabello [facility] Internal Medicine [address] [facility],[place] [address] 10/02/2023 09:32:34 10/02/2023 15:55:11 Idiopathic acute pancreatitis 253940503 K85.00 we will need to do a follow up and US and lab Cough 36623871 R05.9 [id number] Jurgen Lissy Cabello [facility] Internal Medicine [address] [facility],[place] [address] 02/02/2024 09:52:18 02/02/2024 10:47:25 Active or passive immunization 876696868 Z23 utd Adult heal th examination 556014525 Z00.01 overall is stable but her osteoarthr itis is bothering her more Essential hypertension 80787622 I10 bp ios borderline sometimes nowe off metoprolol will follow and cont the Hyzaar Atrial septal defect [address] is excellent [id number] Jurgen Cabello [facility] Internal Medicine [address] [facility],[place] [address] 05/09/2024 11:34:40 05/09/2024 13:49:20 Pain of bilateral knee joints 6126122568 40593 M25.561 Pain of le ft knee joint 1909731153 37275 M25.562 will set up with MRI knee (bilateral ) Pain of ri ght knee joint 9634308894 15785 M25.561 will f/u with MRI for the knees [id number] Jurgen Cabello [facility] Internal Medicine [address] [facility],[place] [place] [address] 07/01/2024 08:52:37 07/01/2024 10:25:29 Depression screening 254837940 Z13.31 neg Essential hypertension 10264555 I10 bp is great 110/70 will follow and cont the Hyzaar Acute tear of lateral meniscus of left knee 9882134404 0653963 S83.282A [id number] Jurgen Cabello, [facility] Internal Medicine [address] [facility] [address],[place] [address] 10/07/2024 14:57:48 10/07/2024 15:48:25 Spasm of cervical paraspinous muscle 896749100 M62.838 Sternoclav icular sprain 933959155 S23.420A [id number] [facility] [address] [facility] [address],[place] [address] 10/31/2024 14:34:01 10/31/2024 16:08:52 Thoracic back pain 190199097 M54.6 start on meds [id number] Jurgen Cabello [facility] Internal Medicine [address] [facility] [address],[place] [address] 11/23/2024 14:05:03 11/23/2024 14:47:13 Degeneration of cervical intervertebral disc 13001603 M50.321 will have her restart the diclofenac and recommende d ortho eval for injections [id number] Jurgen Lissy Cabello [facility] Internal [facility] [address] [facility],[place] [address] 02/07/2025 09:49:14 02/07/2025 10:45:14 Active or passive immunization 181213834 Z23 utd Acute tear of lateral meniscus of left knee 2448747576 9244503 S83.282A Essential hypertension 97811069 I10 add amlodipine General ex amination of patient 985605185 Z00.01 overall is stable but her osteoarthr itis is bothering her more Pain of to e of left foot 5557836281 78047 M79.675 Pain in right hand 44188 45747 45759 M79.641 Atrial septal defect [address] is excellent Health Concerns Section Related Observation LastModified by Organization Detradha ls LastModified Time None Recorded Concern Status LastModified by Organization Details LastModified Time None Recorded Advance Directives Directive None Recorded Payers Encounter Date Sequence Insurance Name Policy Number Policy Tyler Covered Member ID Tyler Member ID Guarantor Name 07/01/2024 1 [facility] - DIRECT CONNECTORCARE TYPE I (HMO) [id number] Adelaida Recinos [id number] 1 Adelaida Recinos 10/07/2024 1 [facility] - [employer] TYPE I (HMO) [id number] Adelaida Recinos [id number] 1 Adelaida Recinos 10/31/2024 1 [facility] - DIRECT CONNE[employer] TYPE I (HMO) [id number] Adelaida Recinos [id number] 1 Adelaida Recinos 11/23/2024 1 [facility] - DIRECT CONNE[employer]CARE TYPE I (HMO) [id number] Adelaida Recinos [id number] 1 Adelaida Recinos 02/07/2025 1 [facility] - DIRECT CONNE[employer]CARE TYPE I (HMO) [id number] Adelaida Recinos [id number] 1 Adelaida Recinos Notes Date Note Type Note Provider Name and Address Organization Details Recorded Time 4 text/htm l here for rechk and is doing ok except for her left kneeshe has medial and lateral meniscal tear and tricompart arthritis Jurgen Cabello DO [address] [place], [address], [facility] Internal Medicine 07/01/2024 10:08:36 5 text/htm l here for eval of some discomfort in her left neck states now has noted a fullness to this area and a pain behind her left cervical neckarea of her lefthas discomfort and prominence to her left cleido sternal joint Jurgen Cabello DO [address] [place], [address], 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 Internal Medicine 10/31/2024 15:02:37 5 text/htm l c/o neck pain continues recommended f/u with orthopedic office at this point since her pain is becoming less manageable with oral medicationsXR did reveal arthritic changes to her cervical spine which matches with her symptom presentationfeel she would be go candidate for epidural injections patient and I discussedagreed with referralplaced to gregg muro given her location preference can restart diclofenac in the meantime for acute discomfort since that was the most effective for her ANNA GRAHAM [address] [place], [address], [facility] Medicine 11/23/2024 14:40:37 5 text/htm l Annual WellnessReported bypatient.Diet and [...] no confusion; no headaches; no fatigue Jurgen Cabello DO [address] [place], [address], [facility] Internal Medicine 02/07/2025 10:31:27 OBGyn Episode No OBEpisode recorded.
[2025-02-10 07:46] LABS: MANUAL DIFF FLAG NO
[2025-02-10 08:02] LABS: Basophils Percent Auto 0.3 % (0-2); Eosinophils Absolute Auto 0.1 X10*3/uL (0.0-0.4); Eosinophils Percent Auto 1.7 % (0-4); Hematocrit 38.9 % (37.0-47.0); Hemoglobin 12.9 g/dl (12.0-16.0); Imm Gran Abs Auto 0.01 X10*3/uL (0.00-0.03); Imm Gran Pct Auto 0.2 % (0.0-0.4); Lymphocytes Absolute Auto 2.4 X10*3/uL (1.2-4.9); Mean Corpuscular HGB Conc 33.2 g/dl (31.0-35.0); Mean Corpuscular Hemoglobin 26.4 pg (27.0-33.0); Mean Corpuscular Volume 79.7 fL (80.0-98.0); Mean Platelet Volume 10.3 fL (9.4-12.3); Monocytes Absolute Auto 0.5 X10*3/uL (0.1-1.2); Monocytes Percent Auto 7.4 % (2-11); Neutrophils Absolute Auto 3.3 x10*3/uL (2.0-8.3); Neutrophils Percent Auto 52.4 % (45-73); Platelet Count 332 X10*3/uL (160-400); Red Blood Count 4.88 X10*6/uL (4.20-5.50); Red Cell Distribution Width 13.4 % (11.0-16.0); White Blood Count 6.4 X10*3/uL (4.8-10.8)
[2025-02-10 08:33] LABS: Alanine Aminotransferase 17 U/L (0-31); Albumin Level 4.3 g/dL (3.5-5.0); Alkaline Phosphatase 78 U/L (39-117); Anion Gap 11 (12-20); Aspartate Amino Transferase 21 U/L (5-31); Bilirubin Total 0.6 mg/dL (0.0-1.0); Blood Urea Nitrogen 17 mg/dL (9-16); Calcium 9.5 mg/dL (8.4-10.2); Carbon Dioxide 30 mmol/L (22-29); Chloride 105 mmol/L (96-108); Cholesterol 221 mg/dL (<200); Estimated Glomerular Filt Rate > 60; Glucose Random 103 mg/dL (60-115); HDL Cholesterol 45 mg/dL (>40); LDL Cholesterol Calculated 156 mg/dL (<100); Potassium 3.6 mmol/L (3.3-5.1); Sodium 142 mmol/L (135-145); Total Protein 7.4 g/dL (6.5-8.0); Triglycerides 101 mg/dL (<150)
== END 2025-02-10 07:36 | disposition home or self-care (01) ==
LOC: HO.XRAY 07:35
PROVIDERS: PCP Internal Medicine; Visit Provider Internal Medicine
DX: M79.675 Pain in left toe(s) (principal); M79.641 Pain in right hand; I10 Essential (primary) hypertension
CPT/HCPCS: 36415; 73130; 73630; 80053; 80061; 85025

== ENCOUNTER → 2025-02-10 07:46 | Outpatient (BNV) | payer OTHER, SELFPAY | PROVIDERS: PCP Internal Medicine; Visit Provider Radiology Diagnostic Radiology | DX: M79.641 Pain in right hand (principal); M79.675 Pain in left toe(s) | CPT/HCPCS: 73130; 73630 ==

== ENCOUNTER 2025-02-16 09:37 | Outpatient (REF) | payer OTHER, SELFPAY ==
--- NOTE | ~2025-02-16 | MR_ITS ---
EXAMINATION: MR SHOULDER WITHOUT CONTRAST, LEFT CLINICAL INFORMATION: Other instability left shoulder; left shoulder pain when lifting arm, numbness, symptoms since August 2024. Denies injury. 59-year-old female. COMPARISON: No prior MRI. Left shoulder radiographs 12/23/2024. TECHNIQUE: Multiplanar multisequence MR imaging of the left shoulder was done without IV contrast. Examination performed on a 1.5 Roro Siemens unit utilizing standard sequences. FINDINGS: Rotator Cuff and Biceps Tendon: Supraspinatus: There is no discrete tear. The tendon appears intact. There is mild increased signal in the critical zone suggestive of mild tendinopathy. Normal muscle belly. Infraspinatus: There is no discrete tear. The tendon appears intact. Mild increased signal along the bursal surface in the critical zone suggestive of tendinopathy. Normal muscle belly. Subscapularis: There is no discrete tear. The tendon is intact. The tendon is normal in signal. Normal muscle belly. Teres Minor: Intact and normal in signal. Normal muscle belly. Biceps Long Head: Normally located within the bicipital groove. Normal morphology. The tendon within the rotator interval appears normal. The anchor appears intact. AC Joint and Acromiohumeral Arch: There is a type II acromion. There is no undersurface spurring. AC joint demonstrates moderate superior surface spurring with joint capsular distention and mild periarticular edema. There is no significant undersurface spurring. There is no evidence of supraspinatus outlet stenosis. Glenohumeral Joint and Labrum: The glenohumeral joint has normal fluid. No significant degenerative arthritis identified. No cartilaginous defects or subchondral bone plate edema identified. The superior labrum demonstrates linear signal hyperintensity which follows the contour of the bone, suggestive of sublabral foramen. The labrum otherwise appears intact diffusely without discrete displaced tear identified. Osseous Structures: There is no regional bone marrow edema or pathologic bone lesion detected. Spino-glenoid Notch: Normal. Quadrilateral Space: Normal. Other: The glenohumeral ligaments appear intact without thickening. There is hyperintensity within the subacromial/subdeltoid bursa, consistent with mild bursitis. MR/MR shoulder LT wo con IMPRESSION: 1. There is no rotator cuff tear identified. There is mild tendinopathy of the supraspinatus tendon and bursal surface of the infraspinatus tendon. 2. The glenoid labrum appears intact without displaced tear. 3. There is mild subacromial/subdeltoid bursitis. 4. There are no significant glenohumeral joint degenerative changes or cartilaginous abnormalities. 5. There is predominantly superior surface spurring of the AC joint without undersurface spurs. Electronically signed by: Konstantin Armando MD 02/16/2025 11:47 AM EDT
--- OUTSIDE RECORDS SUMMARY | 2025-02-16 10:31 | XMS_ITS | Data Portability ---
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 Surgeries None recorded. Imaging US, echocardi ogram, transthor acic, complete, w/ color flow 2024 025 [facility], [address] [place] [address], [address], 02/07/2025 10:45:14 XR, hand, 3 or more view 2024 025 [facility], [address] [place] [address], [address], 02/10/2025 08:18:48 XR, foot, 3 or more view 2024 025 [facility], [address] [place] [address], [address], 02/10/2025 08:35:30 XR, cervical spine, 2 or 3 view 2024 025 [facility], [address] [place] [address], [address], 10/10/2024 14:59:01 XR, sternocla vicular joint(s) 2024 025 [facility], [address] [place], [address], 10/11/2024 06:45:57 Medication Orders prednison e 20 mg tablet 2024 025 [facility]11163, [facility] [place], [place], [phone], 10/31/2024 14:59:55 baclofen 20 mg tablet 2024 025 [facility] #08117, [address] [place], [place], [phone], 10/31/2024 14:59:46 tizanidin e 4 mg tablet 2024 025 [facility] #[id number], [address] [place], [place], [id number], 10/31/2024 14:57:26 tramadol 50 mg tablet 2023 024 [facility] #30193, [address] [place], [place], [id number], 07/26/2024 10:01:16 Patient TargetsNo targets recorded. Patient Instructions Encounter Date Encounter Id Patient Instructions Last Modified By Organization Details Last Modified Time 07/01/2024 [id number] high blood press ure: care instructions Not available 07/01/2024 10:08:09 learning about h igh blood pressure Not available 07/01/2024 10:08:09 10/07/2024 [id number] sternoclavicular joint separation: rehab exercises Not available 10/07/2024 15:42:12 02/07/2025 [id number] atrial septal defect: care instructions Not available [...] ast No observ ation record ed. [email or web address] [facility] (Medical Records) [address] [place], [address], 06/15/2024 14:57:47 10/10/19 25 10/10/2024 XR, cervi radha spine , 2 or 3 view No observ ation record ed. [address] (Medical Records) [address] [place], [address], 10/12/2024 10:27:51 10/10/19 25 10/10/2024 XR, rao oclav icula r joint (s) No observ ation record ed. [address] [facility] [address] [place], [address], 10/12/2024 10:27:51 11/01/19 25 10/24/2024 MAMMO , scree marbella, digit al, bilat eral No observ ation record ed. [email or web address] [facility] [address] [place], [address], 11/01/2024 13:42:45 12/27/19 25 12/23/2024 XR, shoul neeraj, 2 or more view No observ ation record ed. [email or web address] [place] [address] (Medical Records) [address] [facility] [place], [address], 12/27/2024 09:38:17 02/11/2002/10/2025 XR, foot, 3 or more view No observ ation record ed. [address] (Medical Records) [address] [place], [address], 02/14/2025 10:57:19 02/11/20 25 02/10/2025 XR, hand, 3 or more view No observ ation record ed. [address] (Medical Records) [address] [place], [address], 02/14/2025 10:57:19 Result Notes None recorded. Problems Name Problem SNOMED Code Status Onset Date Resolution Date Notes Provider Name and Address Organization Details Recorded Time Essential hypertens ion 99874670 [facility] 08:33:23 Atrial septal defect 35325077 Active 2017 repair 2001 Traci packer [facility] 8 08:33:49 Depressiv e disorder 33066267 Active [address], [address], [facility] 8 10:10:58 Herpes labialis 0154483 Active [address], [address], [facility] 8 10:11:16 B12 deficienc y monitorin g Active 2018 Jurgen Cabello [address], [address], [facility] 9 10:28:25 Impingeme nt syndrome of right shoulder region 64224684135 9102 Active 2019 Jurgen Cabello [address], [address], [facility] 0 14:06:16 Atypical chest pain 433012492 Active 2021 ANNA GRAHAM [address] [place], [address], [facility] 2 15:46:38 Thoracic back pain 085695994 Active 2021 ANNA GRAHAM [address] [place], [address], [facility] 2 15:48:31 Traumatic hematoma 639532154 Active 2021 ANNA GRAHAM [address] [place] [address], [address], [facility] 2 15:51:25 Degenerat ion of lumbar intervert ebral disc 61774858 Active 2021 ANNA GRAHAM [address] [place] [address], [address], [facility] 2 15:13:29 Degenerat ion of thoracic intervert ebral disc 66461560 Active 2021 ANNA GRAHAM [address] [place] [address], [address], [facility] 2 15:15:55 Degenerat ion of cervical intervert ebral disc 71133752 Active 2021 ANNA GRAHAM [address] [place] [address], [address], [facility] 2 15:16:25 Insect bite reaction 618848092 Active 2021 ANNA GRAHAM [address] [place] [address], [address], [facility] 2 10:16:26 Chest pain 10322418 Active 2021 Jurgen Cabello DO [address] [place] [address], [address], [facility] 2 14:31:41 Rosacea 854337361 Active 2021 Jurgen Cabello DO [address] [place] [address], [address], [facility] 2 14:36:14 Atelectas is 22016716 Active 2021 ANNA GRAHAM [address] [place] [address], [address], [facility] 2 12:38:53 Infection of tooth 141731870 Active 2021 ANNA GRAHAM [address] [place] [address], [address], [facility] 2 14:44:39 Tendiniti s of left wrist region 42728269954 567415 Active 2021 ANNA GRAHAM [address] [place] [address], [address], [facility] 2 14:46:38 Cough 03841577 Active 2021 Jurgen Cabello DO [address] [place] [address], [address], [facility] 2 10:08:01 Migraine 13168322 Active 2022 ANNA GRAHAM [address] [place] [address], [address], [facility] 3 14:15:45 Thyroid nodule 590045886 Active 2022 ANNA GRAHAM [address] [place] [address], [address], [facility] 3 14:16:32 Hypertens jessica urgency 841365198 Active 2022 ANNA GRAHAM [address] [place] [address], [address], [facility] 3 14:17:53 Acute bronchiti s 55443111 Active 2022 ANNA GRAHAM [address] [place] [address], [address], [facility] 3 11:15:06 Pneumonia 605343768 Active 2022 Jurgen Cabello DO [address] [place] [address], [address], [facility] 3 14:52:40 Postmenop ausal osteopeni a 175855329 Active 2022 Jurgen Cabello, DO [address] [place] [address], [address], [facility] 3 12:15:54 Streptoco ccal sore throat 50508251 Active 2022 ANNA GRAHAM [address] [place] [address], [address], [facility] 3 09:44:44 Pain of multiple joints 06238751 Active 2022 Jurgen Cabello, DO [address] [place] [address], [address], [facility] 3 17:01:56 Hand pain 05466331 Active 2022 Jurgen Cabello DO [address] [place] [address], [address], [facility] 3 10:06:34 Hand pain 67438989 Active 2022 Jurgen Cabello DO [address] [place] [address], [address], [facility] 3 10:06:44 Osteoarth ritis of joint of bilateral hands 43721447868 9109 Active 2022 Jurgen Cabello, DO [address] [place] [address], [address], [facility] 3 23:21:07 Bilateral lung opacities on plain chest X-ray 216839908 Active 2022 Jurgen Cabello DO [address] [place] [address], [address], [facility] 3 22:27:13 Epigastri c pain 34921917 Active 2022 Jurgen Cabello DO [address] [place] [address], [address], [facility] 3 10:05:33 Idiopathi c acute pancreati tis 077062287 Active 2022 Jurgen Cabello DO [address] [place] [address], [address], [facility] 3 15:04:37 Recurrent pancreati tis 713749908 Active 2023 Jurgen Cabello DO [address] [place] [address], [address], [facility] 4 11:45:37 Pain of bilateral knee joints 52799049322 4104 Active 2023 ANNA GRAHAM [address] [place] [address], [address], [facility] 4 12:04:43 Pain of left knee joint 05379335281 4107 Active 2023 ANNA GRAHAM [address] [place] [address], [address], [facility] 4 12:05:12 Pain of right knee joint 66545534536 4100 Active 2023 ANNA GRAHAM [address] [place] [address], [address], [facility] 4 12:05:24 Acute tear of lateral meniscus of left knee 76363295151 853087 Active 2023 Jurgen Cabello DO [address] [place] [address], [address], [facility] 4 10:05:13 Spasm of cervical paraspino us muscle 805429857 Active 2024 Jurgen Cabello DO [address] [place] [address], [address], [facility] 5 15:37:00 Sternocla vicular sprain 785950162 Active 2024 Jurgen Cabello DO [address] [place] [address], [address], [facility] 5 15:39:39 Pain of left shoulder joint 42912855996 225073 Active 2024 ANNA GRAHAM [address] [place] [address], [address], [facility] 5 15:49:59 Calcific tendiniti s of left shoulder 16303264524 9108 Active 2024 ANNA GRAHAM [address] [place], [address], [facility] 5 16:35:54 Pain of toe of left foot 82958737120 9108 Active 2024 Jurgen Cabello DO [address] [place] [address], [address], [facility] 5 10:19:51 Pain in right hand 33870492377 9109 Active 2024 Jurgen Cabello DO [address] [place] [address], [address], [facility] 5 10:24:43 Problem Notes None recorded. Procedures Surgical History Date Name Laterality Status Provider Name and Address Organization Details Recorded Time Most Recent Mammogram completed Perla Joy [facility] 11/01/2024 13:42:26 Imaging Results Imaging Date Name Status LastModified by Organization Details LastModified Time 06/14/2024 MRI, knee, w/o contrast completed [email or web address] [facility] (Medical Records) [address] [place] [address], [address], 06/15/2024 14:57:47 10/10/2024 XR, cervical spine, 2 or 3 view completed [address] (Medical Records) [address] [place] [address], [address], 10/12/2024 10:27:51 10/10/2024 XR, sternoclavicular joint(s) completed [address] [facility] [address] [place] [address], [address], 10/12/2024 10:27:51 10/24/2024 MAMMO, screening, digital, bilateral completed [email or web address] [facility] [address] [place] [address] [place], [address], 11/01/2024 13:42:45 12/23/2024 XR, shoulder, 2 or more view completed [address] (Medical Records) [address] [place] [address], [address], 12/27/2024 09:38:17 02/10/2025 XR, foot, 3 or more view active [address] (Medical Records) [address] [place] [address], [address], 02/14/2025 10:57:19 02/10/2025 XR, hand, 3 or more view active [address] (Medical Records) [address] [place] [address], [address], 02/14/2025 10:57:19 Procedure Notes None recorded. Medical Equipment None Reported. Allergies Allergen ID Allergen Name Allergen Category Reaction Reaction Severity Criticality Documentation Date Start Date Code Code System Note Provider Name and Address Organization Details Recorded Time 2275 Product containin g angiotens in-conver ting enzyme inhibitor (product) medicatio n Not available Not available Not available 06/16/2018 26753 009 SNOMED Traci packer [place] [facility] 8 08:33:05 Medications [...] Updated DateTime 4 154.94 cm 31.6 kg/m2 79853.9 3 g 76 /min 96 % 96 % 110 mm[Hg] 70 mm[Hg] Damaris Aparicio [facility] 4 09:26:08 Date Recorded Body height Body mass index (BMI) Body weight Heart rate Oxygen saturation Oxygen saturation in Arterial blood by Pulse oximetry Systolic blood pressure Diastolic blood pressure Provider Name and Address Organization Details Last Updated DateTime 5 154.94 cm 33.1 kg/m2 54540.6 6 g 73 /min 96 % 96 % 110 mm[Hg] 70 mm[Hg] Damaris Aparicio [facility] 5 15:02:49 Date Recorded Body height Provider Name an d Address Organization Details Last Updated DateTime 10/31/2024 154.94 cm Perla Joy [facility] 10/31/2024 14:43:54 Date Recorded Body height Body mass index (BMI) Body weight Heart rate Oxygen saturation Oxygen saturation in Arterial blood by Pulse oximetry Systolic blood pressure Diastolic blood pressure Provider Name and Address Organization Details Last Updated DateTime 5 154.94 cm 32.5 kg/m2 58748.8 9 g 68 /min 98 % 98 % 116 mm[Hg] 72 mm[Hg] Perla Joy [facility] 14:17:29 Date Recorded Body height Body mass index (BMI) Body weight Heart rate Oxygen saturation Oxygen saturation in Arterial blood by Pulse oximetry Systolic blood pressure Diastolic blood pressure Provider Name and Address Organization Details Last Updated DateTime 154.94 cm 32.1 kg/m2 75233.7 g 66 /min 98 % 98 % 100 mm[Hg] 64 mm[Hg] Damaris Aparicio [facility] 10:01:15 Social History Question Answer Notes LastModified by Organizat ion Details LastModified Time Tobacco Smoking Status Never [facility]oker [facility] 08/07/2020 03:36:23 What Was The Date Of Your Most Recent Tobacco Screening? 02/07/2025 [email or web address] Information not available 02/07/2025 Sex: Unknown Functional Status Question Answer Note LastModified by Organization D etails LastModified Time Do you or have you ever used any other forms of tobacco or nicotine? No [email or web address] Information not available 01/27/2023 Mental Status None recorded. Family History Nothing Reported. Medical History No medical history recorded. Gynecological History Statement/Question Response Most Recent Mammogram 10/24/2024 Obstetrics History GPAL:G 0 P 0 0 0 0 Immunizations Vaccine Type Date Status Note Provider Nam e and Address Organization Details Recorded Time COVID-19 vaccine, vector-nr, rS-Ad26, PF, 0.5 mL 01/09/2021 completed Marika packer [facility] 01/13/2022 08:29:14 COVID-19, mRNA, LNP-S, PF, 30 mcg/0.3 mL dose 10/14/2021 completed Marika Dash [facility] [place] [facility] 01/13/2022 08:29:30 Past Encounters Encounter ID Performer Location Encounter Start Date Encounter Closed Date Diagnosis/Indication Diagnosis SNOMED-CT Code Diagnosis ICD10 Code Diagnosis Note [id number] Jurgen Cabello [facility] Internal [facility] [address] [facility] [address] 06/16/2018 13:56:07 06/16/2018 14:39:35 Essential hypertension 15625120 I10 Atrial septal defect 701 96179 Q21.1 Pain in right knee 61002 27133 67733 M25.561 Intermitte nt palpitations 722379737 R00.2 [id number] Jurgen Cabello [facility] [address] [facility], [place] [address] 08/04/2018 14:10:59 08/04/2018 14:57:40 Tear of medial meniscus of knee 984955679 S83.241A Atrial septal defect 701 61761 Q21.1 the recent echo revealed a stable hemodynami oc picture with a mild decrease in sys funct EF but overall otherwise stable [id number] Jurgen Cabello [facility] [address] [facility], [place] [address] 08/09/2018 10:00:14 08/09/2018 10:57:48 Essential hypertension 56234711 I10 stable Herpes labialis 8650198 B00.[address] -f/u if this does not resolve Cough 54078139 R05 lingering cough after almost complete resolution of recent cold f/u if sx change or worsen [id number] Jurgen Cabello [facility] [address] [facility], [place] [address] 08/13/2018 13:59:13 08/13/2018 15:39:05 Pain in right knee 4821080308 23929 M25.561 [id number] Jurgen Cabello [facility] [address] [facility], [place] [address] 08/31/2018 14:10:51 08/31/2018 15:51:22 Tear of lateral meniscus of knee 259390805 S83.281A will refer to ortho as she is going to need an arthroscop y carley [id number] Jurgen Cabello [facility] [address] [facility], [place] [address] 12/31/2018 14:27:05 12/31/2018 15:38:36 Hypoglycemia 641198195 E16.2 [id number] Jurgen Cabello [facility] [address] [facility], [place] [address] 02/02/2019 14:45:42 02/02/2019 15:13:15 Tear of medial meniscus of knee 191913338 S83.241A here for recjk reviewed her prior surg and sergio told her we will give her a kenalog inj when she is ready Osteopenia 361518909 M85 .80 bmd is good [id number] Jurgen Handbebo [facility] [address] [facility], [address] [facility] [address] 03/22/2019 09:54:18 03/22/2019 10:32:26 Adult health examination 051570488 Z00.00 would like to check for anemia given weakness and fatigue will also need to get he echo Active or passive immunization 613459616 Z23 utd Atrial septal defect 701 70746 Q21.1 the last echo revealed a stable hemodynami oc picture with a mild decrease in sys funct EF but overall otherwise stable [id number] Jurgen Lissy Cabello [facility] [address] [facility], [place] [address] 06/13/2019 15:28:59 06/13/2019 16:42:50 Vitamin B12 deficiency (non anemic) 37082186 E53.8 feeling better doing good Vitamin D deficiency 347 98515 E55.9 will chk level Adult heal th examination 047053484 Z00.00 would like to check for anemia given weakness and fatigue will also need to get he echo [id number] Jurgen BridgetteSohail Cabello [facility] [address] [facility], [place] [address] 08/19/2019 09:56:57 08/19/2019 10:41:00 Essential hypertension 94712417 I10 bp is stable no issues there Cough 70766847 R05 getting worse and has had for >2 weeks need to treat as she gets this and quickly develkops pneumonia Biceps tendinitis 798241 007 M75.21 Vitamin D deficiency 347 29101 E55.9 will chk level [id number] Jurgen Cabello [facility] [address] [facility],[place] [address] 11/09/2019 10:22:44 11/09/2019 12:06:06 Biceps tendinitis 674038353 M75.21 Melox did not improve sx sounds like she prob tore sonething we will have ot have her see spec Fatigue 90991035 R53.83 will check the blood work Localized visual field defect 528455007 H53.459 occurred after standing i believe this was prob related to bp drop she has had no sequelae and is asymptomat ic since knows to gotoER if and y further change Anxiety 42453802 F41.9 flying on airplane lorazepam [id number] Jurgen Cabello [facility] [address] [facility],[place] [facility] [place] [facility] 12/14/2019 10:06:13 12/14/2019 11:03:08 Epigastric pain 42332736 R10.13 must chreck the gall bladder Pain of mu ltiple joints 82682248 M25.50 new onset joint disease? Pain of ri ght shoulder joint 6960141051 9844466 M25.511 could be djd vs inflammato ry [id number] Jurgen Cabello [facility] [address] [facility],[place], [place] 7 01/02/2020 15:35:23 01/02/2020 16:44:42 Traumatic hematoma 745621716 T14.8XXA sublingual hematoma after shutting right thumb in the car door yesterday will XR to make sure nothing is broken and give diclofenac as pain reliever will f/u with pt after with XR results [id number] Jurgen Cabello [facility] [address] [facility],[place] [address] 01/03/2020 13:41:47 01/03/2020 14:06:05 Essential hypertension 82389889 I10 bp is stable no issues there Atrial septal defect 701 68937 Q21.1 the last echo revealed a stable hemodynami oc picture with a mild decrease in sys funct EF but overall otherwise stable Osteoarthr itis of joint of hand 66679232 M19.049 will cont to treat conserv with otc meds prn Subacromia l bursitis of right shoulder 4583419463 259543 M75.51 after discussion she understand s to call for cortisone shot if the meds are not helping [id number] [facility] [address] [facility],[place] [address] 06/18/2020 13:39:48 06/18/2020 14:29:23 Adult health examination 409770812 Z00.01 overall is stable but her osteoarthr itis is bothering her more Active or passive immunization 496036069 Z23 utd Osteoarthritis 556968053 M19.90 SHE has noted disease hands back and feet will try celecoxib Atrial septal defect 701 52430 Q21.1 the last echo revealed a stable hemodynami c picture with a mild decrease in sys funct EF but overall otherwise stable Alopecia 86515619 L65.9 will refer to derm [id number] [facility] [address] [facility],[place] [address] 07/30/2020 10:57:23 07/30/2020 11:32:05 Pain in right hand 0350916123 64805 M79.641 Alopecia areata 11421807 L63.9 [id number] [facility] [address] [facility] [place] [address] 09/26/2020 10:20:15 09/26/2020 11:17:50 Depressive disorder 05148202 F32.9 Essential hypertension 12063163 I10 bp is stable no issues there Partial th ickness rotator cuff tear 803829673 M75.101 [id number] [facility] [address] [facility] [address] [place] [address] 11/27/2020 11:07:05 11/27/2020 12:12:40 Insect bite reaction 794978051 T63.481A resolved with abx Cellulitis [id number] L03 .90 resolved with abx no other interventi on required at this time Essential hypertension 80306780 I10 stable today at appt no change or interventi on necessary Depressive disorder 3548 9007 F32.9 stable today at appt no change or interventi on necessary [id number] Jurgen Cabello [facility] Internal Medicine [address] [facility],[address] [place] [address] 12/11/2020 10:21:25 12/11/2020 11:17:19 Visual disturbance 99589289 H53.9 having flashes in visual field during episodes Dizziness 770285913 R42 she has the dizziness during the episodes with spacey feeling Ataxia 58268177 R26.0 sudden and episodic [id number] Jurgen Cabello [facility] Internal Medicine [address] [facility],[place] [address] 02/05/2021 16:14:15 02/05/2021 16:56:51 Ataxic gait 69328276 R26.0 ct negative will follow as neces seems to be better offf the metoprolol Alopecia 40373035 L65.9 markedly better now off metoprolol Essential hypertension 93971608 I10 bp ios borderline sometimes nowe off metoprolol will follow and cont the Hyzaar Submandibu lar salivary gland swelling 297695043 K11.9 on right [id number] Jurgen Cabello [facility] Internal Medicine [address] [facility],[place] [address] 04/19/2021 09:30:06 04/19/2021 10:43:25 Submandibular salivary gland swelling 834950017 K11.9 on right will treat with amox next time she swells Derangemen t of lateral meniscus 10362822 M23.309 [id number] Jurgen Cabello [facility] Internal Medicine [address] [facility],[place] [address] 09/23/2021 08:46:54 09/23/2021 16:30:33 Atrial septal defect 79863416 Q21.1 the last echo revealed a stable hemodynami c picture with a mild decrease in sys funct EF but overall otherwise stable so we will have to set [place] [id number] [facility] Internal Medicine [address] [facility] [address] [place] [address] 11/05/2021 08:35:27 11/06/2021 08:52:18 Pain of multiple joints 54483271 M25.50 new onset joint disease? Atrial septal defect [address] appt for follow up on her asd awaiting her echo Essential hypertension 56018620 I10 bp ios borderline sometimes nowe off metoprolol will follow and cont the Hyzaar Eczema of scalp 20186827 13 2100 L30.9 [id number] Jurgen Cabello [facility] Internal Medicine [address] [facility] [address] [place] [address] 01/13/2022 15:17:04 01/15/2022 08:49:25 Active or passive immunization 677191373 Z23 advised Adult heal th examination 571928101 Z00.00 BP is excellent Atypical chest pain 1025 43939 R07.89 will need fu with cardiology > needs new cardio due to new insurance > will fu with Karishma andrea [place] near [place] Thoracic back pain 83909 8004 M54.6 will fu with XR thoracic back for pain along T5 T 6 [id number] [facility] Internal Medicine [address] [facility] [address] [place] [address] 01/22/2022 10:03:12 01/22/2022 11:17:04 Insect bite reaction 362582224 T63.481A will start on doxycyclin e and betamethas one Herpes labialis 6966156 B00.1 will start on valtrex [id number] [facility] Internal Medicine [address] [facility] [address] [place] [address] 03/26/2022 14:05:51 03/26/2022 14:47:40 Chest pain 60101723 R07.9 occurs on the left anterior region Atrial septal defect [address] appt for follow up on her asd awaiting her echo Essential hypertension 86658601 I10 bp ios borderline sometimes nowe off metoprolol will follow and cont the Tonny Zambrano 643804515 L71.9 [id number] Jurgen Cabello [facility] Internal Medicine [address] [facility] [address] [place],[address] [facility] [place] [place] [address] 06/16/2022 14:33:24 06/16/2022 14:47:40 Infection of tooth 560956742 K04.7 will trial amox and medrol Tendinitis of left wrist region 2618437953 8900335 M67.834 will update me after the medrol dose purvi [id number] Jurgen Cabello [facility] Internal Medicine [address] [facility] [place] [address] 10/22/2022 13:55:06 10/22/2022 15:27:58 Migraine 99368440 G43.009 will set up with work up to r/o anything triggering the migraine Essential hypertension 33904537 I10 stable today at appt no change or interventi on necessary Thyroid nodule 738357630 E04.1 will check his TSH Hypertensive urgency 443 922845 I16.0 will start on clonidine PRN for the high spikes [id number] Jurgen Cabello [facility] Internal Medicine [address] [facility] [address] [place] [place] [address] 11/10/2022 09:06:07 11/10/2022 11:55:24 Acute bronchitis 71592376 J20.8 will start on prednsione and z pakif needed will set up with XR if her symptoms [id number] Jurgen Cabello [facility] Internal Medicine [address] [facility] [address] [place] [address] 01/27/2023 10:43:02 01/27/2023 12:17:21 Active or passive immunization 026201013 Z23 utd Adult heal th examination 366733730 Z00.00 overall is stable but her osteoarthr itis is bothering her more Atypical chest pain 1025 63927 R07.89 this appears to be costochond ral but given prior open heart surgery we will treat it accordingl y but in meantime we will get ct scan Thyroid nodule 802283841 E04.1 we will repeat US in 1 year feb Atrial septal defect 701 25239 Q21.10 Postmenopa usal osteopenia 595925631 M85.80 [id number] Jurgen Cabello [facility] Internal Medicine [address] [facility] [address] [place] [address] 03/27/2023 15:54:54 03/27/2023 17:11:19 Atypical chest pain 260390381 R07.89 this appears to be costochond ral but given prior open heart surgery we will treat it accordingl y but in meantime we will get ct scan Atrial septal defect [address] is excellent Postmenopa usal osteopenia 176194177 M85.80 stable rev bmd Pain of mu ltiple joints 27974522 M25.50 new onset joint disease? [id number] Jurgen Cabello [facility] Internal Medicine [address] [facility] [place] [address] 09/15/2023 14:36:50 09/16/2023 08:14:04 Essential hypertension 12322335 I10 bp ios borderline sometimes nowe off metoprolol will follow and cont the Hyzaar Bilateral lung opacities on plain chest X-ray 142146356 R91.[address] scan is clear Idiopathic acute pancreatitis 711922671 K85.00 we will need to do a follow up and US and lab [id number] Jurgen Cabello [facility] Internal Medicine [address] [facility] [address] 10/02/2023 09:32:34 10/02/2023 15:55:11 Idiopathic acute pancreatitis 983140888 K85.00 we will need to do a follow up and US and lab Cough 17676591 R05.9 [id number] Jurgen Cabello [facility] Internal Medicine [address] [facility] [address] [place] [address] 02/02/2024 09:52:18 02/02/2024 10:47:25 Active or passive immunization 570400813 Z23 utd Adult heal th examination 755019141 Z00.01 overall is stable but her osteoarthr itis is bothering her more Essential hypertension 79099078 I10 bp ios borderline sometimes nowe off metoprolol will follow and cont the Hyzaar Atrial septal defect [address] is excellent [id number] Jurgen Cabello [facility] Internal Medicine [address] [place] [address] 05/09/2024 11:34:40 05/09/2024 13:49:20 Pain of bilateral knee joints 3859120883 88507 M25.561 Pain of le ft knee joint 3994887929 63720 M25.562 will set up with MRI knee (bilateral ) Pain of ri ght knee joint 9268965117 23987 M25.561 will f/u with MRI for the knees [id number] [facility] [address] [place] [address] 07/01/2024 08:52:37 07/01/2024 10:25:29 Depression screening 638381275 Z13.31 neg Essential hypertension 90121041 I10 bp is great 110/70 will follow and cont the Hyzaar Acute tear of lateral meniscus of left knee 0544342130 9335976 S83.282A [id number] Jurgen Cabello [facility] Internal Medicine [address] [place] [address] 10/07/2024 14:57:48 10/07/2024 15:48:25 Spasm of cervical paraspinous muscle 748627657 M62.838 Sternoclav icular sprain 004555483 S23.420A [id number] Jurgen Cabello [facility] Internal Medicine [address] [place] [address] 10/31/2024 14:34:01 10/31/2024 16:08:52 Thoracic back pain 068956694 M54.6 start on meds [id number] Jurgen Cabello [facility] Internal Medicine [address] [facility],[address] [facility] [address] 11/23/2024 14:05:03 11/23/2024 14:47:13 Degeneration of cervical intervertebral disc 42333931 M50.321 will have her restart the diclofenac and recommende d ortho eval for injections [id number] Jurgen Cabello [facility] Internal Medicine [address] [facility],[place] [address] 02/07/2025 09:49:14 02/07/2025 10:45:14 Active or passive immunization 599252686 Z23 utd Acute tear of lateral meniscus of left knee 3811395642 8981112 S83.282A Essential hypertension 30971993 I10 add amlodipine General ex amination of patient 563918752 Z00.01 overall is stable but her osteoarthr itis is bothering her more Pain of to e of left foot 0093180572 81337 M79.675 Pain in right hand 08231 12402 50292 M79.641 Atrial septal defect [address] is excellent Health Concerns Section Related Observation LastModified by Organization Detai ls LastModified Time None Recorded Concern Status LastModified by Organization Details LastModified Time None Recorded Advance Directives Directive None Recorded Payers Encounter Date Sequence Insurance Name Policy Number Policy Tyler Covered Member ID Tyler Member ID Guarantor Name 07/01/2024 1 [facility] [employer] - DIRECT CONNECTORCARE TYPE I (HMO) [id number] Adelaida Recinos [id number] 1 Adelaida Recinos 10/07/2024 1 [employer] - DIRECT CONNE[employer]CARE TYPE I (HMO) [id number] Adelaida Recinos [id number] 1 Adelaida Ercinos 10/31/2024 1 [facility] [facility] [facility] [employer] - DIRECT CONNECTORCARE TYPE I (HMO) [id number] Adelaida Recinos [id number] 1 Adelaida Recinos 11/23/2024 1 [facility] [facility] [employer] - DIRECT CONNECTORCARE TYPE I (HMO) [id number] Adelaida Recinos [id number] 1 Adelaida Recinos 02/07/2025 1 [employer] [facility] [facility] [employer] - DIRECT CONNECTORCARE TYPE I (HMO) [id number] Adelaida Recinos [id number] 1 Adelaida Recinos Notes Date Note Type Note Provider Name and Address Organization Details Recorded Time 4 text/htm l here for rechk and is doing ok except for her left kneeshe has medial and lateral meniscal tear and tricompart arthritis Jurgen Yuan Peacebebo, DO [address] [place], [address], [facility] Internal Medicine 07/01/2024 10:08:36 5 text/htm l here for eval of some discomfort in her left neck states now has noted a fullness to this area and a pain behind her left cervical neckarea of her lefthas discomfort and prominence to her left cleido sternal joint Jurgen Yuan Peacebebo, DO [address] [place], [address], [facility] 10/07/2024 15:43:00 5 text/htm l c/o back pain upper thoracic back painreproducible with palpation of the upper back muscles 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, lifts them a lototherwise no inciting event ie no trauma or injury start on pred and msk relaxercan use heat and ice limit lifting over ten pounds ANNA GRAHAM [address] [place], [address], [facility] 10/31/2024 15:02:37 5 text/htm l c/o neck pain continues recommended f/u with orthopedic office at this point since her pain is becoming less manageable with oral medicationsXR did reveal arthritic changes to her cervical spine which matches with her symptom presentationfeel she would be go candidate for epidural injections patient and I discussedagreed with referralplaced to [place] [facility] given her location preference can restart diclofenac in the meantime for acute discomfort since that was the most effective for her ANNA GRAHAM [address] [place], [address], [facility] Internal Medicine 11/23/2024 14:40:37 5 text/htm l [...] headaches; no fatigue Jurgen Cabello, DO [address] [place], [address], [facility] 02/07/2025 10:31:27 OBGyn Episode No OBEpisode recorded.
== END 2025-02-16 09:38 | disposition home or self-care (01) ==
LOC: HO.MRI 09:37
PROVIDERS: PCP Internal Medicine; Visit Provider Orthopaedic Surgery
DX: M25.312 Other instability, left shoulder (principal)
CPT/HCPCS: 73221

== ENCOUNTER → 2025-02-16 09:45 | Outpatient (BNV) | payer OTHER, SELFPAY | PROVIDERS: PCP Internal Medicine; Visit Provider Radiology Diagnostic Radiology | DX: M25.712 Osteophyte, left shoulder (principal) | CPT/HCPCS: 73221 ==

== ENCOUNTER 2025-03-01 12:40 | Outpatient (AMB) | payer OTHER, SELFPAY ==
--- NOTE | 2025-03-01 12:44 | MHC.OFFVIS ---
Vital Signs 03/01/25 12:46 Height 5 ft 1 in Weight 173 lb BMI 32.7 Intake Visit Reasons: Inj-Left knee Euflexxa #1, Left shoulder pain Intake Note: Adelaida is a 59 year old female who presents with complaints of progressively worsening left knee pain as well as intermittent left shoulder discomfort. She denies any weakness in her shoulder. Most of the discomfort those along the lateral aspect of her shoulder. She describes her knee pain as sharp in nature. She has had cortisone injections in the past which gave her temporary relief. She has also tried Tylenol and anti-inflammatory medicines which gave her minimal relief. Allergies No Known Allergies Allergy (Verified 03/01/25 12:46) Medication List - Last Reconciled 03/01/25 by Dionisio Hernández MD acetaminophen (Tylenol Extra Strength) 500 mg PO Q6H PRN amlodipine 5 mg PO DAILY betamethasone dipropionate 0.05% 1 appl topical DAILY citalopram 20 mg PO DAILY cyclobenzaprine 5 mg PO TID PRN diclofenac potassium 50 mg PO BID ibuprofen 600 mg PO Q6H PRN losartan-hydrochlorothiazide 100-25 mg 1 tab PO DAILY ondansetron 4 mg PO Q8H PRN PFSH Medical History Stress bladder incontinence, female Depression Primary osteoarthritis of right knee Atypical lobular hyperplasia of right breast Atrial septal defect delivery delivered HTN (hypertension) Surgical History History of surgery Tubal ligation status Hx of section Social History Are you a primary primary care provider to a significant other at home: No Do you presently have visiting nurse or other home services: No Patient Tobacco Use Status: Never used Tobacco Female Reproductive History Menstrual Age of Menarche: 9 Physical Exam Vital Signs: BMI result Body Mass Index 32.7 Const Other: Well-nourished well-developed very friendly female awake alert and oriented x3 in no acute distress Extrem Other: Left knee examination shows pain with range of motion, palpable crepitus with range of motion, no instability Left shoulder examination shows full range of motion when compared to her right shoulder, 4+ out of 5 strength with supraspinatus testing, positive impingement signs, no instability Office Procedures AMB Joint Injection/Aspiration Joint Injection/Aspiration Primary Site: left knee Prep: site was prepped using aseptic technique Injected: 20 mg of (Euflexxa viscosupplementation) and 1% plain lidocaine Procedure: The patient tolerated the procedure well Coding - Large joint Procedure code (CPT) selection complete Results Reviewed Results Reviewed: MRI of the patient's left shoulder show severe acromioclavicular joint narrowing, a type 2 acromion, no evidence of rotator cuff tearing X-rays of the patient's left knee taken previously show joint space narrowing, subchondral sclerosis, no acute bony abnormalities Assessment & Plan Assessment & Plan (1) Osteoarthritis of left knee: Code(s): M17.12 - Unilateral primary osteoarthritis, left knee Category: Medical (2) Left shoulder pain: Code(s): M25.512 - Pain in left shoulder Plan Ms. Jorje Sosa presents with left knee pain due to osteoarthritis. The risks and benefits of a series of Euflexxa viscosupplementation injections were discussed at length with the patient. The patient wished to proceed. She tolerated the injection well. She will follow up next week for her 2nd injection as scheduled. The patient also has intermittent left shoulder discomfort due to impingement syndrome. At this point the patient's shoulder discomfort is tolerable to her. We will hold off on a cortisone injection. Feel free to call me at any time should questions regarding her orthopedic management arise. I spent 22 minutes in reviewing the patient's records and imaging studies, seeing the patient and documenting in the medical record. Orders: Orders AMB Joint Injection/Aspiration Today M17.12 - Unilateral primary osteoarthritis, left knee Coding Level of Care Code Est Pt Level 3 (20123) Complex EM visit Add On G2211 Diagnoses Osteoarthritis of left knee M17.12 Left shoulder pain M25.512 CPT Codes Coding - Large joint: 07898 - Large joint ([id number])
[2025-03-01 12:46] VITALS: BMI 32.7
--- OUTSIDE RECORDS SUMMARY | 2025-03-01 13:22 | XMS_ITS | Data Portability ---
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) MDM MODERATE MUST MEET 2 OUT OF [...] available Lab CMP, serum or plasma 2024 [facility], [address] [place] [address], [id number], 02/13/2025 13:52:37 CBC 2024 [facility], [address] [place] [address], [address], 02/07/2025 10:26:32 lipid panel, blood 2024 [facility], [address] [place] [address], [address], 02/07/2025 10:26:31 Referral orthopedi c spine surgeon referral 2024 [facility], [address] [place] [address] [place], [address], 12/23/2024 08:06:48 Procedures None recorded. Surgeries None recorded. Imaging US, echocardi ogram, transthor acic, complete, w/ color flow 2024 025 [facility], [address] [place] [address], [address], 02/21/2025 08:02:58 XR, hand, 3 or more view 2024 025 [facility], [address] [place] [address], [address], 02/10/2025 08:18:48 XR, foot, 3 or more view 2024 025 [facility] Central Scheduling, [address] [place], [address], 02/10/2025 08:35:30 XR, cervical spine, 2 or 3 view 2024 025 [facility], [address] [place] [address], [address], 10/10/2024 14:59:01 XR, sternocla vicular joint(s) 2024 025 [facility], [address] [place], [address], 10/11/2024 06:45:57 Medication Orders prednison e 20 mg tablet 2024 025 [facility][id number], [address], [place], [id number], 10/31/2024 14:59:55 baclofen 20 mg tablet 2024 025 [facility] #[id number], [address], [place], [id number], 10/31/2024 14:59:46 tizanidin e 4 mg tablet 2024 025 [facility] #[id number], [address], [place], [id number], 10/31/2024 14:57:26 tramadol 50 mg tablet 2023 024 [facility] #[id number], [address], [place], [id number], 07/26/2024 10:01:16 Patient TargetsNo targets recorded. Patient Instructions Encounter Date Encounter Id Patient Instructions Last Modified By Organization Details Last Modified Time 07/01/2024 [id number] high blood press ure: care instructions Not available 07/01/2024 10:08:09 learning about h igh blood pressure Not available 07/01/2024 10:08:09 10/07/2024 [id number] sternoclavicular joint separation: rehab exercises Not available 10/07/2024 15:42:12 02/07/2025 [id number] atrial septal defect: care instructions Not available 02/07/2025 10:25:45 Reason for Referral Orthopedic Spine Surgeon Ref erral for Degeneration of cervical intervertebral disc degenerative changes in the cervical spine, persistant pain Referring Physician: Ana Pollock, Internal Medicine, Encounter Date: 11/23/2024 Results Created Date Observation Date Name Description Value Unit Range Abnormal Flag Note LastModifiedBy Organization Detail LastModifiedTime 06/15/2006/14/2024 MRI, knee, w/o contr ast No observ ation record ed. [email or web address] [facility] (Medical Records) [address] [place], [address], 06/15/2024 14:57:47 10/10/19 25 10/10/2024 XR, cervi radha spine , 2 or 3 view No observ ation record ed. [address] (Medical Records) [address] [place], [address], 10/12/2024 10:27:51 10/10/19 25 10/10/2024 XR, rao oclav icula r joint (s) No observ ation record ed. [address] Cardiology [address] [place], [address], 10/12/2024 10:27:51 11/01/19 25 10/24/2024 MAMMO , scree marbella, digit al, bilat eral No observ ation record ed. [email or web address] [facility] [address] [place], [address], 11/01/2024 13:42:45 12/27/19 25 12/23/2024 XR, shoul neeraj, 2 or more view No observ ation record ed. [email or web address] [place] [address] (Medical Records) 575 [facility], [address], 12/27/2024 09:38:17 02/11/2002/10/2025 XR, foot, 3 or more view No observ ation record ed. [email or web address] (Medical Records) [address] [place], [address], 02/16/2025 22:08:36 02/11/2002/10/2025 XR, hand, 3 or more view No observ ation record ed. [email or web address] (Medical Records) [address] [place], [address], 02/16/2025 22:08:36 02/17/2002/16/2025 MRI, shoul neeraj, w/ contr ast No observ ation record ed. [email or web address] [address] [place], [address], 02/16/2025 20:17:52 Result Notes None recorded. Problems Name Problem SNOMED Code Status Onset Date Resolution Date Notes Provider Name and Address Organization Details Recorded Time Essential hypertens ion 03511319 [facility] 08:33:23 Atrial septal defect 92289072 Active 2017 repair 2001 Tracicarly packer [facility] 8 08:33:49 Depressiv e disorder 66951969 Active 2017 ROGER Escobar [address] [place] [address], [address], [facility] 8 10:10:58 Herpes labialis 8406902 Active 2017 ROGER Escobar [address] [place] [address], [address], [facility] 8 10:11:16 B12 deficienc y monitorin g Active 2018 Jurgen Cabello DO [address] [place], [address], [facility] 9 10:28:25 Impingeme nt syndrome of right shoulder region 65496052252 9102 Active 2019 Jurgen Cabello, DO [address] [place] [address], [address], [facility] 0 14:06:16 Atypical chest pain 775096610 Active 2021 ANNA GRAHAM [address] [place] [address], [address], [facility] 2 15:46:38 Thoracic back pain 596006962 Active 2021 ANNA GRAHAM [address] [place] [address], [address], [facility] 2 15:48:31 Traumatic hematoma 499447115 Active 2021 ANNA GRAHAM [address] [place] [address], [address], [facility] 2 15:51:25 Degenerat ion of lumbar intervert ebral disc 83461483 Active 2021 ANNA GRAHAM [address] [place] [address], [address], [facility] 2 15:13:29 Degenerat ion of thoracic intervert ebral disc 53339391 Active 2021 ANNA GRAHAM [address] [place] [address], [address], [facility] 2 15:15:55 Degenerat ion of cervical intervert ebral disc 57767754 Active 2021 ANNA GRAHAM [address] [place] [address], [address], [facility] 2 15:16:25 Insect bite reaction 220981365 Active 2021 ANNA GRAHAM [address] [place] [address], [address], [facility] 2 10:16:26 Chest pain 84295911 Active 2021 Jurgen Cabello, DO [address] [place] [address], [address], [facility] 2 14:31:41 Rosacea 086105062 Active 2021 Jurgen Cabello, DO [address] [place] [address], [address], [facility] 2 14:36:14 Atelectas is 53943523 Active 2021 ANNA GRAHAM [address] [place] [address], [address], [facility] 2 12:38:53 Infection of tooth 797477809 Active 2021 ANNA GRAHAM [address] [place] [address], [address], [facility] 2 14:44:39 Tendiniti s of left wrist region 77160692910 634470 Active 2021 ANNA GRAHAM [address] [place] [address], [address], [facility] 2 14:46:38 Cough 90636470 Active 2021 Jurgen Cabello, DO [address] [place] [address], [address], [facility] 2 10:08:01 Migraine 02427105 Active 2022 ANNA GRAHAM [address] [place] [address], [address], [facility] 3 14:15:45 Thyroid nodule 649145829 Active 2022 ANNA GRAHAM [address] [place] [address], [address], [facility] 3 14:16:32 Hypertens jessica urgency 720933200 Active 2022 ANNA GRAHAM [address] [place] [address], [address], [facility] 3 14:17:53 Acute bronchiti s 80352364 Active 2022 ANNA GRAHAM [address] [place] [address], [address], [facility] 3 11:15:06 Pneumonia 968463333 Active 2022 Jurgen Cabello, DO [address] [place] [address], [address], [facility] 3 14:52:40 Postmenop ausal osteopeni a 691823912 Active 2022 Jurgen Cabello, DO [address] [place] [address], [address], [facility] 3 12:15:54 Streptoco ccal sore throat 88135615 Active 2022 ANNA GRAHAM [address] [place] [address], [address], [facility] 3 09:44:44 Pain of multiple joints 50616117 Active 2022 Jurgen Cabello, DO [address] [place] [address], [address], [facility] 3 17:01:56 Hand pain 11343365 Active 2022 Jurgen Cabello, DO [address] [place] [address], [address], [facility] 3 10:06:34 Hand pain 65838480 Active 2022 Jurgen Cabello, DO [address] [place] [address], [address], [facility] 3 10:06:44 Osteoarth ritis of joint of bilateral hands 96890833859 9109 Active 2022 Jurgen Cabello, DO [address] [place] [address], [address], [facility] 3 23:21:07 Bilateral lung opacities on plain chest X-ray 135162038 Active 2022 Jurgen Cabello DO [address] [place] [address], [address], [facility] 3 22:27:13 Epigastri c pain 58282869 Active 2022 Jurgen Cabello, [address], [address], [facility] 3 10:05:33 Idiopathi c acute pancreati tis 409322411 Active 2022 Jurgen Cabello, DO [address] [place] [address], [address], [facility] 3 15:04:37 Recurrent pancreati tis 712794244 Active 2023 Jurgen Cabello, [address], [address], [facility] 4 11:45:37 Pain of bilateral knee joints 57419779798 4104 Active 2023 ANNA GRAHAM [address] [place] [address], [address], [facility] 4 12:04:43 Pain of left knee joint 00876200489 4107 Active 2023 ANNA GRAHAM [address] [place] [address], [address], [facility] 4 12:05:12 Pain of right knee joint 06138868285 4100 Active 2023 ANNA GRAHAM [address] [place] [address], [address], [facility] 4 12:05:24 Acute tear of lateral meniscus of left knee 52342421435 561639 Active 2023 Jurgen Cabello DO [address] [place] [address], [address], [facility] 4 10:05:13 Spasm of cervical paraspino us muscle 384768537 Active 2024 Jurgen Cabello DO [address] [place] [address], [address], [facility] 5 15:37:00 Sternocla vicular sprain 865490224 Active 2024 Jurgen Cabello DO [address] [place] [address], [address], [facility] 5 15:39:39 Pain of left shoulder joint 75773760599 610453 Active 2024 ANNA GRAHAM [address] [place] [address], [address], [facility] 5 15:49:59 Calcific tendiniti s of left shoulder 84459373786 9108 Active 2024 ANNA GRAHAM [address] [place] [address], [address], [facility] 5 16:35:54 Pain of toe of left foot 70111843715 9108 Active 2024 Jurgen Cabello DO [address] [place] [address], [address], [facility] 5 10:19:51 Pain in right hand 51795627740 9109 Active 2024 Jurgen Cabello DO [address] [place] [address], [address], [facility] 5 10:24:43 Pain of bilateral hands 95634660110 264626 Active 2024 Jurgen Cabello DO [address] [place] [address], [address], [facility] 5 22:09:07 Acute ankle pain 28318380969 105 Active 2024 Jurgen Cabello DO [address] [place] [address], [address], [facility] 22:10:13 Problem Notes None recorded. Procedures Surgical History Date Name Laterality Status Provider Name and Address Organization Details Recorded Time Most Recent Mammogram completed Perla Joy [facility] 11/01/2024 13:42:26 Imaging Results None recorded. Procedure Notes None recorded. Medical Equipment None Reported. Allergies Allergen ID Allergen Name Allergen Category Reaction Reaction Severity Criticality Documentation Date Start Date Code Code System Note Provider Name and Address Organization Details Recorded Time 2274 Product containin g angiotens in-conver ting enzyme inhibitor (product) medicatio n Not available Not available Not available 06/16/2018 38067 009 SNOMED Traci packer [place] - [facility] 8 08:33:05 Medications Name [...] TAKE 1 TABLET BY MOUTH EVERY DAY 2024 active Not Available Not Available Not Avai lable Tamiflu 75 mg capsule Take 1 capsule [...] BY MOUTH TWICE DAILY FOR 10 DAYS 03/09 /2021 completed Not Available Not Available Not Available [...] Updated DateTime 5 154.94 cm 33.1 kg/m2 73044.6 6 g 73 /min 96 % 96 % 110 mm[Hg] 70 mm[Hg] Damaris Figueroa [facility] 5 15:02:49 Date Recorded Body height Provider Name an d Address Organization Details Last Updated DateTime 10/31/2024 154.94 cm Perla Mauro [facility] 10/31/2024 14:43:54 Date Recorded Body height Body mass index (BMI) Body weight Heart rate Oxygen saturation Oxygen saturation in Arterial blood by Pulse oximetry Systolic blood pressure Diastolic blood pressure Provider Name and Address Organization Details Last Updated DateTime 5 154.94 cm 32.5 kg/m2 34379.8 9 g 68 /min 98 % 98 % 116 mm[Hg] 72 mm[Hg] Perla Figueroa [facility] 5 14:17:29 Date Recorded Body height Body mass index (BMI) Body weight Heart rate Oxygen saturation Oxygen saturation in Arterial blood by Pulse oximetry Systolic blood pressure Diastolic blood pressure Provider Name and Address Organization Details Last Updated DateTime 5 154.94 cm 32.1 kg/m2 19947.7 g 66 /min 98 % 98 % 100 mm[Hg] 64 mm[Hg] Damaris Figueroa [facility] 5 10:01:15 Date Recorded Body height Body mass index (BMI) Body weight Heart rate Oxygen saturation Oxygen saturation in Arterial blood by Pulse oximetry Systolic blood pressure Diastolic blood pressure Provider Name and Address Organization Details Last Updated DateTime 4 154.94 cm 31.6 kg/m2 28032.9 3 g 76 /min 96 % 96 % 110 mm[Hg] 70 mm[Hg] Damaris Figueroa [facility] 4 09:26:08 Social History Question Answer Notes LastModified by Organizat ion Details LastModified Time Tobacco Smoking Status Never Smoker Not Available [facility] 08/07/2020 03:36:23 What Was The Date Of Your Most Recent Tobacco Screening? 02/07/2025 [email or web address] Information not available 02/07/2025 Sex: Unknown Functional Status Question Answer Note LastModified by Organization D etails LastModified Time Do you or have you ever used any other forms of tobacco or nicotine? No [email or web address] Information not available 01/27/2023 Mental Status None recorded. Family History Nothing Reported. Medical History No medical history recorded. Gynecological History Statement/Question Response Most Recent Mammogram 10/24/2024 Obstetrics History GPAL:G 0 P 0 0 0 0 Immunizations Vaccine Type Date Status Note Provider Nam e and Address Organization Details Recorded Time COVID-19 vaccine, vector-nr, rS-Ad26, PF, 0.5 mL 01/09/2021 completed Marika packer [facility] 01/13/2022 08:29:14 COVID-19, mRNA, LNP-S, PF, 30 mcg/0.3 mL dose 10/14/2021 completed Marika packer [facility] 01/13/2022 08:29:30 Past Encounters Encounter ID Performer Location Encounter Start Date Encounter Closed Date Diagnosis/Indication Diagnosis SNOMED-CT Code Diagnosis ICD10 Code Diagnosis Note [id number] Jurgen Cabello [facility] [address] [facility],[place] [address] 06/16/2018 13:56:07 06/16/2018 14:39:35 Essential hypertension 10677163 I10 Atrial septal defect 701 82399 Q21.1 Pain in right knee 00562 67757 72384 M25.561 Intermitte nt palpitations 707490526 R00.2 [id number] Jurgen Cabello [facility] [address] [facility] [place] [address] 08/04/2018 14:10:59 08/04/2018 14:57:40 Tear of medial meniscus of knee 853392717 S83.241A Atrial septal defect 701 19066 Q21.1 the recent echo revealed a stable hemodynami oc picture with a mild decrease in sys funct EF but overall otherwise stable [id number] Jurgen Lissy Cabello [facility] Internal [facility] [address] [facility], [place] [address] 08/09/2018 10:00:14 08/09/2018 10:57:48 Essential hypertension 99139216 I10 stable Herpes labialis 0394076 B00.[address] -f/u if this does not resolve Cough 31188332 R05 lingering cough after almost complete resolution of recent cold f/u if sx change or worsen [id number] Jurgen Yuan Cirilo [facility] Internal [facility] [address] [facility], [place] [address] 08/13/2018 13:59:13 08/13/2018 15:39:05 Pain in right knee 1710008012 00517 M25.561 [id number] Jurgen Yuan Cirilo [address], [place] [address] 08/31/2018 14:10:51 08/31/2018 15:51:22 Tear of lateral meniscus of knee 259654546 S83.281A will refer to ortho as she is going to need an arthroscop y carley [id number] Jurgen Cabello [facility] Internal [address], [place] [address] 12/31/2018 14:27:05 12/31/2018 15:38:36 Hypoglycemia 958233442 E16.2 [id number] Jurgen Lissy Cabello [facility] Internal [facility] [address] [facility], [place] [address] 02/02/2019 14:45:42 02/02/2019 15:13:15 Tear of medial meniscus of knee 875706920 S83.241A here for recjk reviewed her prior surg and sergio told her we will give her a kenalog inj when she is ready Osteopenia 016796792 M85 .80 bmd is good [id number] Jurgen Cabello [facility] Internal [facility] [address] [facility],[place] [address] 03/22/2019 09:54:18 03/22/2019 10:32:26 Adult health examination 863715045 Z00.00 would like to check for anemia given weakness and fatigue will also need to get he echo Active or passive immunization 344318652 Z23 utd Atrial septal defect 701 78058 Q21.1 the last echo revealed a stable hemodynami oc picture with a mild decrease in sys funct EF but overall otherwise stable [id number] Jurgen Cabello DO [facility] [address] [facility],[place] [address] 06/13/2019 15:28:59 06/13/2019 16:42:50 Vitamin B12 deficiency (non anemic) 64952805 E53.8 feeling better doing good Vitamin D deficiency 347 06717 E55.9 will chk level Adult heal th examination 813646353 Z00.00 would like to check for anemia given weakness and fatigue will also need to get he echo [id number] Jurgen Cabello DO [facility] [address] [facility],[place] [address] 08/19/2019 09:56:57 08/19/2019 10:41:00 Essential hypertension 21876047 I10 bp is stable no issues there Cough 58245961 R05 getting worse and has had for >2 weeks need to treat as she gets this and quickly develkops pneumonia Biceps tendinitis 623898 007 M75.21 Vitamin D deficiency 347 57993 E55.9 will chk level [id number] Jurgen Cabello DO [facility] [address] [facility],[place] [address] 11/09/2019 10:22:44 11/09/2019 12:06:06 Biceps tendinitis 211259363 M75.21 Melox did not improve sx sounds like she prob tore sonething we will have ot have her see spec Fatigue 56333001 R53.83 will check the blood work Localized visual field defect 226276849 H53.459 occurred after standing i believe this was prob related to bp drop she has had no sequelae and is asymptomat ic since knows to gotoER if and y further change Anxiety 55240495 F41.9 flying on airplane lorazepam [id number] Jurgen Cabello DO [facility] [address] [facility],[place] [address] 12/14/2019 10:06:13 12/14/2019 11:03:08 Epigastric pain 87857924 R10.13 must chreck the gall bladder Pain of mu ltiple joints 36709575 M25.50 new onset joint disease? Pain of ri ght shoulder joint 9574967543 8808203 M25.511 could be djd vs inflammato ry [id number] Jurgen Cabello DO [facility] [address] [facility], [place] [address] 01/02/2020 15:35:23 01/02/2020 16:44:42 Traumatic hematoma 530707447 T14.8XXA sublingual hematoma after shutting right thumb in the car door yesterday will XR to make sure nothing is broken and give diclofenac as pain reliever will f/u with pt after with XR results [id number] Jurgen Cabello DO [facility] [address] [facility], [place] [address] 01/03/2020 13:41:47 01/03/2020 14:06:05 Essential hypertension 95404795 I10 bp is stable no issues there Atrial septal defect 701 53866 Q21.1 the last echo revealed a stable hemodynami oc picture with a mild decrease in sys funct EF but overall otherwise stable Osteoarthr itis of joint of hand 66873188 M19.049 will cont to treat conserv with otc meds prn Subacromia l bursitis of right shoulder 1407526374 477014 M75.51 after discussion she understand s to call for cortisone shot if the meds are not helping [id number] Jurgen Cabello DO [facility] [address] [facility],[place] [address] 06/18/2020 13:39:48 06/18/2020 14:29:23 Adult health examination 075243208 Z00.01 overall is stable but her osteoarthr itis is bothering her more Active or passive immunization 866103180 Z23 utd Osteoarthritis 639418934 M19.90 SHE has noted disease hands back and feet will try celecoxib Atrial septal defect 701 85877 Q21.1 the last echo revealed a stable hemodynami c picture with a mild decrease in sys funct EF but overall otherwise stable Alopecia 24533917 L65.9 will refer to derm [id number] Jurgen Cabello [facility] [address] [facility],[place] [address] 07/30/2020 10:57:23 07/30/2020 11:32:05 Pain in right hand 5556638424 71334 M79.641 Alopecia areata 32573720 L63.9 [id number] [facility] [address] [facility] [place] [facility] [place] [address] 09/26/2020 10:20:15 09/26/2020 11:17:50 Depressive disorder 80050793 F32.9 Essential hypertension 19708532 I10 bp is stable no issues there Partial th ickness rotator cuff tear 611789285 M75.101 [id number] [facility] [address] [facility],[place] [address] 11/27/2020 11:07:05 11/27/2020 12:12:40 Insect bite reaction 170014300 T63.481A resolved with abx Cellulitis 832690814 L03 .90 resolved with abx no other interventi on required at this time Essential hypertension 84029721 I10 stable today at appt no change or interventi on necessary Depressive disorder 3548 9007 F32.9 stable today at appt no change or interventi on necessary [id number] [facility] [address] [facility],[place] [address] 12/11/2020 10:21:25 12/11/2020 11:17:19 Visual disturbance 68591731 H53.9 having flashes in visual field during episodes Dizziness 974243446 R42 she has the dizziness during the episodes with spacey feeling Ataxia 56280381 R26.0 sudden and episodic [id number] Jurgen Cabello [facility] Internal Medicine [address] [facility],[place] [address] 02/05/2021 16:14:15 02/05/2021 16:56:51 Ataxic gait 63526123 R26.0 ct negative will follow as mp seems to be better offf the metoprolol Alopecia 77558739 L65.9 markedly better now off metoprolol Essential hypertension 62586043 I10 bp ios borderline sometimes nowe off metoprolol will follow and cont the Hyzaar Submandibu lar salivary gland swelling 177162336 K11.9 on right [id number] Jurgen Cabello [facility] Internal Medicine [address] [facility] [place] [facility] [address] 04/19/2021 09:30:06 04/19/2021 10:43:25 Submandibular salivary gland swelling 215149209 K11.9 on right will treat with amox next time she swells Derangemen t of lateral meniscus 30059596 M23.309 [id number] Jurgen Cabello [facility] Internal Medicine [address] [facility] [place] [address] 09/23/2021 08:46:54 09/23/2021 16:30:33 Atrial septal defect 65848461 Q21.1 the last echo revealed a stable hemodynami c picture with a mild decrease in sys funct EF but overall otherwise stable so we will have to [place] [id number] Jurgen Cabello [facility] Internal Medicine [address] [facility] [address] [place],[address] [facility] [address] 11/05/2021 08:35:27 11/06/2021 08:52:18 Pain of multiple joints 06261562 M25.50 new onset joint disease? Atrial septal defect [address] appt for follow up on her asd awaiting her echo Essential hypertension 07944387 I10 bp ios borderline sometimes nowe off metoprolol will follow and cont the Hyzaar Eczema of scalp 97959541 13 2100 L30.9 [id number] Jurgen Cabello [facility] Internal Medicine [address] [facility] [address] [place] [address] 01/13/2022 15:17:04 01/15/2022 08:49:25 Active or passive immunization 638737628 Z23 advised Adult heal th examination 309645816 Z00.00 BP is excellent Atypical chest pain 1025 70428 R07.89 will need fu with cardiology > needs new cardio due to new insurance > will fu with Karishma andrea [place] Thoracic back pain 08732 8004 M54.6 will fu with XR thoracic back for pain along T5 T 6 [id number] Jurgen Cabello [facility] Internal Medicine [address] [facility] [place] [address] 01/22/2022 10:03:12 01/22/2022 11:17:04 Insect bite reaction 836983454 T63.481A will start on doxycyclin e and betamethas one Herpes labialis 9065266 B00.1 will start on valtrex [id number] Jurgen Cabello DO [facility] Internal Medicine [address] [facility] [place] [address] 03/26/2022 14:05:51 03/26/2022 14:47:40 Chest pain 33601892 R07.9 occurs on the left anterior region Atrial septal defect 701 [address] appt for follow up on her asd awaiting her echo Essential hypertension 45517948 I10 bp ios borderline sometimes nowe off metoprolol will follow and cont the Tonny Zambrano 883363011 L71.9 [id number] Jurgen Cabello [facility] Internal Medicine [address] [facility] [place] [address] 06/16/2022 14:33:24 06/16/2022 14:47:40 Infection of tooth 268972502 K04.7 will trial amox and medrol Tendinitis of left wrist region 7410349947 3317256 M67.834 will update me after the medrol dose purvi [id number] Jurgen Cabello DO [facility] Internal Medicine [address] [facility] [place] [address] 10/22/2022 13:55:06 10/22/2022 15:27:58 Migraine 17875713 G43.009 will set up with work up to r/o anything triggering the migraine Essential hypertension 87663496 I10 stable today at appt no change or interventi on necessary Thyroid nodule 759710436 E04.1 will check his TSH Hypertensive urgency 443 403412 I16.0 will start on clonidine PRN for the high spikes [id number] uJrgen Cabello [facility] Internal Medicine [address] [facility] [address] [place], [place] [address] 11/10/2022 09:06:07 11/10/2022 11:55:24 Acute bronchitis 15908893 J20.8 will start on prednsione and z pakif needed will set up with XR if her symptoms [id number] Jurgen Cabello [facility] Internal Medicine [address] [facility] [place], [place] [address] 01/27/2023 10:43:02 01/27/2023 12:17:21 Active or passive immunization 239847876 Z23 utd Adult heal th examination 549706841 Z00.00 overall is stable but her osteoarthr itis is bothering her more Atypical chest pain 1025 64711 R07.89 this appears to be costochond ral but given prior open heart surgery we will treat it accordingl y but in meantime we will get ct scan Thyroid nodule 182630563 E04.1 we will repeat US in 1 year fe Atrial septal defect 701 96293 Q21.10 Postmenopa usal osteopenia 701323985 M85.80 [id number] Jurgen Cabello [facility] Internal Medicine [address] [facility] [address] [place] [address] 03/27/2023 15:54:54 03/27/2023 17:11:19 Atypical chest pain 559866102 R07.89 this appears to be costochond ral but given prior open heart surgery we will treat it accordingl y but in meantime we will get ct scan Atrial septal defect [address] is excellent Postmenopa usal osteopenia 253902535 M85.80 stable rev bmd Pain of mu ltiple joints 75766191 M25.50 new onset joint disease? [id number] Jurgen Cabello [facility] Internal Medicine [address] [facility] [facility] [address] 09/15/2023 14:36:50 09/16/2023 08:14:04 Essential hypertension 45965238 I10 bp ios borderline sometimes nowe off metoprolol will follow and cont the Hyzaar Bilateral lung opacities on plain chest X-ray 467277923 R91.[address] scan is clear Idiopathic acute pancreatitis 497476292 K85.00 we will need to do a follow up and US and lab [id number] Jurgen Cabello [facility] Internal Medicine [address] [facility] [facility] [address] 10/02/2023 09:32:34 10/02/2023 15:55:11 Idiopathic acute pancreatitis 430553715 K85.00 we will need to do a follow up and US and lab Cough 72887191 R05.9 [id number] Jurgen Cabello [facility] Internal Medicine [address] [facility],[place] [address] 02/02/2024 09:52:18 02/02/2024 10:47:25 Active or passive immunization 213900468 Z23 utd Adult heal th examination 328160859 Z00.01 overall is stable but her osteoarthr itis is bothering her more Essential hypertension 35609785 I10 bp ios borderline sometimes nowe off metoprolol will follow and cont the Hyzaar Atrial septal defect [address] is excellent [id number] Jurgen Cabello [facility] Internal Medicine [address] [facility] [place] [facility] [address] 05/09/2024 11:34:40 05/09/2024 13:49:20 Pain of bilateral knee joints 9512951398 91762 M25.561 Pain of le ft knee joint 9575983681 78190 M25.562 will set up with MRI knee (bilateral ) Pain of ri ght knee joint 9244136181 23174 M25.561 will f/u with MRI for the knees [id number] Jurgen Cabello [facility] Internal Medicine [address] [facility] [address],[place] [address] 07/01/2024 08:52:37 07/01/2024 10:25:29 Depression screening 096755320 Z13.31 neg Essential hypertension 63507867 I10 bp is great 110/70 will follow and cont the Hyzaar Acute tear of lateral meniscus of left knee 6272916708 2927622 S83.282A [id number] Jurgen Cabello [facility] Internal Medicine [address] [facility] [address] [place] [address] 10/07/2024 14:57:48 10/07/2024 15:48:25 Spasm of cervical paraspinous muscle 372555071 M62.838 Sternoclav icular sprain 795247687 S23.420A [id number] Jurgen Cabello [facility] Internal Medicine [address] [facility] [address] [place] [address] 10/31/2024 14:34:01 10/31/2024 16:08:52 Thoracic back pain 631974543 M54.6 start on meds [id number] Jurgen Cabello [facility] Internal Medicine [address] [facility] [address] [place] [address] 11/23/2024 14:05:03 11/23/2024 14:47:13 Degeneration of cervical intervertebral disc 22108663 M50.321 will have her restart the diclofenac and recommende d ortho eval for injections [id number] Jurgen Cabello [facility] Internal Medicine [address] [facility] [address] [place] [address] 02/07/2025 09:49:14 02/07/2025 10:45:14 Active or passive immunization 411911741 Z23 utd Acute tear of lateral meniscus of left knee 1171186417 3303948 S83.282A Essential hypertension 82817015 I10 add amlodipine General ex amination of patient 359912774 Z00.01 overall is stable but her osteoarthr itis is bothering her more Pain of to e of left foot 8337228522 38765 M79.675 Pain in right hand 78038 32952 50901 M79.641 Atrial septal defect [address] is excellent Health Concerns Section Related Observation LastModified by Organization Detai ls LastModified Time None Recorded Concern Status LastModified by Organization Details LastModified Time None Recorded Advance Directives Directive None Recorded Payers Encounter Date Sequence Insurance Name Policy Number Policy Tyler Covered Member ID Tyler Member ID Guarantor Name 07/01/2024 1 [facility] [facility] - DIRECT CONNECTORCARE TYPE I (HMO) [id number] Adelaida Recinos [id number] 1 Adelaida Recinos 10/07/2024 1 [employer] - DIRECT [employer] TYPE I (HMO) [id number] Adelaida Recinos [id number] 1 Adelaida Recinos 10/31/2024 1 [employer] - DIRECT CONNE[employer]CARE TYPE I (HMO) [id number] Adelaida Recinos [id number] 1 Adelaida Ercinos 11/23/2024 1 [employer] - DIRECT CONNE[employer]CARE TYPE I (HMO) [id number] Adelaida Recinos [id number] 1 Adelaida Recinos 02/07/2025 1 [employer] - DIRECT CONNE[employer]CARE TYPE I (HMO) [id number] Adelaida Recinos [id number] 1 Adelaida Recinos Notes Date Note Type Note Provider Name and Address Organization Details Recorded Time 4 text/htm l here for rechk and is doing ok except for her left kneeshe has medial and lateral meniscal tear and tricompart arthritis Jurgen Cabello DO [address] [place] [address], [phone], [facility] Internal Medicine 07/01/2024 10:08:36 5 text/htm l here for eval of some discomfort in her left neck states now has noted a fullness to this area and a pain behind her left cervical neckarea of her lefthas discomfort and prominence to her left cleido sternal joint Jurgen Cabello DO [address] [place] [address], [phone], [facility] Internal Medicine 10/07/2024 15:43:00 5 text/htm l c/o back pain upper thoracic back painreproducible with palpation of the upper back muscles 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, lifts them a lototherwise no inciting event ie no trauma or injury start on pred and msk relaxercan use heat and ice limit lifting over ten pounds ANNA GRAHAM [address] [place], [address], [facility] Internal Medicine 10/31/2024 15:02:37 5 text/htm l c/o neck pain continues recommended f/u with orthopedic office at this point since her pain is becoming less manageable with oral medicationsXR did reveal arthritic changes to her cervical spine which matches with her symptom presentationfeel she would be go candidate for epidural injections patient and I discussedagreed [facility] preference can restart diclofenac in the meantime for acute discomfort since that was the most effective for her ANNA GRAHAM [address] [place], [phone], [facility] Internal Medicine 11/23/2024 14:40:37 5 text/htm [...] headaches; no fatigue Jurgen Cabello DO [address] [place], [phone], [facility] Internal Medicine 02/07/2025 10:31:27 OBGyn Episode No OBEpisode recorded.
== END 2025-03-01 13:11 | disposition home or self-care (01) ==
LOC: HO.HOS 12:41
PROVIDERS: PCP Internal Medicine; Visit Provider Orthopaedic Surgery
DX: M17.12 Unilateral primary osteoarthritis, left knee (principal); M25.512 Pain in left shoulder
CPT/HCPCS: 20610; 99213

== ENCOUNTER → 2025-03-01 12:40 | Outpatient (BNVA) | payer OTHER, SELFPAY | PROVIDERS: PCP Internal Medicine; Visit Provider Orthopaedic Surgery | DX: M17.12 Unilateral primary osteoarthritis, left knee (principal); M25.512 Pain in left shoulder | CPT/HCPCS: 20610; 99212; J2003; J7323 ==

== ENCOUNTER 2025-03-07 10:56 | Outpatient (AMB) | payer OTHER, SELFPAY ==
--- NOTE | 2025-03-07 10:59 | MHC.OFFVIS ---
Intake Visit Reasons: Inj-Left knee Euflexxa #2 Intake Note: Adelaida is a 59 year old female who presents today for their second dose of left knee Euflexxa injections. She states that she got mild relief from the 1st injection. She continues with her home exercise program. Allergies No Known Allergies Allergy (Verified 03/07/25 11:23) Medication List - Last Reconciled 03/07/25 by Dionisio Hernández MD acetaminophen (Tylenol Extra Strength) 500 mg PO Q6H PRN amlodipine 5 mg PO DAILY betamethasone dipropionate 0.05% 1 appl topical DAILY citalopram 20 mg PO DAILY cyclobenzaprine 5 mg PO TID PRN diclofenac potassium 50 mg PO BID ibuprofen 600 mg PO Q6H PRN losartan-hydrochlorothiazide 100-25 mg 1 tab PO DAILY ondansetron 4 mg PO Q8H PRN PFSH Medical History Stress bladder incontinence, female Depression Primary osteoarthritis of right knee Atypical lobular hyperplasia of right breast Atrial septal defect delivery delivered HTN (hypertension) Surgical History History of surgery Tubal ligation status Hx of section Social History Are you a primary certified caregiver to a significant other at home: No Do you presently have visiting nurse or other home services: No Patient Tobacco Use Status: Never used Tobacco Female Reproductive History Menstrual Age of Menarche: 9 Physical Exam Extrem Other: Left knee examination shows a minimal effusion, palpable crepitus with range of motion, pain with range of motion, no instability Office Procedures AMB Joint Injection/Aspiration Joint Injection/Aspiration Primary Site: left knee Prep: site was prepped using aseptic technique Injected: 20 mg of (Euflexxa viscosupplementation) and 1% plain lidocaine Procedure: The patient tolerated the procedure well Coding 75422 - Large joint Procedure code (CPT) selection complete Results Reviewed Results Reviewed: X-rays of the patient's left knee taken previously show joint space narrowing, subchondral sclerosis, no acute bony abnormalities Assessment & Plan Assessment & Plan (1) Osteoarthritis of left knee: Code(s): M17.12 - Unilateral primary osteoarthritis, left knee Category: Medical Plan Ms. Jorje Sosa presents with left knee pain due to osteoarthritis. The risks and benefits of a 2nd Euflexxa injection were discussed at length with the patient. The patient wished to proceed. She tolerated the 2nd Euflexxa injection well. She will continue with her home exercise program. She will follow up next week for her 3rd injection as scheduled. Feel free to call me at any time should questions regarding her orthopedic management arise. Orders: Orders AMB Joint Injection/Aspiration Today M17.12 - Unilateral primary osteoarthritis, left knee Coding Level of Care Code Procedure Only Diagnoses Osteoarthritis of left knee M17.12 CPT Codes Coding - 32171 Large joint: 51428 - Large joint ([id number])
--- OUTSIDE RECORDS SUMMARY | 2025-03-07 12:35 | XMS_ITS | Data Portability ---
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, [address] [place] [address], [address], 02/07/2025 10:26:32 lipid panel, blood 2024 [facility], [address] [place] [address], [address], 02/07/2025 10:26:31 Referral orthopedi c spine surgeon referral 2024 [facility], [address] [place] [address] [place], [address], 12/23/2024 08:06:48 Procedures None recorded. Surgeries None recorded. Imaging US, echocardi ogram, transthor acic, complete, w/ color flow 2024 025 [facility], [address] [place] [address], [address], 02/21/2025 08:02:58 XR, hand, 3 or more view 2024 025 [facility], [address] [place] [address], [address], 02/10/2025 08:18:48 XR, foot, 3 or more view 2024 025 [facility], [address] [place], [address], 02/10/2025 08:35:30 XR, cervical spine, 2 or 3 view 2024 025 [facility], [address] [place] [address], [address], 10/10/2024 14:59:01 XR, sternocla vicular joint(s) 2024 025 [facility], [address] [place], [address], 10/11/2024 06:45:57 Medication Orders prednison e 20 mg tablet 2024 025 [facility] #[id number], [address] [place], [place], [id number], 10/31/2024 14:59:55 baclofen 20 mg tablet 2024 025 [facility] #[id number], [address] [place], [place], [id number], 10/31/2024 14:59:46 tizanidin e 4 mg tablet 2024 025 [facility] #43825, [address] [place], [place], [id number], 10/31/2024 14:57:26 tramadol 50 mg tablet 2023 024 [facility] #[id number], [address] [place], [place], [id number], 07/26/2024 10:01:16 Patient TargetsNo targets recorded. Patient Instructions Encounter Date Encounter Id Patient Instructions Last Modified By Organization Details Last Modified Time 07/01/2024 [id number] high blood press ure: care instructions Not available 07/01/2024 10:08:09 learning about h igh blood pressure Not available 07/01/2024 10:08:09 10/07/2024 [id number] sternoclavicular joint separation: rehab exercises Not available 10/07/2024 15:42:12 02/07/2025 [id number] atrial septal defect: care instructions Not available [...] ast No observ ation record ed. [email or web address] [employer] (Medical Records) [address] [place], [address], 06/15/2024 14:57:47 10/10/19 25 10/10/2024 XR, cervi radha spine , 2 or 3 view No observ ation record ed. [address] (Medical Records) [address] [place], [address], 10/12/2024 10:27:51 10/10/19 25 10/10/2024 XR, rao oclav icula r joint (s) No observ ation record ed. [address] Card[facility] 575 [facility] [place], [address], 10/12/2024 10:27:51 11/01/19 25 10/24/2024 MAMMO , scree marbella, digit al, bilat eral No observ ation record ed. [email or web address] [employer] [facility] [address] [place], [address], 11/01/2024 13:42:45 12/27/19 25 12/23/2024 XR, shoul neeraj, 2 or more view No observ ation record ed. [email or web address] [place] [address] (Medical Records) 575 [place] [place], [address], 12/27/2024 09:38:17 02/11/2002/10/2025 XR, foot, 3 or more view No observ ation record ed. [email or web address] (Medical Records) [address] [place], [address], 02/16/2025 22:08:36 02/11/2002/10/2025 XR, hand, 3 or more view No observ ation record ed. [email or web address] (Medical Records) [address] [place], [address], 02/16/2025 22:08:36 02/17/2002/16/2025 MRI, shoul neeraj, w/ contr ast No [email or web address] [address] [place], [address], 02/16/2025 20:17:52 Result Notes None recorded. Problems Name Problem SNOMED Code Status Onset Date Resolution Date Notes Provider Name and Address Organization Details Recorded Time Essential hypertens ion 96843836 [facility] 08:33:23 Atrial septal defect 12660047 Active 2017 repair 2001 Tracicarly packer [facility] 8 08:33:49 Depressiv e disorder 12539632 Active 2017 ROGER Escobar [address] [place] [address], [address], [facility] 8 10:10:58 Herpes labialis 4021034 Active 2017 ROGER Escobar [address] [place] [address], [address], [facility] 8 10:11:16 B12 deficienc y monitorin g Active 2018 Jurgen Cabello DO [address] [place], [address], [facility] 9 10:28:25 Impingeme nt syndrome of right shoulder region 08773006794 9102 Active 2019 Jurgen Cabello, DO [address] [place] [address], [address], [facility] 0 14:06:16 Atypical chest pain 281944392 Active 2021 ANNA GRAHAM [address] [place] [address], [address], [facility] 2 15:46:38 Thoracic back pain 847865108 Active 2021 ANNA GRAHAM [address] [place] [address], [address], [facility] 2 15:48:31 Traumatic hematoma 384724700 Active 2021 ANNA GRAHAM [address] [place] [address], [address], [facility] 2 15:51:25 Degenerat ion of lumbar intervert ebral disc 20650504 Active 2021 ANNA GRAHAM [address] [place] [address], [address], [facility] 2 15:13:29 Degenerat ion of thoracic intervert ebral disc 80077554 Active 2021 ANNA GRAHAM [address] [place] [address], [address], [facility] 2 15:15:55 Degenerat ion of cervical intervert ebral disc 38209290 Active 2021 ANNA GRAHAM [address] [place] [address], [address], [facility] 2 15:16:25 Insect bite reaction 659662698 Active 2021 ANNA GRAHAM [address] [place] [address], [address], [facility] 2 10:16:26 Chest pain 82454233 Active 2021 Jurgen Cabello, DO [address] [place] [address], [address], [facility] 2 14:31:41 Rosacea 075816928 Active 2021 Jurgen Cabello, DO [address] [place] [address], [address], [facility] 2 14:36:14 Atelectas is 75035464 Active 2021 ANNA GRAHAM [address] [place] [address], [address], [facility] 2 12:38:53 Infection of tooth 123813066 Active 2021 ANNA GRAHAM [address] [place] [address], [address], [facility] 2 14:44:39 Tendiniti s of left wrist region 80913991193 173634 Active 2021 ANNA GRAHAM [address] [place] [address], [address], [facility] 2 14:46:38 Cough 03876555 Active 2021 Jurgen Cabello, DO [address] [place] [address], [address], [facility] 2 10:08:01 Migraine 50557915 Active 2022 ANNA GRAHAM [address] [place] [address], [address], [facility] 3 14:15:45 Thyroid nodule 673839436 Active 2022 ANNA GRAHAM [address] [place] [address], [address], [facility] 3 14:16:32 Hypertens jessica urgency 947352475 Active 2022 ANNA GRAHAM [address] [place] [address], [address], [facility] 3 14:17:53 Acute bronchiti s 05749545 Active 2022 ANNA GRAHAM [address] [place] [address], [address], [facility] 3 11:15:06 Pneumonia 925039758 Active 2022 Jurgen Cabello, DO [address] [place] [address], [address], [facility] 3 14:52:40 Postmenop ausal osteopeni a 323046752 Active 2022 Jurgen Cabello, DO [address] [place] [address], [address], [facility] 3 12:15:54 Streptoco ccal sore throat 36816470 Active 2022 ANNA GRAHAM [address] [place] [address], [address], [facility] 3 09:44:44 Pain of multiple joints 20542733 Active 2022 Jurgen Cabello, DO [address] [place] [address], [address], [facility] 3 17:01:56 Hand pain 18326561 Active 2022 Jurgen Cabello, DO [address] [place] [address], [address], [facility] 3 10:06:34 Hand pain 69032261 Active 2022 Jurgen Cabello, DO [address] [place] [address], [address], [facility] 3 10:06:44 Osteoarth ritis of joint of bilateral hands 82725314160 9109 Active 2022 Jurgen Cabello, DO [address] [place] [address], [address], [facility] 3 23:21:07 Bilateral lung opacities on plain chest X-ray 112707988 Active 2022 Jurgen Cabello DO [address] [place] [address], [address], [facility] 3 22:27:13 Epigastri c pain 64696441 Active 2022 Jurgen Cabello, [address], [address], [facility] 3 10:05:33 Idiopathi c acute pancreati tis 520291770 Active 2022 Jurgen Cabello, DO [address] [place] [address], [address], [facility] 3 15:04:37 Recurrent pancreati tis 136286360 Active 2023 Jurgen Cabello, [address], [address], [facility] 4 11:45:37 Pain of bilateral knee joints 43433490503 4104 Active 2023 ANNA GRAHAM [address] [place] [address], [address], [facility] 4 12:04:43 Pain of left knee joint 54228814423 4107 Active 2023 ANNA GRAHAM [address] [place] [address], [address], [facility] 4 12:05:12 Pain of right knee joint 78620052805 4100 Active 2023 ANNA GRAHAM [address] [place] [address], [address], [facility] 4 12:05:24 Acute tear of lateral meniscus of left knee 50849304747 521998 Active 2023 Jurgen Cabello DO [address] [place] [address], [address], [facility] 4 10:05:13 Spasm of cervical paraspino us muscle 403066200 Active 2024 Jurgen Cabello DO [address] [place] [address], [address], [facility] 5 15:37:00 Sternocla vicular sprain 040417099 Active 2024 Jurgen Cabello DO [address] [place] [address], [address], [facility] 5 15:39:39 Pain of left shoulder joint 03774785649 436183 Active 2024 ANNA GRAHAM [address] [place] [address], [address], [facility] 5 15:49:59 Calcific tendiniti s of left shoulder 86288888603 9108 Active 2024 ANNA GRAHAM [address] [place] [address], [address], [facility] 5 16:35:54 Pain of toe of left foot 09403143561 9108 Active 2024 Jurgen Cabello DO [address] [place] [address], [address], [facility] 5 10:19:51 Pain in right hand 04373444321 9109 Active 2024 Jurgen Cabello DO [address] [place] [address], [address], [facility] 5 10:24:43 Pain of bilateral hands 34298053996 535748 Active 2024 Jurgen Cabello DO [address] [place] [address], [address], [facility] 5 22:09:07 Acute ankle pain 55877781845 105 Active 2024 Jurgen Cabello DO [address] [place] [address], [address], [facility] 22:10:13 Problem Notes None recorded. Procedures Surgical History Date Name Laterality Status Provider Name and Address Organization Details Recorded Time Most Recent Mammogram completed Perla Joy [facility] 11/01/2024 13:42:26 Imaging Results None recorded. Procedure Notes None recorded. Medical Equipment None Reported. Allergies Allergen ID Allergen Name Allergen Category Reaction Reaction Severity Criticality Documentation Date Start Date Code Code System Note Provider Name and Address Organization Details Recorded Time 2274 Product containin g angiotens in-conver ting enzyme inhibitor (product) medicatio n Not available Not available Not available 06/16/2018 51202 009 SNOMED Traci packer [place] [facility] 8 08:33:05 Medications Name [...] Updated DateTime 5 154.94 cm 33.1 kg/m2 89193.6 6 g 73 /min 96 % 96 % 110 mm[Hg] 70 mm[Hg] Damaris Figueroa [facility] 5 15:02:49 Date Recorded Body height Provider Name an d Address Organization Details Last Updated DateTime 10/31/2024 154.94 cm Perla Mauro [facility] 10/31/2024 14:43:54 Date Recorded Body height Body mass index (BMI) Body weight Heart rate Oxygen saturation Oxygen saturation in Arterial blood by Pulse oximetry Systolic blood pressure Diastolic blood pressure Provider Name and Address Organization Details Last Updated DateTime 5 154.94 cm 32.5 kg/m2 03661.8 9 g 68 /min 98 % 98 % 116 mm[Hg] 72 mm[Hg] Perla Figueroa [facility] 5 14:17:29 Date Recorded Body height Body mass index (BMI) Body weight Heart rate Oxygen saturation Oxygen saturation in Arterial blood by Pulse oximetry Systolic blood pressure Diastolic blood pressure Provider Name and Address Organization Details Last Updated DateTime 5 154.94 cm 32.1 kg/m2 91878.7 g 66 /min 98 % 98 % 100 mm[Hg] 64 mm[Hg] Damaris Figueroa [facility] 5 10:01:15 Date Recorded Body height Body mass index (BMI) Body weight Heart rate Oxygen saturation Oxygen saturation in Arterial blood by Pulse oximetry Systolic blood pressure Diastolic blood pressure Provider Name and Address Organization Details Last Updated DateTime 4 154.94 cm 31.6 kg/m2 03759.9 3 g 76 /min 96 % 96 % 110 mm[Hg] 70 mm[Hg] Damaris Figueroa [facility] 4 09:26:08 Social History Question Answer Notes LastModified by Organizat ion Details LastModified Time Tobacco Smoking Status Never Smoker Not Available [employer] 08/07/2020 03:36:23 What Was The Date Of Your Most Recent Tobacco Screening? 02/07/2025 [email or web address] Information not available 02/07/2025 Sex: Unknown Functional Status Question Answer Note LastModified by Organization D etails LastModified Time Do you or have you ever used any other forms of tobacco or nicotine? No [email or web address] Information not available 01/27/2023 Mental Status None recorded. Family History Nothing Reported. Medical History No medical history recorded. Gynecological History Statement/Question Response Most Recent Mammogram 10/24/2024 Obstetrics History GPAL:G 0 P 0 0 0 0 Immunizations Vaccine Type Date Status Note Provider Nam e and Address Organization Details Recorded Time COVID-19 vaccine, vector-nr, rS-Ad26, PF, 0.5 mL 01/09/2021 completed Marika packer [facility] 01/13/2022 08:29:14 COVID-19, mRNA, LNP-S, PF, 30 mcg/0.3 mL dose 10/14/2021 completed Marika packer [facility] 01/13/2022 08:29:30 Past Encounters Encounter ID Performer Location Encounter Start Date Encounter Closed Date Diagnosis/Indication Diagnosis SNOMED-CT Code Diagnosis ICD10 Code Diagnosis Note [id number] Jurgen Cabello [facility] [address],[place] [address] 06/16/2018 13:56:07 06/16/2018 14:39:35 Essential hypertension 10554257 I10 Atrial septal defect 701 90248 Q21.1 Pain in right knee 87769 92992 16652 M25.561 Intermitte nt palpitations 601769208 R00.2 [id number] Jurgen Cabello [facility] [address],[place] [address] 08/04/2018 14:10:59 08/04/2018 14:57:40 Tear of medial meniscus of knee 727685420 S83.241A Atrial septal defect 701 78541 Q21.1 the recent echo revealed a stable hemodynami oc picture with a mild decrease in sys funct EF but overall otherwise stable [id number] Jurgen Lissy Cabello [facility] [address] [address] 08/09/2018 10:00:14 08/09/2018 10:57:48 Essential hypertension 03894337 I10 stable Herpes labialis 4603312 B00.[address] -f/u if this does not resolve Cough 50551940 R05 lingering cough after almost complete resolution of recent cold f/u if sx change or worsen [id number] Jurgen Yuan [facility] [address], [place] [address] 08/13/2018 13:59:13 08/13/2018 15:39:05 Pain in right knee 5146217555 71271 M25.561 [id number] Jurgen Yuan Cirilo [address], [place] [address] 08/31/2018 14:10:51 08/31/2018 15:51:22 Tear of lateral meniscus of knee 658362504 S83.281A will refer to ortho as she is going to need an arthroscop y carley [id number] Jurgen Cabello [facility] [address], [place] [address] 12/31/2018 14:27:05 12/31/2018 15:38:36 Hypoglycemia 437510731 E16.2 [id number] Jurgen Lissy Cabello [facility] [address], [place] [address] 02/02/2019 14:45:42 02/02/2019 15:13:15 Tear of medial meniscus of knee 106693868 S83.241A here for recjk reviewed her prior surg and sergio told her we will give her a kenalog inj when she is ready Osteopenia 438710746 M85 .80 bmd is good [id number] Jurgen Cabello [facility] [address],[place] [address] 03/22/2019 09:54:18 03/22/2019 10:32:26 Adult health examination 296687288 Z00.00 would like to check for anemia given weakness and fatigue will also need to get he echo Active or passive immunization 692721470 Z23 utd Atrial septal defect 701 62030 Q21.1 the last echo revealed a stable hemodynami oc picture with a mild decrease in sys funct EF but overall otherwise stable [id number] Jurgen Cabello DO [facility] [address],[place] [address] 06/13/2019 15:28:59 06/13/2019 16:42:50 Vitamin B12 deficiency (non anemic) 83549447 E53.8 feeling better doing good Vitamin D deficiency 347 55832 E55.9 will chk level Adult heal th examination 782177604 Z00.00 would like to check for anemia given weakness and fatigue will also need to get he echo [id number] Jurgen Cabello DO [facility] [address],[place] [address] 08/19/2019 09:56:57 08/19/2019 10:41:00 Essential hypertension 39871787 I10 bp is stable no issues there Cough 56781165 R05 getting worse and has had for >2 weeks need to treat as she gets this and quickly develkops pneumonia Biceps tendinitis 028040 007 M75.21 Vitamin D deficiency 347 29161 E55.9 will chk level [id number] Jurgen Cabello DO [facility] [address],[place] [address] 11/09/2019 10:22:44 11/09/2019 12:06:06 Biceps tendinitis 004058391 M75.21 Melox did not improve sx sounds like she prob tore sonething we will have ot have her see spec Fatigue 22854008 R53.83 will check the blood work Localized visual field defect 472665631 H53.459 occurred after standing i believe this was prob related to bp drop she has had no sequelae and is asymptomat ic since knows to gotoER if and y further change Anxiety 40488520 F41.9 flying on airplane lorazepam [id number] Jurgen Cabello DO [facility] [address],[place] [address] 12/14/2019 10:06:13 12/14/2019 11:03:08 Epigastric pain 08600600 R10.13 must chreck the gall bladder Pain of mu ltiple joints 57729570 M25.50 new onset joint disease? Pain of ri ght shoulder joint 7295834071 0088121 M25.511 could be djd vs inflammato ry [id number] Jurgen Cabello DO [facility] [address], [place] [address] 01/02/2020 15:35:23 01/02/2020 16:44:42 Traumatic hematoma 244434482 T14.8XXA sublingual hematoma after shutting right thumb in the car door yesterday will XR to make sure nothing is broken and give diclofenac as pain reliever will f/u with pt after with XR results [id number] Jurgen Cabello DO [facility] [address], [place] [address] 01/03/2020 13:41:47 01/03/2020 14:06:05 Essential hypertension 13358461 I10 bp is stable no issues there Atrial septal defect 701 70412 Q21.1 the last echo revealed a stable hemodynami oc picture with a mild decrease in sys funct EF but overall otherwise stable Osteoarthr itis of joint of hand 40864500 M19.049 will cont to treat conserv with otc meds prn Subacromia l bursitis of right shoulder 6339142005 008107 M75.51 after discussion she understand s to call for cortisone shot if the meds are not helping [id number] Jurgen Cabello DO [facility] [address],[place] [address] 06/18/2020 13:39:48 06/18/2020 14:29:23 Adult health examination 351193861 Z00.01 overall is stable but her osteoarthr itis is bothering her more Active or passive immunization 095548685 Z23 utd Osteoarthritis 018828023 M19.90 SHE has noted disease hands back and feet will try celecoxib Atrial septal defect 701 72173 Q21.1 the last echo revealed a stable hemodynami c picture with a mild decrease in sys funct EF but overall otherwise stable Alopecia 44440004 L65.9 [place] refer to derm [id number] Jurgen Cabello [facility] [address],[place] [address] 07/30/2020 10:57:23 07/30/2020 11:32:05 Pain in right hand 2010202835 83434 M79.641 Alopecia areata 05600836 L63.9 [id number] [facility] [address],[place] [address] 09/26/2020 10:20:15 09/26/2020 11:17:50 Depressive disorder 16195373 F32.9 Essential hypertension 36786893 I10 bp is stable no issues there Partial th ickness rotator cuff tear 041658760 M75.101 [id number] [facility] [address],[place] [address] 11/27/2020 11:07:05 11/27/2020 12:12:40 Insect bite reaction 859350940 T63.481A resolved with abx Cellulitis 706188603 L03 .90 resolved with abx no other interventi on required at this time Essential hypertension 23046168 I10 stable today at appt no change or interventi on necessary Depressive disorder 3548 9007 F32.9 stable today at appt no change or interventi on necessary [id number] [facility] [address],[place] [address] 12/11/2020 10:21:25 12/11/2020 11:17:19 Visual disturbance 52747741 H53.9 having flashes in visual field during episodes Dizziness 263006234 R42 she has the dizziness during the episodes with spacey feeling Ataxia 14321827 R26.0 sudden and episodic [id number] Jurgen Cabello [facility] [address],[place] [address] 02/05/2021 16:14:15 02/05/2021 16:56:51 Ataxic [address] 47693171 R26.0 ct negative will follow as mp seems to be better offf the metoprolol Alopecia 50360397 L65.9 markedly better now off metoprolol Essential hypertension 07695960 I10 bp ios borderline sometimes nowe off metoprolol will follow and cont the Hyzaar Submandibu lar salivary gland swelling [id number] K11.9 on right [id number] [facility] [address] [facility] [address] [address] 04/19/2021 09:30:06 04/19/2021 10:43:25 Submandibular salivary gland swelling [id number] K11.9 on right will treat with amox next time she swells Derangemen t of lateral meniscus 87949311 M23.309 [id number] [facility] [address] [facility] [address],[place] [address] 09/23/2021 08:46:54 09/23/2021 16:30:33 Atrial septal defect 40050236 Q21.1 the last echo revealed a stable hemodynami c picture with a mild decrease in sys funct EF but overall otherwise stable so we will have to [place] [id number] [facility] [address] [facility] [address] [address] 11/05/2021 08:35:27 11/06/2021 08:52:18 Pain of multiple joints 15399002 M25.50 new onset joint disease? Atrial septal defect [address] appt for follow up on her asd awaiting her echo Essential hypertension 33458315 I10 bp ios borderline sometimes nowe off metoprolol will follow and cont the Hyzaar Eczema of scalp 12273748 13 2100 L30.9 [id number] [facility] [address] [facility] [address] [address] 01/13/2022 15:17:04 01/15/2022 08:49:25 Active or passive immunization 366066477 Z23 advised Adult heal th examination 306889142 Z00.00 BP is excellent Atypical chest pain 1025 30311 R07.89 will need fu with cardiology > needs new cardio due to new insurance > will fu with Karishma andrea [place] Thoracic back pain 35206 8004 M54.6 will fu with XR thoracic back for pain along T5 T 6 [id number] [facility] [address] [facility] [address],[place] [address] 01/22/2022 10:03:12 01/22/2022 11:17:04 Insect bite reaction 462374910 T63.481A will start on doxycyclin e and betamethas one Herpes labialis 8442451 B00.1 will start on valtrex [id number] Jurgen Cabello DO [facility] Internal Medicine [address] [facility] [address],[place] [address] 03/26/2022 14:05:51 03/26/2022 14:47:40 Chest pain 40160008 R07.9 occurs on the left anterior region Atrial septal defect [address] appt for follow up on her asd awaiting her echo Essential hypertension 10895661 I10 bp ios borderline sometimes nowe off metoprolol will follow and cont the Tonny Zambrano 227661840 L71.9 [id number] [facility] [address] [facility] [address] [address] 06/16/2022 14:33:24 06/16/2022 14:47:40 Infection of tooth 535457623 K04.7 will trial amox and medrol Tendinitis of left wrist region 9652159657 5311228 M67.834 will update me after the medrol dose purvi [id number] Jurgen Cabello DO [facility] Internal [facility] [address] [facility] [address] [address] 10/22/2022 13:55:06 10/22/2022 15:27:58 Migraine 66684491 G43.009 will set up with work up to r/o anything triggering the migraine Essential hypertension 07614562 I10 stable today at appt no change or interventi on necessary Thyroid nodule 921967645 E04.1 will check his TSH Hypertensive urgency 443 349629 I16.0 will start on clonidine PRN for the high spikes [id number] [facility] [address] [facility] [address], ite [facility] [place] [address] 11/10/2022 09:06:07 11/10/2022 11:55:24 Acute bronchitis 47588179 J20.8 will start on prednsione and z pakif needed will set up with XR if her symptoms [id number] [facility] [address] [facility] [address], [place] [facility] [place] [address] 01/27/2023 10:43:02 01/27/2023 12:17:21 Active or passive immunization 417420593 Z23 utd Adult heal th examination 919996609 Z00.00 overall is stable but her osteoarthr itis is bothering her more Atypical chest pain 1025 23046 R07.89 this appears to be costochond ral but given prior open heart surgery we will treat it accordingl y but in meantime we will get ct scan Thyroid nodule 141692589 E04.1 we will repeat US in 1 year fe Atrial septal defect 701 50564 Q21.10 Postmenopa usal osteopenia 248940033 M85.80 [id number] [facility] [address] [facility] [address],[place] [address] 03/27/2023 15:54:54 03/27/2023 17:11:19 Atypical chest pain 142724747 R07.89 this appears to be costochond ral but given prior open heart surgery we will treat it accordingl y but in meantime we will get ct scan Atrial septal defect [address] is excellent Postmenopa usal osteopenia 043136388 M85.80 stable rev bmd Pain of mu ltiple joints 09900468 M25.50 new onset joint disease? [id number] [facility] [address] [facility],[place] [address] 09/15/2023 14:36:50 09/16/2023 08:14:04 Essential hypertension 14145896 I10 bp ios borderline sometimes nowe off metoprolol will follow and cont the Hyzaar Bilateral lung opacities on plain chest X-ray 105739175 R91.[address] scan is clear Idiopathic acute pancreatitis 140630260 K85.00 we will need to do a follow up and US and lab [id number] [facility] [address] [facility],[place] [address] 10/02/2023 09:32:34 10/02/2023 15:55:11 Idiopathic acute pancreatitis 601965325 K85.00 we will need to do a follow up and US and lab Cough 85525764 R05.9 [id number] [facility] [address] [facility],[place] [address] 02/02/2024 09:52:18 02/02/2024 10:47:25 Active or passive immunization 447754759 Z23 utd Adult heal th examination 140788253 Z00.01 overall is stable but her osteoarthr itis is bothering her more Essential hypertension 36708646 I10 bp ios borderline sometimes nowe off metoprolol will follow and cont the Hyzaar Atrial septal defect [address] is excellent [id number] [facility] [address] [facility] [address] [address] 05/09/2024 11:34:40 05/09/2024 13:49:20 Pain of bilateral knee joints 5015275341 57785 M25.561 Pain of le ft knee joint 9830171904 85582 M25.562 will set up with MRI knee (bilateral ) Pain of ri ght knee joint 8182499827 49958 M25.561 will f/u with MRI for the knees [id number] [facility] [address] [facility] [address],[place] [address] 07/01/2024 08:52:37 07/01/2024 10:25:29 Depression screening 600696312 Z13.31 neg Essential hypertension 79275597 I10 bp is great 110/70 will follow and cont the Hyzaar Acute tear of lateral meniscus of left knee 4461479345 8901930 S83.282A [id number] [facility] [address] [facility] [address] [address] 10/07/2024 14:57:48 10/07/2024 15:48:25 Spasm of cervical paraspinous muscle 087028864 M62.838 Sternoclav icular sprain 177506717 S23.420A [id number] [facility] [address] [facility] [address],[place] [address] 10/31/2024 14:34:01 10/31/2024 16:08:52 Thoracic back pain 477764189 M54.6 start on meds [id number] [facility] [address] [facility] [address] [address] 11/23/2024 14:05:03 11/23/2024 14:47:13 Degeneration of cervical intervertebral disc 18352770 M50.321 will have her restart the diclofenac and recommende d ortho eval for injections [id number] [facility] [address] [facility] [address],[place] [address] 02/07/2025 09:49:14 02/07/2025 10:45:14 Active or passive immunization 061384352 Z23 utd Acute tear of lateral meniscus of left knee 5507813819 2533362 S83.282A Essential hypertension 28815669 I10 add amlodipine General ex amination of patient 881994787 Z00.01 overall is stable but her osteoarthr itis is bothering her more Pain of to e of left foot 5666398617 79338 M79.675 Pain in right hand 24444 24310 19865 M79.641 Atrial septal defect [address] is excellent Health Concerns Section Related Observation LastModified by Organization Detai ls LastModified Time None Recorded Concern Status LastModified by Organization Details LastModified Time None Recorded Advance Directives Directive None Recorded Payers Encounter Date Sequence Insurance Name Policy Number Policy Tyler Covered Member ID Tyler Member ID Guarantor Name 07/01/2024 1 [facility] - DIRECT CONNECTORCARE TYPE I (HMO) [id number] Adelaida Recinos [id number] 1 Adelaida Recinos 10/07/2024 1 [facility] - DIRECT CONNECTORCARE TYPE I (HMO) [id number] Adelaida Recinos [id number] Adelaida Recinos 10/31/2024 1 [facility] - DIRECT CONNECTORCARE TYPE I (HMO) [id number] Adelaida Recinos [id number] 1 Adelaida Recinos 11/23/2024 1 [facility] - DIRECT CONNECTORCARE TYPE I (HMO) [id number] Adelaida Recinos [id number] 1 Adelaida Recinos 02/07/2025 1 [facility] - DIRECT CONNECTORCARE TYPE I (HMO) [id number] Adelaida Recinos [id number] 1 Adelaida Recinos Notes Date Note Type Note Provider Name and Address Organization Details Recorded Time 4 text/htm l here for rechk and is doing ok except for her left kneeshe has medial and lateral meniscal tear and tricompart arthritis Jurgen Cabello DO [address] [place] [address], [phone], [facility] 07/01/2024 10:08:36 5 text/htm l here for eval of some discomfort in her left neck states now has noted a fullness to this area and a pain behind her left cervical neckarea of her lefthas discomfort and prominence to her left cleido sternal joint Jurgen Cabello DO [address] [place] [address], [phone], [facility] 10/07/2024 15:43:00 5 text/htm l c/o back pain upper thoracic back painreproducible with palpation of the upper back muscles 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, lifts them a lototherwise no inciting event ie no trauma or injury start on pred and msk relaxercan use heat and ice limit lifting over ten pounds ANNA GRAHAM [address] [place], [address], [facility] 10/31/2024 15:02:37 5 text/htm l c/o neck pain continues recommended f/u with orthopedic office at this point since her pain is becoming less manageable with oral medicationsXR did reveal arthritic changes to her cervical spine which matches with her symptom presentationfeel she would be go candidate for epidural injections patient and I discussedagreed with referralplaced to [facility] given her location preference can restart diclofenac in the meantime for acute discomfort since that was the most effective for her ANNA GRAHAM [address] [place], [address], [facility] 11/23/2024 14:40:37 5 text/htm l [...] headaches; no fatigue Jurgen Cabello DO [address] [place], [address], [facility] 02/07/2025 10:31:27 OBGyn Episode No OBEpisode recorded.
== END 2025-03-07 11:24 | disposition home or self-care (01) ==
LOC: HO.HOS 10:58
PROVIDERS: PCP Internal Medicine; Visit Provider Orthopaedic Surgery
DX: M17.12 Unilateral primary osteoarthritis, left knee (principal)
CPT/HCPCS: 20610

== ENCOUNTER → 2025-03-07 10:56 | Outpatient (BNVA) | payer OTHER, SELFPAY | PROVIDERS: PCP Internal Medicine; Visit Provider Orthopaedic Surgery | DX: M17.12 Unilateral primary osteoarthritis, left knee (principal) | CPT/HCPCS: 20610; J2003; J7323 ==

== ENCOUNTER 2025-03-15 12:45 | Outpatient (AMB) | payer OTHER, SELFPAY ==
[2025-03-15 12:57] VITALS: BMI 32.7
--- NOTE | 2025-03-15 12:57 | MHC.OFFVIS ---
Vital Signs 03/15/25 12:57 Height 5 ft 1 in Weight 173 lb BMI 32.7 Intake Visit Reasons: Inj-Left knee Euflexxa #3 Intake Note: Adelaida is a 59 year old female who presents today for her third dose of left knee Euflexxa injections. She states that she has gotten mild relief from the 1st 2 injections. She continues with her home exercise program. Allergies No Known Allergies Allergy (Verified 03/15/25 12:58) Medication List - Last Reconciled 03/15/25 by Dionisio Hernández MD acetaminophen (Tylenol Extra Strength) 500 mg PO Q6H PRN amlodipine 5 mg PO DAILY betamethasone dipropionate 0.05% 1 appl topical DAILY citalopram 20 mg PO DAILY cyclobenzaprine 5 mg PO TID PRN diclofenac potassium 50 mg PO BID ibuprofen 600 mg PO Q6H PRN losartan-hydrochlorothiazide 100-25 mg 1 tab PO DAILY ondansetron 4 mg PO Q8H PRN PFSH Medical History Stress bladder incontinence, female Depression Primary osteoarthritis of right knee Atypical lobular hyperplasia of right breast Atrial septal defect delivery delivered HTN (hypertension) Surgical History History of surgery Tubal ligation status Hx of section Social History Are you a primary patient care technician instructor to a significant other at home: No Do you presently have visiting nurse or other home services: No Patient Tobacco Use Status: Never used Tobacco Female Reproductive History Menstrual Age of Menarche: 9 Physical Exam Vital Signs: BMI result Body Mass Index 32.7 Const Other: Well-nourished well-developed very friendly female awake alert and oriented x3 in no acute distress Extrem Other: Left knee examination shows a minimal effusion, palpable crepitus with range of motion, pain with range of motion, no instability Office Procedures AMB Joint Injection/Aspiration Joint Injection/Aspiration Primary Site: left knee Prep: site was prepped using aseptic technique Injected: 20 mg of (Euflexxa viscosupplementation) and 1% plain lidocaine Procedure: The patient tolerated the procedure well Coding 27594 - Large joint Procedure code (CPT) selection complete Results Reviewed Results Reviewed: X-rays of the patient's left knee taken previously show joint space narrowing, subchondral sclerosis, no acute bony abnormalities Assessment & Plan Assessment & Plan (1) Osteoarthritis of left knee: Code(s): M17.12 - Unilateral primary osteoarthritis, left knee Category: Medical Plan Ms. Jorje Sosa presents with left knee pain due to osteoarthritis. The risks and benefits of a 3rd Euflexxa viscosupplementation injection were discussed at length with the patient. The patient wished to proceed. She tolerated the injection well. She will continue with her home exercise program. She will contact me prior to her follow-up appointment in 3 months should any questions or concerns arise. Feel free to call me at any time should questions regarding her orthopedic management arise. Orders: Orders AMB Joint Injection/Aspiration Today M17.12 - Unilateral primary osteoarthritis, left knee Coding Level of Care Code Procedure Only Diagnoses Osteoarthritis of left knee M17.12 CPT Codes Coding - 08667 Large joint: 58679 - Large joint ([id number])
--- OUTSIDE RECORDS SUMMARY | 2025-03-15 14:13 | XMS_ITS | Data Portability ---
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) MDM MODERATE MUST MEET 2 OUT OF [...] Lab CMP, serum or plasma 2024 025 [facility], [address] [place] [address], [address], 02/13/2025 13:52:37 CBC 2024 [facility], [address] [place] [address], [address], 02/07/2025 10:26:32 lipid panel, blood 2024 [facility], [address] [place] [address], [address], 02/07/2025 10:26:31 Referral orthopedi c spine surgeon referral 2024 025 [facility], [address] [place] [address] [place], [address], 12/23/2024 08:06:48 Procedures None recorded. Surgeries None recorded. Imaging US, echocardi ogram, transthor acic, complete, w/ color flow 2024 025 [facility], [address] [place] [address], [address], 02/21/2025 08:02:58 XR, hand, 3 or more view 2024 025 [facility], [address] [place] [address], [address], 02/10/2025 08:18:48 XR, foot, 3 or more view 2024 025 [facility] Central Scheduling, [address] [place], [address], 02/10/2025 08:35:30 XR, cervical spine, 2 or 3 view 2024 025 [facility], [address] [place] [address], [address], 10/10/2024 14:59:01 XR, sternocla vicular joint(s) 2024 025 [facility], [address] [place], [address], 10/11/2024 06:45:57 Medication Orders prednison e 20 mg tablet 2024 025 [facility] #[id number], [facility] [place], [place], [id number], 10/31/2024 14:59:55 baclofen 20 mg tablet 2024 025 [facility] #[id number], [address] [place], [place], [id number], 10/31/2024 14:59:46 tizanidin e 4 mg tablet 2024 025 [facility] #[id number], [address] [place], [place], [id number], 10/31/2024 14:57:26 tramadol 50 mg tablet 2023 024 [facility] #[id number], [address] [place], [place], [id number], 07/26/2024 10:01:16 Patient TargetsNo targets recorded. Patient Instructions Encounter Date Encounter Id Patient Instructions Last Modified By Organization Details Last Modified Time 07/01/2024 [id number] high blood press ure: care instructions Not available 07/01/2024 10:08:09 learning about h igh blood pressure Not available 07/01/2024 10:08:09 10/07/2024 [id number] sternoclavicular joint separation: rehab exercises Not available 10/07/2024 15:42:12 02/07/2025 [id number] atrial septal defect: care instructions Not available [...] ast No observ ation record ed. [email or web address] [facility] (Medical Records) [address] [place], [address], 06/15/2024 14:57:47 10/10/19 25 10/10/2024 XR, cervi radha spine , 2 or 3 view No observ ation record ed. [address] (Medical Records) [address] [place], [address], 10/12/2024 10:27:51 10/10/19 25 10/10/2024 XR, rao oclav icula r joint (s) No observ ation record ed. [address] Cardiology [address] [place], [address], 10/12/2024 10:27:51 11/01/19 25 10/24/2024 MAMMO , scree marbella, digit al, bilat eral No observ ation record ed. [email or web address] [facility] [address] [place], [address], 11/01/2024 13:42:45 12/27/19 25 12/23/2024 XR, shoul neeraj, 2 or more view No observ ation record ed. [email or web address] [place] [address] (Medical Records) [address] [facility], [address], 12/27/2024 09:38:17 02/11/2002/10/2025 XR, foot, 3 or more view No observ ation record ed. [email or web address] (Medical Records) [address] [place], [address], 02/16/2025 22:08:36 02/11/2002/10/2025 XR, hand, 3 or more view No observ ation record ed. [email or web address] (Medical Records) [address] [place], [address], 02/16/2025 22:08:36 02/17/2002/16/2025 MRI, shoul neeraj, w/ contr ast No observ ation record [facility]. [email or web address] [address] [place], [address], 02/16/2025 20:17:52 Result Notes None recorded. Problems Name Problem SNOMED Code Status Onset Date Resolution Date Notes Provider Name and Address Organization Details Recorded Time Essential hypertens ion 92253855 [facility] 8 08:33:23 Atrial septal defect 38190559 Active 2017 repair 2001 [facility] 8 08:33:49 Depressiv e disorder 78381576 Active 2017 ROGER Escobar [address] [place] [address], [address], [facility] 8 10:10:58 Herpes labialis 2152403 Active 2017 ROGER Escobar [address] [place] [address], [address], [facility] 8 10:11:16 B12 deficienc y monitorin g Active 2018 Jurgen Cabello DO [address] [place], [address], [facility] 9 10:28:25 Impingeme nt syndrome of right shoulder region 92317221146 9102 Active 2019 Jurgen Cabello, [address] [place], [address], [facility] 0 14:06:16 Atypical chest pain 805366273 Active 2021 ANNA GRAHAM [address] [place], [address], [facility] 2 15:46:38 Thoracic back pain 777096378 Active 2021 ANNA GRAHAM [address] [place] [address], [address], [facility] 2 15:48:31 Traumatic hematoma 115822769 Active 2021 ANNA GRAHAM [address] [place] [address], [address], [facility] 2 15:51:25 Degenerat ion of lumbar intervert ebral disc 13808704 Active 2021 ANNA GRAHAM [address] [place] [address], [address], [facility] 2 15:13:29 Degenerat ion of thoracic intervert ebral disc 32736181 Active 2021 ANNA GRAHAM [address] [place] [address], [address], [facility] 2 15:15:55 Degenerat ion of cervical intervert ebral disc 81864940 Active 2021 ANNA GRAHAM [address] [place], [address], [facility] 2 15:16:25 Insect bite reaction 174942726 Active 2021 ANNA GRAHAM [address] [place], [address], [facility] 2 10:16:26 Chest pain 86423813 Active 2021 Jurgen Cabello, DO [address] [place] [address], [address], [facility] 2 14:31:41 Rosacea 940068922 Active 2021 Jurgen Cabello, DO [address] [place] [address], [address], [facility] 2 14:36:14 Atelectas is 23492249 Active 2021 ANNA GRAHAM [address] [place] [address], [address], [facility] 2 12:38:53 Infection of tooth 488423078 Active 2021 ANNA GRAHAM [address] [place] [address], [address], [facility] 2 14:44:39 Tendiniti s of left wrist region 40262797399 494908 Active 2021 ANNA GRAHAM [address] [place] [address], [address], [facility] 2 14:46:38 Cough 18750625 Active 2021 Jurgen Cabello, [address], [address], [facility] 2 10:08:01 Migraine 51530562 Active 2022 ANNA GRAHAM [address] [place] [address], [address], [facility] 3 14:15:45 Thyroid nodule 124497436 Active 2022 ANNA GRAHAM [address] [place] [address], [address], [facility] 3 14:16:32 Hypertens jessica urgency 740609766 Active 2022 ANNA GRAHAM [address] [place] [address], [address], [facility] 3 14:17:53 Acute bronchiti s 00532716 Active 2022 ANNA GRAHAM [address] [place] [address], [address], [facility] 3 11:15:06 Pneumonia 935060151 Active 2022 Jurgen Cabello, DO [address] [place] [address], [address], [facility] 3 14:52:40 Postmenop ausal osteopeni a 841492013 Active 2022 Jurgen Cabello, DO [address] [place] [address], [address], [facility] 3 12:15:54 Streptoco ccal sore throat 34938604 Active 2022 ANNA GRAHAM [address] [place] [address], [address], [facility] 3 09:44:44 Pain of multiple joints 41462504 Active 2022 Jurgen Cabello, DO [address] [place] [address], [address], [facility] 3 17:01:56 Hand pain 70822156 Active 2022 Jurgen Cabello, DO [address] [place] [address], [address], [facility] 3 10:06:34 Hand pain 71770133 Active 2022 Jurgen Cabello, DO [address] [place] [address], [address], [facility] 3 10:06:44 Osteoarth ritis of joint of bilateral hands 37675569050 9109 Active 2022 Jurgen Cabello, DO [address] [place] [address], [address], [facility] 3 23:21:07 Bilateral lung opacities on plain chest X-ray 166907274 Active 2022 Jurgen Cabello, DO [address] [place] [address], [address], [facility] 3 22:27:13 Epigastri c pain 42453564 Active 2022 Jurgen Cabello, [address] [place] [address], [address], [facility] 3 10:05:33 Idiopathi c acute pancreati tis 905197215 Active 2022 Jurgen Cabello, [address] [place] [address], [address], [facility] 3 15:04:37 Recurrent pancreati tis 854503604 Active 2023 Jurgen Cabello [address], [address], [facility] 4 11:45:37 Pain of bilateral knee joints 22384985228 4104 Active 2023 ANNA GRAHAM [address] [place] [address], [address], [facility] 4 12:04:43 Pain of left knee joint 72070091864 4107 Active 2023 ANNA GRAHAM [address] [place] [address], [address], [facility] 4 12:05:12 Pain of right knee joint 17532972801 4100 Active 2023 ANNA GRAHAM [address] [place] [address], [address], [facility] 4 12:05:24 Acute tear of lateral meniscus of left knee 53806396131 442774 Active 2023 Jurgen Cabello DO [address] [place] [address], [address], [facility] 4 10:05:13 Spasm of cervical paraspino us muscle 467335981 Active 2024 Jurgen Cabello DO [address] [place] [address], [address], [facility] 5 15:37:00 Sternocla vicular sprain 538650418 Active 2024 Jurgen Cabello DO [address] [place] [address], [address], [facility] 5 15:39:39 Pain of left shoulder joint 50144233651 069356 Active 2024 ANNA GRAHAM [address] [place] [address], [address], [facility] 5 15:49:59 Calcific tendiniti s of left shoulder 15522798090 9108 Active 2024 ANNA GRAHAM [address] [place] [address], [address], [facility] 5 16:35:54 Pain of toe of left foot 74708132857 9108 Active 2024 Jurgen Cabello DO [address] [place] [address], [address], [facility] 5 10:19:51 Pain in right hand 61130552852 9109 Active 2024 Jurgen Cabello DO [address] [place] [address], [address], [facility] 5 10:24:43 Pain of bilateral hands 85504207101 843629 Active 2024 Jurgen Cabello DO [address] [place] [address], [address], [facility] 5 22:09:07 Acute ankle pain 73725363832 105 Active 2024 Jurgen Cabello DO [address] [place] [address], [address], [facility] 5 22:10:13 Problem Notes None recorded. Procedures Surgical History Date Name Laterality Status Provider Name and Address Organization Details Recorded Time Most Recent Mammogram completed Perla Joy [facility] 11/01/2024 13:42:26 Imaging Results None recorded. Procedure Notes None recorded. Medical Equipment None Reported. Allergies Allergen ID Allergen Name Allergen Category Reaction Reaction Severity Criticality Documentation Date Start Date Code Code System Note Provider Name and Address Organization Details Recorded Time 2274 Product containin g angiotens in-conver ting enzyme inhibitor (product) medicatio n Not available Not available Not available 06/16/2018 98304 009 SN[address] [facility] 8 08:33:05 Medications Name [...] BY MOUTH TWICE DAILY FOR 20 DAYS 10/31 completed Not Available Not Available Not Available codeine 10 mg-guaifene sin 100 mg/5 mL [...] BY MOUTH TWICE DAILY FOR 10 DAYS 04/30 /2024 completed Not Available Not Available Not Available [...] Updated DateTime 5 154.94 cm 33.1 kg/m2 89365.6 6 g 73 /min 96 % 96 % 110 mm[Hg] 70 mm[Hg] Damaris Aparicio [place] [facility] 5 15:02:49 Date Recorded Body height Provider Name an d Address Organization Details Last Updated DateTime 10/31/2024 154.94 cm Perla Mauro [facility] 10/31/2024 14:43:54 Date Recorded Body height Body mass index (BMI) Body weight Heart rate Oxygen saturation Oxygen saturation in Arterial blood by Pulse oximetry Systolic blood pressure Diastolic blood pressure Provider Name and Address Organization Details Last Updated DateTime 5 154.94 cm 32.5 kg/m2 18871.8 9 g 68 /min 98 % 98 % 116 mm[Hg] 72 mm[Hg] [facility] 5 14:17:29 Date Recorded Body height Body mass index (BMI) Body weight Heart rate Oxygen saturation Oxygen saturation in Arterial blood by Pulse oximetry Systolic blood pressure Diastolic blood pressure Provider Name and Address Organization Details Last Updated DateTime 5 154.94 cm 32.1 kg/m2 07395.7 g 66 /min 98 % 98 % 100 mm[Hg] 64 mm[Hg] Damaris Aparicio [facility] 5 10:01:15 Date Recorded Body height Body mass index (BMI) Body weight Heart rate Oxygen saturation Oxygen saturation in Arterial blood by Pulse oximetry Systolic blood pressure Diastolic blood pressure Provider Name and Address Organization Details Last Updated DateTime 4 154.94 cm 31.6 kg/m2 33514.9 3 g 76 /min 96 % 96 % 110 mm[Hg] 70 mm[Hg] Damaris Aparicio [facility] 09:26:08 Social History Question Answer Notes LastModified by Organizat ion Details LastModified Time Tobacco Smoking Status Never Smoker Not Available [employer] 08/07/2020 03:36:23 What Was The Date Of Your Most Recent Tobacco Screening? 02/07/2025 [email or web address] Information not available 02/07/2025 Sex: Unknown Functional Status Question Answer Note LastModified by Organization D etails LastModified Time Do you or have you ever used any other forms of tobacco or nicotine? No [email or web address] Information not available 01/27/2023 Mental Status None recorded. Family History Nothing Reported. Medical History No medical history recorded. Gynecological History Statement/Question Response Most Recent Mammogram 10/24/2024 Obstetrics History GPAL:G 0 P 0 0 0 0 Immunizations Vaccine Type Date Status Note Provider Nam e and Address Organization Details Recorded Time COVID-19 vaccine, vector-nr, rS-Ad26, PF, 0.5 mL 01/09/2021 completed Marika packer [facility] 01/13/2022 08:29:14 COVID-19, mRNA, LNP-S, PF, 30 mcg/0.3 mL dose 10/14/2021 completed Marika packer [facility] 01/13/2022 08:29:30 Past Encounters Encounter ID Performer Location Encounter Start Date Encounter Closed Date Diagnosis/Indication Diagnosis SNOMED-CT Code Diagnosis ICD10 Code Diagnosis Note [id number] Jurgen Cabello [facility] [address] [facility],[place] [address] 06/16/2018 13:56:07 06/16/2018 14:39:35 Essential hypertension 43484330 I10 Atrial septal defect 701 64364 Q21.1 Pain in right knee 64826 75947 59687 M25.561 Intermitte nt palpitations 231705448 R00.2 [id number] Jurgen Cabello [facility] [address] [facility],[place] [address] 08/04/2018 14:10:59 08/04/2018 14:57:40 Tear of medial meniscus of knee 148271017 S83.241A Atrial septal defect 701 12115 Q21.1 the recent echo revealed a stable hemodynami oc picture with a mild decrease in sys funct EF but overall otherwise stable [id number] Jurgen Yuan Cirilo [facility] [address] [facility], [place] [address] 08/09/2018 10:00:14 08/09/2018 10:57:48 Essential hypertension 81891106 I10 stable Herpes labialis 5653489 B00.[address] -f/u if this does not resolve Cough 49817471 R05 lingering cough after almost complete resolution of recent cold f/u if sx change or worsen [id number] [facility] [address] [facility], [place] [address] 08/13/2018 13:59:13 08/13/2018 15:39:05 Pain in right knee 4047106733 90239 M25.561 [id number] Jurgen Yuan Cirilo [address], [place] [address] 08/31/2018 14:10:51 08/31/2018 15:51:22 Tear of lateral meniscus of knee 175345382 S83.281A will refer to ortho as she is going to need an arthroscop y carley [id number] Jurgen AngelesSohail Cabello [facility] [address], [place] [address] 12/31/2018 14:27:05 12/31/2018 15:38:36 Hypoglycemia 928417532 E16.2 [id number] Jurgen Yuan Cirilo [facility] [address] [facility], ite [facility] [place] [address] 02/02/2019 14:45:42 02/02/2019 15:13:15 Tear of medial meniscus of knee 955259494 S83.241A here for recjk reviewed her prior surg and sergio told her we will give her a kenalog inj when she is ready Osteopenia 960838355 M85 .80 bmd is good [id number] Jurgen Lissy Cabello [facility] [address] [facility], [place] [address] 03/22/2019 09:54:18 03/22/2019 10:32:26 Adult health examination 020332552 Z00.00 would like to check for anemia given weakness and fatigue will also need to get he echo Active or passive immunization 738016555 Z23 utd Atrial septal defect 701 21636 Q21.1 the last echo revealed a stable hemodynami oc picture with a mild decrease in sys funct EF but overall otherwise stable [id number] Jurgen Cabello [facility] [address] [facility],[address] [place] [address] 06/13/2019 15:28:59 06/13/2019 16:42:50 Vitamin B12 deficiency (non anemic) 42568051 E53.8 feeling better doing good Vitamin D deficiency 347 13099 E55.9 will chk level Adult heal th examination 089126543 Z00.00 would like to check for anemia given weakness and fatigue will also need to get he echo [id number] Jurgen Cabello [facility] [address] [facility],[place] [address] 08/19/2019 09:56:57 08/19/2019 10:41:00 Essential hypertension 11662666 I10 bp is stable no issues there Cough 02118317 R05 getting worse and has had for >2 weeks need to treat as she gets this and quickly develkops pneumonia Biceps tendinitis 294564 007 M75.21 Vitamin D deficiency 347 95483 E55.9 will chk level [id number] Jurgen Cabello [facility] [address] [facility],[address] [place] [address] 11/09/2019 10:22:44 11/09/2019 12:06:06 Biceps tendinitis 361034429 M75.21 Melox did not improve sx sounds like she prob tore sonething we will have ot have her see spec Fatigue 19598657 R53.83 will check the blood work Localized visual field defect 719106679 H53.459 occurred after standing i believe this was prob related to bp drop she has had no sequelae and is asymptomat ic since knows to gotoER if and y further change Anxiety 33083328 F41.9 flying on airplane lorazepam [id number] Jurgen Cabello DO [facility] [address] [facility],[address] [facility] [place] [address] 12/14/2019 10:06:13 12/14/2019 11:03:08 Epigastric pain 27357976 R10.13 must chreck the gall bladder Pain of mu ltiple joints 59623837 M25.50 new onset joint disease? Pain of ri ght shoulder joint 7202633908 6053348 M25.511 could be djd vs inflammato ry [id number] Jurgen Cabello DO [facility] [address] [facility],[place] [address] 01/02/2020 15:35:23 01/02/2020 16:44:42 Traumatic hematoma 275672736 T14.8XXA sublingual hematoma after shutting right thumb in the car door yesterday will XR to make sure nothing is broken and give diclofenac as pain reliever will f/u with pt after with XR results [id number] Jurgen Cabello DO [facility] [address] [facility],[place] [address] 01/03/2020 13:41:47 01/03/2020 14:06:05 Essential hypertension 02476560 I10 bp is stable no issues there Atrial septal defect 701 70531 Q21.1 the last echo revealed a stable hemodynami oc picture with a mild decrease in sys funct EF but overall otherwise stable Osteoarthr itis of joint of hand 61125407 M19.049 will cont to treat conserv with otc meds prn Subacromia l bursitis of right shoulder 9027929496 052004 M75.51 after discussion she understand s to call for cortisone shot if the meds are not helping [id number] Jurgen Cabello DO [facility] [address] [facility] [address],[place] [address] 06/18/2020 13:39:48 06/18/2020 14:29:23 Adult health examination 748001055 Z00.01 overall is stable but her osteoarthr itis is bothering her more Active or passive immunization 504769082 Z23 utd Osteoarthritis 867594939 M19.90 SHE has noted disease hands back and feet will try celecoxib Atrial septal defect 701 93781 Q21.1 the last echo revealed a stable hemodynami c picture with a mild decrease in sys funct EF but overall otherwise stable Alopecia 45608621 L65.9 [place] derm [id number] Jurgen Cabello [facility] [address] [facility],[place] [address] 07/30/2020 10:57:23 07/30/2020 11:32:05 Pain in right hand 8375135709 99892 M79.641 Alopecia areata 93820462 L63.9 [id number] Jurgen Cabello [facility] [address] [place] [address] [facility] [place] [address] 09/26/2020 10:20:15 09/26/2020 11:17:50 Depressive disorder 34486797 F32.9 Essential hypertension 47551967 I10 bp is stable no issues there Partial th ickness rotator cuff tear 953233633 M75.101 [id number] Jurgen Cabello [facility] [address] [facility],[place] [address] 11/27/2020 11:07:05 11/27/2020 12:12:40 Insect bite reaction 915364387 T63.481A resolved with abx Cellulitis 173023793 L03 .90 resolved with abx no other interventi on required at this time Essential hypertension 14265028 I10 stable today at appt no change or interventi on necessary Depressive disorder 3548 9007 F32.9 stable today at appt no change or interventi on necessary [id number] Jurgen Cabello [facility] [address] [facility],[place] [address] 12/11/2020 10:21:25 12/11/2020 11:17:19 Visual disturbance 24667317 H53.9 having flashes in visual field during episodes Dizziness 984947989 R42 she has the dizziness during the episodes with spacey feeling Ataxia 59734329 R26.0 sudden and episodic [id number] Jurgen Cabello [facility] [address] [facility] [address],[place] [address] 02/05/2021 16:14:15 02/05/2021 16:56:51 Ataxic gait 57075591 R26.0 ct negative will follow as mp seems to be better offf the metoprolol Alopecia 12497102 L65.9 markedly better now off metoprolol Essential hypertension 79720226 I10 bp ios borderline sometimes nowe off metoprolol will follow and cont the Hyzaar Submandibu lar salivary gland swelling [id number] K11.9 on right [id number] Jurgen Cabello [facility] [address] [facility] [address],[place] [facility] [place] [address] 04/19/2021 09:30:06 04/19/2021 10:43:25 Submandibular salivary gland swelling [id number] K11.9 on right will treat with amox next time she swells Derangemen t of lateral meniscus 96267718 M23.309 [id number] Jurgen Cabello [facility] [address] [facility] [address],[place] [address] 09/23/2021 08:46:54 09/23/2021 16:30:33 Atrial septal defect 82295185 Q21.1 the last echo revealed a stable hemodynami c picture with a mild decrease in sys funct EF but overall otherwise stable so we will [place] [id number] Jurgen Cabello [facility] [address] [facility] [address],[place] [facility] [place] [address] 11/05/2021 08:35:27 11/06/2021 08:52:18 Pain of multiple joints 35603407 M25.50 new onset joint disease? Atrial septal defect [address] appt for follow up on her asd awaiting her echo Essential hypertension 68702338 I10 bp ios borderline sometimes nowe off metoprolol will follow and cont the Hyzaar Eczema of scalp 19088972 13 2100 L30.9 [id number] Jurgen Cabello [facility] [address] [facility] [address],[place] [address] 01/13/2022 15:17:04 01/15/2022 08:49:25 Active or passive immunization 566039577 Z23 advised Adult heal th examination 840178862 Z00.00 BP is excellent Atypical chest pain 1025 59872 R07.89 will need fu with cardiology > needs new cardio due to new insurance > will fu with Karishma andrea [place] Thoracic back pain 07550 8004 M54.6 will fu with XR thoracic back for pain along T5 T 6 [id number] Jurgen Cabello [facility] [address] [facility] [address],[place] [address] 01/22/2022 10:03:12 01/22/2022 11:17:04 Insect bite reaction 653994607 T63.481A will start on doxycyclin e and betamethas one Herpes labialis 3823224 B00.1 will start on valtrex [id number] Jurgen Cabello [facility] [address] [facility],[place] [address] 03/26/2022 14:05:51 03/26/2022 14:47:40 Chest pain 83917050 R07.9 occurs on the left anterior region Atrial septal defect [address] appt for follow up on her asd awaiting her echo Essential hypertension 52657648 I10 bp ios borderline sometimes nowe off metoprolol will follow and cont the Tonny Zambrano 287264204 L71.9 [id number] Jurgen Cabello [facility] [address] [facility] [address],[place] [address] 06/16/2022 14:33:24 06/16/2022 14:47:40 Infection of tooth 546363087 K04.7 will trial amox and medrol Tendinitis of left wrist region 4126444290 8704832 M67.834 will update me after the medrol dose purvi [id number] Jurgen Cabello [facility] [address] [facility] [address],[place] [address] 10/22/2022 13:55:06 10/22/2022 15:27:58 Migraine 12145314 G43.009 will set up with work up to r/o anything triggering the migraine Essential hypertension 55107729 I10 stable today at appt no change or interventi on necessary Thyroid nodule 926166826 E04.1 will check his TSH Hypertensive urgency 443 048201 I16.0 will start on clonidine PRN for the high spikes [id number] Jurgen Cabello [facility] [address] [facility] [address],[place] [address] 11/10/2022 09:06:07 11/10/2022 11:55:24 Acute bronchitis 04513974 J20.8 will start on prednsione and z pakif needed will set up with XR if her symptoms [id number] Jurgen Lissy Cabello [facility] [address] [facility] [address],[place] [facility] [address] 01/27/2023 10:43:02 01/27/2023 12:17:21 Active or passive immunization 405975945 Z23 utd Adult heal th examination 298012164 Z00.00 overall is stable but her osteoarthr itis is bothering her more Atypical chest pain 1025 51161 R07.89 this appears to be costochond ral but given prior open heart surgery we will treat it accordingl y but in meantime we will get ct scan Thyroid nodule 615163137 E04.1 we will repeat US in 1 year fe Atrial septal defect 701 18791 Q21.10 Postmenopa usal osteopenia 879516942 M85.80 [id number] Jurgen Lissy Cabello [facility] [address] [facility] [address],[place] [address] 03/27/2023 15:54:54 03/27/2023 17:11:19 Atypical chest pain 589587054 R07.89 this appears to be costochond ral but given prior open heart surgery we will treat it accordingl y but in meantime we will get ct scan Atrial septal defect [address] is excellent Postmenopa usal osteopenia 864147383 M85.80 stable rev bmd Pain of mu ltiple joints 44133283 M25.50 new onset joint disease? [id number] Jurgen Cabello [facility] [address] [facility],[place] [address] 09/15/2023 14:36:50 09/16/2023 08:14:04 Essential hypertension 57247335 I10 bp ios borderline sometimes nowe off metoprolol will follow and cont the Hyzaar Bilateral lung opacities on plain chest X-ray 557130092 R91.[address] scan is clear Idiopathic acute pancreatitis 550613218 K85.00 we will need to do a follow up and US and lab [id number] Jurgen Cabello [facility] [address] [facility],[place] [address] 10/02/2023 09:32:34 10/02/2023 15:55:11 Idiopathic acute pancreatitis 813354305 K85.00 we will need to do a follow up and US and lab Cough 57439372 R05.9 [id number] Jurgen Cabello [facility] [address] [facility],[place] [address] 02/02/2024 09:52:18 02/02/2024 10:47:25 Active or passive immunization 119266765 Z23 utd Adult heal th examination 000583968 Z00.01 overall is stable but her osteoarthr itis is bothering her more Essential hypertension 92000307 I10 bp ios borderline sometimes nowe off metoprolol will follow and cont the Hyzaar Atrial septal defect [address] is excellent [id number] Jurgen Cabello [facility] [address] [facility],[place] [address] 05/09/2024 11:34:40 05/09/2024 13:49:20 Pain of bilateral knee joints 0511090579 04356 M25.561 Pain of le ft knee joint 6546215212 74476 M25.562 will set up with MRI knee (bilateral ) Pain of ri ght knee joint 5832351233 33343 M25.561 will f/u with MRI for the knees [id number] Jurgen Cabello [facility] [address] [facility],[place] [address] 07/01/2024 08:52:37 07/01/2024 10:25:29 Depression screening 850959101 Z13.31 neg Essential hypertension 43348148 I10 bp is great 110/70 will follow and cont the Hyzaar Acute tear of lateral meniscus of left knee 6508491806 9144626 S83.282A [id number] Jurgen Cabello [facility] [address] [facility],[place] [address] 10/07/2024 14:57:48 10/07/2024 15:48:25 Spasm of cervical paraspinous muscle 303842288 M62.838 Sternoclav icular sprain 715156964 S23.420A [id number] Jurgen Cabello [facility] [address] [facility],[place] [address] 10/31/2024 14:34:01 10/31/2024 16:08:52 Thoracic back pain 114265375 M54.6 start on meds [id number] Jurgen Cabello [facility] [address] [facility],[place] [address] 11/23/2024 14:05:03 11/23/2024 14:47:13 Degeneration of cervical intervertebral disc 09069538 M50.321 will have her restart the diclofenac and recommende d ortho eval for injections [id number] Jurgen Cabello [facility] [address] [facility],[place] [address] 02/07/2025 09:49:14 02/07/2025 10:45:14 Active or passive immunization 305610877 Z23 utd Acute tear of lateral meniscus of left knee 5185176007 6343782 S83.282A Essential hypertension 66454591 I10 add amlodipine General ex amination of patient 809649683 Z00.01 overall is stable but her osteoarthr itis is bothering her more Pain of to e of left foot 8455614764 80073 M79.675 Pain in right hand 76046 42659 10466 M79.641 Atrial septal defect [address] is excellent Health Concerns Section Related Observation LastModified by Organization Detai ls LastModified Time None Recorded Concern Status LastModified by Organization Details LastModified Time None Recorded Advance Directives Directive None Recorded Payers Encounter Date Sequence Insurance Name Policy Number Policy Tyler Covered Member ID Tyler Member ID Guarantor Name 07/01/2024 1 [facility] - DIRECT CONNECTORCARE TYPE I (HMO) [id number] Adelaida Recinos [id number] 1 Adelaida Recinos 10/07/2024 1 [facility] - DIRECT CONNECTORCARE TYPE I (HMO) [id number] Adelaida Recinos [id number] Adelaida Recinos 10/31/2024 1 [facility] - DIRECT CONNECTORCARE TYPE I (HMO) [id number] Adelaida Recinos [id number] 1 Adelaida Recinos 11/23/2024 1 [facility] - DIRECT CONNECTORCARE TYPE I (HMO) [id number] Adelaida Recinos [id number] 1 Adelaida Recinos 02/07/2025 1 [facility] - DIRECT CONNECTORCARE TYPE I (HMO) [id number] Adelaida Recinos [id number] 1 Adelaida Recinos Notes Date Note Type Note Provider Name and Address Organization Details Recorded Time 4 text/htm l here for rechk and is doing ok except for her left kneeshe has medial and lateral meniscal tear and tricompart arthritis Jurgen Cabello DO [address] [place] [address], [address], [facility] 07/01/2024 10:08:36 5 text/htm l here for eval of some discomfort in her left neck states now has noted a fullness to this area and a pain behind her left cervical neckarea of her lefthas discomfort and prominence to her left cleido sternal joint Jurgen Cabello DO [address] [place] [address], [address], [facility] 10/07/2024 15:43:00 5 text/htm l c/o back pain upper thoracic back painreproducible with palpation of the upper back muscles 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
== END 2025-03-15 13:16 | disposition home or self-care (01) ==
LOC: HO.HOS 12:46
PROVIDERS: PCP Internal Medicine; Visit Provider Orthopaedic Surgery
DX: M17.12 Unilateral primary osteoarthritis, left knee (principal)
CPT/HCPCS: 20610

== ENCOUNTER → 2025-03-15 12:45 | Outpatient (BNVA) | payer OTHER, SELFPAY | PROVIDERS: PCP Internal Medicine; Visit Provider Orthopaedic Surgery | DX: M17.12 Unilateral primary osteoarthritis, left knee (principal) | CPT/HCPCS: 20610; J2003; J7323 ==

== ENCOUNTER 2025-03-24 09:49 | Outpatient (AMB) | payer OTHER, SELFPAY ==
--- NOTE | 2025-03-24 10:00 | A.OFFVIS_ITS ---
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 Patient was seen by ANNA Kang from [facility] on 01/13/22 for thoracic back pain. Patient had an MRI w/ contrast for the left shoulder at [facility] on 02/16/25. Patient reports that she was seen by her PCP for her pain and was referred physiatry. Her pain started a couple months ago and has been on going since. Pain is worse with turning side to side and looking down and radiates to her shoulders. She has numbness and tingling below her neck. Denies injury. No other treatment. Allergies No Known Allergies Allergy (Verified 03/24/25 10:04) Medication List - Last Reconciled 03/24/25 by Jeri Garner MD acetaminophen (Tylenol Extra Strength) 500 mg PO Q6H PRN amlodipine 5 mg PO DAILY betamethasone dipropionate 0.05% 1 appl topical DAILY citalopram 20 mg PO DAILY cyclobenzaprine 5 mg PO TID PRN diclofenac potassium 50 mg PO BID ibuprofen 600 mg PO Q6H PRN losartan-hydrochlorothiazide 100-25 mg 1 tab PO DAILY ondansetron 4 mg PO Q8H PRN HPI Comments Details: Patient follows with Dr. Armenta for knee Euflexxa injections. MRI shoulder was also done. Next follow up with Dr. Mclean is 06/15/2025. Cervical x-ray 10/10/2024 did not show any acute changes, but upon my independent review showed decreased C5-[address] disc level. Cervical spine CT scan to 11/27/2023 reported C5-6 spondylopathy. MRI shoulder did not show any rotator cuff tear. Patient describes tightness on left upper trapezius area. But denies actual neck pain and denies actual shoulder pain. Shoulder range of motion within normal. Denies radiation down to the arm. Denies numbness and weakness. [facility] Medical History Stress bladder incontinence, female Depression Primary osteoarthritis of right knee Atypical lobular hyperplasia of right breast Atrial septal defect delivery delivered HTN (hypertension) Surgical History History of surgery Tubal ligation status Hx of section Social History Are you a primary ocular care technologist to a significant other at home: No Do you presently have visiting nurse or other home services: No Patient Tobacco Use Status: Never used Tobacco Female Reproductive History Menstrual Age of Menarche: 9 Review of Systems Const All systems reviewed & are unremarkable except as noted in HPI and below Physical Exam Constitutional: Patient appears to be in no acute distress, well nourished and well developed. Patient was appropriately conversant and oriented. Good historian. MSK: Inspection reveals appropriate head and neck positioning. No tenderness over cervical spinous processes or facets. No tenderness over left shoulder. Tightness on left upper trapezius reproducing her usual pain. Cervical ROM was full. Spurling's sign negative. No scapular winging. Left shoulder range of motion within normal. Negative Green sign. No infective empty can sign. Negative speed's test. Strength is 5/5 in all muscle groups tested. No increased tone noted. Neurological: Neurologic examination of the upper and lower extremities was nonfocal with intact sensation, muscle stretch reflexes and without focal motor deficits . Vuong?s negative bilaterally. Babinski was down going bilaterally. Clonus was negative. Gait is non-antalgic without loss of balance. Results Reviewed Results Reviewed: I independently reviewed the results of the following: As above Ordering Physician: Jurgen Kerr MD Date of Service: 10/10/24 Procedure(s): XR cervical spine 3V Accession Number(s): [id number] cc: Jurgen Kerr MD~ CLINICAL HISTORY: PAIN 6 views cervical spine Comparison: None Findings: Normal alignment. No acute fractures or dislocation. Multilevel disc space narrowing and endplate osteophyte formation, as well as facet hypertrophy. No prevertebral soft tissue swelling. IMPRESSION: No acute findings. Ordering Physician: Dionisio Hernández MD Date of Service: 02/16/25 Procedure(s): MR shoulder LT wo con Accession Number(s): [id number] cc: Jurgen Kerr MD; Dionisio Hernández MD~ EXAMINATION: MR SHOULDER WITHOUT CONTRAST, LEFT CLINICAL INFORMATION: Other instability left shoulder; left shoulder pain when lifting arm, numbness, symptoms since August 2024. Denies injury. 59-year-old female. COMPARISON: No prior MRI. Left shoulder radiographs 12/23/2024. TECHNIQUE: Multiplanar multisequence MR imaging of the left shoulder was done without IV contrast. Examination performed on a 1.5 Roro Siemens unit utilizing standard sequences. FINDINGS: Rotator Cuff and Biceps Tendon: Supraspinatus: There is no discrete tear. The tendon appears intact. There is mild increased signal in the critical zone suggestive of mild tendinopathy. Normal muscle belly. Infraspinatus: There is no discrete tear. The tendon appears intact. Mild increased signal along the bursal surface in the critical zone suggestive of tendinopathy. Normal muscle belly. Subscapularis: There is no discrete tear. The tendon is intact. The tendon is normal in signal. Normal muscle belly. Teres Minor: Intact and normal in signal. Normal muscle belly. Biceps Long Head: Normally located within the bicipital groove. Normal morphology. The tendon within the rotator interval appears normal. The anchor appears intact. AC Joint and Acromiohumeral Arch: There is a type II acromion. There is no undersurface spurring. AC joint demonstrates moderate superior surface spurring with joint capsular distention and mild periarticular edema. There is no significant undersurface spurring. There is no evidence of supraspinatus outlet stenosis. Glenohumeral Joint and Labrum: The glenohumeral joint has normal fluid. No significant degenerative arthritis identified. No cartilaginous defects or subchondral bone plate edema identified. The superior labrum demonstrates linear signal hyperintensity which follows the contour of the bone, suggestive of sublabral foramen. The labrum otherwise appears intact diffusely without discrete displaced tear identified. Osseous Structures: There is no regional bone marrow edema or pathologic bone lesion detected. Spino-glenoid Notch: Normal. Quadrilateral Space: Normal. Other: The glenohumeral ligaments appear intact without thickening. There is hyperintensity within the subacromial/subdeltoid bursa, consistent with mild bursitis. MR/MR shoulder LT wo con IMPRESSION: 1. There is no rotator cuff tear identified. There is mild tendinopathy of the supraspinatus tendon and bursal surface of the infraspinatus tendon. 2. The glenoid labrum appears intact without displaced tear. 3. There is mild subacromial/subdeltoid bursitis. 4. There are no significant glenohumeral joint degenerative changes or cartilaginous abnormalities. 5. There is predominantly superior surface spurring of the AC joint without undersurface spurs. Electronically signed by: Konstantin Armando MD 02/16/2025 11:47 AM EDT RP I reviewed records from the following: Ortho Assessment & Plan Assessment & Plan (1) Myofascial pain: Code(s): M79.18 - Myalgia, other site Category: Medical (2) Cervical spondylosis: Code(s): M47.812 - Spondylosis without myelopathy or radiculopathy, cervical region Category: Medical Plan I think pain is primarily coming from myofascial pain, trigger points on left upper trapezius. Do not see signs of cervical radiculopathy or myelopathy. Do not see signs of shoulder joint pathology/rotator cuff issues. Discussed treatment options including referral to physical therapy versus trigger-point injections. Patient opts to start physical therapy 1st. Referral placed. Assessment and plan discussed with patient, and patient was agreeable. All questions were answered thoroughly. Follow up in 3 months. Jeri Garner MD, JASMIN Board Certified, [place] [employer] and Rehabilitation (ABPMR) Board Certified, [place] [employer] Electrodiagnostic [employer] (ABEM) Orders: Orders PT Evaluation and Treatment Today M47.812 - Spondylosis without myelopathy or radiculopathy, cervical region, M54.2 - Cervicalgia, M79.18 - Myalgia, other site Coding Level of Care Code New Pt Level 4 (08903) Diagnoses Myofascial pain M79.18 Cervical spondylosis M47.812
== END 2025-03-24 10:27 | disposition home or self-care (01) ==
LOC: HO.HOS 09:49
PROVIDERS: PCP Internal Medicine; Visit Provider Physical Medicine & Rehabilitation
DX: M79.18 Myalgia, other site (principal); M47.812 Spondylosis without myelopathy or radiculopathy, cervical region
CPT/HCPCS: 99203

== ENCOUNTER → 2025-03-24 09:49 | Outpatient (BNVA) | payer OTHER, SELFPAY | PROVIDERS: PCP Internal Medicine; Visit Provider Physical Medicine & Rehabilitation | DX: M79.18 Myalgia, other site (principal); M47.812 Spondylosis without myelopathy or radiculopathy, cervical region; M54.2 Cervicalgia | CPT/HCPCS: 99202 ==

== ENCOUNTER 2025-06-15 10:54 | Outpatient (AMB) | payer OTHER, SELFPAY ==
--- NOTE | 2025-06-15 10:56 | MHC.OFFVIS ---
Vital Signs 06/15/25 11:03 Height 5 ft 1 in Weight 170 lb BMI 32.1 Handedness Right Intake Visit Reasons: OV-Left knee Euflexxa follow up-last one 03/15/25 Intake Note: Adelaida is a 59 year old woman who presents with complaints of mild intermittent discomfort in both of her knees. Earlier this year she had Euflexxa injections given into both of her knees. She got fairly good relief from those injections. The patient takes Tylenol as needed for her discomfort. She denies any locking or giving way. Allergies No Known Allergies Allergy (Verified 06/15/25 11:04) Medication List - Last Reconciled 06/15/25 by Dionisio Hernández MD acetaminophen (Tylenol Extra Strength) 500 mg PO Q6H PRN amlodipine 5 mg PO DAILY betamethasone dipropionate 0.05% 1 appl topical DAILY cyclobenzaprine 5 mg PO TID PRN diclofenac potassium 50 mg PO BID losartan-hydrochlorothiazide 100-25 mg 1 tab PO DAILY ondansetron 4 mg PO Q8H PRN PFSH Medical History (Updated 06/15/25 @ 11:21 by Dionisio Hernández MD) Osteoarthritis of left knee Stress bladder incontinence, female Depression Primary osteoarthritis of right knee Atypical lobular hyperplasia of right breast Atrial septal defect delivery delivered HTN (hypertension) Surgical History History of surgery Tubal ligation status Hx of section Social History Are you a primary home care physical therapist to a significant other at home: No Do you presently have visiting nurse or other home services: No Patient Tobacco Use Status: Never used Tobacco Female Reproductive History Menstrual Age of Menarche: 9 Physical Exam Vital Signs: BMI result Body Mass Index 32.1 Const Other: Well-nourished well-developed very friendly female awake alert and oriented x3 in no acute distress Extrem Other: Bilateral knee examination shows minimal effusions, palpable crepitus with range of motion, pain with range of motion, no instability Assessment & Plan Assessment & Plan (1) Osteoarthritis of left knee: Code(s): M17.12 - Unilateral primary osteoarthritis, left knee Category: Medical (2) Osteoarthritis of right knee: Code(s): M17.11 - Unilateral primary osteoarthritis, right knee Category: Medical Plan Adelaida presents with intermittent discomfort in both of her knees due to osteoarthritis. I had a lengthy discussion with the patient regarding the treatment options. At this point the patient's symptoms are tolerable to her. She will continue with her activity modifications. She will follow up with me on an as-needed basis should her symptoms worsen in any way. Feel free to call me at any time should questions regarding her orthopedic management arise. I spent 22 minutes in reviewing the patient's records and imaging studies, seeing the patient and documenting in the medical record. Coding Level of Care Code Est Pt Level 3 (63946) Complex EM visit Add On G2211 Diagnoses Osteoarthritis of left knee M17.12 Osteoarthritis of right knee M17.11
[2025-06-15 11:03] VITALS: BMI 32.1
--- OUTSIDE RECORDS SUMMARY | 2025-06-15 14:57 | XMS_ITS | Clinical Summary ---
Author Organization [facility] Address [address] [place], [place] [id number] Phone Care Team Providers Care Dye Padder Operator Name Role Phone Jurgen Kerr DO Primary Care Provider [phone] Allergies Active Allergy Reactions Criticality Noted Date Comments Gus Inhibitors 08/14/2020 Medications citalopram (CELEXA) 20 MG tablet TAKE 1 TABLET BY MOUTH EVERY DAY Active traZODone (DESYREL) 50 MG tablet Take 50 mg by mouth nightly at bedtime as needed. 2 Active losartan-hydroC HLOROthiazide (HYZAAR) 100-25 mg per tablet Take 1 tablet by mouth daily. 3 Active guaiFENesin-cod eine (ROBITUSSIN AC) 100-10 mg/5 mL liquid 10 mL every 4 (four) hours. Active cloNIDine HCL (CATAPRES) 0.1 MG tablet clonidine HCl 0.1 mg tablet TAKE 1 TABLET BY MOUTH EVERY DAY Active fluticasone propionate (FLONASE) 50 mcg/actuation nasal spray 2 sprays each nostril QAM 11.1 mL 2 3 Active Active Problems Problem Noted Date Diagnosed Date Chronic cough 2022 Resolved Problems Problem Noted Date Diagnosed Date Resolved Date Abnormal CT of the chest 07/21/202205/2023 Other chest pain 07/21/2022 2022 Family History Medical History Relation Comments Hypertension Mother 2 Relation Status Comments Mother 1 Alive Mother 2 Social History Tobacco Use Types Packs/Day Years Used Date Smoking Tobacco: Never Smokeless Tobacco: Never Tobacco Cessation:Counseling Given: Not Answered Education Answer Date Recorded Are you interested in more education? Not on mikki e 01/30/2023 Are you concerned about learning? Not on file 01/30/2023 No 01/30/2023 No 01/30/2023 Digital Access Answer Date Recorded No 03/02/2023 No 03/02/2023 Reliable internet access at home? Not on file 03/02/2023 Device with a working camera? Not on file Comments Unknown Sex and Gender Information Value Date Recorded Sex Assigned at Not on file Legal Sex Female 9:42 PM EDT Gender Identity Not on file Sexual Orientation Not on file Last Filed Vital Signs Vital Sign Reading Time Taken Comments Blood Pressure 110/80 2022 1:15 PM EST Pulse 90 2022 1:15 PM EST Temperature 36.1 C (97 F) 2022 1:15 PM EST Respiratory Rate - - Oxygen Saturation 96% 2022 1:15 PM EST Inhaled Oxygen Concentration - - Weight 79.6 kg (175 lb 6.4 oz) 2022 1:15 P M EST Height 154.9 cm (5' 1 ) 2022 1:15 PM EST Body Mass Index 33.14 2022 1:15 PM EST Plan of Treatment Health Maintenance Due Date Last Done Comments Adult Td,Tdap Booster 1965 CREATININE LEVEL 1965 POTASSIUM LEVEL 1965 DEPRESSION SCREENING 1976 HEPATITIS C SCREENING 1982 HIV ONE-TIME SCREENING (18-6 5 YEARS) 1982 PAP SMEAR 1985 MAMMOGRAM 2004 COLOGUARD 2009 COLONOSCOPY 2009 COLORECTAL CANCER SCREENING 2009 FIT TEST 2009 FOBT 2009 SIGMOIDOSCOPY 2009 VIRTUAL COLONOSCOPY 2009 PNEUMOCOCCAL VACCINES (50+ years) (1 of 1 - PCV) 2014 ZOSTER VACCINES (1 of 2) 2014 SCREENING FOR DIABETES 06/16/2022 06/16/2019 INFLUENZA VACCINE (#1) 2025 COVID-19 VACCINE (3 - 2024-2 6 season) 2025 10/14/2021, 01/09/2021 LIPID PANEL 01/16/2027 01/16/2022 RSV VACCINE (1 - 1-dose 75+ series) 12/11/2039 SMOKING STATUS SCREENING (On ce After 26 Yrs) Completed 2022 HEPATITIS A VACCINES Aged Out No long er eligible based on patient's age to complete this topic HIB VACCINES Aged Out No longer eligi ble based on patient's age to complete this topic MENINGOCOCCAL VACCINES (ACWY) Aged Out No longer eligible based on patient's age to complete this topic MENINGOCOCCAL VACCINES (B) Aged Out N o longer eligible based on patient's age to complete this topic Medical Devices Not on file Insurance [employer] PARTIAL Member Subscriber Plan / Payer (Ef fective 2023-Present) Name:Adelaida Recinos Relation to Subscriber:Self Name:Aedlaida Recinos Payer ID:Not on file Group ID:Not on file Type:Medicaid Address: [address] [employer] NET PARTIAL [employer] NET PARTIAL Member Subscriber Plan / Payer (Ef fective 2023-) Name:Jorje Adelaida Relation to Subscriber:Self Name:Adelaida Recinos Payer ID:Not on file Group ID:Not on file Type:Medicaid Address: [address] [employer] NET PARTIAL Member Subscriber Plan / Payer (Ef fective 2023-) Name:Jorje Adelaida Relation to Subscriber:Self Name:Adelaida Recinos Payer ID:Not on file Group ID:Not on file Type:Medicaid Address: [address] [employer] NET PARTIAL Member Subscriber Plan / Payer ( fective 2023-) Name:Adelaida Recinos Relation to Subscriber:Self Name:Adelaida Recinos Payer ID:Not on file Group ID:Not on file Type:Medicaid Address: [address] [employer] NET PARTIAL [facility] [employer] DIRECT Care Teams Dye Padder Operator Relationship Specialty Start Date End Date Jurgen Kerr DO [email or web address] PCP - General 10/08/17 Additional Source Comments The information contained in this document represents components of the legal health record. It is not the complete legal health record.[facility]
== END 2025-06-15 11:19 | disposition home or self-care (01) ==
LOC: HO.HOS 10:54
PROVIDERS: PCP Internal Medicine; Visit Provider Orthopaedic Surgery
DX: M17.0 Bilateral primary osteoarthritis of knee (principal)
CPT/HCPCS: 99213

== ENCOUNTER → 2025-06-15 10:54 | Outpatient (BNVA) | payer OTHER, SELFPAY | PROVIDERS: PCP Internal Medicine; Visit Provider Orthopaedic Surgery | DX: M17.12 Unilateral primary osteoarthritis, left knee (principal); M17.11 Unilateral primary osteoarthritis, right knee | CPT/HCPCS: 99212 ==

== ENCOUNTER 2025-07-26 11:33 | Outpatient (REF) | payer OTHER, SELFPAY ==
--- NOTE | ~2025-07-26 | XR_ITS ---
EXAMINATION: XR TOES, LEFT CLINICAL INFORMATION: PAIN COMPARISON: X-ray 02/10/2025 TECHNIQUE: 3 views of the left toes were obtained. FINDINGS: First toe: Moderate first MTP arthritis. No visible acute fracture, dislocation. No erosive changes are seen. No acute fracture, dislocation or focal bone abnormality otherwise seen. Moderate plantar and posterior calcaneal spur. XR/XR toe LT min 2V IMPRESSION: Moderate first MTP arthritis Electronically signed by: George Bernal MD 07/26/2025 01:59 PM EDT
== END 2025-07-26 11:34 | disposition home or self-care (01) ==
LOC: HO.XRAY 11:33
PROVIDERS: PCP Internal Medicine; Visit Provider Internal Medicine
DX: M79.675 Pain in left toe(s) (principal)
CPT/HCPCS: 73660

== ENCOUNTER → 2025-07-26 11:50 | Outpatient (BNV) | payer OTHER, SELFPAY | PROVIDERS: PCP Internal Medicine; Visit Provider Radiology Diagnostic Ultrasound | DX: M19.072 Primary osteoarthritis, left ankle and foot (principal) | CPT/HCPCS: 73660 ==

== ENCOUNTER → 2025-08-02 07:45 | Outpatient (REF) | payer OTHER, SELFPAY ==
--- NOTE | 2025-08-02 07:47 | CA_ITS ---
Transthoracic Echocardiogram Patient (Last, First, Middle): Adelaida Lehman, Gender: F Date of : 1965 Age: 59 Procedure Date: 08/02/2025 Procedure Type: Transthoracic Echocardiogram Location: OP Height: 154.94 cm Weight: 77.11 kg BSA: 1.76 m2 Heart Rate: bpm BP: 110 / 70 mmHg Nut Grinder: LEANDER Referring MD: Jurgen Kerr MD Symptoms: Q21.10 ATRIAL SEPTAL DEFECT. Study Quality: Fair, contrast ECG Rhythm: Sinus Conclusions: - The left ventricular systolic function is mildly decreased. The calculated ejection fraction is 47% by biplane method. - The basal inferior and basal inferoseptal segments are akinetic. - The basal inferolateral segment is dyskinetic. - No obvious valvular pathology seen on this study. Findings Procedure Information Contrast agent, definity, is being given per protocol without apparent complications. Left Ventricle Normal left ventricular cavity size. There is normal left ventricular wall thickness. The left ventricular systolic function is mildly decreased. The calculated ejection fraction is 47% by biplane method. There is evidence of regional wall motion abnormalities. Wall Motion Rest Echo Findings The basal inferior and basal inferoseptal segments are akinetic. The basal inferolateral segment is dyskinetic. Right Ventricle Moderately increased right ventricular cavity size. There is low normal right ventricular systolic function. Atria The left atrium is mildly dilated. The right atrium is severely dilated. No obvious residual ASD. Aortic Valve There is a normal trileaflet aortic valve. There is no aortic valve stenosis. There is no aortic valve regurgitation. Mitral Valve The mitral valve appears normal. There is no mitral valve regurgitation. There is no mitral valve stenosis. Pulmonic Valve The pulmonic valve is likely normal. Tricuspid Valve There is mild tricuspid valve regurgitation. There is no evidence of pulmonary hypertension. Great Vessels The asc aorta and aortic arch are normal in size. Venous The inferior vena cava is normal in size and collapses greater than 50% with inspiration. Pericardium/Pleural There is no evidence of pericardial effusion. Prior Study Comparison No significant change compared to prior study dated: 03/09/2024. LVEF, wall motion, mostly similar to prior study. Images reviewed. Recommendations, Care & Conclusions No obvious valvular pathology seen on this study. Measurements 2D Linear Measurements IVSd: 0.88 0.6-0.9/0.6-1.0 cm LVIDd: 4.19 3.9-5.3/4.2-5.9 cm LVIDd Index: 2.38 2.4-3.2/2.2-3.1 cm/m2 LVIDs: 2.89 2.0-3.6 cm LVPWd: 1.00 0.7-1.1 cm LA Diam: 3.70 2.7-3.8/3.0-4.0 cm LAIDs Index: 2.10 1.5-2.3 cm/m2 LV Mass: 155.86 67-162/88-224 g LV Mass Index: 88.56 43-95/49-115 g/m2 LVOT Diam: 2.10 3.0+(-)1.3 cm 2D Systolic Function EF 4C: 47.30 >55% EF 2C: 49.50 >55% EF BiP: 47.30 >55% Mitral Valve MV Pk E: 0.68 MV PK A: 0.83 MV Decel Time: 243.00 E/A: 0.80 E'Lateral: 10.00 E'Medial: 7.07 E/E' Med: 9.60 E/E' Lat: 6.80 PHT: 71.00 MVA PHT: 3.10 Decel Early: 2.79 Aortic Valve AoV Pk Chito: 1.39 AoV Mn Chito: 1.01 AoV VTI: 0.31 AoV Pk Grad: 8.00 Aov Mn Grad: 4.00 DUGLAS Cont.VTI: 2.12 LVOT LVOT Pk Chito: 0.91 LVOT Mn Chito: 0.66 LVOT VTI: 0.19 LVOT Pk Grad: 3.00 LVOT Mn Grad: 2.00 LVOT Diam: 2.10 LVOT Area: 3.46 Diastolic Function MV Pk E: 0.68 MV Pk A: 0.83 E/A: 0.80 E'Medial: 7.07 E/E' Med: 9.60 E' Laterial: 10.00 E/E' Lat: 6.80 Right Ventricle TAPSE (mm): 18.90 TVS' Chito: 9.79 Tricuspid Valve TR Pk Chito: 2.35 TR Pk Grad: 22.00 RA Press: 3.00 RVSP: 25.00 Great Vessels Aorta Sinus of Valsalva: 3.08 2.0-3.[address] Ridge: 2.63 1.7-3.4 cm Ao Asc: 3.30 2.1-3.4 cm Ao Arch: 3.00 Pulmonary Veins Pulm Vein S/D 1.30 Updated in Other Vendor System with Status of Final Jeff Hernandez MD electronically signed on 08/04/2025 11:26:12 AM with status of Final
--- OUTSIDE RECORDS SUMMARY | 2025-08-02 07:48 | XMS_ITS | Data Portability ---
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 MODERATE MUST MEET 2 OUT OF [...] Lab CMP, serum or plasma 2024 025 [facility], [address] [place] [address], [place], [address], 02/13/2025 13:52:37 CBC 2024 025 [facility], [address] [place] [address], [address], 02/07/2025 10:26:32 lipid panel, blood 2024 025 [facility], [address] [place] [address], [address], 02/07/2025 10:26:31 Referral orthopedi c foot/ankl e surgeon referral 2024 025 [facility] Estevan Garrido MD, [address] [facility]ber Deshpande, [address], [place], [address], 06/13/2025 08:29:47 orthopedi c spine surgeon referral 2024 025 [facility], [address] [place] [address] [place], [address], 12/23/2024 08:06:48 Procedures None recorded. Surgeries None recorded. Imaging US, echocardi ogram, transthor acic, complete, w/ color flow 2024 025 [email or web address] 10 [facility], [address] [place] [address], [address], 06/16/2025 08:40:01 US, echocardi ogram, transthor acic, complete, w/ color flow 2024 025 [facility], [address] [place] [address], [address], 02/21/2025 08:02:58 XR, hand, 3 or more view 2024 025 [facility], [address] [place] [address], [address], 02/10/2025 08:18:48 XR, foot, 3 or more view 2024 025 [facility], [address] [place] [address], [address], 02/10/2025 08:35:30 XR, cervical spine, 2 or 3 view 2024 025 [facility], [address] [place] [address], [address], 10/10/2024 14:59:01 XR, sternocla vicular joint(s) 2024 025 [facility], [address] [place], [address], 10/11/2024 06:45:57 Medication Orders losartan 100 mg-hydroc hlorothia zide 25 mg tablet 2024 025 [facility] #[id number], [address], [place], [id number], 06/02/2025 15:42:22 citalopra m 20 mg tablet 2024 025 [facility] #[id number], [address], [place], [id number], 06/02/2025 15:42:22 prednison e 20 mg tablet 2024 025 [facility] #[id number], [address], [place], [id number], 06/02/2025 15:13:08 baclofen 20 mg tablet 2024 025 [facility] #71801, [address], [place], [id number], 10/31/2024 14:59:46 tizanidin e 4 mg tablet 2024 025 [facility] #[id number], [address], [place], [id number], 10/31/2024 14:57:26 Patient TargetsNo targets recorded. Patient Instructions Encounter Date Encounter Id Patient Instructions Last Modified By Organization Details Last Modified Time 10/07/2024 [id number] sternoclavicular joint separation: rehab exercises Not available 10/07/2024 15:42:12 02/07/2025 [id number] atrial septal defect: care instructions Not available 02/07/2025 10:25:45 06/02/2025 [id number] atrial septal defect: care instructions Not available 06/02/2025 15:40:32 Reason for Referral Orthopedic Spine Surgeon Ref erral for Degeneration of cervical intervertebral disc degenerative changes in the cervical spine, persistant pain Referring Physician: Lazaro Pollock, Internal Medicine, Encounter Date: 11/23/2024 Orthopedic Foot/ankle Surgeo n Referral for Osteoarthritis of first metatarsophalangeal joint severe pain , worsening and now affecting gait Referring Physician: Jurgen Cabello, Internal Medicine, Encounter Date: 06/02/2025 Results Created Date Observation Date Name Description Value Unit Range Abnormal Flag Note LastModifiedBy Organization Detail LastModifiedTime 10/10/1910/10/2024 XR, cervi radha spine , 2 or 3 view No observ ation record ed. [address] (Medical Records) [address] [place], [address], 10/12/2024 10:27:51 10/10/19 25 10/10/2024 XR, rao oclav icula r joint (s) No observ ation record ed. [address] [facility] [address] [place], [address], 10/12/2024 10:27:51 11/01/19 25 10/24/2024 MAMMO , scree marbella, digit al, bilat eral No observ ation record ed. [email or web address] [facility] [address] [place], [address], 11/01/2024 13:42:45 12/27/19 25 12/23/2024 XR, shoul neeraj, 2 or more view No observ ation record ed. [email or web address] [facility] (Medical Records) [address] [place], [address], 12/27/2024 09:38:17 02/11/20 25 02/10/2025 XR, foot, 3 or more view No observ ation record ed. [address] (Medical Records) [address] [place], [address], 02/16/2025 22:08:36 02/11/20 25 02/10/2025 XR, hand, 3 or more view No observ ation record ed. [address] (Medical Records) [address] [place], [address], 02/16/2025 22:08:36 02/17/20 25 02/16/2025 MRI, shoul neeraj, w/ contr ast No observ ation record ed. [facility] (Medical Records) [address] [place], [address], 02/16/2025 20:17:52 07/26/2007/26/2025 XR, toe(s ), 2 or more view No observ ation record ed. [address] (Medical Records) [address] [place], [address], 08/01/2025 05:56:29 Result Notes None recorded. Problems Name Problem SNOMED Code Status Onset Date Resolution Date Notes Provider Name and Address Organization Details Recorded Time Essential hypertens ion 16624757 Active 2017 Traci packer [facility] 8 08:33:23 Atrial septal defect 45825258 Active 2017 repair 2001 Traci packer [facility] 8 08:33:49 Depressiv e disorder 77533646 Active [address], [address], [facility] 8 10:10:58 Herpes labialis 6123439 Active [address], [address], [facility] 8 10:11:16 B12 deficienc y monitorin g Active 2018 Jurgen Cabello, DO [address] [place] [address], [address], [facility] 9 10:28:25 Impingeme nt syndrome of right shoulder region 52089429793 9102 Active 2019 Jurgen Cabello, DO [address] [place], [address], [facility] 0 14:06:16 Atypical chest pain 448220546 Active 2021 ANNA GRAHAM [address] [place] [address], [address], [facility] 2 15:46:38 Thoracic back pain 692950741 Active 2021 ANNA GRAHAM [address] [place] [address], [address], [facility] 2 15:48:31 Traumatic hematoma 548540933 Active 2021 ANNA GRAHAM [address] [place] [address], [address], [facility] 2 15:51:25 Degenerat ion of lumbar intervert ebral disc 28856325 Active 2021 ANNA GRAHAM [address] [place] [address], [address], [facility] 2 15:13:29 Degenerat ion of thoracic intervert ebral disc 29292446 Active 2021 ANNA GRAHAM [address] [place] [address], [address], [facility] 2 15:15:55 Degenerat ion of cervical intervert ebral disc 84303066 Active 2021 ANNA GRAHAM [address] [place], [address], [place] [facility] 2 15:16:25 Insect bite reaction 539353122 Active 2021 ANNA GRAHAM [address] [place] [address], [address], [facility] 2 10:16:26 Chest pain 88008799 Active 2021 Jurgen Cabello, [address], [address], [facility] 2 14:31:41 Rosacea 705262804 Active 2021 Jurgen Cabello, DO [address] [place] [address], [address], [facility] 2 14:36:14 Atelectas is 27192591 Active 2021 ANNA GRAHAM [address] [place] [address], [address], [facility] 2 12:38:53 Infection of tooth 267670202 Active 2021 ANNA GRAHAM [address] [place] [address], [address], [facility] 2 14:44:39 Tendiniti s of left wrist region 01666434682 749600 Active 2021 ANNA GRAHAM [address] [place] [address], [address], [facility] 2 14:46:38 Cough 60384012 Active 2021 Jurgen Cabello, DO [address] [place] [address], [address], [facility] 2 10:08:01 Migraine 10761075 Active 2022 ANNA GRAHAM [address] [place] [address], [address], [facility] 3 14:15:45 Thyroid nodule 567191392 Active 2022 ANNA GRAHAM [address] [place] [address], [address], [facility] 3 14:16:32 Hypertens jessica urgency 135195722 Active 2022 ANNA GRAHAM [address] [place] [address], [address], [facility] 3 14:17:53 Acute bronchiti s 20816547 Active 2022 ANNA GRAHAM [address] [place] [address], [address], [facility] 3 11:15:06 Pneumonia 030712943 Active 2022 Jurgen Cabello DO [address] [place] [address], [address], [facility] 3 14:52:40 Postmenop ausal osteopeni a 136914086 Active 2022 Jurgen Cabello DO [address] [place] [address], [address], [facility] 3 12:15:54 Streptoco ccal sore throat 31264508 Active 2022 ANNA GRAHAM [address] [place] [address], [address], [facility] 3 09:44:44 Pain of multiple joints 91783238 Active 2022 Jurgen Cabello DO [address] [place] [address], [address], [facility] 3 17:01:56 Hand pain 04577935 Active 2022 Jurgen Cabello DO [address] [place] [address], [address], [facility] 3 10:06:34 Hand pain 71513038 Active 2022 Jurgen Cabello DO [address] [place] [address], [address], [facility] 3 10:06:44 Osteoarth ritis of joint of bilateral hands 56696695724 9109 Active 2022 Jurgen Cabello, DO [address] [place], [address], [facility] 3 23:21:07 Bilateral lung opacities on plain chest X-ray 720069142 Active 2022 Jurgen Cabello, DO [address] [place] [address], [address], [facility] 3 22:27:13 Epigastri c pain 62387542 Active 2022 Jurgen Cabello, DO [address] [place] [address], [address], [facility] 3 10:05:33 Idiopathi c acute pancreati tis 387552803 Active 2022 Jurgen Cabello, DO [address] [place] [address], [address], [facility] 3 15:04:37 Recurrent pancreati tis 244822157 Active 2023 Jurgen Cabello, DO [address] [place] [address], [address], [facility] 4 11:45:37 Pain of bilateral knee joints 79541222315 4104 Active 2023 ANNA GRAHAM [address] [place] [address], [address], [facility] 4 12:04:43 Pain of left knee joint 36424456804 4107 Active 2023 ANNA GRAHAM [address] [place] [address], [address], [facility] 4 12:05:12 Pain of right knee joint 67534520668 4100 Active 2023 ANNA GRAHAM [address] [place] [address], [address], [facility] 4 12:05:24 Acute tear of lateral meniscus of left knee 13775358012 002622 Active 2023 Jurgen Cabello, DO [address] [place] [address], [address], [facility] 4 10:05:13 Spasm of cervical paraspino us muscle 469504715 Active 2024 Jurgen Cabello, DO [address] [place] [address], [address], [facility] 5 15:37:00 Sternocla vicular sprain 901455948 Active 2024 Jurgen Cabello, DO [address] [place] [address], [address], [facility] 5 15:39:39 Pain of left shoulder joint 57011740722 680554 Active 2024 ANNA GRAHAM [address] [place] [address], [address], [facility] 5 15:49:59 Calcific tendiniti s of left shoulder 57131920219 9108 Active 2024 ANNA GRAHAM [address] [place] [address], [address], [facility] 5 16:35:54 Pain of toe of left foot 67185693437 9108 Active 2024 Jurgen Cabello, DO [address] [place] [address], [address], [facility] 5 10:19:51 Pain of right hand 45216446821 9109 Active 2024 Jurgen Cabello, DO [address] [place] [address], [address], [facility] 5 10:24:43 Pain of bilateral hands 73449181435 465359 Active 2024 Jurgen Cabello, DO [address] [place] [address], [address], [facility] 5 22:09:07 Acute ankle pain 23159958882 105 Active 2024 Jurgen Cabello DO [address] [place] [address], [address], [facility] 5 22:10:13 Osteoarth ritis of first metatarso phalangea l joint 685079379 Active 2024 Jurgen Cabello, DO [address] [place] [address], [address], [facility] 15:37:20 Acute low back pain 714355843 Active 2024 Jurgen Cabello, DO [address] [place] [address], [address], [facility] 14:21:38 Rib pain 359725632 Active 2024 Jurgen Cabello, DO [address] [place] [address], [address], [facility] 16:49:57 Problem Notes None recorded. Procedures Surgical History Date Name Laterality Status Provider Name and Address Organization Details Recorded Time Most Recent Mammogram completed Perla Drew [facility] 11/01/2024 13:42:26 Imaging Results None recorded. Procedure Notes None recorded. Medical Equipment None Reported. Allergies Allergen ID Allergen Name Allergen Category Reaction Reaction Severity Criticality Documentation Date Start Date Code Code System Note Provider Name and Address Organization Details Recorded Time 3725 Product containin g angiotens in-conver ting enzyme inhibitor (product) medicatio n Not available Not available Not available 06/16/2018 70637 009 [facility] 8 08:33:05 Medications Name Sig Start Date Stop Date Status Note LastModified by Organization Details LastModified Time celecoxib 200 mg capsule TK 1 C PO QD 01/13 completed Not Available Not Available Not Available cyclobenzap rine 10 mg tablet Take 1 tablet 3 times a day by oral route as needed for 10 days. 07/14 completed Not Available Not Available Not Available [...] day by oral route for 10 days. 06/02 completed Not Available Not Available Not Available amlodipine 5 mg tablet TAKE 1 TABLET BY MOUTH EVERY DAY active Not Available Not Available No t Available Tamiflu 75 mg capsule Take 1 capsule twice a day by oral route for 5 days. 12/13 completed Not Available Not Available Not Available tramadol 50 mg tablet Take 1 tablet every 6 hours by oral route as needed for 7 days. 07/11 completed Not Available Not Available Not Available [...] mg tablet TAKE 1 TABLET BY MOUTH ONCE DAILY 2024 active Not Available Not Available Not Avai lable oxycodone-a cetaminophe n 5 mg-325 mg tablet [...] BY MOUTH TWICE DAILY FOR 20 DAYS active Not Available Not Available No t Available codeine 10 mg-guaifene sin 100 mg/5 [...] 2 SPRAYS IN EACH NOSTRIL EVERY MORNING 06/02 completed Not Available Not Available Not Available naproxen 500 mg tablet TAKE 1 TABLET BY MOUTH TWICE DAILY FOR 10 DAYS active Not Available Not Available No t Available metoprolol tartrate 25 mg tablet TAKE [...] in Arterial blood by Pulse oximetry Systolic And Diastolic Provider Name and Address Organization Details Last Updated DateTime 5 154.94 cm 33.1 kg/m2 21788.6 6 g 73 /min 96 % 96 % 110/70 mm[Hg] Damaris Ma[facility] 5 15:02:49 Date Recorded Body height Provider Name an d Address Organization Details Last Updated DateTime 10/31/2024 154.94 cm Perla Mauro [facility] 10/31/2024 14:43:54 Date Recorded Body height Body mass index (BMI) Body weight Heart rate Oxygen saturation Oxygen saturation in Arterial blood by Pulse oximetry Systolic And Diastolic Provider Name and Address Organization Details Last Updated DateTime 5 154.94 cm 32.5 kg/m2 00294.8 9 g 68 /min 98 % 98 % 116/72 mm[Hg] Perla Joy [facility] 5 14:17:29 Date Recorded Body height Body mass index (BMI) Body weight Heart rate Oxygen saturation Oxygen saturation in Arterial blood by Pulse oximetry Systolic And Diastolic Provider Name and Address Organization Details Last Updated DateTime 5 154.94 cm 32.1 kg/m2 65151.7 g 66 /min 98 % 98 % 100/64 mm[Hg] Damaris Duranmond [facility] 5 10:01:15 Date Recorded Body height Body mass index (BMI) Body weight Oxygen saturation Oxygen saturation in Arterial blood by Pulse oximetry Heart rate Provider Name and Address Organization Details Last Updated DateTime 5 154.94 cm 33.3 kg/m2 83668.9 8 g 94 % 94 % 76 /min Vane Hendricks [facility] 5 15:15:12 Social History Question Answer Notes LastModified by Organizat ion Details LastModified Time Tobacco Smoking Status Never Smoker Not Available [employer] 08/07/2020 03:36:23 What Was The Date Of Your Most Recent Tobacco Screening? 06/02/2025 [email or web address] Information not available 06/02/2025 Sex: Unknown Functional Status Question Answer Note LastModified by Organization D etails LastModified Time Do you or have you ever used any other forms of tobacco or nicotine? No [email or web address] Information not available 01/27/2023 Mental Status None recorded. Family History Nothing Reported. Medical History No medical history recorded. Gynecological History Statement/Question Response Most Recent Mammogram 10/24/2024 Obstetrics History GPAL:G 0 P 0 0 0 0 Immunizations Vaccine Type Date Status Note Provider Nam e and Address Organization Details Recorded Time COVID-19 vaccine, vector-nr, rS-Ad26, PF, 0.5 mL 01/09/2021 completed Marika packer [facility] 01/13/2022 08:29:14 COVID-19, mRNA, LNP-S, PF, 30 mcg/0.3 mL dose 10/14/2021 completed Marika Dash [facility] 01/13/2022 08:29:30 Past Encounters Encounter ID Performer Location Encounter Start Date Encounter Closed Date Diagnosis/Indication Diagnosis SNOMED-CT Code Diagnosis ICD10 Code Diagnosis IMO Codes Diagnosis Note [id number] Jurgen Cabello [facility] [address] [facility] [address] 06/16/2018 13:56:07 06/16/2018 14:39:35 Essential hypertension 35410644 I10 Atrial septal defect 701 85107 Q21.1 Pain in right knee 40851 83063 12097 M25.561 Intermitte nt palpitations 404945380 R00.2 [id number] Jurgen Cabello [facility] [address] [facility],[place] [address] 08/04/2018 14:10:59 08/04/2018 14:57:40 Tear of medial meniscus of knee 675915958 S83.241A Atrial septal defect 701 61855 Q21.1 the recent echo revealed a stable hemodynami oc picture with a mild decrease in sys funct EF but overall otherwise stable [id number] Jurgen Cabello [facility] [address] [facility],[place] [address] 08/09/2018 10:00:14 08/09/2018 10:57:48 Essential hypertension 57204161 I10 stable Herpes labialis 5360922 B00.[address] -f/u if this does not resolve Cough 24856296 R05 lingering cough after almost complete resolution of recent cold f/u if sx change or worsen [id number] Jurgen Cabello [facility] [address] [facility],[place] [address] 08/13/2018 13:59:13 08/13/2018 15:39:05 Pain in right knee 7162044515 73602 M25.561 [id number] Jurgen Cabello [facility] [address] [facility],[place] [address] 08/31/2018 14:10:51 08/31/2018 15:51:22 Tear of lateral meniscus of knee 224936774 S83.281A will refer to ortho as she is going to need an arthroscop y carley [id number] Jurgen Yuan Cirilo [facility] [address] [place] [address],[place] [address] 12/31/2018 14:27:05 12/31/2018 15:38:36 Hypoglycemia 720294988 E16.2 [id number] Jurgen Yuan Cirilo [facility] [address] [place] [address],[place] [address] 02/02/2019 14:45:42 02/02/2019 15:13:15 Tear of medial meniscus of knee 020823546 S83.241A here for recjk reviewed her prior surg and sergio told her we will give her a kenalog inj when she is ready Osteopenia 344557737 M85 .80 bmd is good [id number] Jurgen Cabello [address],[place] [address] 03/22/2019 09:54:18 03/22/2019 10:32:26 Adult health examination 461034977 Z00.00 would like to check for anemia given weakness and fatigue will also need to get he echo Active or passive immunization 437253925 Z23 utd Atrial septal defect 701 27027 Q21.1 the last echo revealed a stable hemodynami oc picture with a mild decrease in sys funct EF but overall otherwise stable [id number] Jurgen Lissy Cabello [facility] [address],[place] [address] 06/13/2019 15:28:59 06/13/2019 16:42:50 Vitamin B12 deficiency (non anemic) 68014154 E53.8 feeling better doing good Vitamin D deficiency 347 24314 E55.9 will chk level Adult heal th examination 318766433 Z00.00 would like to check for anemia given weakness and fatigue will also need to get he echo [id number] [facility] [address] [facility],[place] [address] 08/19/2019 09:56:57 08/19/2019 10:41:00 Essential hypertension 08742470 I10 bp is stable no issues there Cough 62521396 R05 getting worse and has had for >2 weeks need to treat as she gets this and quickly develkops pneumonia Biceps tendinitis 223770 007 M75.21 Vitamin D deficiency 347 75020 E55.9 will chk level [id number] Jurgen Cabello DO [facility] [address] [facility] [address] 11/09/2019 10:22:44 11/09/2019 12:06:06 Biceps tendinitis 532978759 M75.21 Melox did not improve sx sounds like she prob tore sonething we will have ot have her see spec Fatigue 42112017 R53.83 will check the blood work Localized visual field defect 327521829 H53.459 occurred after standing i believe this was prob related to bp drop she has had no sequelae and is asymptomat ic since knows to gotoER if and y further change Anxiety 67734918 F41.9 flying on airplane lorazepam [id number] Jurgen Cabello DO [facility] [address] [facility] [address] 12/14/2019 10:06:13 12/14/2019 11:03:08 Epigastric pain 36394904 R10.13 must chreck the gall bladder Pain of mu ltiple joints 55301968 M25.50 new onset joint disease? Pain of ri ght shoulder joint 8290444275 1850783 M25.511 could be djd vs inflammato ry [id number] Jurgen Cabello DO [facility] [address] [facility] [address] 01/02/2020 15:35:23 01/02/2020 16:44:42 Traumatic hematoma 853635078 T14.8XXA sublingual hematoma after shutting right thumb in the car door yesterday will XR to make sure nothing is broken and give diclofenac as pain reliever will f/u with pt after with XR results [id number] Jurgen Cabello DO [facility] [address] [facility] [address],[place] [address] 01/03/2020 13:41:47 01/03/2020 14:06:05 Essential hypertension 78691104 I10 bp is stable no issues there Atrial septal defect 701 02643 Q21.1 the last echo revealed a stable hemodynami oc picture with a mild decrease in sys funct EF but overall otherwise stable Osteoarthr itis of joint of hand 86896203 M19.049 will cont to treat conserv with otc meds prn Subacromia l bursitis of right shoulder 6737450326 216652 M75.51 after discussion she understand s to call for cortisone shot if the meds are not helping [id number] [facility] [address] [facility] [address] 06/18/2020 13:39:48 06/18/2020 14:29:23 Adult health examination [id number] Z00.01 overall is stable but her osteoarthr itis is bothering her more Active or passive immunization 776670155 Z23 utd Osteoarthritis 156543140 M19.90 SHE has noted disease hands back and feet will try celecoxib Atrial septal defect 701 06235 Q21.1 the last echo revealed a stable hemodynami c picture with a mild decrease in sys funct EF but overall otherwise stable Alopecia 59029150 L65.9 [place] [address]244 [facility] [address],[place] [address] 07/30/2020 10:57:23 07/30/2020 11:32:05 Pain of right hand 7882108685 32420 M79.641 Alopecia areata 32381929 L63.9 81823 [facility] [address] [facility],[address] [place] [address] 09/26/2020 10:20:15 09/26/2020 11:17:50 Depressive disorder 51559654 F32.9 Essential hypertension 93724557 I10 bp is stable no issues there Partial th ickness rotator cuff tear 271881644 M75.101 54295 [facility] [address] [facility],[place] [address] 11/27/2020 11:07:05 11/27/2020 12:12:40 Insect bite reaction 882951810 T63.481A resolved with abx Cellulitis 923954853 L03 .90 resolved with abx no other interventi on required at this time Essential hypertension 29013145 I10 stable today at appt no change or interventi on necessary Depressive disorder 3548 9007 F32.9 stable today at appt no change or interventi on necessary [id number] Jurgen Cabello [facility] Internal Medicine [address] [address] 12/11/2020 10:21:25 12/11/2020 11:17:19 Visual disturbance 02577512 H53.9 having flashes in visual field during episodes Dizziness 460327951 R42 she has the dizziness during the episodes with spacey feeling Ataxia 79756899 R26.0 sudden and episodic 25423 Jurgen Cabello [facility] Internal Medicine [address] [place] [place] [address] 02/05/2021 16:14:15 02/05/2021 16:56:51 Ataxic [address] 63125771 R26.0 ct negative will follow as neces seems to be better offf the metoprolol Alopecia 50842905 L65.9 markedly better now off metoprolol Essential hypertension 65365176 I10 bp ios borderline sometimes nowe off metoprolol will follow and cont the Hyzaar Submandibu lar salivary gland swelling 997578151 K11.9 on right 30150 Jurgen Cabello [facility] Internal Medicine [address] [facility],[address] [facility] [place] [address] 04/19/2021 09:30:06 04/19/2021 10:43:25 Submandibular salivary gland swelling 622018912 K11.9 on right will treat with amox next time she swells Derangemen t of lateral meniscus 28868304 M23.309 92356 Jurgen Cabello [facility] Internal Medicine [address] [facility],[address] [place] [place] [address] 09/23/2021 08:46:54 09/23/2021 16:30:33 Atrial septal defect 74113657 Q21.1 the last echo revealed a stable hemodynami c picture with a mild decrease in sys funct EF but overall otherwise stable so we will have to [place] [address] Jurgen Cabello DO [facility] Internal Medicine [address] [facility] [address],[place] [address] 11/05/2021 08:35:27 11/06/2021 08:52:18 Pain of multiple joints 85224535 M25.50 new onset joint disease? Atrial septal defect [address] appt for follow up on her asd awaiting her echo Essential hypertension 01185574 I10 bp ios borderline sometimes nowe off metoprolol will follow and cont the Hyzaar Eczema of scalp 96179110 13 2100 L30.9 16826 Jurgen Cabello [facility] Internal Medicine [address] [facility] [address],[place] [address] 01/13/2022 15:17:04 01/15/2022 08:49:25 Active or passive immunization 114768093 Z23 advised Adult heal th examination 038843689 Z00.00 BP is excellent Atypical chest pain 1025 97563 R07.89 will need fu with cardiology > needs new cardio due to new insurance > will fu with Karishma andrea [place] Thoracic back pain 45531 8004 M54.6 will fu with XR thoracic back for pain along T5 T 6 45315 Jurgen Cabello DO [facility] Internal Medicine [address] [facility] [address],[place] [address] 01/22/2022 10:03:12 01/22/2022 11:17:04 Insect bite reaction 768281774 T63.481A will start on doxycyclin e and betamethas one Herpes labialis 0615628 B00.1 will start on valtrex 53126 Jurgen Cabello [facility] Internal Medicine [address] [facility] [address],[place] [address] 03/26/2022 14:05:51 03/26/2022 14:47:40 Chest pain 13452108 R07.9 occurs on the left anterior region Atrial septal defect [address] appt for follow up on her asd awaiting her echo Essential hypertension 24763820 I10 bp ios borderline sometimes nowe off metoprolol will follow and cont the Tonny Zambrano 715669701 L71.9 60400 Jurgen Cabello [facility] Internal Medicine [address] [facility] [address] [facility] [place] [place] [address] 06/16/2022 14:33:24 06/16/2022 14:47:40 Infection of tooth 070236808 K04.7 will trial amox and medrol Tendinitis of left wrist region 7451833058 3086675 M67.834 will update me after the medrol dose purvi 28703 Jurgen Cabello [facility] Internal Medicine [address] [facility],[address] [facility] [place] [address] 10/22/2022 13:55:06 10/22/2022 15:27:58 Migraine 82521711 G43.009 will set up with work up to r/o anything triggering the migraine Essential hypertension 15048015 I10 stable today at appt no change or interventi on necessary Thyroid nodule 967929869 E04.1 will check his TSH Hypertensive urgency 443 237679 I16.0 will start on clonidine PRN for the high spikes 99330 Jurgen Cabello [facility] Internal Medicine [address] [facility] [address] [facility] [place] [address] 11/10/2022 09:06:07 11/10/2022 11:55:24 Acute bronchitis 10913894 J20.8 will start on prednsione and z pakif needed will set up with XR if her symptoms 92733 Jurgen Cabello [facility] Internal Medicine [address] [facility] [address],[place] [address] 01/27/2023 10:43:02 01/27/2023 12:17:21 Active or passive immunization 500758686 Z23 utd Adult heal th examination 056149159 Z00.00 overall is stable but her osteoarthr itis is bothering her more Atypical chest pain 1025 42732 R07.89 this appears to be costochond ral but given prior open heart surgery we will treat it accordingl y but in meantime we will get ct scan Thyroid nodule 810009383 E04.1 we will repeat US in 1 year feb Atrial septal defect 701 46187 Q21.10 Postmenopa usal osteopenia 330804263 M85.80 47756 Jurgen Cabello [facility] Internal Medicine [address] [facility] [address],[place] [address] 03/27/2023 15:54:54 03/27/2023 17:11:19 Atypical chest pain 935593908 R07.89 this appears to be costochond ral but given prior open heart surgery we will treat it accordingl y but in meantime we will get ct scan Atrial septal defect [address] is excellent Postmenopa usal osteopenia 677829946 M85.80 stable rev bmd Pain of mu ltiple joints 30459645 M25.50 new onset joint disease? [id number] Jurgen Cabello [facility] Internal Medicine [address] [facility],[place] [address] 09/15/2023 14:36:50 09/16/2023 08:14:04 Essential hypertension 08312644 I10 bp ios borderline sometimes nowe off metoprolol will follow and cont the Hyzaar Bilateral lung opacities on plain chest X-ray 265849285 R91.[address] scan is clear Idiopathic acute pancreatitis 210041845 K85.00 we will need to do a follow up and US and lab [id number] Jurgen Cabello [facility] Internal Medicine [address] [facility] [address],[place] [address] 10/02/2023 09:32:34 10/02/2023 15:55:11 Idiopathic acute pancreatitis 465931312 K85.00 we will need to do a follow up and US and lab Cough 44776228 R05.9 [id number] Jurgen Cabello [facility] Internal Medicine [address] [facility] [address],[place] [address] 02/02/2024 09:52:18 02/02/2024 10:47:25 Active or passive immunization 903712959 Z23 utd Adult heal th examination 163542526 Z00.01 overall is stable but her osteoarthr itis is bothering her more Essential hypertension 92548379 I10 bp ios borderline sometimes nowe off metoprolol will follow and cont the Hyzaar Atrial septal defect [address] is excellent 569102 Jurgen Cabello [facility] Internal Medicine [address] [facility], [address] [place] [facility] [place] [address] 05/09/2024 11:34:40 05/09/2024 13:49:20 Pain of bilateral knee joints 9865163916 77712 M25.561 Pain of le ft knee joint 6318936671 48873 M25.562 will set up with MRI knee (bilateral ) Pain of ri ght knee joint 2126666372 17839 M25.561 will f/u with MRI for the knees 165339 Jurgen Cabello [facility] Internal Medicine [address] [facility], it[address] [facility] [place] [address] 07/01/2024 08:52:37 07/01/2024 10:25:29 Depression screening 738712837 Z13.31 neg Essential hypertension 22063436 I10 bp is great 110/70 will follow and cont the Hyzaar Acute tear of lateral meniscus of left knee 3791755875 0297727 S83.282A 298004 Jurgen Cabello [facility] Internal Medicine [address] [facility] [address] 10/07/2024 14:57:48 10/07/2024 15:48:25 Spasm of cervical paraspinous muscle 304569087 M62.838 Sternoclav icular sprain 427456883 S23.420A 742181 Jurgen Cabello [facility] Internal Medicine [address] [facility],[address] [facility] [place] [address] 10/31/2024 14:34:01 10/31/2024 16:08:52 Thoracic back pain 449595734 M54.6 start on meds 963605 Jurgen Cabello [facility] Internal Medicine [address] [facility] [address],[place] [address] 11/23/2024 14:05:03 11/23/2024 14:47:13 Degeneration of cervical intervertebral disc 96214749 M50.321 will have her restart the diclofenac and recommende d ortho eval for injections [id number] Jurgen Cabello [facility] Internal Medicine [address] [facility] [address],[place] [address] 02/07/2025 09:49:14 02/07/2025 10:45:14 Active or passive immunization 357986594 Z23 utd Acute tear of lateral meniscus of left knee 1273065874 3681474 S83.282A Essential hypertension 78181397 I10 add amlodipine General ex amination of patient 980580419 Z00.01 03360243 overall is stable but her osteoarthr itis is bothering her more Pain of to e of left foot 6718459018 10603 M79.675 961487 Pain of right hand 18449 67805 82327 M79.641 787090 Atrial septal defect [address] is excellent 427331 Jurgen Cabello [facility] Internal Medicine [address] [facility] [address],[place] [address] 06/02/2025 15:08:17 06/02/2025 15:59:01 Depression screening 685974006 Z13.31 neg Essential hypertension 50401518 I10 add amlodipine Osteoarthr itis of first metatarsophalangeal joint 682745635 M19.079 94932540 Atrial septal defect 701 71189 Q21.10 doing ok but having more dyspnea with exertion Depressive disorder 3548 9004 F32.9 Health Concerns Section Related Observation LastModified by Organization Detai ls LastModified Time None Recorded Concern Status LastModified by Organization Details LastModified Time None Recorded Advance Directives Directive None Recorded Payers Insurance Date Sequence Insurance Name Policy Number Policy Tyler Covered Member ID Tyler Member ID Guarantor Name 06/02/2025 1 [facility] [employer] - DIRECT CONNECTORCARE TYPE I (HMO) [id number] Adelaida Recinos [id number] Adelaida Recinos 10/21/2023 SLIDING FEE SCHEDULE - DISCOUNT Adelaida Recinos 06/02/2025 2 [facility] - DIRECT CONNECTORCARE TYPE I (HMO) Adelaida Recinos [id number] Adelaida Recinos 06/02/2025 1 [facility] - TOGETHER (MEDICAID HMO) Adelaida Recinos [id number] Adelaida Recinos 06/02/2025 1 [place] PRIOR TO 2023 - [facility] (MEDICAID) Adelaida Recinos [id number] Adelaida Recinos 06/02/2025 1 [place] [facility] Adelaida Recinos [id number] Adelaida Recinos Notes Date Note Type Note Provider Name and Address Organization Details Recorded Time 10/07/19 25 text/htm l ROS as noted in the HPI here for eval of some discomfort in her left neck states now has noted a fullness to this area and a pain behind her left cervical neckarea of her lefthas discomfort and prominence to her left cleido sternal joint Jurgen Cabello, [address] [facility], [place], [address], [facility] Internal Medicine 10/07/2024 15:43:00 10/31/19 25 text/htm l ROS as noted in the HPI c/o back pain upper thoracic back painreproducible with palpation of the upper back muscles 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, lifts them a lototherwise no inciting event ie no trauma or injury start on pred and msk relaxercan use heat and ice limit lifting over ten pounds ANNA GRAHAM [address] [facility], [place], [address], [facility] Internal Medicine 10/31/2024 15:02:37 11/23/19 25 text/htm l ROS as noted in the HPI c/o neck pain continues recommended f/u with [...] that was the most effective for her LAZARO CARPENTERANNA AYALA [address] [place], [address], [facility] Internal Medicine 11/23/2024 14:40:37 02/08/20 25 text/htm l Annual WellnessReported by PatientSocial/Behavioral HistoryFor diet and nutrition, patient reportshealthy diet. For fracture risk, patient reportsno history of fractures,no recent explained fracture,no sudden unexplained fractures, andno previous musculoskeletal injuries. For physical activity, patient reportsexercises on a regular basis,recent increase in physical activity, andgood physical condition. For additional lifestyle factors, patient reportsno tobacco use,no alcohol intake, andstopped drinking alcohol.Mental Status:For depression risk, patient reportsnever feels sad, empty, or tearful,no loss of interest in activities,no significant changes in weight,no sleep disturbances or insomnia,no agitation,no loss of energy,no feelings of worthlessness or guilt,no thoughts of suicide,no history of depression, andno history of mood disorders.Functional AbilityFor hearing, patient reportsno loss of hearing. For vision, patient reportsno vision problems. Care Management - HypertensionReported by PatientHPIFor self care, patient reportsnot under emotional stress. For severity, patient reportssymptoms are improvinganddoes not interfere with daily activities. For associated symptoms, patient reportsno dizziness,no lightheadedness,no chest pain,no shortness of breath,no palpitations,no edema,no calf muscle cramps,no blurred vision,no confusion,no headaches, andno fatigue. Jurgen Cabello, [address] [place], [address], [facility] Internal Medicine 02/07/2025 10:31:27 06/02/20 25 text/htm l Care Management - HypertensionReported by PatientIFor self care, patient reportsnot under emotional stress. For severity, patient reportssymptoms are improvinganddoes not interfere with daily activities. For associated symptoms, patient reportsno dizziness,no lightheadedness,no chest pain,no shortness of breath,no palpitations,no edema,no calf muscle cramps,no blurred vision,no confusion,no headaches, andno fatigue.ROS as noted in the HPI having a great deal of pain to her left great toe jointvery uncomfortablesorehurts bad at night Jurgen Cabello, DO [address] [facility], [place], [address], [facility] 06/02/2025 15:42:58 OBGyn Episode No OBEpisode recorded.
--- OUTSIDE RECORDS SUMMARY | 2025-08-02 07:48 | XMS_ITS | Encounter Summary ---
Author Organization [facility] Address [address] [place] [address] Phone Care Team Providers Care Wire Drawing Die Maker Name Role Phone Jurgen Kerr DO Primary Care Provider [phone] Encounter Details Date Type Department Care Team (Late st Contact Info) Description 07/24/2025 Transcribe Orders Virtual Department [address] [place] [address] Jurgen Kerr DO [address] [facility] [place] [address] [email or web address] Rib pain on right side (Primary Dx); Other chest pain Social History Tobacco Use Types Packs/Day Years Used Date Smoking Tobacco: Never Smokeless Tobacco: Never Education Answer Date Recorded Are you interested [...] on file Sexual Orientation Not on file documented as of this encounter Plan of Treatment Scheduled Orders Name Type Priority Associated Diagnoses Orde r Schedule XR Ribs (Right) Imaging Routine Rib pain on right side Other chest pain Expected: 07/24/2025, Expires: 07/24/2026 XR Thoracic Spine Imaging Routine Rib pain on right side Other chest pain Expected: 07/24/2025, Expires: 07/24/2026 documented as of this encounter Visit Diagnoses Diagnosis Rib pain on right side- Primary Other chest pain documented in this encounter Care Teams Wire Drawing Die Maker Relationship Specialty Start Date End Date CiriloJurgen DO Bridgette [email or web address] PCP - General 10/08/17 documented as of this encounter Additional Source Comments The information contained in this document represents components of the legal health record. It is not the complete legal health record.[facility]
--- OUTSIDE RECORDS SUMMARY | 2025-08-02 07:48 | XMS_ITS | Clinical Summary ---
Author Organization [facility] Address [address] [place] [address] Phone Care Team Providers Care Nuclear Equipment Research Engineer Name Role Phone Peacebebo Jurgen Angeles DO Primary Care Provider [phone] Allergies Active Allergy Reactions Criticality Noted Date [...] chest 07/21/202205/2023 Other chest pain 07/21/2022 2022 Encounters Date Type Department Care Team Description 07/24/2025 Transcribe Orders [facility] Department [address] [place] [address] Jurgen Kerr DO Rib pain on right side (Primary Dx); Other chest pain from Last 3 Months Family History Medical History Relation Comments Hypertension [...] topic Medical Devices Not on file Insurance [employer] NET PARTIAL Member Subscriber Plan / Payer (Ef fective 2023-Present) Name:Jorje Adelaida Relation to Subscriber:Self Name:Jorje Adelaida Payer ID:Not on file Group ID:Not on file Type:Medicaid Address: [address] DIRECT [employer] NET PARTIAL Member Subscriber Plan / Payer (Ef fective 2023) Name:Adelaida Recinos Relation to Subscriber:Self Name:Adelaida Recinos Payer ID:Not on file Group ID:Not on file Type:Medicaid Address: [address] [employer] NET PARTIAL Member Subscriber Plan / Payer ( fective 2023-) Name:Adelaida Recinos Relation to Subscriber:Self Name:Adelaida Recinos Payer ID:Not on file Group ID:Not on file Type:Medicaid Address: [address] [employer] NET PARTIAL Member Subscriber Plan / Payer (Ef fective 2023-) Name:Adelaida Recinos Relation to Subscriber:Self Name:Adelaida Recinos Payer ID:Not on file Group ID:Not on file Type:Medicaid Address: [address] [employer] NET PARTIAL Member Subscriber Plan / Payer (Ef fective 2023-) Name:Adelaida Recinos Relation to Subscriber:Self Name:Adelaida Recinos Payer ID:Not on file Group ID:Not on file Type:Medicaid Address: [address] [employer] SAF[employer] NET PARTIAL [facility] Care Teams Nuclear Equipment Research Engineer Relationship Specialty Start Date End Date Jurgen Kerr DO [email or web address] PCP - General 10/08/17 Additional Source Comments The information contained in this document represents components of the legal health record. It is not the complete legal health record.[facility]
== END ==
LOC: HO.CARD 07:45
PROVIDERS: PCP Internal Medicine; Visit Provider Internal Medicine
DX: Q21.10 Atrial septal defect, unspecified (principal)
CPT/HCPCS: 93306; Q9957

== ENCOUNTER → 2025-08-02 07:47 | Outpatient (BNV) | payer OTHER, SELFPAY | PROVIDERS: PCP Internal Medicine; Visit Provider Internal Medicine | DX: I51.7 Cardiomegaly (principal); I51.89 Other ill-defined heart diseases; I36.1 Nonrheumatic tricuspid (valve) insufficiency | CPT/HCPCS: 93306 ==

== ENCOUNTER 2025-08-10 08:46 | Outpatient (REF) | payer OTHER, SELFPAY ==
--- NOTE | ~2025-08-10 | XR_ITS ---
EXAMINATION: XR THORACIC SPINE 2 VIEWS HISTORY: PAIN IN THORACIC SPINE COMPARISON: Comparison is made with the prior examination dated 01/16/2022. FINDINGS: AP and lateral views of the thoracic spine are submitted. Osseous mineralization is normal. The vertebral bodies maintain normal height and alignment without evidence of fracture or subluxation. The intervertebral disc spaces are preserved. The visualized paraspinal soft tissues are unremarkable. XR/XR thoracic spine 2V IMPRESSION: Unremarkable examination of the thoracic spine. Electronically signed by: Rambo Villar MD 08/10/2025 09:55 AM EST
--- NOTE | ~2025-08-10 | XR_ITS ---
EXAMINATION: XR CHEST 2V XR RIBS RT 2V CLINICAL INFORMATION: RIGHT SIDED CHEST WALL PAIN COMPARISON: 10/02/2023, 08/24/2023, and 08/04/2023 chest radiographs. TECHNIQUE: 2 views of the chest were obtained. 2 views of the right ribs were obtained. FINDINGS: There has been a prior median sternotomy. Sternal wires are intact and non-migrated. There is borderline cardiac enlargement. The mediastinal and hilar contours are normal. The lungs are clear bilaterally. There is no pneumothorax or pleural effusion. There is no focal osseous or soft tissue abnormality. Ribs appear intact. There is no rib lesion or fracture identified. XR/XR ribs RT 2V IMPRESSION: 1. There is mild cardiac enlargement. Prior median sternotomy. No active pulmonary disease. 2. There is no radiographic abnormality of the right ribs. Electronically signed by: Konstantin Armando MD 08/10/2025 09:55 AM [facility] [place]
--- NOTE | ~2025-08-10 | XR_ITS ---
EXAMINATION: XR CHEST 2V XR RIBS RT 2V CLINICAL INFORMATION: RIGHT SIDED CHEST WALL PAIN COMPARISON: 10/02/2023, 08/24/2023, and 08/04/2023 chest radiographs. TECHNIQUE: 2 views of the chest were obtained. 2 views of the right ribs were obtained. FINDINGS: There has been a prior median sternotomy. Sternal wires are intact and non-migrated. There is borderline cardiac enlargement. The mediastinal and hilar contours are normal. The lungs are clear bilaterally. There is no pneumothorax or pleural effusion. There is no focal osseous or soft tissue abnormality. Ribs appear intact. There is no rib lesion or fracture identified. XR/XR chest 2V IMPRESSION: 1. There is mild cardiac enlargement. Prior median sternotomy. No active pulmonary disease. 2. There is no radiographic abnormality of the right ribs. Electronically signed by: Konstantin Armando MD 08/10/2025 09:55 AM [facility] [place]
--- OUTSIDE RECORDS SUMMARY | 2025-08-10 10:15 | XMS_ITS | Data Portability ---
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 MODERATE MUST MEET 2 OUT OF [...] EACH ELEMENT THAT IS COVERED Not available 08/08/2025 10:39:52 Plan of Treatment Reminders Order Date Submit Date Provider Last Modified By Organization Details Last Modified Time Details Appointments ANNUAL EXAM 2025 10:30A M DR CABELLO Not available Not available Not available Lab CMP, serum or plasma 2024 025 [facility], [address] [place] [address], [place], [address], 02/13/2025 13:52:37 CBC 2024 025 [facility], [address] [place] [address], [address], 02/07/2025 10:26:32 lipid panel, blood 2024 025 [facility], [address] [place] [address], [address], 02/07/2025 10:26:31 Referral cardiolog ist referral 2024 025 shanda Hernandez MD, [address] [place] [address], [address], 08/08/2025 10:50:41 orthopedi c foot/ankl e surgeon referral 2024 025 damir Garrido MD, [address] [place], [place] [address]juan ramon Charlee, [address], [address], 06/13/2025 08:29:47 orthopedi c spine surgeon referral 2024 025 [email or web address] [facility], [address] [place] [address], [address], 12/23/2024 08:06:48 Procedures None recorded. Surgeries None recorded. Imaging nuclear stress test 2024 025 [email or web address] [facility], [address] [place] [address], [address], 08/08/2025 10:50:41 XR, chest, 2 view 2024 025 [facility], [address] [place] [address], [address], 08/10/2025 10:03:24 XR, ribs, unilatera l, 2 view 2024 025 [facility], [address] [place] [address], [address], 08/08/2025 10:50:41 XR, thoracic spine, 2 view [email or web address] [address] [facility], [address] [place] [address], [address], 08/08/2025 10:50:41 US, echocardi ogram, transthor acic, complete, w/ color flow 2024 025 [email or web address] 10 [facility], [address] [place], [address], 06/16/2025 08:40:01 US, echocardi ogram, transthor acic, complete, w/ color flow 2024 025 [facility], [address] [place], [address], 02/21/2025 08:02:58 XR, hand, 3 or more view 2024 025 [facility], [address] [place], [address], 02/10/2025 08:18:48 XR, foot, 3 or more view 2024 025 [facility], [address] [place], [address], 02/10/2025 08:35:30 Medication Orders naproxen 500 mg tablet 2024 025 [facility] #[id number], [address], [place], [id number], 08/08/2025 10:43:46 losartan 100 mg-hydroc hlorothia zide 25 mg tablet 2024 025 [facility] #[id number], [address], [place], [id number], 06/02/2025 15:42:22 citalopra m 20 mg tablet 2024 025 [facility] #[id number], [address], [place], [id number], 06/02/2025 15:42:22 prednison e 20 mg tablet 2024 025 [facility] #[id number], [address], [place], [id number], 06/02/2025 15:13:08 baclofen 20 mg tablet 2024 025 [facility] #[id number], [address], [place], [id number], 10/31/2024 14:59:46 Patient TargetsNo targets recorded. Patient Instructions Encounter Date Encounter Id Patient Instructions Last Modified By Organization Details Last Modified Time 02/07/2025 [id number] atrial septal defect: care instructions Not available 02/07/2025 10:25:45 06/02/2025 [id number] atrial septal defect: care instructions Not available 06/02/2025 15:40:32 Reason for Referral Orthopedic Spine Surgeon Ref erral for Degeneration of cervical intervertebral disc degenerative changes in the cervical spine, persistant pain Referring Physician: Ana Pollock, Internal Medicine, Encounter Date: 11/23/2024 Orthopedic Foot/ankle Surgeo n Referral for Osteoarthritis of first metatarsophalangeal joint severe pain , worsening and now affecting gait Referring Physician: Jurgen Cabello, Internal Medicine, Encounter Date: 06/02/2025 Hvac Installation Technician Referral for Ab normal cardiovascular function Referring Physician: Jurgen Cabello, Internal Medicine, Encounter Date: 08/08/2025 Results Created Date Observation Date Name Description Value Unit Range Abnormal Flag Note LastModifiedBy Organization Detail LastModifiedTime 10/10/1910/10/2024 XR, cervi radha spine , 2 or 3 view No observ ation record ed. [email or web address] [facility] (Medical Records) [address] [place], [address], 10/12/2024 10:27:51 10/10/19 25 10/10/2024 XR, rao oclav icula r joint (s) No observ ation record ed. [email or web address] [facility] [address] [facility] [place], [address], 10/12/2024 10:27:51 11/01/19 25 10/24/2024 MAMMO , scree marbella, digit al, bilat eral No observ ation record ed. [email or web address] [facility] [address] [place], [address], 11/01/2024 13:42:45 12/27/19 25 12/23/2024 XR, shoul neeraj, 2 or more view No observ ation record ed. [email or web address] [facility] (Medical Records) [address] [place], [address], 12/27/2024 09:38:17 02/11/20 25 02/10/2025 XR, foot, 3 or more view No observ ation record ed. [facility] (Medical Records) [address] [place], [address], 02/16/2025 22:08:36 02/11/2002/10/2025 XR, hand, 3 or more view No observ ation record ed. [facility] (Medical Records) [address] [place], [address], 02/16/2025 22:08:36 02/17/2002/16/2025 MRI, shoul neeraj, w/ contr ast No observ ation record ed. [email or web address] [facility] (Medical Records) [address] [place], [address], 02/16/2025 20:17:52 07/26/2007/26/2025 XR, toe(s ), 2 or more view No observ ation record ed. [email or web address] [facility] (Medical Records) [address] [place], [address], 08/02/2025 08:48:14 08/04/20 25 08/02/2025 US, echoc ardio gram, trans thora cic, compl ete, w/ color flow No observ ation record ed. [facility] (Medical Records) [address] [place], [address], 08/07/2025 08:41:21 08/10/20 25 08/10/2025 XR, ribs, unila teral , w/ PA chest No observ ation record ed. [facility] (Medical Records) [address] [place], [address], 08/10/2025 10:00:48 08/10/2008/10/2025 XR, chest , 2 view No observ ation record ed. [facility] (Medical Records) [address] [place], [address], 08/10/2025 10:03:24 Result Notes None recorded. Problems Name Problem SNOMED Code Status Onset Date Resolution Date Notes Provider Name and Address Organization Details Recorded Time Essential hypertens ion 98688379 [facility] 08:33:23 Atrial septal defect 42140156 Active 2017 repair 2001 Traci packer [facility] 8 08:33:49 Depressiv e disorder 63489459 Active 2017 ROGER Escobar [address] [place] [address], [address], [facility] 8 10:10:58 Herpes labialis 3108162 Active 2017 ROGER Escobar [address] [place] [address], [address], [facility] 8 10:11:16 B12 deficienc y monitorin g Active 2018 Jurgen Cabello DO [address] [place], [address], [facility] 9 10:28:25 Impingeme nt syndrome of right shoulder region 20584098406 9102 Active 2019 Jurgen Cabello DO [address] [place], [address], [facility] 0 14:06:16 Atypical chest pain 782998462 Active 2021 ANNA GRAHAM [address] [place], [address], [facility] 2 15:46:38 Thoracic back pain 688870684 Active 2021 ANNA GRAHAM [address] [place], [address], [facility] 2 15:48:31 Traumatic hematoma 141056414 Active 2021 ANNA GRAHAM [address] [place] [address], [address], [facility] 2 15:51:25 Degenerat ion of lumbar intervert ebral disc 01574467 Active 2021 ANNA GRAHAM [address] [place], [address], [facility] 2 15:13:29 Degenerat ion of thoracic intervert ebral disc 60921791 Active 2021 ANNA GRAHAM [address] [place], [address], [facility] 2 15:15:55 Degenerat ion of cervical intervert ebral disc 83627336 Active 2021 ANNA GRAHAM [address] [place], [address], [facility] 2 15:16:25 Insect bite reaction 106639385 Active 2021 ANNA GRAHAM [address] [place], [address], [facility] 2 10:16:26 Chest pain 65552664 Active 2021 Jurgen Cabello, DO [address] [place] [address], [address], [facility] 2 14:31:41 Juan Manuel 864976458 Active 2021 Jurgen Cabello, DO [address] [place] [address], [address], [facility] 2 14:36:14 Atelectas is 61079072 Active 2021 ANNA GRAHAM [address] [place] [address], [address], [facility] 2 12:38:53 Infection of tooth 788248242 Active 2021 ANNA GRAHAM [address] [place] [address], [address], [facility] 2 14:44:39 Tendiniti s of left wrist region 09455399649 176721 Active 2021 ANNA GRAHAM [address] [place] [address], [address], [facility] 2 14:46:38 Cough 99717126 Active 2021 Jurgen Cabello, DO [address] [place] [address], [address], [facility] 2 10:08:01 Migraine 68802402 Active 2022 ANNA GRAHAM [address] [place] [address], [address], [facility] 3 14:15:45 Thyroid nodule 165819402 Active 2022 ANNA GRAHAM [address] [place] [address], [address], [facility] 3 14:16:32 Hypertens jessica urgency 187961415 Active 2022 ANNA GRAHAM [address] [place] [address], [address], [facility] 3 14:17:53 Acute bronchiti s 23015881 Active 2022 ANNA GRAHAM [address] [place] [address], [address], [facility] 3 11:15:06 Pneumonia 215297043 Active 2022 Jurgen Cabello, DO [address] [place] [address], [address], [facility] 3 14:52:40 Postmenop ausal osteopeni a 011642280 Active 2022 Jurgen Cabello, DO [address] [place] [address], [address], [facility] 3 12:15:54 Streptoco ccal sore throat 35153825 Active 2022 ANNA GRAHAM [address] [place] [address], [address], [facility] 3 09:44:44 Pain of multiple joints 32095686 Active 2022 Jurgen Cabello, DO [address] [place] [address], [address], [facility] 3 17:01:56 Hand pain 44496375 Active 2022 Jurgen Cabello, DO [address] [place] [address], [address], [facility] 3 10:06:34 Hand pain 62472809 Active 2022 Jurgen Cabello, DO [address] [place] [address], [address], [facility] 3 10:06:44 Osteoarth ritis of joint of bilateral hands 97678304945 9109 Active 2022 Jurgen Cabello, DO [address] [place] [address], [address], [facility] 3 23:21:07 Bilateral lung opacities on plain chest X-ray 487812255 Active 2022 Jurgen Cabello DO [address] [place] [address], [address], [facility] 3 22:27:13 Epigastri c pain 86849303 Active 2022 Jurgen Cabello, [address] [place] [address], [address], [facility] 3 10:05:33 Idiopathi c acute pancreati tis 960682191 Active 2022 Jurgen Cabello, [address] [place] [address], [address], [facility] 3 15:04:37 Recurrent pancreati tis 941859861 Active 2023 Jurgen Cabello, [address] [place] [address], [address], [facility] 4 11:45:37 Pain of bilateral knee joints 10970293288 4104 Active 2023 ANNA GRAHAM [address] [place] [address], [address], [facility] 4 12:04:43 Pain of left knee joint 98014412299 4107 Active 2023 ANNA GRAHAM [address] [place] [address], [address], [facility] 4 12:05:12 Pain of right knee joint 48087809232 4100 Active 2023 ANNA GRAHAM [address] [place] [address], [address], [facility] 4 12:05:24 Acute tear of lateral meniscus of left knee 23557771264 301732 Active 2023 Jurgen Cabello DO [address] [place] [address], [address], [facility] 4 10:05:13 Spasm of cervical paraspino us muscle 736249334 Active 2024 Jurgen Cabello DO [address] [place] [address], [address], [facility] 5 15:37:00 Sternocla vicular sprain 118138135 Active 2024 Jurgen Cabello, DO [address] [place] [address], [address], [facility] 5 15:39:39 Pain of left shoulder joint 20242616548 291498 Active 2024 ANNA GRAHAM [address] [place] [address], [address], [facility] 5 15:49:59 Calcific tendiniti s of left shoulder 87942209532 9108 Active 2024 ANNA GRAHAM [address] [place] [address], [address], [facility] 5 16:35:54 Pain of toe of left foot 28285063738 9108 Active 2024 Jurgen Cabello, [address], [address], [facility] 5 10:19:51 Pain of right hand 55997603899 9109 Active 2024 Jurgen Cabello, [address], [address], [facility] 5 10:24:43 Pain of bilateral hands 83934501464 615248 Active 2024 Jurgen Cabello, [address] [place] [address], [address], [facility] 5 22:09:07 Acute ankle pain 25639560618 105 Active 2024 Jurgen Cabello [address], [address], [facility] 5 22:10:13 Osteoarth ritis of first metatarso phalangea l joint 297737935 Active 2024 Jurgen Cabello DO [address] [place] [address], [address], [facility] 5 15:37:20 Acute low back pain 280234237 Active 2024 Jurgen Cabello, [address], [address], [facility] 5 14:21:38 Rib pain 115627158 Active 2024 Jurgen Cabello, [address], [address], [facility] 5 16:49:57 Abnormal cardiovas cular function 980881466 Active 2024 Jurgen Cabello [address], [address], [facility] 5 10:31:02 Chest wall pain 876604587 Active 2024 Jurgen Cabello [address], [address], [facility] 5 10:40:14 Chronic thoracic back pain 71240928545 9103 Active 2024 Jurgen Cabello, [address], [address], [facility] 5 10:40:54 Problem Notes None recorded. Procedures Surgical History Date Name Laterality Status Provider Name and Address Organization Details Recorded Time 5 Most Recent Mammogram completed Perla Joy [facility] 11/01/2024 13:42:26 Imaging Results None recorded. Procedure Notes None recorded. Medical Equipment None Reported. Allergies Allergen ID Allergen Name Allergen Category Reaction Reaction Severity Criticality Documentation Date Start Date Code Code System Note Provider Name and Address Organization Details Recorded Time 2158 Product containin g angiotens in-conver ting enzyme inhibitor (product) medicatio n Not available Not available Not available 06/16/2018 40249 009 SNOMED Traci packer [facility] 8 08:33:05 Medications Name [...] Available Not Available naproxen 500 mg tablet Take 1 tablet twice a day by oral route for 30 days. 2024 active Not Available Not Available Not Avai lable metoprolol tartrate 25 mg tablet TAKE 1/2 [...] Updated DateTime 10/31/2024 154.94 cm Perla Mauro [facility] 10/31/2024 14:43:54 Date Recorded Body height Body mass index (BMI) Body weight Heart rate Oxygen saturation Oxygen saturation in Arterial blood by Pulse oximetry Systolic And Diastolic Provider Name and Address Organization Details Last Updated DateTime 5 154.94 cm 32.5 kg/m2 58942.8 9 g 68 /min 98 % 98 % 116/72 mm[Hg] Perla Joy [facility] 5 14:17:29 Date Recorded Body height Body mass index (BMI) Body weight Heart rate Oxygen saturation Oxygen saturation in Arterial blood by Pulse oximetry Systolic And Diastolic Provider Name and Address Organization Details Last Updated DateTime 5 154.94 cm 32.1 kg/m2 40764.7 g 66 /min 98 % 98 % 100/64 mm[Hg] Damaris Aparicio [facility] 5 10:01:15 Date Recorded Body height Body mass index (BMI) Body weight Oxygen saturation Oxygen saturation in Arterial blood by Pulse oximetry Heart rate Provider Name and Address Organization Details Last Updated DateTime 5 154.94 cm 33.3 kg/m2 68424.9 8 g 94 % 94 % 76 /min Vane Eladio [facility] 5 15:15:12 Date Recorded Body height Body mass index (BMI) Body weight Heart rate Oxygen saturation Oxygen saturation in Arterial blood by Pulse oximetry Systolic And Diastolic Provider Name and Address Organization Details Last Updated DateTime 5 154.94 cm 33.3 kg/m2 63461.2 6 g 85 /min 96 % 96 % 120/80 mm[Hg] Damaris Aparicio [facility] 5 10:19:49 Social History Question Answer Notes LastModified by Organizat ion Details LastModified Time Tobacco Smoking Status Never Smoker Not Available [employer] 08/07/2020 03:36:23 What Was The Date Of Your Most Recent Tobacco Screening? 08/08/2025 [email or web address] Information not available 08/08/2025 Sex: Unknown Functional Status Question Answer Note LastModified by Organization D etails LastModified Time Do you or have you ever used any other forms of tobacco or nicotine? No [email or web address] Information not available 01/27/2023 Mental Status None recorded. Family History Nothing Reported. Medical History No medical history recorded. Gynecological History Statement/Question Response Most Recent Mammogram 10/24/2024 Obstetrics History GPAL:G 0 P 0 0 0 0 Immunizations Vaccine Type Date Status Note Provider Ryan arnold and Address Organization Details Recorded Time COVID-19 vaccine, vector-nr, rS-Ad26, PF, 0.5 mL 01/09/2021 completed Marika packer [facility] 01/13/2022 08:29:14 COVID-19, mRNA, LNP-S, PF, 30 mcg/0.3 mL dose 10/14/2021 completed Marika packer [facility] 01/13/2022 08:29:30 Past Encounters Encounter ID Performer Location Encounter Start Date Encounter Closed Date Diagnosis/Indication Diagnosis SNOMED-CT Code Diagnosis ICD10 Code Diagnosis IMO Codes Diagnosis Note [id number] Jurgen Cabello [facility] [address] [facility], [place] [address] 06/16/2018 13:56:07 06/16/2018 14:39:35 Essential hypertension 13786692 I10 Atrial septal defect 701 26972 Q21.1 Pain in right knee 48656 37203 38894 M25.561 Intermitte nt palpitations 558393516 R00.2 [id number] Jurgen Cabello [facility] [address] [facility],[place] [address] 08/04/2018 14:10:59 08/04/2018 14:57:40 Tear of medial meniscus of knee 712981524 S83.241A Atrial septal defect 701 35579 Q21.1 the recent echo revealed a stable hemodynami oc picture with a mild decrease in sys funct EF but overall otherwise stable [id number] Jurgen Cabello [facility] [address] [facility] [place] [address] 08/09/2018 10:00:14 08/09/2018 10:57:48 Essential hypertension 89841412 I10 stable Herpes labialis 0908073 B00.[address] -f/u if this does not resolve Cough 76009724 R05 lingering cough after almost complete resolution of recent cold f/u if sx change or worsen [id number] Jurgen Cabello DO [facility] [address] [facility],[place] [address] 08/13/2018 13:59:13 08/13/2018 15:39:05 Pain in right knee 8967206207 52924 M25.561 [id number] Jurgen Handbebo [facility] [address] [facility],[place] [address] 08/31/2018 14:10:51 08/31/2018 15:51:22 Tear of lateral meniscus of knee 359994391 S83.281A will refer to ortho as she is going to need an arthroscop y carley [id number] Jurgen Handbebo [facility] [address] [facility],[place] [address] 12/31/2018 14:27:05 12/31/2018 15:38:36 Hypoglycemia 393444239 E16.2 [id number] Jurgen Handbebo [facility] [address] [facility],[place] [address] 02/02/2019 14:45:42 02/02/2019 15:13:15 Tear of medial meniscus of knee 389690996 S83.241A here for recjk reviewed her prior surg and sergio told her we will give her a kenalog inj when she is ready Osteopenia 152955111 M85 .80 bmd is good [id number] Jurgen Handbebo [facility] [address] [facility],[place] [address] 03/22/2019 09:54:18 03/22/2019 10:32:26 Adult health examination 519437277 Z00.00 would like to check for anemia given weakness and fatigue will also need to get he echo Active or passive immunization 570007411 Z23 utd Atrial septal defect 701 82298 Q21.1 the last echo revealed a stable hemodynami oc picture with a mild decrease in sys funct EF but overall otherwise stable [id number] Jurgen AngelesSohail Cabello [facility] [address] [facility] [address],[place] [address] 06/13/2019 15:28:59 06/13/2019 16:42:50 Vitamin B12 deficiency (non anemic) 37062687 E53.8 feeling better doing good Vitamin D deficiency 347 76702 E55.9 will chk level Adult heal th examination 306023136 Z00.00 would like to check for anemia given weakness and fatigue will also need to get he echo [id number] [facility] [address] [facility],[place] [address] 08/19/2019 09:56:57 08/19/2019 10:41:00 Essential hypertension 20895013 I10 bp is stable no issues there Cough 36449585 R05 getting worse and has had for >2 weeks need to treat as she gets this and quickly develkops pneumonia Biceps tendinitis 094016 007 M75.21 Vitamin D deficiency 347 07227 E55.9 will chk level [id number] [facility] [address] [facility],[place] [address] 11/09/2019 10:22:44 11/09/2019 12:06:06 Biceps tendinitis 878243813 M75.21 Melox did not improve sx sounds like she prob tore sonething we will have ot have her see spec Fatigue 56162329 R53.83 will check the blood work Localized visual field defect 596060366 H53.459 occurred after standing i believe this was prob related to bp drop she has had no sequelae and is asymptomat ic since knows to gotoER if and y further change Anxiety 60430909 F41.9 flying on airplane lorazepam [id number] [facility] [address] [facility],[place] [address] 12/14/2019 10:06:13 12/14/2019 11:03:08 Epigastric pain 27628389 R10.13 must chreck the gall bladder Pain of mu ltiple joints 90565972 M25.50 new onset joint disease? Pain of ri ght shoulder joint 3407332313 8921197 M25.511 could be djd vs inflammato ry [id number] Jurgen Cabello [facility] Internal Medicine [address] [facility] [address],[place] [address] 01/02/2020 15:35:23 01/02/2020 16:44:42 Traumatic hematoma 108894018 T14.8XXA sublingual hematoma after shutting right thumb in the car door yesterday will XR to make sure nothing is broken and give diclofenac as pain reliever will f/u with pt after with XR results [id number] Jurgen Cabello [facility] Internal Medicine [address] [facility],[place] [address] 01/03/2020 13:41:47 01/03/2020 14:06:05 Essential hypertension 61089030 I10 bp is stable no issues there Atrial septal defect 701 29740 Q21.1 the last echo revealed a stable hemodynami oc picture with a mild decrease in sys funct EF but overall otherwise stable Osteoarthr itis of joint of hand 88111756 M19.049 will cont to treat conserv with otc meds prn Subacromia l bursitis of right shoulder 0811158655 102428 M75.51 after discussion she understand s to call for cortisone shot if the meds are not helping [id number] Jurgen Cabello [facility] Internal Medicine [address] [facility],[place] [address] 06/18/2020 13:39:48 06/18/2020 14:29:23 Adult health examination 341362263 Z00.01 overall is stable but her osteoarthr itis is bothering her more Active or passive immunization 741150759 Z23 utd Osteoarthritis 930331901 M19.90 SHE has noted disease hands back and feet will try celecoxib Atrial septal defect 701 19821 Q21.1 the last echo revealed a stable hemodynami c picture with a mild decrease in sys funct EF but overall otherwise stable Alopecia 99914455 L65.9 [place] to derm [id number] Jurgen Cabello [facility] Internal Medicine [address] [facility],[place] [address] 07/30/2020 10:57:23 07/30/2020 11:32:05 Pain of right hand 7380964393 36775 M79.641 Alopecia areata 27193046 L63.9 01012 Jurgen Cabello [facility] Internal Medicine [address] [facility], [place] [address] 09/26/2020 10:20:15 09/26/2020 11:17:50 Depressive disorder 16292933 F32.9 Essential hypertension 01360223 I10 bp is stable no issues there Partial th ickness rotator cuff tear 010133101 M75.101 60311 Jurgen Cabello [facility] Internal Medicine [address] [facility], [place] [address] 11/27/2020 11:07:05 11/27/2020 12:12:40 Insect bite reaction 564965543 T63.481A resolved with abx Cellulitis 420382676 L03 .90 resolved with abx no other interventi on required at this time Essential hypertension 12057514 I10 stable today at appt no change or interventi on necessary Depressive disorder 3548 9007 F32.9 stable today at appt no change or interventi on necessary [id number] Jurgen Cabello [facility] Internal [address] [address] 12/11/2020 10:21:25 12/11/2020 11:17:19 Visual disturbance 36868289 H53.9 having flashes in visual field during episodes Dizziness 024405027 R42 she has the dizziness during the episodes with spacey feeling Ataxia 18868958 R26.0 sudden and episodic 14091 Jurgen Cabello [facility] Internal [address], [place] [address] 02/05/2021 16:14:15 02/05/2021 16:56:51 Ataxic [address] 87842113 R26.0 ct negative will follow as neces seems to be better offf the metoprolol Alopecia 03609659 L65.9 markedly better now off metoprolol Essential hypertension 73762236 I10 bp ios borderline sometimes nowe off metoprolol will follow and cont the Hyzaar Submandibu lar salivary gland swelling 234932464 K11.9 on right [id number] Jurgen Cabello [facility] Internal Medicine [address] [facility],[place] [address] 04/19/2021 09:30:06 04/19/2021 10:43:25 Submandibular salivary gland swelling 693122238 K11.9 on right will treat with amox next time she swells Derangemen t of lateral meniscus 09100267 M23.309 [id number] Jurgen Cabello [facility] Internal Medicine [address] [facility] [address],[place] [address] 09/23/2021 08:46:54 09/23/2021 16:30:33 Atrial septal defect 58550404 Q21.1 the last echo revealed a stable hemodynami c picture with a mild decrease in sys funct EF but overall otherwise stable so we will have to [place] [id number] Jurgen Cabello [facility] Internal Medicine [address] [facility] [address],[place] [address] 11/05/2021 08:35:27 11/06/2021 08:52:18 Pain of multiple joints 02493505 M25.50 new onset joint disease? Atrial septal defect [address] appt for follow up on her asd awaiting her echo Essential hypertension 24683093 I10 bp ios borderline sometimes nowe off metoprolol will follow and cont the Hyzaar Eczema of scalp 45249043 13 2100 L30.9 [id number] Jurgen Cabello [facility] Internal Medicine [address] [facility],[place] [address] 01/13/2022 15:17:04 01/15/2022 08:49:25 Active or passive immunization 775577970 Z23 advised Adult heal th examination 453521743 Z00.00 BP is excellent Atypical chest pain 1025 86149 R07.89 will need fu with cardiology > needs new cardio due to new insurance > will fu with Karishma andrea [place] near [place] Thoracic back pain 75657 8004 M54.6 will fu with XR thoracic back for pain along T5 T 6 [id number] Jurgen Cabello [facility] Internal Medicine [address] [facility] [address],[place] [address] 01/22/2022 10:03:12 01/22/2022 11:17:04 Insect bite reaction 903168191 T63.481A will start on doxycyclin e and betamethas one Herpes labialis 7771748 B00.1 will start on valtrex [id number] Jurgen Cabello [facility] Internal Medicine [address] [facility] [address],[place] [facility] [place] [address] 03/26/2022 14:05:51 03/26/2022 14:47:40 Chest pain 49938233 R07.9 occurs on the left anterior region Atrial septal defect [address] [facility] on her asd awaiting her echo Essential hypertension 94716872 I10 bp ios borderline sometimes nowe off metoprolol will follow and cont the Tonny Zambrano 717024907 L71.9 32454 [facility] [address] [facility] [address],[place] [facility] [place] [address] 06/16/2022 14:33:24 06/16/2022 14:47:40 Infection of tooth 584173289 K04.7 will trial amox and medrol Tendinitis of left wrist region 1483300085 1504147 M67.834 will update me after the medrol dose purvi [id number] Jurgen Cabello [facility] Internal Medicine [address] [facility] [address],[place] [address] 10/22/2022 13:55:06 10/22/2022 15:27:58 Migraine 74067508 G43.009 will set up with work up to r/o anything triggering the migraine Essential hypertension 97675142 I10 stable today at appt no change or interventi on necessary Thyroid nodule 357791048 E04.1 will check his TSH Hypertensive urgency 443 527975 I16.0 will start on clonidine PRN for the high spikes [id number] Jurgen Cabello [facility] Internal Medicine [address] [facility] [address],[place] [address] 11/10/2022 09:06:07 11/10/2022 11:55:24 Acute bronchitis 83970199 J20.8 will start on prednsione and z pakif needed will set up with XR if her symptoms [id number] Jurgen Cabello [facility] Internal Medicine [address] [facility],[place] [address] 01/27/2023 10:43:02 01/27/2023 12:17:21 Active or passive immunization 494863093 Z23 utd Adult heal th examination 231281314 Z00.00 overall is stable but her osteoarthr itis is bothering her more Atypical chest pain 1025 46468 R07.89 this appears to be costochond ral but given prior open heart surgery we will treat it accordingl y but in meantime we will get ct scan Thyroid nodule 117037946 E04.1 we will repeat US in 1 year nov Atrial septal defect 701 68802 Q21.10 Postmenopa usal osteopenia 934231933 M85.80 64280 Jurgen Cabello [facility] Internal Medicine [address] [facility],[place] [address] 03/27/2023 15:54:54 03/27/2023 17:11:19 Atypical chest pain 433248525 R07.89 this appears to be costochond ral but given prior open heart surgery we will treat it accordingl y but in meantime we will get ct scan Atrial septal defect [address] is excellent Postmenopa usal osteopenia 373476814 M85.80 stable rev bmd Pain of mu ltiple joints 28221219 M25.50 new onset joint disease? [id number] Jurgen Cabello [facility] Internal Medicine [address] [facility],[place] [address] 09/15/2023 14:36:50 09/16/2023 08:14:04 Essential hypertension 74819206 I10 bp ios borderline sometimes nowe off metoprolol will follow and cont the Hyzaar Bilateral lung opacities on plain chest X-ray 875746173 R91.[address] scan is clear Idiopathic acute pancreatitis 326557993 K85.00 we will need to do a follow up and US and lab [id number] Jurgen Cabello [facility] Internal Medicine [address] [facility], [place] [address] 10/02/2023 09:32:34 10/02/2023 15:55:11 Idiopathic acute pancreatitis 098256936 K85.00 we will need to do a follow up and US and lab Cough 85967090 R05.9 [id number] Jurgen Cabello [facility] Internal Medicine [address] [facility], [place] [facility] [place] [address] 02/02/2024 09:52:18 02/02/2024 10:47:25 Active or passive immunization 952706292 Z23 utd Adult heal th examination 107591636 Z00.01 overall is stable but her osteoarthr itis is bothering her more Essential hypertension 29654303 I10 bp ios borderline sometimes nowe off metoprolol will follow and cont the Hyzaar Atrial septal defect [address] is excellent [id number] Jurgen Cabello [facility] Internal Medicine [address] [facility], [place] [address] 05/09/2024 11:34:40 05/09/2024 13:49:20 Pain of bilateral knee joints 4561254853 76495 M25.561 Pain of le ft knee joint 5881882832 17518 M25.562 will set up with MRI knee (bilateral ) Pain of ri ght knee joint 9490699920 82342 M25.561 will f/u with MRI for the knees 057459 Jurgen Cabello [facility] Internal Medicine [address] [facility], [place] [facility] [place] [address] 07/01/2024 08:52:37 07/01/2024 10:25:29 Depression screening 720636616 Z13.31 neg Essential hypertension 71945568 I10 bp is great 110/70 will follow and cont the Hyzaar Acute tear of lateral meniscus of left knee 5969030427 1561969 S83.282A [id number] Jurgen Cabello [facility] Internal Medicine [address] [facility],[place] [address] 10/07/2024 14:57:48 10/07/2024 15:48:25 Spasm of cervical paraspinous muscle 263204580 M62.838 Sternoclav icular sprain 464440451 S23.420A 116816 Jurgen Lissy Cabello [facility] Internal Medicine [address] [facility] [address],[place] [address] 10/31/2024 14:34:01 10/31/2024 16:08:52 Thoracic back pain 729193884 M54.6 start on meds [id number] Jurgen Lissy Cabello [facility] Internal Medicine [address] [facility] [address],[place] [address] 11/23/2024 14:05:03 11/23/2024 14:47:13 Degeneration of cervical intervertebral disc 77104050 M50.321 will have her restart the diclofenac and recommende d ortho eval for injections [id number] Jurgen Cabello [facility] Internal Medicine [address] [facility],[place] [address] 02/07/2025 09:49:14 02/07/2025 10:45:14 Active or passive immunization 280976853 Z23 utd Acute tear of lateral meniscus of left knee 1446865281 8151813 S83.282A Essential hypertension 54486254 I10 add amlodipine General ex amination of patient 872298053 Z00.01 00572302 overall is stable but her osteoarthr itis is bothering her more Pain of to e of left foot 0816904541 33491 M79.675 331262 Pain of right hand 42652 60246 58523 M79.641 027333 Atrial septal defect [address] is excellent [id number] Jurgen Cabello [facility] Internal Medicine [address] [facility] [address],[place] [address] 06/02/2025 15:08:17 06/02/2025 15:59:01 Depression screening 417767108 Z13.31 neg Essential hypertension 51945232 I10 add amlodipine Osteoarthr itis of first metatarsophalangeal joint 961970680 M19.079 66433240 Atrial septal defect 701 91679 Q21.10 doing ok but having more dyspnea with exertion Depressive disorder 3548 9007 F32.9 197034 Jurgen Cabello DO [facility] Internal Medicine [address] [facility] [address],[place] [address] 08/08/2025 10:04:04 08/08/2025 10:50:41 Atypical chest pain 457221859 R07.89 this appears to be costochond ral but given prior open heart surgery we will treat it accordingl y but in meantime we will get ct scan Essential hypertension 85560589 I10 stable and tolerates meds Abnormal cardiovascular function 009005683 R93.1 08803789 Chest wall pain 66264825 6 R07.89 144035 this appears to be costochond ral but given prior open heart surgery we will treat it accordingl y but in meantime we will get ct scan Chronic th oracic back pain 2148435416 04580 M54.6 G89.29 31029328 Hand pain 24537116 M79.6 43 need xr first add naproxen if signif will refer to ortho hand Health Concerns Section Related Observation LastModified by Organization Detai ls LastModified Time None Recorded Concern Status LastModified by Organization Details LastModified Time None Recorded Advance Directives Directive None Recorded Payers Insurance Date Sequence Insurance Name Policy Number Policy Tyler Covered Member ID Tyler Member ID Guarantor Name 08/07/2025 1 [facility] - DIRECT CONNECTORCARE TYPE I (HMO) [id number] Adelaida Recinos [id number] Adelaida Recinos 10/21/2023 SLIDING FEE SCHEDULE - DISCOUNT Adelaida Recinos 06/02/2025 2 [facility] - DIRECT CONNECTORCARE TYPE I (HMO) Adelaida Recinos [id number] Adelaida Recinos 06/02/2025 1 [facility] - TOGETHER (MEDICAID HMO) Adelaida Recinos [id number] Adelaida Recinos 06/02/2025 1 [place] 2023 - [facility] (MEDICAID) Adelaida Recinos [id number] Adelaida Recinos 06/02/2025 1 [place] [facility] Adelaida Recinos [id number] Adelaida Recinos Notes Date Note Type Note Provider Name and Address Organization Details Recorded Time 10/31/19 25 text/htm l ROS as noted in the HPI c/o back pain upper thoracic back painreproducible with palpation of the upper back muscles 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, lifts them a lototherwise no inciting event ie no trauma or injury start on pred and msk relaxercan use heat and ice limit lifting over ten pounds ANNA GRAHAM [address] [place], [address], [facility] Internal Medicine 10/31/2024 15:02:37 11/23/19 25 text/htm [...] patient and I discussedagreed [facility] preference can restart diclofenac in the meantime for acute discomfort since that was the most effective for her ANNA GRAHAM [address] [place], [address], [facility] Internal Medicine 11/23/2024 14:40:37 02/08/20 25 text/htm [...] vision,no confusion,no headaches, andno fatigue. Jurgen Cabello, DO [address] [place] [address], [phone], [facility] Internal Medicine 02/07/2025 10:31:27 06/02/20 25 text/htm l Care Management - HypertensionReported by PatientHPIFor self [...] toe jointvery uncomfortablesorehurts bad at night Jurgen Cabello DO [address] [place] [address], [phone], [facility] Internal Medicine 06/02/2025 15:42:58 08/08/20 25 text/htm l Care Management - HypertensionReported by PatientCAST[facility]ITALor self care, patient reportsnot under emotional stress. For severity, patient reportssymptoms are improvinganddoes not interfere with daily activities. For associated symptoms, patient reportsno dizziness,no lightheadedness,no chest pain,no shortness of breath,no palpitations,no edema,no calf muscle cramps,no blurred vision,no confusion,no headaches, andno fatigue.ROS as noted in the HPI long detailed discussion re results of echohas barrett of regional wall motion abnormalities and this is a new findingthis will need to be worked updiscussed with husb present Jurgen Cabello, DO [address] [place] [address], [phone], [facility] Internal Medicine 08/08/2025 15:10:45 OBGyn Episode No OBEpisode recorded.
--- OUTSIDE RECORDS SUMMARY | 2025-08-10 10:15 | XMS_ITS | Continuity of Care Document ---
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 Referral cardiolog ist referral 2024 025 [email or web address] Jeff Hernandez MD, [address] [place] [address], [place], [address], 08/08/2025 10:50:41 Procedures None recorded. Surgeries None recorded. Imaging nuclear stress test 2024 025 [email or web address] [facility], [address] [place], [address], 08/08/2025 10:50:41 XR, chest, 2 view 2024 025 [facility], [address] [place], [address], 08/10/2025 10:03:24 XR, ribs, unilatera l, 2 view [address] [facility], [address] [place], [address], 08/08/2025 10:50:41 XR, thoracic spine, 2 view [address] [facility], [address] [place], [address], 08/08/2025 10:50:41 Medication Orders naproxen 500 mg tablet 2024 025 [id number], [address], [place], [id number], 08/08/2025 10:43:46 Patient TargetsNo targets recorded. Patient InstructionsNo instructions recorded. 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 [email or web address] [facility] (Medical Records) [address] [place], [address], 08/02/2025 08:48:14 08/04/2008/02/2025 US, echoc ardio gram, trans thora cic, compl ete, w/ color flow No observ ation record ed. [email or web address] [facility] (Medical Records) [address] [place], [address], 08/07/2025 08:41:21 08/10/20 25 08/10/2025 XR, ribs, unila teral , w/ PA chest No observ ation record ed. [facility] (Medical Records) [address] [place], [address], 08/10/2025 10:00:48 08/10/20 25 08/10/2025 XR, chest , 2 view No observ ation record ed. [facility] (Medical Records) [address], [place], [address], 08/10/2025 10:03:24 Result Notes None recorded. Problems Name Problem SNOMED Code Status Onset Date Resolution Date Notes Provider Name and Address Organization Details Recorded Time Essential hypertens ion 61634744 [facility] 8 08:33:23 Atrial septal defect 71230339 Active 2017 [facility] 08:33:49 Depressiv e disorder 70237030 Active 2017 Lorraine ROGER Escobar [address] [place] [address], [address], [facility] 8 10:10:58 Herpes labialis 7226952 Active 2017 Lorraine ROGER Escobar [address] [place] [address], [address], [facility] 8 10:11:16 B12 deficienc y monitorin g Active 2018 Jurgen Cabello DO [address] [place] [address], [address], [facility] 9 10:28:25 Impingeme nt syndrome of right shoulder region 86201695170 9102 Active 2019 Jurgen Cabello DO [address] [place] [address], [address], [facility] 0 14:06:16 Atypical chest pain 735502280 Active 2021 ANNA GRAHAM [address] [place], [address], [facility] 2 15:46:38 Thoracic back pain 764725625 Active 2021 ANNA GRAHAM [address] [place] [address], [address], [facility] 2 15:48:31 Traumatic hematoma 101307163 Active 2021 ANNA GRAHAM [address] [place], [address], [facility] 2 15:51:25 Degenerat ion of lumbar intervert ebral disc 70579979 Active 2021 ANNA GRAHAM [address] [place] [address], [address], [facility] 2 15:13:29 Degenerat ion of thoracic intervert ebral disc 00604259 Active 2021 ANNA GRAHAM [address] [place] [address], [address], [facility] 2 15:15:55 Degenerat ion of cervical intervert ebral disc 98080190 Active 2021 ANNA GRAHAM [address] [place] [address], [address], [facility] 2 15:16:25 Insect bite reaction 510391182 Active 2021 ANNA GRAHAM [address] [place] [address], [address], [facility] 2 10:16:26 Chest pain 21550200 Active 2021 Jurgen Cabello, [address] [place] [address], [address], [facility] 2 14:31:41 Rosacea 196392864 Active 2021 Jurgen Cabello, DO [address] [place] [address], [address], [facility] 2 14:36:14 Atelectas is 48679425 Active 2021 ANNA GRAHAM [address] [place] [address], [address], [facility] 2 12:38:53 Infection of tooth 410256231 Active 2021 ANNA GRAHAM [address] [place] [address], [address], [facility] 2 14:44:39 Tendiniti s of left wrist region 13191492592 993451 Active 2021 ANNA GRAHAM [address] [place] [address], [address], [facility] 2 14:46:38 Cough 98096743 Active 2021 Jurgen Cabello, [address] [place] [address], [address], [facility] 2 10:08:01 Migraine 28822787 Active 2022 ANNA GRAHAM [address] [place] [address], [address], [facility] 3 14:15:45 Thyroid nodule 336897158 Active 2022 ANNA GRAHAM [address] [place] [address], [address], [facility] 3 14:16:32 Hypertens jessica urgency 677246219 Active 2022 ANNA GRAHAM [address] [place] [address], [address], [facility] 3 14:17:53 Acute bronchiti s 41106297 Active 2022 ANNA GRAHAM [address] [place] [address], [address], [facility] 3 11:15:06 Pneumonia 508441000 Active 2022 Jurgen Cabello, DO [address] [place] [address], [address], [facility] 3 14:52:40 Postmenop ausal osteopeni a 922101992 Active 2022 Jurgen Cabello, DO [address] [place] [address], [address], [facility] 3 12:15:54 Streptoco ccal sore throat 02255762 Active 2022 ANNA GRAHAM [address] [place] [address], [address], [facility] 3 09:44:44 Pain of multiple joints 70513917 Active 2022 Jurgen Cabello, DO [address] [place] [address], [address], [facility] 3 17:01:56 Hand pain 59249089 Active 2022 Jurgen Cabello, DO [address] [place] [address], [address], [facility] 3 10:06:34 Hand pain 23233017 Active 2022 Jurgen Cabello, DO [address] [place] [address], [address], [facility] 3 10:06:44 Osteoarth ritis of joint of bilateral hands 59126867288 9109 Active 2022 Jurgen Cabello, DO [address] [place] [address], [address], [facility] 3 23:21:07 Bilateral lung opacities on plain chest X-ray 083343042 Active 2022 Jurgen Cabello DO [address] [place] [address], [address], [facility] 3 22:27:13 Epigastri c pain 85941826 Active 2022 Jurgen Cabello, DO [address] [place] [address], [address], [facility] 3 10:05:33 Idiopathi c acute pancreati tis 216504167 Active 2022 Jurgen Cabello, DO [address] [place] [address], [address], [facility] 3 15:04:37 Recurrent pancreati tis 655390779 Active 2023 Jurgen Cabello, DO [address] [place] [address], [address], [facility] 4 11:45:37 Pain of bilateral knee joints 57102951586 4104 Active 2023 ANNA GRAHAM [address] [place] [address], [address], [facility] 4 12:04:43 Pain of left knee joint 41454497561 4107 Active 2023 ANNA GRAHAM [address] [place] [address], [address], [facility] 4 12:05:12 Pain of right knee joint 41001013572 4100 Active 2023 ANNA GRAHAM [address] [place] [address], [address], [facility] 4 12:05:24 Acute tear of lateral meniscus of left knee 73729487948 351280 Active 2023 Jurgen Cabello, [address] [place] [address], [address], [facility] 4 10:05:13 Spasm of cervical paraspino us muscle 589476231 Active 2024 Jurgen Cabello DO [address] [place] [address], [address], [facility] 5 15:37:00 Sternocla vicular sprain 828171274 Active 2024 Jurgen Cabello DO [address] [place] [address], [address], [facility] 5 15:39:39 Pain of left shoulder joint 07065332331 575076 Active 2024 ANNA GRAHAM [address] [place] [address], [address], [facility] 5 15:49:59 Calcific tendiniti s of left shoulder 52996378874 9108 Active 2024 ANNA GRAHAM [address] [place] [address], [address], [facility] 5 16:35:54 Pain of toe of left foot 12044038660 9108 Active 2024 Jurgen Cabello, [address] [place] [address], [address], [facility] 5 10:19:51 Pain of right hand 63173747110 9109 Active 2024 Jurgen Cabello, [address] [place] [address], [address], [facility] 5 10:24:43 Pain of bilateral hands 53101363938 621747 Active 2024 Jurgen Cabello DO [address] [place] [address], [address], [facility] 5 22:09:07 Acute ankle pain 30999770584 105 Active 2024 Jurgen Cabello DO [address] [place] [address], [address], [facility] 5 22:10:13 Osteoarth ritis of first metatarso phalangea l joint 309611532 Active 2024 Jurgen Cabello DO [address] [place] [address], [address], [facility] 5 15:37:20 Acute low back pain 830961614 Active 2024 Jurgen Cabello DO [address] [place] [address], [address], [facility] 5 14:21:38 Rib pain 844816929 Active 2024 Jurgen Cabello [address] [place] [address], [address], [facility] 5 16:49:57 Abnormal cardiovas cular function 560746060 Active 2024 Jurgen CabelloDO [address] [place] [address], [address], [facility] 5 10:31:02 Chest wall pain 908876148 Active 2024 Jurgen CabelloDO [address] [place] [address], [address], [facility] 5 10:40:14 Chronic thoracic back pain 02661951216 9103 Active 2024 Jurgen CabelloDO [address] [place] [address], [address], [facility] 5 10:40:54 Problem Notes None recorded. Procedures Surgical History Date Name Laterality Status Provider Name and Address Organization Details Recorded Time 5 Most Recent Mammogram completed Perla Joy [facility] 11/01/2024 13:42:26 Imaging Results None recorded. Procedure Notes None recorded. Medical Equipment None Reported. Allergies Allergen ID Allergen Name Allergen Category Reaction Reaction Severity Criticality Documentation Date Start Date Code Code System Note Provider Name and Address Organization Details Recorded Time 5 Product containin g angiotens in-conver ting enzyme inhibitor (product) medicatio n Not available Not available Not available 06/16/2018 37196 009 [facility] 8 08:33:05 Medications Name Sig Start Date [...] 4 hours by oral route as needed. 02/06/ 2023 04/25 /2023 completed Not Available Not Available Not Available [...] Updated DateTime 5 154.94 cm 33.3 kg/m2 30087.2 6 g 85 /min 96 % 96 % 120/80 mm[Hg] [facility] 5 10:19:49 Social History Question Answer Notes LastModified by Organizat ion Details LastModified Time Tobacco Smoking Status Never Smoker Not Available [employer] 08/07/2020 03:36:23 What Was The Date Of Your Most Recent Tobacco Screening? 08/08/2025 [email or web address] Information not available 08/08/2025 Sex: Unknown Functional Status Question Answer Note LastModified by Organization D etails LastModified Time Do you or have you ever used any other forms of tobacco or nicotine? No [email or web address] Information not available 01/27/2023 Mental Status None recorded. Family History Nothing Reported. Medical History No medical history recorded. Gynecological History Statement/Question Response Most Recent Mammogram 10/24/2024 Obstetrics History GPAL:G 0 P 0 0 0 0 Immunizations Vaccine Type Date Status Note Provider Ryan e and Address Organization Details Recorded Time COVID-19 vaccine, vector-nr, rS-Ad26, PF, 0.5 mL 01/09/2021 completed Marika packer [facility] 01/13/2022 08:29:14 COVID-19, mRNA, LNP-S, PF, 30 mcg/0.3 mL dose 10/14/2021 completed Marika packer [facility] 01/13/2022 08:29:30 Past Encounters Encounter ID Performer Location Encounter Start Date Encounter Closed Date Diagnosis/Indication Diagnosis SNOMED-CT Code Diagnosis ICD10 Code Diagnosis IMO Codes Diagnosis Note [id number] Jurgen Cabello [facility] [address],[facility] [place] [address] 08/08/2025 10:04:04 08/08/2025 10:50:41 Atypical chest pain 899461460 R07.89 this appears to be costochond ral but given prior open heart surgery we will treat it accordingl y but in meantime we will get ct scan Essential hypertension 54896909 I10 stable and tolerates meds Abnormal cardiovascular function 111906042 R93.1 [id number] Chest wall pain 71466560 6 R07.89 [id number] this appears to be costochond ral but given prior open heart surgery we will treat it accordingl y but in meantime we will get ct scan Chronic th oracic back pain 9184801832 66370 M54.6 G89.29 32665212 Hand pain 38316296 M79.6 43 need xr first add naproxen if signif will refer to ortho hand Health Concerns Section Related Observation LastModified by Organization Detai ls LastModified Time None Recorded Concern Status LastModified by Organization Details LastModified Time None Recorded Payers Encounter Date Sequence Insurance Name Policy Number Policy Tyler Covered Member ID Tyler Member ID Guarantor Name 08/08/2025 1 [facility] [employer] - [employer]CTORCARE TYPE I (HMO) [id number] Adelaida Recinos [id number] Adelaida Recinos Notes Date Note Type Note Provider Name and Address Organization Details Recorded Time 5 text/htm l Care Management - HypertensionReported by [...] updiscussed with husb present Jurgen Cabello, DO [address] [facility], [place], [address], [facility] 08/08/2025 15:10:45 OBGyn Episode No OBEpisode recorded.
== END 2025-08-10 08:47 | disposition home or self-care (01) ==
LOC: HO.XRAY 08:46
PROVIDERS: Absent Provider Internal Medicine; PCP Internal Medicine; Visit Provider Internal Medicine
DX: R07.89 Other chest pain (principal); R93.1 Abnormal findings on diagnostic imaging of heart and coronary circulation; I10 Essential (primary) hypertension; I25.10 Atherosclerotic heart disease of native coronary artery without angina pectoris; M54.6 Pain in thoracic spine; G89.29 Other chronic pain; Z87.74 Personal history of (corrected) congenital malformations of heart and circulatory system
CPT/HCPCS: 71046; 71100; 72070; 93005; 99212

== ENCOUNTER 2025-08-10 08:46 | Outpatient (AMB) | payer OTHER, SELFPAY ==
[2025-08-10 08:48] VITALS: BP 126/72; PULSE 97; BMI 32.7
--- NOTE | 2025-08-10 08:48 | A.OFFVIS_ITS ---
Vital Signs 08/10/25 08:48 Height 5 ft 1 in Weight 172 lb 13.478 oz BMI 32.7 BP 126/72 Blood Pressure Location Lt brachial Pulse 97 Pulse Source Monitor Intake Visit Reasons: RESPIRATORY MEDICINE PHYSICIAN/Dr Kerr referral/ Chest pain [employer] Club Attendant Required: No Accompanied by: Spouse Allergies No Known Allergies Allergy (Verified 08/10/25 08:50) Medication List - Last Reconciled 08/10/25 by Jeff Hernandez MD acetaminophen (Tylenol Extra Strength) 500 mg PO Q6H PRN amlodipine 5 mg PO DAILY PRN citalopram 20 mg PO DAILY diclofenac potassium 50 mg PO BID PRN losartan-hydrochlorothiazide 100-25 mg 1 tab PO DAILY HPI Comments Details: Adelaida has been referred for evaluation of an abnormal echocardiogram. A recent study had shown LV dysfunction and EF of 47%. Basal inferior/inferoseptal akinesis and basal inferolateral dyskinesis. There is a history of ASD repair from around 2000. Patient herself states she feels well. She has got no cardiac complaints like angina or shortness of breath or anything else. [facility] Medical History (Updated 08/10/25 @ 09:26 by Jeff Hernandez MD) Osteoarthritis of left knee Stress bladder incontinence, female Depression Primary osteoarthritis of right knee Atypical lobular hyperplasia of right breast Atrial septal defect delivery delivered HTN (hypertension) Surgical History (Updated 08/10/25 @ 09:08 by Jeff Hernandez MD) History of surgery Tubal ligation status Hx of section Family History (Updated 08/10/25 @ 08:52 by John Torres CNA) Mother History of high blood pressure Maternal Grandmother History of high blood pressure Social History Are you a primary home care scheduler to a significant other at home: No Do you presently have visiting nurse or other home services: No Alcohol intake: never Patient Tobacco Use Status: Never used Tobacco Female Reproductive History Menstrual Age of Menarche: 9 Review of Systems Const Denies daytime sleepiness, Denies difficulty sleeping, Denies snoring, Denies stops breathing during sleep and Denies weakness Card Denies chest pain, Denies rapid heart rate, Denies irregular heart rhythm, Denies claudication, Denies leg edema, Denies lightheadedness, Denies palpitations, Denies dyspnea, Denies dyspnea on exertion, Denies orthopnea, Denies paroxysmal nocturnal dyspnea and Denies slow heart rate Resp Denies cough, Denies dyspnea, Denies dyspnea on exertion and Denies snoring GI Reports no additional complaints, Denies hematochezia, Denies change in stool character and Denies dyspepsia Musc Denies abnormal gait, Denies muscle weakness and Denies numbness Neuro Denies abnormal gait, Denies numbness and Denies weakness Endo Denies palpitations Physical Exam Vital Signs: Last Vital Signs Pulse 97 08/10/25 08:48 BP 126/72 08/10/25 08:48 BMI result Body Mass Index 32.7 Const General: comfortable and no acute distress Orientation/consciousness: patient oriented x3 HEENT Other: Unremarkable Head: Yes normal to inspection Neck Neck: Yes normal visual inspection Chest Chest palpation & inspection: normal inspection of the chest Resp Auscultation: clear to auscultation bilaterally Cardio Palpation: normal PMI Heart sounds: S1 normal heart sound present, S2 normal heart sound present, no gallops, no murmurs and no rubs GI Palpation (GI): Soft to palpation Back/Spine/Pelvis Other: unremarkable Skin General skin exam: no rashes or lesions noted Neuro General: patient oriented x3 Extrem General: Yes normal to inspection Psych Mental Status: mental status grossly normal Office Procedures EKG Details: EKG with underlying sinus rhythm at 97/Min; T inversions in the inferior and anterolateral leads; PVCs; [place] [id number], Complete Assessment & Plan Assessment & Plan (1) Abnormal echocardiogram: Code(s): R93.1 - Abnormal findings on diagnostic imaging of heart and coronary circula tion Category: Medical (2) Status post atrial septal defect repair: Code(s): Z87.74 - Personal history of (corrected) congenital malformations of heart and circulatory system Category: Surgical (3) HTN (hypertension): Code(s): I10 - Essential (primary) hypertension Category: Medical Plan Per notes, repair of secundum atrial septal defect in 2000 through a median sternotomy, at [facility]. Small NSTEMI, uncertain etiology in 2006. Cardiac catheterization in 2006 had shown attenuation of the apical portion of the LAD of uncertain significance but otherwise normal coronary arteries. However, that finding was felt to be new, since prior catheterization. REINALDO from 2006-no esndn-ts-onpy shunt. Recent cardiac studies reviewed. In the echocardiogram, LVEF is 47%. Basal inferior/inferoseptal akinesis. Basal inferolateral dyskinesis. No residual ASD. On comparison with prior study from 2023, wall motion was thought to be mostly similar. In a prior echocardiogram from 2018, LVEF was 40-45%. In that study, wall motion abnormalities could not be assess clearly. Overall, history of prior ASD repair, no active symptoms but there was evidence of LV dysfunction on the echocardiogram from last few years as well as question of wall motion abnormalities. We can do a coronary CTA for assessment of any concurrent CAD. If any abnormal findings, we will plan accordingly. Patient agrees with the above. With regard to hypertension, stable on the current regimen including Amlodipine, Losartan/HCTZ. Orders: Orders CT Cardiac Coronary Angio Today I25.10 - Atherosclerotic heart disease of [place] coronary artery without angina pectoris, Z87.74 - Personal history of (corrected) congenital malformations of heart and circulatory system Basic Metabolic Panel Today R93.1 - Abnormal findings on diagnostic imaging of heart and coronary circulation Coding Level of Care Code New Pt Level 4 (28738) Complex EM visit Add On G2211 Diagnoses Abnormal echocardiogram R93.1 Status post atrial septal defect repair Z87.74 HTN (hypertension) I10 CPT Codes EKG - CPT: 03503-Vryzaeoissrwhwpsi, Complete ([id number])
--- OUTSIDE RECORDS SUMMARY | 2025-08-10 09:22 | XMS_ITS | Encounter Summary ---
Author Organization [facility] Address [address] [place] [address] Phone Care Team Providers Care Decator Operator Name Role Phone Jurgen Kerr DO Primary Care Provider [phone] Encounter Details Date Type Department Care Team (Late st Contact Info) Description 07/24/2025 Transcribe Orders Virtual Department [address] [place] [address] Jurgen Kerr DO [address] [place] [address] [place] [address] [email or web address] Rib pain on right side (Primary [...] pain documented in this encounter Care Teams Decator Operator Relationship Specialty Start Date End Date CiriloJurgen DO Bridgette [email or web address] PCP - General 10/08/17 documented as of this encounter Additional Source Comments The information contained in this document represents components of the legal health record. It is not the complete legal health record.[facility]
--- OUTSIDE RECORDS SUMMARY | 2025-08-10 09:22 | XMS_ITS | Clinical Summary ---
Author Organization [facility] Address [address] [place] [id number] Phone Care Team Providers Care Occupational Health Nurse Manager Name Role Phone [employer] Jurgen Angeles DO Primary Care Provider [phone] Allergies Active Allergy Reactions Criticality Noted Date [...] Department Care Team Description 07/24/2025 Transcribe Orders [facility] Department [address] [place] [id number] Jurgen Kerr DO Rib pain on right [...] topic Medical Devices Not on file Insurance [employer] Member Subscriber Plan / Payer (Ef fective 2023-Present) Name:Jorje Adelaida Relation to Subscriber:Self Name:Jorje Adelaida Payer ID:Not on file Group ID:Not on file Type:Medicaid Address: [address] [employer] Member Subscriber Plan / Payer (Ef fective 2023) Name:Adelaida Recinos Relation to Subscriber:Self Name:Adelaida Recinos Payer ID:Not on file Group ID:Not on file Type:Medicaid Address: [address] [employer] Member Subscriber Plan / Payer ( fective 2023-) Name:Adelaida Recinos Relation to Subscriber:Self Name:Adelaida Recinos Payer ID:Not on file Group ID:Not on file Type:Medicaid Address: [address] [employer] NET PARTIAL Member Subscriber Plan / Payer (Ef fective 2023-) Name:Adelaida Recinos Relation to Subscriber:Self Name:Adelaida Recinos Payer ID:Not on file Group ID:Not on file Type:Medicaid Address: [address] [employer] NET PARTIAL Member Subscriber Plan / Payer (Ef fective 2023-) Name:Adelaida Recinos Relation to Subscriber:Self Name:Adelaida Recinos Payer ID:Not on file Group ID:Not on file Type:Medicaid Address: [address] [employer] NET PARTIAL [facility] DIRECT Care Teams Occupational Health Nurse Manager Relationship Specialty Start Date End Date Jurgen Kerr DO [email or web address] PCP - General 10/08/17 Additional Source Comments The information contained in this document represents components of the legal health record. It is not the complete legal health record.[facility]
== END 2025-08-10 09:06 | disposition home or self-care (01) ==
PROVIDERS: PCP Internal Medicine; Visit Provider Internal Medicine
DX: R93.1 Abnormal findings on diagnostic imaging of heart and coronary circulation (principal); Z87.74 Personal history of (corrected) congenital malformations of heart and circulatory system; I10 Essential (primary) hypertension
CPT/HCPCS: 93010; 99214

== ENCOUNTER → 2025-08-10 09:23 | Outpatient (BNV) | payer OTHER, SELFPAY | PROVIDERS: Absent Provider Internal Medicine; PCP Internal Medicine; Visit Provider Radiology Diagnostic Radiology | DX: I51.7 Cardiomegaly (principal); M54.6 Pain in thoracic spine | CPT/HCPCS: 71046; 71100; 72070 ==